=== PATIENT | female | born 1940 | race Caucasian/White ===

== ENCOUNTER → 2017-12-14 | Day surgery (SDC) | payer OTHER ==
[2017-11-16 09:11] VITALS: Ht 165.1 cm; Wt 56.8 kg
[~2017-12-14] VITALS: Ht 165.1 cm; Wt 56.8 kg
[~2017-12-14] MED LIST: 500ML BSS 0.3ML EPI 1:1000PF IRRIG ONE; ACETAMINOPHEN 325 MG TAB PO PRN; AMVISC PLUS 0.8ML SYRINGE INT OCU ONE; ATROPINE SULFATE 0.1 MG/ML 5ML SYR IV PRN; BSS FLUSH ONE; CALC500C70 PO; CHOL1000 PO; EpHEDrine SULFATE INJ 50 MG/ML AMP IV PRN; EpINEphrine INJ 1MG/ML AMP 1 MG/ML AMP ONE; FLUT1AER5 INH; LACTATED RINGER'S 1000ML 500 ML IV SCH; LIDOCAINE 3.5% OPH GEL PER APPLICATION CHARGE ONE; LIDOCAINE HCL 1% MPF 2 ML VIAL ONE; MIDAZOLAM HCL 1 MG/ML 2ML VIAL ONE; MULT-190 PO; MULT-506 PO; POVIDONE-IODINE OP SOLN 30 ML BTL ONE; PROPARACAINE 0.5% OP SOLN PER DROP CHARGE OPR SCH; TEMA30CA4 PO; TOBRAMYCIN/DEXAMETHASONE OPH OINT PER APPLN CHARGE ONE; VNTHFA/IN INH
[2017-12-14] MEDS: PHENYLEPHRINE HCL 2.5% OP SOLN PER DROP CHARGE OPR SCH ×2 (08:15→08:20)
[2017-12-14] MEDS: TROPICAMIDE 1% OP SOLN PER DROP CHARGE OPR SCH ×2 (08:16→08:21)
[2017-12-14] MEDS: CYCLOPENTOLATE HCL 1% OP SOLN PER DROP CHARGE OPR SCH ×2 (08:17→08:22)
[2017-12-14] MEDS: KETOROLAC 0.5% OP SOLN PER DROP CHARGE OPR SCH ×2 (08:18→08:25)
[2017-12-14] MEDS: GATIFLOXACIN OP SOLN PER DROP CHARGE OPR SCH ×2 (08:19→08:34)
--- NOTE | 2017-12-14 08:37 | History & Physical Bridge - [place] ---
H&P Re-Evaluation Bridge Note: I have examined the patient, reviewed the History & Physical and in the interval since the performance of the History & Physical I have noted the following changes of clinical significance: No changes noted
--- NOTE | 2017-12-14 09:08 | [facility] Operative Report ---
Operative Report Date of Service Dec 14, 2017. Operative Report 1. PREOPERATIVE DIAGNOSIS: Cataract of the right eye. 2. POSTOPERATIVE DIAGNOSIS: Same. 3. PROCEDURE: Phacoemulsification with intraocular lens implantation of the right eye. SURGEON: Dr. Adrien John. ANESTHESIA: Topical Lidocaine gel, 1% Non- Preserved intracameral Lidocaine, and monitored intravenous sedation. INDICATIONS FOR THE PROCEDURE: The patient is a 77 - year-old female with a history of cataract of the right eye causing significant visual impairment. The details of the proposed procedure were explained to the patient who asked appropriate questions and following discussion of all risks, benefits and alternatives agreed to have the procedure done. 4. OPERATION AND FINDINGS: DESCRIPTION OF PROCEDURE: After informed consent was obtained, the patient was brought to the Operating Room at the [facility]. The patient was placed in a supine position and then the right eye was prepped and draped in the usual sterile fashion for intraocular surgery. A drop of topical Lidocaine gel was placed in the operative eye. A wire lid speculum was then placed in the fornices. A corneal paracentesis was then created temporally. The Non-Preserved Lidocaine was then instilled into the anterior chamber. The anterior chamber was then pressurized with viscoelastic. A 2.0 mm clear corneal incision was then created temporally. A cystotome was inserted into the anterior chamber and used to create a tear in the anterior lens capsule. This capsular tear was then used to create a small flap and the flap was dragged in a counterclockwise direction in order to create a continuous curvilinear capsulorrhexis. Hydrodissection was accomplished with balanced salt solution. Phacoemulsification of the lens nucleus was then performed in a standard [id number] technique. The phaco time was 26 seconds with an average power of 13 %. The remaining cortical material was removed using irrigation aspiration. The capsular bag was then filled with viscoelastic. A [employer] MI60L +20.0 diopters lens was then loaded into the injector and injected into the capsular bag. The remaining viscoelastic was removed with the irrigation aspiration handpiece. The wound was hydrated and then checked and found to be watertight. The intraocular pressure was checked and found to be adequate. The wire lid speculum was removed and the patient's face was cleaned and dried. TobraDex ointment was placed in the inferior fornix. The patient was discharged to the Recovery Room having tolerated the procedure well. There were no complications. The patient will be seen tomorrow in the office for follow-up. I attest to the content of the Intraoperative Record and any orders documented therein. Any exceptions are noted below.
--- NOTE | 2017-12-14 09:10 | Discharge Instructions-SurgCtr ---
Discharge Instructions Date of Service Dec 14, 2017. Visit Reason for Visit: Cataract Right Eye Discharge Discharge Diagnosis / Problem: cataract Discharge Goals Goal(s): Improve function Activity Recommendations Activity Limitations: per Instructions/Follow-up section Anesthesia . Post Anesthesia Instructions: If you have had General Anesthesia or IV Sedation: * Do not drive today. * Resume driving when surgeon permits. * Do not make important decisions or sign legal documents today. * Call surgeon for: 1. Temperature elevations greater than 101 degrees F. 2. Uncontrollable pain. 3. Excessive bleeding. 4. Persistent nausea and vomiting. 5. Medication intolerance (nausea, vomiting or rash). * For nausea and vomiting use only clear liquids such as: tea, soda, bouillon until nausea subsides, then gradually increase diet as tolerated. * If you have any concerns or questions, call your surgeon's office. If physician is unavailable and it is an emergency, call 911 or go to the nearest emergency room. . Diet Recommendations Home Diet: resume previous diet Procedures Procedures Performed: Right Cataract Phacoemulsification With Intraocular Lens Implant Pending Studies Studies pending at discharge: no Medical Emergencies . Who to Call and When: Medical Emergencies: If at any time you feel your situation is an emergency, please call 911 immediately. . Non-Emergent Contact Non-Emergency issues call your: [facility] . . "Provider Documentation" section prepared by Adrien John. .
[2017-12-14 09:11] VITALS: TEMP 36.3
--- NOTE | 2017-12-14 09:27 | Anesthesia Progress Nt - [facility] ---
Anesthesia Post Op Note Date & Time Dec 14, 2017 at 09:27 Vital Signs Pain Intensity: 0 Vital Signs Past 12 Hours Date Time Temp Pulse Resp B/P (MAP) Pulse Ox O2 Delivery O2 Flow Rate FiO2 12/14/17 09:11 36.3 62 16 143/70 (94) 100 Room Air 12/14/17 08:04 36.9 83 20 171/91 (117) 98 Room Air Notes Mental Status: alert / awake / arousable, participated in evaluation Pt Amnestic to Procedure: Yes Nausea / Vomiting: adequately controlled Pain: adequately controlled Airway Patency, RR, SpO2: stable & adequate BP & HR: stable & adequate Hydration State: stable & adequate Anesthetic Complications: no major complications apparent
[2017-12-14 09:41] VITALS: BP 120/77; PULSE 82; O2SAT 98
== END | disposition home or self-care (01) ==
LOC: X.SURG 07:38
PROVIDERS: ATTEND Ophthalmology
DX: H26.9 Unspecified cataract (principal); J45.909 Unspecified asthma, uncomplicated; K21.9 Gastro-esophageal reflux disease without esophagitis; K40.90 Unilateral inguinal hernia, without obstruction or gangrene, not specified as recurrent; J30.9 Allergic rhinitis, unspecified; J45.30 Mild persistent asthma, uncomplicated; L57.0 Actinic keratosis; M19.90 Unspecified osteoarthritis, unspecified site; M81.0 Age-related osteoporosis without current pathological fracture

== ENCOUNTER 2019-01-19 12:33 | Inpatient (IN) ==
[2019-01-19] MEDS ORDERED: SODIUM CHLORIDE 0.9% 500 ML IV SCH (13:15)
--- NOTE | 2019-01-19 13:40 | XRay Report ---
XR chest 1V portable CLINICAL HISTORY: Dyspnea COMPARISON STUDY: No previous studies for comparison. FINDINGS: The heart is mildly enlarged. There is radiographic evidence of mild pulmonary vascular con gestion. There are small bilateral pleural effusions. There are nonspecific basilar airspace opacitie s likely atelectatic although an inflammatory process could appear similar. IMPRESSION: 1. Mild cardiomegaly and radiographic evidence of mild pulmonary vascular congestion/fluid overload w ith small bilateral pleural effusions. Basilar opacities statistically atelectatic Electronically signed by: Michael Mckeon M.D. 01/19/2019 1:39 PM
[2019-01-19 13:42] LABS: Basophils # (auto) 0.01 K/uL (0-0.2); Basophils % (auto) 0.2 %; Eosinophils # (auto) 0.07 K/uL (0-0.5); Eosinophils % (auto) 1.2 %; Hematocrit (blood only) 35.4 % (37-47); Hemoglobin 11.7 g/dL (12.0-16.0); Immature Granulocytes # (auto) 0.01 K/uL (0.00-0.02); Immature Granulocytes % (auto) 0.2 %; Lymphocytes # (auto) 1.29 K/uL (1.2-3.4); Lymphocytes % (auto) 22.7 %; Mean Corpuscular Hgb Conc 33.1 g/dL (32-36); Mean Corpuscular Volume 101.4 fL (80-100); Mean Platelet Volume 10.7 fL (7.4-10.4); Monocytes # (auto) 0.43 K/uL (0.11-0.59); Monocytes % (auto) 7.6 %; Neutrophils # (auto) 3.87 K/uL (1.4-6.5); Neutrophils % (auto) 68.1 %; Nucleated RBC # (auto) 0.03 K/uL (0-0); Nucleated RBC % (auto) 0.5 %; Platelet Count 210 K/uL (130-400); RDW Coefficient of Variation 15.2 % (11.5-14.5); RDW Standard Deviation 54.4 fL (36.4-46.3); Red Blood Count 3.49 M/uL (4.2-5.4); White Blood Count 5.68 K/uL (4.8-10.8)
[2019-01-19 13:43] LABS: Base Excess VBG -1.2 mEq/L; HCO3 VBG 24 mmol/L; Oxygen Saturation VBG < 60.0 %; PCO2 VBG 40 mmHg (38-50); PO2 VBG 30 mmHg; pH VBG 7.39 (7.36-7.41)
[2019-01-19 13:45] LABS: iSTAT Hemoglobin 11.6 g/dl (12.0-16.0); iSTAT Ionized Calcium 1.18 mmol/l (1.12-1.32); iSTAT Potassium 4.2 mEq/L (3.3-5.0)
[2019-01-19 13:53] LABS: INR 1.1 (0.9-1.1); Partial Thromboplastin Ratio 0.8; Partial Thromboplastin Time 21.8 Seconds (21.0-31.0); Prothrombin Time 11.2 Seconds (9.0-12.0)
[2019-01-19 14:04] LABS: Alanine Aminotransferase 49 U/L (12-78); Albumin Level 3.3 gm/dl (3.4-5.0); Aspartate Aminotransferase 36 U/L (15-37); BUN Creatinine Ratio 16.1 (10-20); Blood Urea Nitrogen 17 mg/dl (7-18); Calcium 8.7 mg/dl (8.5-10.1); Carbon Dioxide 24 mmol/L (21-32); Chloride 110 mmol/L (98-107); Creatinine Clr Calc Pharmacy 41.6 ml/min; Est GFR (African American) 58.8; Est GFR (Non-African American) 50.7; Glucose 99 mg/dl (70-99); Magnesium 1.8 mg/dl (1.8-2.4); Potassium 4.1 mmol/L (3.5-5.1); Sodium 140 mmol/L (136-145)
[2019-01-19 14:08] LABS: Albumin Globulin Ratio 1.1 (0.9-2); Alkaline Phosphatase 86 U/L (45-117); Bilirubin,Total 0.7 mg/dl (0.2-1); Total Protein 6.3 gm/dl (6.4-8.2); Troponin I < 0.015 ng/ml (0-0.045)
[2019-01-19] MEDS ORDERED: IOVERSOL 100ml IV PRN (14:16)
[2019-01-19 14:23] LABS: Influenza A virus by PCR Neg for Influ A (Neg); Influenza B virus by PCR Neg for Influ B (Neg)
--- NOTE | 2019-01-19 14:39 | CT Scan Report ---
CT angio chest PE protocol CLINICAL HISTORY: 78 years-old Female presenting with shortness of breath, clinical concern for pulmo nary embolus. TECHNIQUE: Multidetector CT angiography of the chest was performed after administration of intravenou s contrast. 3-D volumetric and/or maximum intensity projection (MIP) images were subsequently reconst ructed for review. IV contrast: 120 mL of Optiray 320. One or more dose lowering techniques were used consistent with the principles of ALARA (as low as reasonably achievable), including automatic expos ure control, mA or kV adjustment to individual patient size, and/or use of iterative reconstruction. COMPARISON: Chest x-ray from earlier today. CT DOSE (mGy.cm): The estimated cumulative dose is 215.55 mGycm. FINDINGS: Information Security topogram: Cardiomegaly. Pulmonary vasculature: The study is adequate for assessment of the pulmonary vascular tree. No filling defect within the pul monary arteries to suggest embolus. Main pulmonary artery enlarged measuring 3.5 cm in diameter. No f lattening of the interventricular septum. No intracardiac filling defect. No reflux of contrast into the hepatic veins. Remaining chest: Soft tissues: Normal thyroid and thoracic inlet. Multiple subcentimeter mediastinal lymph nodes, nons pecific. Atherosclerosis of the aorta. Multichamber enlargement of the heart. Coronary artery calcifi cation. Moderate bilateral pleural effusions, right greater than left. These are simple appearing. No pericardial effusion. Upper abdomen normal. Lungs and airways: No pneumothorax. Bronchial wall thickening in the lower lobes, left greater than r ight. Central airways patent. Pulmonary arteries are enlarged relative to adjacent bronchi. Interlobu lar septal thickening. Dependent opacity consistent with passive atelectasis. Bandlike opacities in t he left lower lobe. Dependent predominant groundglass opacity with added density of the lungs diffuse ly. Musculoskeletal: Vertebral body height loss of T8 consistent with a compression deformity. IMPRESSION: 1. No evidence of pulmonary embolus. 2. Cardiomegaly with volume overload and congestive changes with mild pulmonary edema. 3. Moderate bilateral pleural effusions. 4. Compression fracture of T8, age indeterminate. Correlate with point tenderness. Electronically signed by: Waqas Churchill M.D. 01/19/2019 2:38 PM
[2019-01-19] MEDS ORDERED: dilTIAZem HCl 5 MG/ML 5 ML VIAL IV STA (14:42)
[2019-01-19] MEDS ORDERED: Heparin IV Standard *NO* Bolus IV ONE ×2 (15:14→19:10)
[2019-01-19] MEDS ORDERED: dilTIAZem HCl 125 MG in DEXTROSE 5% 100 ML IV STA (15:16)
[2019-01-19] MEDS ORDERED: HEPARIN 25000 UNIT/500 ML D5W IV ONE (15:35)
[2019-01-19] MEDS: HEPARIN SODIUM/DEXTROSE 25,000 UNITS/500 ML BAG IV SCH (15:55)
[2019-01-19] MEDS ORDERED: NITROGLYCERIN 2% OINTMENT 30GM TUBE EXT SCH (16:30)
--- NOTE | 2019-01-19 17:12 | History & Physical Report ---
Date of Service January 19, 2019 Assessment & Plan (1) Atrial fibrillation: Pt with hx exertional SOB and palpitations for several months and found to have frequent PAC's. Was started on metoprolol succ 25mg daily, however pt stopped taking one month ago. Pt reports URI/bronchitis symptoms in 12/2018 and was treated with doxycycline, has been using albuterol BID. 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 Was found to be in a-fib RVR by EMS and was given cardizem 15mg IV en route. Upon ER arrival pt afebrile, P: 153, R: 23, BP: 132/112, 94% on 2L NC. Was given another dose of cardizem with P in 140's. Cardizem drip was started and Heparin IV started. Pt was also given 500ml NSS. EKG afib RVR, [id number], ST changes WBC: 5, Hgb: 11.7, Plt: 210, magnesium: 1.8, negative troponin CTA CHEST: No evidence of pulmonary embolus. Cardiomegaly with volume overload and congestive changes with mild pulmonary edema. Moderate bilateral pleural effusions. Compression fracture of T8, age indeterminate. Correlate with point tenderness. -admit tele -pending TSH -echo -cardiology consult, discussed with professional development manager. appreciate recommendations: -continue cardizem drip, plan to discontinue when rates improve -metoprolol succ 25mg po BID -nitro paste and monitor BP's (2) Fluid overload: Hx stress echo in 09/2018 with no evidence for ischemia, had frequent PACs, occasional PVCs, EF: 55-59%, normal wall motion, moderate mitral regurgitation, severe tricupsid regurgitation. CXR: Mild cardiomegaly and radiographic evidence of mild pulmonary vascular congestion/fluid overload with small bilateral pleural effusions. Basilar opacities statistically atelectatic Probable diastolic dysfunction -monitor I&O's, daily weights -lasix 40mg IV and monitor response -obtain new resting echo -monitor bmp (3) HTN (hypertension): BP's elevated 132/112, 145/109 -currently on cardizem drip -metoprolol succ 25mg po BID -nitropaste -monitor BP's (4) Leg edema: Noted increased leg edema past couple of days -pending venous doppler BLE to r/o DVT as LLE slightly larger than right. Pt already on Heparin IV -pt has noted skin erythema to bilateral toes secondary to sun exposure while on doxycycline last month, otherwise no signs of cellulitis (5) Asthma: Reported URI/bronchitis symptoms in 12/2018 and was treated with doxycycline. No current wheezing on exam. negative influenza. Afebrile. -hold albuterol -xopenex prn -continue flovent DVT Prophylaxis -On Heparin IV DNR as per discussion with pt Follows with Dr Barth for routine care Pt was seen with Dr Yung. See addendum History of Present Illness Chief Complaint: Tachycardia Primary Care Provider: Christiane Barth Pt is 78 y/o F with PMH asthma, allergic rhinitis, GERD, h/o frequent PACs presented to ER from sales review clerk's office for tachycardia reported P 170. Pt with hx SOB with exertion for several months and had followed with cardiology. She had stress echo in 09/2018 with no evidence for ischemia, had frequent PACs, occasional PVCs, EF: 55-59%, normal wall motion, moderate mitral regurgitation, severe tricupsid regurgitation. Pt was started on metoprolol succ 25mg daily. She had Holter monitor ordered also. Pt states has had increased SOB over the past couple of weeks. She states has intermittent palpitations over the past couple of months, doesn't think they are worse recently or currently. Denies CP or dizziness. Reports has noticed increased edema to legs past couple of days, left ankle more swollen than right. Pt states was in [place] in 12/2018 and while there developed congestion, cough and reports was seen at urgent care center and prescribed doxycycline. Pt states was wearing sandals and was in the sun and developed sunburn to toes and part of foot while on doxycycline. Pt reports that she stopped taking metoprolol in 12/2018 when she was sick because she felt "edgy" and faint and thought it was secondary to metoprolol. She states was taking an OTC decongestant in 12/2018 which she thinks was Mucinex, hasn't taken that for past month. Has been using albuterol inhaler twice a day. Feels cough has improved. Denies fever/chills, diaphoresis, N/V/D/C, JASON, syncope, vision changes, neck pain, orthopnea, hematemesis, sore throat, choking, otalgia, rhinorrhea, abdominal pain, paresthesias, other rashes, urinary symptoms. Reported that pt was given cardizem 15mg IV en route by EMS. Upon ER arrival pt afebrile, P: 153, R: 23, BP: 132/112, 94% on 2L NC. Was given another dose of cardizem with P in 140's. Cardizem drip was started and Heparin IV started. Pt was also given 500ml NSS. Allergies Allergy/AdvReac Type Severity Reaction Status Date / Time No Known Allergies Allergy Unverified 01/19/19 13:15 Home Medications Home Medications Medication Instructions Recorded Confirmed Type albuterol sulfate [Ventolin HFA] 2 puff INHALATION Q6H PRN 01/19/19 01/19/19 History azelastine 2 spray INTRANASAL BID 01/19/19 01/19/19 History calcium carbonate [Calcium 600] 600 mg PO DAILY 01/19/19 01/19/19 History cholecalciferol (vitamin D3) 400 unit PO DAILY 01/19/19 01/19/19 History fluticasone [Flovent HFA] 2 puff INHALATION BID 01/19/19 01/19/19 History metoprolol succinate 25 mg PO DAILY 01/19/19 01/19/19 History mometasone [Nasonex] 2 spray INTRANASAL BID 01/19/19 01/19/19 History temazepam 15 mg PO HS PRN 01/19/19 01/19/19 History Past Med/Surg History Medical History PAC (premature atrial contraction) (Chronic) GERD (gastroesophageal reflux disease) (Chronic) Allergic rhinitis (Chronic) Asthma (Chronic) Asthma (Chronic) Allergic rhinitis GERD (gastroesophageal reflux disease) PAC (premature atrial contraction) Surgical History History of cataract surgery (Chronic) Social History Preferred Language: [place] Communication Ability: Effective Hospice Clinical Supervisor Required: No Beliefs That Will Affect Care: None Current Living Situation: Alone Other Information That Helps Us Care for You: No Feels Safe at Home: Yes Safety Concerns: Feels Safe At This Time Smoking Status: Never smoker Hx Alcohol Use: Yes Hx Substance Use: No Review of Systems All systems reviewed & are unremarkable except as noted in HPI & below Physical Exam Vital Signs (Past 24 Hours): Last Vital Signs Temp 37.1 C 01/19/19 12:36 Pulse 133 H 01/19/19 16:30 Resp 12 01/19/19 16:30 BP 158/132 H 01/19/19 16:30 Pulse Ox 92 01/19/19 16:30 Physical Exam: General: mild distress, WDWN Head: normocephalic, atraumatic Eyes: PERRL, EOM's intact, conjunctiva non-injected, anicteric ENT: normal inspection external ears, nose, mucous membranes moist Neck: supple, trachea midline Lungs: +tachypnea, RR: 24, 95% on 2L NC, diminished, faint rales bases CV: irregularly irregular, rate 140, 1+ pretibial edema Abd: normal BS, soft, non-tender Back: no spinous process tenderness to palpation Ext: no cyanosis, no calf tenderness, left ankle slightly larger than right. bilateral toes with erythema, non-tender Neuro: A&O x 3, no focal deficits noted, normal affect Skin: warm, dry Results & Data Laboratory Results Short CBC 01/19/19 Range/Units 13:28 WBC 5.68 (4.8-10.8) K/uL Hgb 11.7 L (12.0-16.0) g/dL Hct 35.4 L (37-47) % Plt Count 210 (130-400) K/uL BMP 01/19/19 13:28 Sodium 140 Potassium 4.1 Chloride 110 H Carbon Dioxide 24 BUN 17 Creatinine 1.04 Glucose 99 Calcium 8.7 Cardiac Enzymes 01/19/19 Range/Units 13:28 Troponin I < 0.015 (0-0.045) ng/ml Liver Function 01/19/19 Range/Units 13:28 Total Bilirubin 0.7 (0.2-1) mg/dl AST 36 (15-37) U/L ALT 49 (12-78) U/L Alkaline Phosphatase 86 (45-117) U/L Albumin 3.3 L (3.4-5.0) gm/dl Diagnostic Findings CXR: IMPRESSION: 1. Mild cardiomegaly and radiographic evidence of mild pulmonary vascular congestion/fluid overload with small bilateral pleural effusions. Basilar opacities statistically atelectatic CTA CHEST: IMPRESSION: 1. No evidence of pulmonary embolus. 2. Cardiomegaly with volume overload and congestive changes with mild pulmonary edema. 3. Moderate bilateral pleural effusions. 4. Compression fracture of T8, age indeterminate. Correlate with point tenderness. Supervising Physician Co-Signing Physician Notes Care coordinated with Lissette HUNTER. Agree with above note. Patient seen and examined. Please refer to her notes for full details. Vital signs reviewed. Physical exam: General exam: Alert and oriented. Not in acute distress. CVS: S1 and S2 heard, regular rate and rhythm, no murmurs. RS: Clear to auscultation, no wheezing or crackles. ABD: Soft, bowel sounds present, nontender, no distention. PARTY HOST: Nonfocal. EXT: No edema, no erythema. Labs: Reviewed. Assessment and plan:78F presents with sob and palpitations and found to have rapid a fib and chf. rapid afib started o cardizem drip iv heparin follow echo also added toprol xl cardiology consulted close monitor on tele CHF Normal ef on stress echo on 09/2018 tachycardia induced cardiomyopathy? valvular heart disease follow echo received iv lasix monitor i/o and daily weights added nitro paste and toprol xl close monitor Other diagnosis and plan of care as per []. Emil stone MD. (1) Atrial fibrillation Atrial fibrillation type: paroxysmal Qualified Code(s): I48.0 - Paroxysmal atrial fibrillation
--- NOTE | 2019-01-19 18:05 | Emergency Department Note ---
Entered by Jose Armando Tucker acting as a scribe for Goran Brady MD History of Present Illness General Chief complaint: Cardiac Assessment Time Seen by Provider: 01/19/19 12:47 Source: patient Mode of arrival: ambulatory History of Present Illness Provider complaint: Cardiac Assessment Onset (ago): day(s) 2 Location: chest Pain Consistency: + intermittent Exacerbated By: + none Associated symptoms: no cough and no headaches The patient is an 78 year white female with past medical history PAC, GERD, allergic rhinitis and asthma who presents to the ED with chief complains of fast heart rate beginning last couple days. The patient states she is noticing faster heart rate than usual intermittently but today it was enough to bother her bringing her to the ER. She notes nothing in particular exacerbates the pain. She states she had an upper respiratory infection which started early October then came back early December. She states she sees Dr. Richardson for her slightly irregular rhythm.She denies coughs and headaches. Home Medications Home Medications Medication Instructions Recorded Confirmed Type albuterol sulfate [Ventolin HFA] 2 puff INHALATION Q6H PRN 01/19/19 01/19/19 History azelastine 2 spray INTRANASAL BID 01/19/19 01/19/19 History calcium carbonate [Calcium 600] 600 mg PO DAILY 01/19/19 01/19/19 History cholecalciferol (vitamin D3) 400 unit PO DAILY 01/19/19 01/19/19 History fluticasone [Flovent HFA] 2 puff INHALATION BID 01/19/19 01/19/19 History metoprolol succinate 25 mg PO DAILY 01/19/19 01/19/19 History mometasone [Nasonex] 2 spray INTRANASAL BID 01/19/19 01/19/19 History temazepam 15 mg PO HS PRN 01/19/19 01/19/19 History Allergies Allergy/AdvReac Type Severity Reaction Status Date / Time No Known Allergies Allergy Unverified 01/19/19 13:15 Past Med/Surg History Medical History Asthma (Chronic) Allergic rhinitis GERD (gastroesophageal reflux disease) PAC (premature atrial contraction) Social History Feels Safe at Home: Yes Smoking Status: Former smoker Review of Systems See HPI for pertinent positives & negatives. and A total of 10 systems reviewed and were otherwise negative Physical Exam Vital Signs Vital Signs - 24 hr 01/19/19 12:36 01/19/19 14:07 01/19/19 14:39 Temperature 37.1 C Temperature Source Oral Sepsis Recent Fever Within 48 Hours No Sepsis New/Unexplained Change in Mental Status No Sepsis Action Taken by Nursing No Action Required Pulse Rate 153 H Pulse Rate [Apical] 147 H 147 H Pulse Rate from SpO2 Sensor Pulse Rhythm Irregular Pulse Strength Normal Respiratory Rate 23 16 16 Respiratory Effort / Characteristics Non-Labored Respiratory Depth Normal Respiratory Pattern Regular Blood Pressure 132/112 H Blood Pressure [Right Arm] 132/106 H 151/129 H Blood Pressure Mean 118 Blood Pressure Mean [Right Arm] 114 136 Pulse Oximetry 94 92 92 Oxygen Delivery Method Nasal Cannula Room Air Oxygen Flow Rate 2 2 01/19/19 15:05 01/19/19 15:30 01/19/19 16:00 Temperature Temperature Source Sepsis Recent Fever Within 48 Hours Sepsis New/Unexplained Change in Mental Status Sepsis Action Taken by Nursing Pulse Rate 145 H 152 H Pulse Rate [Apical] 131 H Pulse Rate from SpO2 Sensor 148 H 160 H Pulse Rhythm Pulse Strength Respiratory Rate 18 18 18 Respiratory Effort / Characteristics Respiratory Depth Respiratory Pattern Blood Pressure 166/142 H 173/142 H Blood Pressure [Right Arm] 145/109 H Blood Pressure Mean 150 152 Blood Pressure Mean [Right Arm] 121 Pulse Oximetry 91 95 96 Oxygen Delivery Method Nasal Cannula Nasal Cannula Nasal Cannula Oxygen Flow Rate 2 2 2 01/19/19 16:30 Temperature Temperature Source Sepsis Recent Fever Within 48 Hours Sepsis New/Unexplained Change in Mental Status Sepsis Action Taken by Nursing Pulse Rate 133 H Pulse Rate [Apical] Pulse Rate from SpO2 Sensor 142 H Pulse Rhythm Pulse Strength Respiratory Rate 12 Respiratory Effort / Characteristics Respiratory Depth Respiratory Pattern Blood Pressure 158/132 H Blood Pressure [Right Arm] Blood Pressure Mean 140 Blood Pressure Mean [Right Arm] Pulse Oximetry 92 Oxygen Delivery Method Nasal Cannula Oxygen Flow Rate 2 GENERAL: Well appearing, well nourished, NAD, non-toxic. EYE EXAM: Normal conjunctiva. PERRL, no anisocoria and EOM's grossly intact w/o pain. OROPHARYNX: Moist MM. NECK: Supple, no nuchal rigidity, no adenopathy, non-tender. No signs of meningismus. LUNGS: Clear to auscultation. Normal chest wall mechanics. HEART: Tachycardia and irregular rate and rhythm repsecitively, no MRG. ABDOMEN: Abdomen soft, non-tender, normo-active bowel sounds, no masses, no rebound or guarding. BACK: No CVA TTP. SKIN: No rashes and no bruising. UPPER EXTREMITIES: Upper extremities are grossly normal. LOWER EXTREMITIES: Left lower extremity swelling compared to right. Negative Homans sign. NEURO EXAM: A and O x3. GCS 15. Moves all 4 extremities on command w/o issue. Course 1256: Past medical records reviewed. The patient was evaluated in room A2, and a complete history and physical examination were performed. 1542: I spoke to Lissette Gonzalez PA-C regarding the patient's case and she has state to admit the patient to Dr. Dilshad ALLRED, [facility] for further care. The patient has verbalized agreement to the treatment plan. Consultations Consultation #1: Lissette Gonzalez PA-C Time: 15:41 Administered Medications Diltiazem HCl 125 mg/ Dextrose 125 mls @ 10 mls/hr IV .[id number] STA; Protocol Stop: 01/20/19 03:45 Last Titration: 01/19/19 17:22 Dose: 10 mg/hr, 10 mls/hr Documented by: [id number] Admin: 01/19/19 15:56 Dose: 5 mg/hr, 5 mls/hr Documented by: [id number] Cosigned by: [id number] Heparin Sodium/Dextrose (Heparin Sodium/Dextrose) 25,000 units in 500 mls @ 22 mls/hr IV .[id number] EMILY; Protocol Stop: 02/18/19 15:44 Last Admin: 01/19/19 15:55 Dose: 22 mls/hr Documented by: [id number] Cosigned by: [id number] Ioversol (Optiray 320 100ml) 120 ml IV ONCE PRN PRN Reason: Interaction Checking Stop: 01/23/19 14:15 Last Admin: 01/19/19 14:17 Dose: 120 ml Documented by: [id number] Nitroglycerin (Nitro-Bid 2%) 0.5 inch EXT Q6 EMILY Stop: 02/18/19 16:29 Last Admin: 01/19/19 16:38 Dose: 0.5 inch Documented by: [id number] Discontinued Medications Diltiazem HCl (Cardizem) 20 mg IV NOW STA Stop: 01/19/19 14:43 Last Admin: 01/19/19 14:51 Dose: 20 mg Documented by: [id number] Cosigned by: [id number] Heparin Sodium/Dextrose () 1 ea IV ONE ONE; Protocol Stop: 01/19/19 15:15 Last Admin: 01/19/19 15:47 Dose: Not Given Documented by: [id number] Heparin Sodium/Dextrose (Heparin Sodium/Dextrose) Confirm Administered Dose 25,000 units IV .STK-MED ONE Stop: 01/19/19 15:36 Last Admin: 01/19/19 15:47 Dose: Not Given Documented by: [id number] Sodium Chloride (Nss) 500 mls @ 999 mls/hr IV .Q31M EMILY Stop: 01/19/19 13:45 Last Infusion: 01/19/19 14:39 Dose: 0 mls/hr Documented by: [id number] Admin: 01/19/19 14:05 Dose: 999 mls/hr Documented by: [id number] Medical Decision Making Medical Records Attestation: I reviewed the patient's medical records. Home Medications Current Medication List: was personally reviewed by me Laboratory Data Attestation: I reviewed the patient's lab results. Result diagrams: 01/19/19 13:28 01/19/19 13:28 Lab Results 01/19/19 01/19/19 01/19/19 Range/Units 13:25 13:28 13:28 WBC 5.68 (4.8-10.8) K/uL RBC 3.49 L (4.2-5.4) M/uL Hgb 11.7 L (12.0-16.0) g/dL POC Hgb (12.0-16.0) g/dl Hct 35.4 L (37-47) % POC Hct (37-47) % MCV 101.4 H (80-100) fL MCH 33.5 (25-34) pg MCHC 33.1 (32-36) g/dL RDW Std Deviation 54.4 H (36.4-46.3) fL RDW Coeff of Melissa 15.2 H (11.5-14.5) % Plt Count 210 (130-400) K/uL MPV 10.7 H (7.4-10.4) fL Immature Gran % (Auto) 0.2 % Neut % (Auto) 68.1 % Lymph % (Auto) 22.7 % Rich % (Auto) 7.6 % Eos % (Auto) 1.2 % Baso % (Auto) 0.2 % Immature Gran # (Auto) 0.01 (0.00-0.02) K/uL Neut # (Auto) 3.87 (1.4-6.5) K/uL Lymph # (Auto) 1.29 (1.2-3.4) K/uL Rich # (Auto) 0.43 (0.11-0.59) K/uL Eos # (Auto) 0.07 (0-0.5) K/uL Baso # (Auto) 0.01 (0-0.2) K/uL Absolute Nucleated RBC 0.03 H (0-0) K/uL Nucleated RBC % (auto) 0.5 % PT 11.2 (9.0-12.0) Seconds INR 1.1 (0.9-1.1) APTT 21.8 (21.0-31.0) Seconds PTT Ratio 0.8 VBG pH (7.36-7.41) VBG pCO2 (38-50) mmHg VBG pO2 mmHg VBG HCO3 mmol/L VBG O2 Saturation % VBG Base Excess mEq/L Barometric Pressure mm/Hg POC Sodium (135-144) mEq/L Sodium (136-145) mmol/L POC Potassium (3.3-5.0) mEq/L Potassium (3.5-5.1) mmol/L POC Chloride (101-112) mEq/L Chloride (98-107) mmol/L Carbon Dioxide (21-32) mmol/L POC Total CO2 (24-31) mEq/l Anion Gap (3-11) POC Anion Gap (16-25) mmol/L POC BUN (7-18) mg/dl BUN (7-18) mg/dl Creatinine (0.6-1.2) mg/dl POC Creatinine (0.6-1.3) mg/dl Est Cr Clr Drug Dosing ml/min Est GFR ( Amer) Est GFR (Non-Af Amer) BUN/Creatinine Ratio (10-20) Glucose (70-99) mg/dl POC Glucose (other) (70-99) mg/dl Calcium (8.5-10.1) mg/dl POC Ioniz Calcium Kristian (1.12-1.32) mmol/l Magnesium (1.8-2.4) mg/dl Total Bilirubin (0.2-1) mg/dl AST (15-37) U/L ALT (12-78) U/L Alkaline Phosphatase (45-117) U/L Troponin I (0-0.045) ng/ml Total Protein (6.4-8.2) gm/dl Albumin (3.4-5.0) gm/dl Globulin (2.5-4.0) gm/dl Albumin/Globulin Ratio (0.9-2) Specimen Hemolysis Influenza Type A (PCR) Neg for Influ A (Neg) Influenza Type B (PCR) Neg for Influ B (Neg) 01/19/19 01/19/19 01/19/19 Range/Units 13:28 13:28 13:32 WBC (4.8-10.8) K/uL RBC (4.2-5.4) M/uL Hgb (12.0-16.0) g/dL POC Hgb 11.6 L (12.0-16.0) g/dl Hct (37-47) % POC Hct 34 L (37-47) % MCV (80-100) fL MCH (25-34) pg MCHC (32-36) g/dL RDW Std Deviation (36.4-46.3) fL RDW Coeff of Melissa (11.5-14.5) % Plt Count (130-400) K/uL MPV (7.4-10.4) fL Immature Gran % (Auto) % Neut % (Auto) % Lymph % (Auto) % Rich % (Auto) % Eos % (Auto) % Baso % (Auto) % Immature Gran # (Auto) (0.00-0.02) K/uL Neut # (Auto) (1.4-6.5) K/uL Lymph # (Auto) (1.2-3.4) K/uL Rich # (Auto) (0.11-0.59) K/uL Eos # (Auto) (0-0.5) K/uL Baso # (Auto) (0-0.2) K/uL Absolute Nucleated RBC (0-0) K/uL Nucleated RBC % (auto) % PT (9.0-12.0) Seconds INR (0.9-1.1) APTT (21.0-31.0) Seconds PTT Ratio VBG pH 7.39 (7.36-7.41) VBG pCO2 40 (38-50) mmHg VBG pO2 30 mmHg VBG HCO3 24 mmol/L VBG O2 Saturation < 60.0 % VBG Base Excess -1.2 mEq/L Barometric Pressure 732.0 mm/Hg POC Sodium 141 (135-144) mEq/L Sodium 140 (136-145) mmol/L POC Potassium 4.2 (3.3-5.0) mEq/L Potassium 4.1 (3.5-5.1) mmol/L POC Chloride 106 (101-112) mEq/L Chloride 110 H (98-107) mmol/L Carbon Dioxide 24 (21-32) mmol/L POC Total CO2 23 L (24-31) mEq/l Anion Gap 6.0 (3-11) POC Anion Gap 17.0 (16-25) mmol/L POC BUN 18 (7-18) mg/dl BUN 17 (7-18) mg/dl Creatinine 1.04 (0.6-1.2) mg/dl POC Creatinine 1.0 (0.6-1.3) mg/dl Est Cr Clr Drug Dosing 41.6 ml/min Est GFR ( Amer) 58.8 Est GFR (Non-Af Amer) 50.7 BUN/Creatinine Ratio 16.1 (10-20) Glucose 99 (70-99) mg/dl POC Glucose (other) 102 H (70-99) mg/dl Calcium 8.7 (8.5-10.1) mg/dl POC Ioniz Calcium Kristian 1.18 (1.12-1.32) mmol/l Magnesium 1.8 (1.8-2.4) mg/dl Total Bilirubin 0.7 (0.2-1) mg/dl AST 36 (15-37) U/L ALT 49 (12-78) U/L Alkaline Phosphatase 86 (45-117) U/L Troponin I < 0.015 (0-0.045) ng/ml Total Protein 6.3 L (6.4-8.2) gm/dl Albumin 3.3 L (3.4-5.0) gm/dl Globulin 3.0 (2.5-4.0) gm/dl Albumin/Globulin Ratio 1.1 (0.9-2) Specimen Hemolysis Influenza Type A (PCR) (Neg) Influenza Type B (PCR) (Neg) Imaging Data Attestation: I personally reviewed and interpreted this imaging study as follows: Radiologist's Impression: Radiology results as stated below per my review and the radiologist's interpretation: XR chest 1V portable CLINICAL HISTORY: Dyspnea COMPARISON STUDY: No previous studies for comparison. FINDINGS: The heart is mildly enlarged. There is radiographic evidence of mild pulmonary vascular congestion. There are small bilateral pleural effusions. There are nonspecific basilar airspace opacities likely atelectatic although an inflammatory process could appear similar. IMPRESSION: 1. Mild cardiomegaly and radiographic evidence of mild pulmonary vascular congestion/fluid overload with small bilateral pleural effusions. Basilar opacities statistically atelectatic Electronically signed by: Michael Mckeon M.D. 01/19/2019 1:[address] angio chest PE protocol CLINICAL HISTORY: 78 years-old Female presenting with shortness of breath, clinical concern for pulmonary embolus. TECHNIQUE: Multidetector CT angiography of the chest was performed after administration of intravenous contrast. 3-D volumetric and/or maximum intensity projection (MIP) images were subsequently reconstructed for review. IV contrast: 120 mL of Optiray 320. One or more dose lowering techniques were used consistent with the principles of ALARA (as low as reasonably achievable), including automatic exposure control, mA or kV adjustment to individual patient size, and/or use of iterative reconstruction. COMPARISON: Chest x-ray from earlier today. CT DOSE (mGy.cm): The estimated cumulative dose is 215.55 mGycm. FINDINGS: Full Time topogram: Cardiomegaly. Pulmonary vasculature: The study is adequate for assessment of the pulmonary vascular tree. No filling defect within the pulmonary arteries to suggest embolus. Main pulmonary artery enlarged measuring 3.5 cm in diameter. No flattening of the interventricular septum. No intracardiac filling defect. No reflux of contrast into the hepatic veins. Remaining chest: Soft tissues: Normal thyroid and thoracic inlet. Multiple subcentimeter mediastinal lymph nodes, nonspecific. Atherosclerosis of the aorta. Multichamber enlargement of the heart. Coronary artery calcification. Moderate bilateral pleural effusions, right greater than left. These are simple appearing. No pericardial effusion. Upper abdomen normal. Lungs and airways: No pneumothorax. Bronchial wall thickening in the lower lobes, left greater than right. Central airways patent. Pulmonary arteries are enlarged relative to adjacent bronchi. Interlobular septal thickening. Dependent opacity consistent with passive atelectasis. Bandlike opacities in the left lower lobe. Dependent predominant groundglass opacity with added density of the lungs diffusely. Musculoskeletal: Vertebral body height loss of T8 consistent with a compression deformity. IMPRESSION: 1. No evidence of pulmonary embolus. 2. Cardiomegaly with volume overload and congestive changes with mild pulmonary edema. 3. Moderate bilateral pleural effusions. 4. Compression fracture of T8, age indeterminate. Correlate with point tenderness. Electronically signed by: Waqas Churchill M.D. 01/19/2019 2:38 PM ECG Data Attestation: I personally reviewed and interpreted this ECG as follows: Indication: chest pain Rate (beats per minute): 152 Rhythm: atrial fibrillation (Afrib RVR ) Findings: + other (Normal qrs duration and axis No acute ischemic change. ) Blood Pressure Blood Pressure Findings: Elevated blood pressure Blood Pressure Disposition: Referred to patients primary care provider MDM Narrative The patient is an 78 year white female with past medical history PAC, GERD, allergic rhinitis and asthma who presents to the ED with chief complains of fast heart rate beginning last couple days Prior records/ancillary studies reviewed. Triage nursing notes reviewed. History obtained from the family. Differential diagnosis: Etiologies such as infections, reactive airway disease, COPD, pneumonia, pleural effusion, pulmonary edema, ARDS, pneumothorax, CHF, cardiac ischemia, cardiac tamponade, dysrhythmia, anemia, pulmonary embolism, musculoskeletal, gastrointestinal process, as well as others were entertained Patient was seen and evaluated the bedside. I did receive a medical command call about the patient as there is concern for dyspnea and the patient was in A. fib with RVR with an elevated heart rate. The patient had been given Cardizem in route. Upon presentation patient was requiring 2 L supplemental oxygen. The patient did relate that she was having some left lower extremity swelling and recently completed some prolonged car travel. Given this I was concerned about the possibility of a PE so only a small amount of fluid was given an additional rate control medication was held until further evaluation for possible blood clot. The patient had fairly normal blood work. Troponin was not elevated. EKG does show A. fib with RVR. Also of note the patient stopped taking her meto prolol she stated that she was feeling lightheaded and is not been on this medication for approximately 1 month. The patient does see Dr. Richardson as an outpatient for which she self describes as skipped beats. The patient CT angios showed no evidence of any PE. I did perform a bedside ultrasound which showed no pericardial effusion fairly good squeeze but a plethoric IVC consistent with diastolic dysfunction secondary to her increased heart rate. The patient was given additional Cardizem which did slow her rate from the 150s-120s 130s. The patient was started on heparin drip and started on a Cardizem drip. I did speak the on-call hospitalist who agreed to further evaluate treat the patient. Patient was admitted to the medicine service. Impression & Plan Atrial fibrillation, Breath shortness, Diastolic dysfunction Critical Care Time I have personally spent greater than 90 minutes of critical care time in direct management of this patient. This includes bedside care, interpretation of diagnostic studies, and testing, discussion with consultants, patient, and family members, and other require inpatient management activities. This 90 minutes is in excess of all separately billable procedures. Critical Care Time: Yes Total Critical Care Time: 90 Discharge Plan Visit Data Chief Complaint: Cardiac Assessment ED Provider: Goran Brady Discharge Problem: Atrial fibrillation, Breath shortness, Diastolic dysfunction Patient Disposition: Being Evaluated by Hospitalist Forms Stand Alone Forms: My [facility] Prescriptions Prescriptions: No Action albuterol sulfate [Ventolin HFA] 90 mcg/actuation Hfa Aerosol Inhaler 2 puff INHALATION Q6H PRN (Reason: Shortness Of Breath) RF: 0 calcium carbonate [Calcium 600] 600 mg calcium (1,500 mg) Tablet 600 mg PO DAILY RF: 0 temazepam 30 mg Capsule 15 mg PO HS PRN (Reason: Insomnia) RF: 0 mometasone [Nasonex] 50 mcg/actuation [place],Non-Aerosol 2 spray INTRANASAL BID RF: 0 metoprolol succinate 25 mg Tablet Extended Release 24 Hr 25 mg PO DAILY RF: 0 cholecalciferol (vitamin D3) 400 unit Tablet 400 unit PO DAILY RF: 0 Flovent HFA 110 mcg/actuation Hfa Aerosol Inhaler 2 puff INHALATION BID RF: 0 azelastine 0.15 % (205.5 mcg) [place],Non-Aerosol 2 spray INTRANASAL BID RF: 0 Referrals Referrals: Christiane Barth [Primary Care Provider] - Discharge Problem: Atrial fibrillation Qualifiers: Atrial fibrillation type: paroxysmal Qualified Code(s): I48.0 - Paroxysmal atrial fibrillation The scribe's documentation has been prepared under my direction and personally reviewed by me in its entirety. I confirm that the note above accurately reflects all work, treatment, procedures, and medical decision making performed by me.
[2019-01-19] MEDS ORDERED: METOPROLOL SUCC 25MG EXT REL TAB PO STA (18:59)
[2019-01-19] MEDS ORDERED: ACETAMINOPHEN 325 MG TAB PO PRN (19:10)
[2019-01-19] MEDS ORDERED: FUROSEMIDE 40 MG in SYRINGE 0 ML IV ONE (19:45)
[2019-01-19] MEDS: dilTIAZem HCl 125 MG in DEXTROSE 5% 100 ML IV SCH (19:45)
[2019-01-19] MEDS: FLUTICASONE HFA 110MCG INHALER INH SCH (20:12)
[2019-01-19 20:31] LABS: Troponin I 0.015 ng/ml (0-0.045)
--- NOTE | 2019-01-19 22:17 | Ultrasound Report ---
ULTRASOUND BILATERAL LOWER EXTREMITY VENOUS CLINICAL HISTORY: Dyspnea. Tachycardia. Clinical concern for deep venous thrombosis. COMPARISON STUDY: Right lower extremity venous ultrasound dated 12/19/2012. TECHNIQUE: Real-time, grayscale, and color Doppler sonography of the deep veins of the right and left lower extremity was performed from the inguinal crease to the calf. Compression and augmentation wer e utilized. FINDINGS: There is no sonographic evidence of deep venous thrombosis identified in the right or left lower extremity. The common femoral, superficial femoral, and popliteal veins are patent and normally compressible bilaterally. The greater saphenous vein and the profunda femoris vein at the junction w ith the common femoral vein are clear in both legs. The visualized calf veins are patent bilaterally. IMPRESSION: There is no sonographic evidence of deep venous thrombosis identified in the right or lef t lower extremity. Electronically signed by: Elias Martinez M.D. 01/19/2019 10:16 PM
[2019-01-19] MEDS ORDERED: METOPROLOL TARTRATE 1 MG/ML VIAL IV STA (22:20)
[2019-01-19] MEDS ORDERED: POTASSIUM CHLORIDE 20 MEQ TABCR PO STA (22:22)
[2019-01-19] MEDS ORDERED: MAGNESIUM SULFATE / D5W 1 GM/100 ML BAG IV ONE (22:30)
[2019-01-19] MEDS: AZELASTINE: ORDER AWAITING ACTION SCH (23:10)
[2019-01-19 23:33] LABS: Partial Thromboplastin Ratio 2.3
[2019-01-19 23:39] LABS: Partial Thromboplastin Time 63.2 Seconds (21.0-31.0)
[2019-01-20] MEDS: dilTIAZem HCl 125 MG in DEXTROSE 5% 100 ML IV SCH ×2 (00:35→12:00)
--- NOTE | 2019-01-20 04:17 | Consultation Report ---
DATE OF CONSULTATION: 01/19/2019 PRIMARY CARE PHYSICIAN: Dr. Barth. REFERRING: Lissette Gonzalez PA-C INDICATIONS: Atrial fibrillation with rapid ventricular response. HISTORY OF PRESENT ILLNESS: The patient is an 78-year-old female whose underlying history is notable for asthmatic lung disease, mild myelodysplastic syndrome, gastroesophageal reflux, who has previously been evaluated for palpitations and exertional dyspnea in September 2018. Symptoms were associated with exertional dyspnea and the patient was referred and underwent stress echocardiography at that time. Study demonstrated no stress-induced ischemia and preserved LV function, moderate mitral and moderate to severe tricuspid insufficiency. Holter and EKGs demonstrated frequent atrial and ventricular ectopy. She was begun on metoprolol succinate, though discontinued the medication in the last 1-2 months. The patient notes while traveling in [place] in November and December, she had worsening symptoms of cough, wheezing and shortness of breath. She was treated with antibiotics and prednisone on 2 separate courses, has been aware of increasing lower extremity edema. She presented to an outpatient setting today through [employer] and was found to be tachycardic, heart rate is 150 and referred to the ER with ER evaluation demonstrating atrial fibrillation with rapid ventricular response. Exam suggested moderate volume overload by physical examination as well by chest x-ray and CAT scan with left pleural effusion observed. She denied any recent chest pains. Has had cough and fevers and chills during 2 episodes while traveling in [place]. Notes no headache or visual changes. Notes no TIA or stroke. Notes no bleeding difficulties. Notes no melena or hematochezia, dysuria or hematuria. Leg edema has been more prominent. Weight is up a few pounds. Appetite has been good. Since ER presentation, she was given IV diltiazem and on 2 separate doses with little change in heart rate. She has a loose rhonchorous cough when discussing and talking with the patient, does note some mild orthopnea in addition to above symptoms. REVIEW OF SYSTEMS: Otherwise negative. ALLERGIES: None. MEDICATIONS: Prior to hospitalization were Ventolin inhaler 2 puffs q. 6 hours p.r.n., azelastine 2 sprays intranasal b.i.d., calcium carbonate 600 mg p.o. q. day, vitamin D3 400 mg p.o. q. day, Flovent inhaler, temazepam and Nasonex. The patient had been previously prescribed metoprolol succinate, but discontinued a month ago. PAST SURGICAL HISTORY: Notable only for cataract surgeries. SOCIAL HISTORY: The patient is a prior smoker, uses occasional alcoholic beverages, none to excess. PHYSICAL EXAMINATION: GENERAL: The patient is somewhat breathless appearing female. VITAL SIGNS: Heart rate 140. Denies current chest pain or discomfort. Blood pressure is 136/100. HEENT: Normocephalic, atraumatic. Nares without discharge. Throat was clear. NECK: Supple without thyromegaly or lymphadenopathy. There are no carotid bruits audible. LUNGS: Reveal crackles and coarse rhonchi throughout the lung cummings with forced cough. CARDIOVASCULAR: Irregular, irregular and tachycardic. There is no audible murmur due to rate. There is no S3 gallop. PMI is nondisplaced. ABDOMEN: Soft with mild distention. There are no palpable hepatosplenomegaly. EXTREMITIES: Without cyanosis or clubbing. There is 1-2+ lower extremity edema. NEUROLOGICAL: The patient is grossly intact. DATA: EKG reveals atrial fibrillation with rapid ventricular response, rate [address] segment changes. LABORATORY STUDIES: White cell count is 5.6, hemoglobin is 11.7, MCV is 101, platelet count is 210. PT and PTT are normal. Sodium is 141, potassium is 4.2, chloride is 106, bicarbonate is 23, BUN 17, creatinine is 1.04, glucose is 102. Albumin is 3.3. Chest x-ray reveals left pleural effusion and increased interstitial markings throughout. CT of the chest revealed no evidence of pulmonary embolus. Cardiomegaly was noted with volume and congestive changes of the chest, bilateral pleural effusions. IMPRESSION: An 78-year-old female with atrial fibrillation with rapid ventricular response, slow to respond to IV diltiazem, underlying history is notable for asthmatic lung disease with recent exacerbations with patient and myself suspecting subacute onset of atrial fibrillation of several days, perhaps weeks. The patient begun on IV heparin appropriately. We will attempt to slow rate further with IV diltiazem. We will restart beta steven. Exam and x-rays reflect volume overload, dose of furosemide has been ordered, but not received, we will ask the nurse to provide. Topical nitrates have been placed to aid in blood pressure management. Dose of metoprolol will be given this evening. In addition to diltiazem, if heart rate slows, diltiazem may be tapered. Echocardiogram has been ordered for a.m. Studies and recommendations were reviewed with the patient. Current enzymes do not reflect acute coronary syndrome.
[2019-01-20 07:16] LABS: Hematocrit (blood only) 32.1 % (37-47); Hemoglobin 10.7 g/dL (12.0-16.0); Mean Corpuscular Hgb Conc 33.3 g/dL (32-36); Mean Corpuscular Volume 99.7 fL (80-100); Mean Platelet Volume 10.7 fL (7.4-10.4); Platelet Count 209 K/uL (130-400); RDW Coefficient of Variation 15.2 % (11.5-14.5); RDW Standard Deviation 54.4 fL (36.4-46.3); Red Blood Count 3.22 M/uL (4.2-5.4); White Blood Count 6.03 K/uL (4.8-10.8)
[2019-01-20 07:41] LABS: BUN Creatinine Ratio 13.6 (10-20); Calcium 8.5 mg/dl (8.5-10.1); Est GFR (African American) 66.4; Est GFR (Non-African American) 57.3; Potassium 3.9 mmol/L (3.5-5.1)
[2019-01-20 08:23] LABS: Partial Thromboplastin Ratio 4.3
[2019-01-20 08:31] LABS: Partial Thromboplastin Time 117.3 Seconds (21.0-31.0)
[2019-01-20] MEDS: FLUTICASONE PROPIONATE NA SPR 16 GM BTL NAE SCH (08:56)
[2019-01-20] MEDS: METOPROLOL SUCC 25MG EXT REL TAB PO SCH ×2 (08:56→20:22)
[2019-01-20] MEDS: FLUTICASONE HFA 110MCG INHALER INH SCH ×2 (08:57→20:22)
[2019-01-20] MEDS: AZELASTINE: ORDER AWAITING ACTION SCH ×2 (11:10→17:54)
--- NOTE | 2019-01-20 13:58 | Cardiology Progress Note ---
Date of Service January 20, 2019 Assessment & Plan (1) Atrial fibrillation with rapid ventricular response: Patient presented with atrial fibrillation with rapid response likely present for an extended duration. Course may been complicated by recurrent tracheobronchitis. Presentation reflected acute volume overload with edema and pleural effusions Heart rates have improved with IV diltiazem and oral metoprolol, patient anticoagulated with heparin. Has improved with IV diuresis though remains with edema and mild dyspnea/hypoxia Plan wean IV diltiazem, increase Toprol-XL to 25 mill grams twice per day. Will give additional 20 mg IV furosemide now if respiratory issues persist pulmonary treatment may be warranted. We will continue IV heparin until stable then transition to oral Eliquis (2) Fluid overload: (3) HTN (hypertension): Subjective Patient seen and examined, chart, medications, telemetry reviewed. Still slightly dyspneic this morning, heart rate better on IV diltiazem. Did manifest 2 L diuresis. Cough reduced but still present Denies fevers chills notes no productive cough mild edema still present in lower extremities. Physical Exam Vital Signs (Past 24 Hours): Last Vital Signs Temp 36.2 C L 01/20/19 11:33 Pulse 82 01/20/19 11:33 Resp 16 01/20/19 11:33 BP 118/75 01/20/19 11:33 Pulse Ox 90 01/20/19 11:33 Constitutional: WD/WN, vitals as above Eyes: PERRL, conjunctivae normal, anicteric sclerae ENMT: external ear and nose normal, oropharynx normal Neck: trachea midline, no thyromegaly Respiratory: + audible wheezes (With cough) Auscultation: + diminished lung sounds (Left greater than right base) Cardiovascular: Extremities: + edema (1+ peripheral) Irregularly irregular, no S3 gallop, PMI nondisplaced normal S1-S2, normal carotid upstroke Gastrointestinal (Abdomen): normal bowel sounds, soft, nontender, no hepatosplenomegaly Results & Data Laboratory Results Laboratory Results - last 24 hr 01/19/19 01/19/19 01/19/19 13:25 19:39 22:56 WBC RBC Hgb Hct MCV MCH MCHC RDW Std Deviation RDW Coeff of Melissa Plt Count MPV APTT 63.2 H* PTT Ratio 2.3 Sodium Potassium Chloride Carbon Dioxide Anion Gap BUN Creatinine Est Cr Clr Drug Dosing Est GFR ( Amer) Est GFR (Non-Af Amer) BUN/Creatinine Ratio Glucose Calcium Troponin I 0.015 TSH 2.150 Influenza Type A (PCR) Neg for Influ A Influenza Type B (PCR) Neg for Influ B 01/20/19 01/20/19 01/20/19 01:06 06:17 06:17 WBC 6.03 RBC 3.22 L Hgb 10.7 L Hct 32.1 L MCV 99.7 MCH 33.2 MCHC 33.3 RDW Std Deviation 54.4 H RDW Coeff of Melissa 15.2 H Plt Count 209 MPV 10.7 H APTT PTT Ratio Sodium 141 Potassium 3.9 Chloride 108 H Carbon Dioxide 26 Anion Gap 8.0 BUN 13 Creatinine 0.94 Est Cr Clr Drug Dosing 43.0 Est GFR ( Amer) 66.4 Est GFR (Non-Af Amer) 57.3 BUN/Creatinine Ratio 13.6 Glucose 100 H Calcium 8.5 Troponin I 0.017 TSH Influenza Type A (PCR) Influenza Type B (PCR) 01/20/19 01/20/19 06:17 07:47 WBC RBC Hgb Hct MCV MCH MCHC RDW Std Deviation RDW Coeff of Melissa Plt Count MPV APTT Cancelled 117.3 H* PTT Ratio Cancelled 4.3 Sodium Potassium Chloride Carbon Dioxide Anion Gap BUN Creatinine Est Cr Clr Drug Dosing Est GFR ( Amer) Est GFR (Non-Af Amer) BUN/Creatinine Ratio Glucose Calcium Troponin I TSH Influenza Type A (PCR) Influenza Type B (PCR) ECG Additional Comments: 20-JAN-2019 06:24:46 [facility] Atrial fibrillation Nonspecific T wave abnormality Abnormal ECG When compared with ECG of 19-JAN-2019 12:37, (unconfirmed) Vent. rate has decreased BY 66 BPM Nonspecific T wave abnormality, improved in Inferior leads
[2019-01-20] MEDS ORDERED: FUROSEMIDE 40 MG in SYRINGE 0 ML IV ONE (14:15)
[2019-01-20] MEDS ORDERED: POTASSIUM CHLORIDE 20 MEQ TABCR PO ONE (14:22)
--- NOTE | 2019-01-20 16:02 | Hospitalist Progress Note ---
Date of Service January 20, 2019 Assessment & Plan (1) Atrial fibrillation: Afib RVR Recent recurrent tracheobronchitis CTA:No PE; Cardiomegaly with volume overload and congestive changes with mild pulmonary edema. B/L pleural effusions. TSH: Normal ECHO:global hypokinesis of LV, MR, TR, EF:50-55% Volume overload likely due to Aifb RVR and Hypertensive Urgency Rceeived IV lasix On IV diltizem ggt Metoprolol increased to 25mg BID Appreciate Cardiology Input On IV Heparin ggt for anticoagulation (2) Fluid overload: Management as above (3) HTN (hypertension): Hypertensive Urgency On cardizem ggt Continue metoprolol BP improved (4) Leg edema: Venous Doppler:There is no sonographic evidence of deep venous thrombosis identified in the right or left lower extremity. Received IV lasix (5) Asthma: Recent URI/bronchitis in 12/2018 and was treated with doxycycline. Influenza Screen:Negative xopenex prn continue flovent DVT Px: On Heparin ggt Code Status DNR Subjective Patient is seen and examined at bedside Reports SOB Palpitations resolved Heart rate is controlled Denies chest pain, dizziness, nausea Physical Exam Vital Signs (Past 24 Hours): Last Vital Signs Temp 36.2 C L 01/20/19 11:33 Pulse 82 01/20/19 11:33 Resp 16 01/20/19 11:33 BP 118/75 01/20/19 11:33 Pulse Ox 90 01/20/19 11:33 Physical Exam: Physical Exam: Vitals signs as noted above General Appearance:Moderately built and nourished, no apparent distress Head: normocephalic, Atraumatic Eyes: normal inspection, EOMI Neck: supple, Trachea midline Respiratory/Chest: Decreased breath sounds, scattered wheezes Cardiovascular: Irregularly Irregular, No murmur Abdomen/GI:Soft, Non tender, Bowel sounds present Extremities/Musculoskelatal:normal inspection, Trace edema Neurologic/Psych:AAOX3, grossly no focal neurological deficits Skin: normal color, warm Results & Data Laboratory Results Short CBC 01/20/19 Range/Units 06:17 WBC 6.03 (4.8-10.8) K/uL Hgb 10.7 L (12.0-16.0) g/dL Hct 32.1 L (37-47) % Plt Count 209 (130-400) K/uL BMP 01/20/19 06:17 Sodium 141 Potassium 3.9 Chloride 108 H Carbon Dioxide 26 BUN 13 Creatinine 0.94 Glucose 100 H Calcium 8.5 Cardiac Enzymes 01/19/19 01/20/19 Range/Units 19:39 01:06 Troponin I 0.015 0.017 (0-0.045) ng/ml (1) Atrial fibrillation Atrial fibrillation type: paroxysmal Qualified Code(s): I48.0 - Paroxysmal atrial fibrillation
[2019-01-20] MEDS: HEPARIN SODIUM/DEXTROSE 25,000 UNITS/500 ML BAG IV SCH (17:52)
[2019-01-20 18:16] LABS: Partial Thromboplastin Ratio 2.5
[2019-01-20 18:19] LABS: Partial Thromboplastin Time 67.8 Seconds (21.0-31.0)
[2019-01-21] MEDS: AZELASTINE: ORDER AWAITING ACTION SCH ×4 (00:01→21:50)
[2019-01-21 00:50] LABS: Partial Thromboplastin Ratio 2.9
[2019-01-21 01:33] LABS: Partial Thromboplastin Time 79.6 Seconds (21.0-31.0)
[2019-01-21 07:36] LABS: Hematocrit (blood only) 34.1 % (37-47); Hemoglobin 11.4 g/dL (12.0-16.0)
[2019-01-21 07:56] LABS: Partial Thromboplastin Ratio 2.4
[2019-01-21 07:59] LABS: Partial Thromboplastin Time 65.6 Seconds (21.0-31.0)
[2019-01-21 08:09] LABS: BUN Creatinine Ratio 10.4 (10-20); Calcium 8.3 mg/dl (8.5-10.1); Creatinine Clr Calc Pharmacy 35.4 ml/min; Est GFR (African American) 52.6; Est GFR (Non-African American) 45.4; Magnesium 1.9 mg/dl (1.8-2.4); Potassium 4.2 mmol/L (3.5-5.1)
[2019-01-21] MEDS: FLUTICASONE PROPIONATE NA SPR 16 GM BTL NAE SCH (08:10)
[2019-01-21] MEDS: FLUTICASONE HFA 110MCG INHALER INH SCH ×2 (08:11→19:21)
[2019-01-21] MEDS: METOPROLOL SUCC 25MG EXT REL TAB PO SCH ×2 (08:11→19:21)
[2019-01-21] MEDS ORDERED: METOPROLOL SUCC 50MG EXT REL TAB PO STA (11:11)
--- NOTE | 2019-01-21 12:36 | Cardiology Progress Note ---
Date of Service January 21, 2019 Assessment & Plan (1) Atrial fibrillation with rapid ventricular response: Patient presented with atrial fibrillation with rapid response likely present for an extended duration. Course may been complicated by recurrent tracheobronchitis. Presentation reflected acute volume overload with edema and pleural effusions Heart rates have improved and cardizem gtt has been weaned off slightly elevated today so will increase AM toprol to 50mg, will proceed with BB with caution given hx of asthma may consider pulmonary evaluation for slow to improve dyspnea and hx of asthma, does not examine as volume overloaded we have discussed anticoagulation and she would prefer DOAC, likely ELiquis based on insurance coverage cont heparin for now cont to monitor on tele (2) Fluid overload: (3) HTN (hypertension): Subjective Pt seen and examined, states that she's doing well. Still dyspnic with ambulation to bathroom but improved from presentation. States that her lungs still feel a bit tight. Denies cp, palpitations, lightheadedness or dizziness. Tele reviewed: atrial fibrillation with elevated rates this AM Review of Systems All systems reviewed & are unremarkable except as noted in HPI & below Physical Exam Vital Signs (Past 24 Hours): Last Vital Signs Temp 36.6 C 01/21/19 11:52 Pulse 109 H 01/21/19 11:52 Resp 18 01/21/19 11:52 BP 140/92 01/21/19 11:52 Pulse Ox 94 01/21/19 11:52 Physical Exam: General: Awake, alert and oriented x 3. No acute distress. HEENT: Normocephalic, atraumatic. Pupils equal, round and reactive to light and accommodation. Extraocular muscles are intact. Anicteric sclera. Moist mucous membranes. Neck: No JVD. No bruit. Cardiovascular: irregularly irregular, unable to appreciate murmur, rub or gallop. Pulmonary: Clear to auscultation bilaterally. No rales, rhonchi, or wheezing. Abdomen: Bowel sounds x 4, soft. No rebound, guarding or tenderness. No organomegaly. Extremities: No clubbing, cyanosis or edema. +2 pedal pulses bilaterally. Skin: Warm and dry.
--- NOTE | 2019-01-21 15:34 | Hospitalist Progress Note ---
Date of Service January 21, 2019 Assessment & Plan (1) Atrial fibrillation: Afib RVR Recent recurrent tracheobronchitis CTA:No PE; Cardiomegaly with volume overload and congestive changes with mild pulmonary edema. B/L pleural effusions. TSH: Normal ECHO:global hypokinesis of LV, MR, TR, EF:50-55% Volume overload likely due to Aifb RVR and Hypertensive Urgency Received IV lasix IV diltizem ggt weaned off Continue Metoprolol as per Cardiology Appreciate Cardiology Input On IV Heparin ggt for anticoagulation Consider Pulmnology Eval if respiratory symptoms worsen (2) Fluid overload: Management as above (3) HTN (hypertension): Hypertensive Urgency Continue metoprolol BP Stable (4) Leg edema: Venous Doppler:There is no sonographic evidence of deep venous thrombosis identified in the right or left lower extremity. Received IV lasix (5) Asthma: Recent URI/bronchitis in 12/2018 and was treated with doxycycline. Influenza Screen:Negative xopenex prn continue flovent DVT Px: On Heparin ggt Code Status DNR Subjective Patient is seen and examined at bedside She feels better HR slightly elevated Reports chest congestion Less SOB Denies chest pain, dizziness, nausea Physical Exam Vital Signs (Past 24 Hours): Last Vital Signs Temp 36.8 C 01/21/19 15:07 Pulse 124 H 01/21/19 15:07 Resp 18 01/21/19 15:07 BP 124/88 01/21/19 15:07 Pulse Ox 94 01/21/19 15:07 Physical Exam: Physical Exam: Vitals signs as noted above General Appearance:Moderately built and nourished, no apparent distress Head: normocephalic, Atraumatic Eyes: normal inspection, EOMI Neck: supple, Trachea midline Respiratory/Chest: Decreased breath sounds, CTA Cardiovascular: Irregularly Irregular, No murmur Abdomen/GI:Soft, Non tender, Bowel sounds present Extremities/Musculoskelatal:normal inspection, Trace edema Neurologic/Psych:AAOX3, grossly no focal neurological deficits Skin: normal color, warm Results & Data Laboratory Results Short CBC 01/21/19 Range/Units 07:28 Hgb 11.4 L (12.0-16.0) g/dL Hct 34.1 L (37-47) % BMP 01/21/19 07:28 Sodium 142 Potassium 4.2 Chloride 108 H Carbon Dioxide 29 BUN 12 Creatinine 1.14 Glucose 97 Calcium 8.3 L (1) Atrial fibrillation Atrial fibrillation type: paroxysmal Qualified Code(s): I48.0 - Paroxysmal atrial fibrillation
[2019-01-21] MEDS: HEPARIN SODIUM/DEXTROSE 25,000 UNITS/500 ML BAG IV SCH (19:50)
[2019-01-22 06:26] LABS: BUN Creatinine Ratio 12.5 (10-20); Creatinine Clr Calc Pharmacy 42.1 ml/min; Est GFR (African American) 64.7; Est GFR (Non-African American) 55.9
[2019-01-22] MEDS: LEVALBUTEROL HCL 0.63 MG/3 ML NEB NEB PRN (07:31)
[2019-01-22 07:33] LABS: Partial Thromboplastin Ratio 2.1
[2019-01-22 07:39] LABS: Partial Thromboplastin Time 56.8 Seconds (21.0-31.0)
[2019-01-22] MEDS: METOPROLOL SUCC 25MG EXT REL TAB PO SCH (09:25)
[2019-01-22] MEDS: FLUTICASONE PROPIONATE NA SPR 16 GM BTL NAE SCH (09:26)
[2019-01-22] MEDS: FLUTICASONE HFA 110MCG INHALER INH SCH ×2 (09:26→21:35)
[2019-01-22] MEDS ORDERED: dilTIAZem HCL 30 MG TAB PO ONE (11:21)
--- NOTE | 2019-01-22 13:01 | Cardiology Progress Note ---
Date of Service January 22, 2019 Assessment & Plan (1) Atrial fibrillation with rapid ventricular response: Patient presented with atrial fibrillation with rapid response likely present for an extended duration. Course may been complicated by recurrent tracheobronchitis. Presentation reflected acute volume overload with edema and pleural effusions rates again increased no significant improvement in sob recommend pulm eval for hx of reactive airway disease will transition from beta steven to CCB to be on safe side with asthma hx if rates not improved this PM, may resume cardizem gtt we have discussed anticoagulation and she would prefer DOAC, likely ELiquis based on insurance coverage cont heparin for now cont to monitor on tele (2) Fluid overload: (3) HTN (hypertension): Subjective Pt seen and examined, states feeling ok today. No real improvement from yesterday. Still significantly dyspnic with ambulation. Denies palpitations though. Tele reviewed: atrial fibrillation with rvr in 120's. Review of Systems All systems reviewed & are unremarkable except as noted in HPI & below Physical Exam Vital Signs (Past 24 Hours): Last Vital Signs Temp 36.6 C 01/22/19 11:45 Pulse 122 H 01/22/19 11:45 Resp 22 01/22/19 11:45 BP 143/86 H 01/22/19 11:45 Pulse Ox 95 01/22/19 11:45 Physical Exam: General: Awake, alert and oriented x 3. No acute distress. HEENT: Normocephalic, atraumatic. Pupils equal, round and reactive to light and accommodation. Extraocular muscles are intact. Anicteric sclera. Moist mucous membranes. Neck: No JVD. No bruit. Cardiovascular: irregularly irregular, unable to appreciate murmur, rub or gallop. Pulmonary: Clear to auscultation bilaterally. No rales, rhonchi, or wheezing. Abdomen: Bowel sounds x 4, soft. No rebound, guarding or tenderness. No organomegaly. Extremities: No clubbing, cyanosis or edema. +2 pedal pulses bilaterally. Skin: Warm and dry.
[2019-01-22] MEDS: LEVALBUTEROL HCL 0.63 MG/3 ML NEB NEB SCH ×2 (13:38→19:00)
[2019-01-22] MEDS: methylPREDNISolone 40 MG in SYRINGE 0 ML IV SCH ×2 (14:00→21:22)
[2019-01-22] MEDS: dilTIAZem HCL 30 MG TAB PO SCH ×2 (14:04→21:23)
--- NOTE | 2019-01-22 17:26 | Hospitalist Progress Note ---
Date of Service January 22, 2019 Assessment & Plan (1) Atrial fibrillation: Afib RVR Recent recurrent tracheobronchitis CTA:No PE; Cardiomegaly with volume overload and congestive changes with mild pulmonary edema. B/L pleural effusions. TSH: Normal ECHO:global hypokinesis of LV, MR, TR, EF:50-55% Volume overload likely due to Aifb RVR and Hypertensive Urgency Received IV lasix Metoprolol discontinued due to resp issues Started on Diltiazem 30mg TID Appreciate Cardiology Input On IV Heparin ggt for anticoagulation Monitor in Tele (2) Fluid overload: Management as above (3) HTN (hypertension): Hypertensive Urgency Continue Diltiazem BP Stable (4) Leg edema: Venous Doppler:There is no sonographic evidence of deep venous thrombosis identified in the right or left lower extremity. Received IV lasix (5) Asthma: Recent URI/bronchitis in 12/2018 and was treated with doxycycline. Influenza Screen:Negative xopenex prn continue flovent On going chest congestion/SOB Started on Solu medrol Appreciate Pulmnology Input DVT Px: On Heparin ggt Code Status DNR Subjective Patient is seen and examined at bedside Reports dyspnea on exertion Slightly Less chest congestion today Denies chest pain, dizziness, nausea Physical Exam Vital Signs (Past 24 Hours): Last Vital Signs Temp 36.2 C L 01/22/19 15:35 Pulse 105 H 01/22/19 15:35 Resp 16 01/22/19 15:35 BP 138/93 01/22/19 15:35 Pulse Ox 92 01/22/19 15:35 Physical Exam: Physical Exam: Vitals signs as noted above General Appearance:Moderately built and nourished, no apparent distress Head: normocephalic, Atraumatic Eyes: normal inspection, EOMI Neck: supple, Trachea midline Respiratory/Chest: Decreased breath sounds, CTA Cardiovascular: Irregularly Irregular, No murmur Abdomen/GI:Soft, Non tender, Bowel sounds present Extremities/Musculoskelatal:normal inspection, Trace edema Neurologic/Psych:AAOX3, grossly no focal neurological deficits Skin: normal color, warm Results & Data Laboratory Results [facility] 01/22/19 05:30 Sodium 140 Potassium 4.0 Chloride 109 H Carbon Dioxide 26 BUN 12 Creatinine 0.96 Glucose 96 Calcium 8.0 L (1) Atrial fibrillation Atrial fibrillation type: paroxysmal Qualified Code(s): I48.0 - Paroxysmal atrial fibrillation
[2019-01-22] MEDS: HEPARIN SODIUM/DEXTROSE 25,000 UNITS/500 ML BAG IV SCH (19:03)
[2019-01-22] MEDS: AZELASTINE: ORDER AWAITING ACTION SCH ×2 (19:04→23:32)
[2019-01-22] MEDS ORDERED: METOPROLOL SUCC 25MG EXT REL TAB PO SCH (21:00)
[2019-01-23] MEDS ORDERED: dilTIAZem HCl 5 MG/ML 5 ML VIAL IV STA
[2019-01-23] MEDS: dilTIAZem HCl 125 MG in DEXTROSE 5% 100 ML IV SCH (00:14)
[2019-01-23] MEDS: LEVALBUTEROL HCL 0.63 MG/3 ML NEB NEB SCH ×4 (02:49→19:29)
--- NOTE | 2019-01-23 04:05 | Consultation Report ---
DATE OF CONSULTATION: 01/22/2019 REASON FOR CONSULTATION: Pulmonary evaluation/COPD/asthma. HISTORY OF PRESENT ILLNESS: An 78-year-old white female with a past history of allergic rhinitis and asthma and is seen by Dr. Cao and Lore Mosher, his physician healthcare administrative assistant, in the allergy and immunology office at [facility]. Also has history of GERD. She has not been feeling well since this past and although she did not complain of palpitations, she was weak and tired and short of breath. She was seen at the food broker's office and Lore Mosher noticed that her heart rate was fast and she was brought to the Emergency Room. She had an upper respiratory infection in October with fever, but denies recent fevers, chills, or sweats and has a mild intermittent cough. Her asthma has been under reasonable control with the use of a Flovent HFA inhaler and a rescue inhaler as needed. Seasonally, she is treated for allergic rhinitis. She has had PACs in the past but to her knowledge has not been in atrial fibrillation. She was seen in the ER and administered IV Cardizem and admitted on to the hospitalist service. She was in atrial fibrillation with a rapid ventricular response with a rate in the 150s and she was hypertensive and was placed on 2 liters of oxygen, given IV Cardizem drip, was started along with IV heparin, and she was given normal saline. Dr. Richardson saw patient in consultation. Apparently, patient has mild myelodysplasia and has been evaluated for palpitations and exertional dyspnea in September 2018. Stress echo at that time showed no stress-induced ischemia and well-preserved LV function with moderate mitral and uybeuluh-to-axjcgb tricuspid insufficiency. Holter monitor showed frequent atrial and ventricular ectopy and she was begun on metoprolol, although that was discontinued within the past 1-2 months for reasons that are not clear to me. While traveling in [place] in November and December, she noted increased cough, wheezing, and shortness of breath. Was treated with antibiotics and prednisone on 2 separate courses with modest improvement and also had increased lower extremity edema. Physical exam by Dr. Richardson suggested volume overload and a left pleural effusion was noted on CAT scan. She has had no bleeding diathesis history. The IV diltiazem boluses made little difference in her heart rate and rhonchi were heard on physical exam. The white count was 5600. Renal status was stable. Echocardiogram done during this admission showed zinn-sj-iymoknch mitral regurgitation, EF of 55%, LVH, and moderate tricuspid regurgitation. The right ventricle is normal in size and function and I have been asked to see the patient in consultation. She was seen yesterday by Dr. Geoffrey Boone and felt to also be in fluid overload and was to be converted over to Eliquis-based anticoagulant therapy. For details of past medical history, medications, family and social history, I refer you to current and past record. PHYSICAL EXAMINATION: GENERAL: This is a well-developed, well-nourished, elderly white female appearing in no respiratory distress. VITAL SIGNS: Blood pressure 143/86, pulse 108-122 and irregularly irregular, respiratory rate 22, temperature 36.6, O2 sat 95% on room air. SKIN: Without lesion. HEENT: Atraumatic, normocephalic. PERRLA. LUNGS: Decreased breath sounds at the bases with rales audible and scattered rhonchi at right base. CARDIAC: Irregularly regular rhythm. I do not appreciate any gallop. Grade 2/6 systolic murmur heart at the apex. ABDOMEN: Soft, scaphoid. EXTREMITIES: No significant pedal edema, clubbing, or cyanosis. NEUROLOGIC: Intact. No lateralizing signs. DIAGNOSTIC DATA: CT scan of the chest showed no evidence of pulmonary thromboembolic disease. There was evidence for volume overload and mild pulmonary edema and swds-cq-nduyfufx bilateral pleural effusions. The venous Dopplers showed no evidence for DVT. There is no evidence by CTA of pulmonary thromboembolic disease. Other laboratory, H and H 11.4 and 34. On admission, no significant peripheral eosinophilia. The white count was 5600. Calculated CO2 of 26. Influenza type A and B PCR negative. OVERALL ASSESSMENT: An 78-year-old white female who carries a diagnosis of asthma and does have a limited smoking history, half a pack of cigarettes a day for 10 years several decades ago. We did a CT scan, it suggests congestive changes with ngcy-jl-nrbaluqc bilateral pleural effusions. I suspect the patient's fluid overload is a result of her atrial fibrillation with a rapid ventricular response. She currently is on IV heparin and diltiazem. Some of the wheezing heard previously may have been cardiac asthma and her metoprolol has been decreased to 12.5 mg p.o. b.i.d. I will institute some Solu-Medrol therapy. I have no evidence that she is suffering from an intercurrent respiratory infection. She certainly needs to get her weight down. I believe she needs to be gently diuresed with careful attention to renal function. Along with nebulizer treatment, IV Solu-Medrol, we will watch her respiratory status. We need to obtain records from [facility] as well. Nhha-yp-ftlaayai mitral regurgitation may be significant here. In addition, the patient may need to be assessed at a future date for pulmonary hypertension. It would be important to see what her lung function has been in the past as well. If her effusions do not improve, then a diagnostic and perhaps even therapeutic thoracentesis may need to be considered as well.
[2019-01-23 06:37] LABS: Calcium 8.3 mg/dl (8.5-10.1); Creatinine Clr Calc Pharmacy 42.5 ml/min; Est GFR (African American) 65.6; Est GFR (Non-African American) 56.6; Potassium 4.1 mmol/L (3.5-5.1)
[2019-01-23 07:23] LABS: Partial Thromboplastin Ratio 2.2
[2019-01-23 07:28] LABS: Partial Thromboplastin Time 58.4 Seconds (21.0-31.0)
[2019-01-23] MEDS: methylPREDNISolone 40 MG in SYRINGE 0 ML IV SCH ×2 (08:37→20:27)
[2019-01-23] MEDS: FLUTICASONE PROPIONATE NA SPR 16 GM BTL NAE SCH (08:38)
[2019-01-23] MEDS: FLUTICASONE HFA 110MCG INHALER INH SCH ×2 (08:38→20:27)
[2019-01-23] MEDS: dilTIAZem HCL 30 MG TAB PO SCH (09:02)
[2019-01-23] MEDS: dilTIAZem HCL 240 MG CAPCR PO SCH (13:34)
--- NOTE | 2019-01-23 14:54 | XRay Report ---
TWO VIEW CHEST CLINICAL HISTORY: Pleural effusions. FINDINGS: PA and lateral chest radiographs are compared to chest x-ray and chest CT dated 01/19/2019. The PA view is degraded by patient rotation. The heart is enlarged and there is atherosclerotic calci fication of the thoracic aorta. The pulmonary vasculature is noncongested. Chronic interstitial thick ening is similar to previous. There are small pleural effusions with bibasilar consolidation. There i s no pneumothorax. The skeletal structures are osteopenic. The bony thorax appears intact. Degenerati ve change and scoliosis are noted in the thoracic spine. A compression deformity is seen in the midth oracic region. IMPRESSION: 1. Cardiomegaly. Pulmonary vascular congestion has resolved from previous. 2. There are small pleural effusions with bibasilar consolidation. This likely represents atelectasis . Clinical correlation will be required. Electronically signed by: Elias Martinez M.D. 01/23/2019 2:52 PM
--- NOTE | 2019-01-23 15:27 | Cardiology Progress Note ---
Date of Service January 23, 2019 Assessment & Plan (1) Atrial fibrillation with rapid ventricular response: Patient presented with atrial fibrillation with rapid response likely present for an extended duration. Course may been complicated by recurrent tracheobronchitis. Presentation reflected acute volume overload with edema and pleural effusions metoprolol d/c'ed given concern of underlying reactive airway disease unfortunately, cardizem gtt had to be restarted will give cardizem cd 240mg po now and attempt to wean off gtt if rates remain elevated despite po cardizem will proceed with DEBRA guided cardioversion in the AM npo after midnight Eliquis for intermediate manager anticoagulation upon discharge. cont to monitor on tele (2) Fluid overload: (3) HTN (hypertension): Subjective Pt seen and examined, sob somewhat improved today. Denies cp, palpitations, lightheadedness or dizziness. tele reviewed: atrial fibrillation now into 120's. Review of Systems All systems reviewed & are unremarkable except as noted in HPI & below Physical Exam Vital Signs (Past 24 Hours): Last Vital Signs Temp 36.5 C 01/23/19 15:01 Pulse 90 01/23/19 15:01 Resp 16 01/23/19 15:01 BP 110/73 01/23/19 15:01 Pulse Ox 91 01/23/19 15:01 Physical Exam: General: Awake, alert and oriented x 3. No acute distress. HEENT: Normocephalic, atraumatic. Pupils equal, round and reactive to light and accommodation. Extraocular muscles are intact. Anicteric sclera. Moist mucous membranes. Neck: No JVD. No bruit. Cardiovascular: irregularly irregular, unable to appreciate murmur, rub or gallop. Pulmonary: Clear to auscultation bilaterally. No rales, rhonchi, or wheezing. Abdomen: Bowel sounds x 4, soft. No rebound, guarding or tenderness. No organomegaly. Extremities: No clubbing, cyanosis or edema. +2 pedal pulses bilaterally. Skin: Warm and dry.
--- NOTE | 2019-01-23 17:32 | Pulmonology Progress Note ---
Date of Service January 23, 2019 Assessment & Plan (1) Fluid overload: Impression: 1. A. fib with RVR, rate controlled. 2. CHF exacerbation secondary to above with pulmonary vascular congestion, improved. 3. I am not sure if the patient has a history of COPD in the past however she does have kyphosis with hyperinflated lungs on the chest x-ray. Plan: 1. Continue current treatment including diuresis, rate control, anticoagulation. 2. Discontinue Solu-Medrol in a.m. Patient received 4 doses. 3. No need for thoracentesis. 4. Further treatment per cardiology. Thank you, will follow as needed. Subjective The patient feels better, less short of breath, denies any chest pain, no palpitation, her A. fib has been well controlled, she is on heparin and diltiazem drip. Physical Exam Vital Signs (Past 24 Hours): Last Vital Signs Temp 36.5 C 01/23/19 15:01 Pulse 90 01/23/19 15:01 Resp 16 01/23/19 15:01 BP 110/73 01/23/19 15:01 Pulse Ox 91 01/23/19 15:01 Physical Exam: Vital signs are stable, hyperinflated lungs, distant breath sounds, diminished at the bases, kyphosis noted, S1-S2 in A. fib, rate controlled, abdomen is benign, no edema, no rash, no skin changes, no oral thrush. Results & Data Laboratory Results Labs were reviewed personally. Diagnostic Findings Repeat chest x-ray showed small pleural effusion bilaterally. Hyperinflated lungs with kyphosis. Cardiomegaly noted.
--- NOTE | 2019-01-23 17:47 | Hospitalist Progress Note ---
Date of Service January 23, 2019 Assessment & Plan (1) Atrial fibrillation: Afib RVR Recent recurrent tracheobronchitis CTA:No PE; Cardiomegaly with volume overload and congestive changes with mild pulmonary edema. B/L pleural effusions. TSH: Normal ECHO:global hypokinesis of LV, MR, TR, EF:50-55% Volume overload likely due to Aifb RVR and Hypertensive Urgency Received IV lasix Metoprolol discontinued Started on Cardizem CD 240mg Also on Cardizem ggt Appreciate Cardiology Input On IV Heparin ggt for anticoagulation Monitor in Tele May need DEBRA guided Cardioversion if HR remains uncontrolled NPO after midnight (2) Fluid overload: Management as above (3) HTN (hypertension): Hypertensive Urgency Continue Diltiazem BP Stable (4) Leg edema: Venous Doppler:There is no sonographic evidence of deep venous thrombosis identified in the right or left lower extremity. Received IV lasix (5) Asthma: Recent URI/bronchitis in 12/2018 and was treated with doxycycline. Influenza Screen:Negative xopenex prn continue flovent Received Solumedrol Appreciate Pulmnology Input DVT Px: On Heparin ggt Code Status DNR Subjective Patient is seen and examined at bedside Tachycardic this morning On cardizem and Heparin ggt Less SOB Denies chest pain, dizziness, nausea Physical Exam Vital Signs (Past 24 Hours): Last Vital Signs Temp 36.5 C 01/23/19 15:01 Pulse 90 01/23/19 15:01 Resp 16 01/23/19 15:01 BP 110/73 01/23/19 15:01 Pulse Ox 91 01/23/19 15:01 Physical Exam: Physical Exam: Vitals signs as noted above General Appearance:Moderately built and nourished, no apparent distress Head: normocephalic, Atraumatic Eyes: normal inspection, EOMI Neck: supple, Trachea midline Respiratory/Chest: Decreased breath sounds, CTA Cardiovascular: Irregularly Irregular, No murmur, +Tachycardia Abdomen/GI:Soft, Non tender, Bowel sounds present Extremities/Musculoskelatal:normal inspection, Trace edema Neurologic/Psych:AAOX3, grossly no focal neurological deficits Skin: normal color, warm Results & Data Laboratory Results [facility] 01/23/19 05:35 Sodium 140 Potassium 4.1 Chloride 106 Carbon Dioxide 27 BUN 11 Creatinine 0.95 Glucose 142 H Calcium 8.3 L (1) Atrial fibrillation Atrial fibrillation type: paroxysmal Qualified Code(s): I48.0 - Paroxysmal atrial fibrillation
[2019-01-23] MEDS: HEPARIN SODIUM/DEXTROSE 25,000 UNITS/500 ML BAG IV SCH (18:23)
[2019-01-23] MEDS: AZELASTINE: ORDER AWAITING ACTION SCH ×2 (19:10→19:11)
[2019-01-24] MEDS: AZELASTINE: ORDER AWAITING ACTION SCH ×3 (01:04→19:06)
[2019-01-24] MEDS: dilTIAZem HCl 125 MG in DEXTROSE 5% 100 ML IV SCH (01:04)
[2019-01-24] MEDS: LEVALBUTEROL HCL 0.63 MG/3 ML NEB NEB SCH ×2 (02:14→07:50)
[2019-01-24 06:11] LABS: Partial Thromboplastin Ratio 2.2
[2019-01-24 06:16] LABS: Partial Thromboplastin Time 58.5 Seconds (21.0-31.0)
[2019-01-24 06:21] LABS: BUN Creatinine Ratio 15.2 (10-20); Calcium 8.1 mg/dl (8.5-10.1); Creatinine Clr Calc Pharmacy 39.6 ml/min; Est GFR (African American) 60.2; Est GFR (Non-African American) 51.9; Magnesium 2.1 mg/dl (1.8-2.4)
[2019-01-24] MEDS: LEVALBUTEROL HCL 0.63 MG/3 ML NEB NEB PRN (07:34)
[2019-01-24] MEDS: FLUTICASONE HFA 110MCG INHALER INH SCH ×2 (08:15→22:02)
[2019-01-24] MEDS: dilTIAZem HCL 240 MG CAPCR PO SCH (08:16)
[2019-01-24] MEDS: FLUTICASONE PROPIONATE NA SPR 16 GM BTL NAE SCH (08:16)
[2019-01-24] MEDS ORDERED: dilTIAZem HCl 60 MG TAB PO ONE (09:15)
--- NOTE | 2019-01-24 14:09 | Hospitalist Progress Note ---
Date of Service January 24, 2019 Assessment & Plan (1) Atrial fibrillation: Afib RVR Recent recurrent tracheobronchitis CTA:No PE; Cardiomegaly with volume overload and congestive changes with mild pulmonary edema. B/L pleural effusions. TSH: Normal ECHO:global hypokinesis of LV, MR, TR, EF:50-55% Volume overload likely due to Aifb RVR and Hypertensive Urgency Received IV lasix Metoprolol discontinued Continue ardizem CD 240mg Received additional 60mg Cardizem today Appreciate Cardiology Input On IV Heparin ggt for anticoagulation Monitor in Tele (2) Fluid overload: Management as above (3) HTN (hypertension): Hypertensive Urgency Continue Diltiazem BP Stable (4) Leg edema: Venous Doppler:There is no sonographic evidence of deep venous thrombosis identified in the right or left lower extremity. Received IV lasix (5) Asthma: Recent URI/bronchitis in 12/2018 and was treated with doxycycline. Influenza Screen:Negative xopenex prn continue flovent Received Solumedrol Appreciate Pulmnology Input DVT Px: On Heparin ggt Code Status DNR Subjective Patient is seen and examined at bedside Doing better today Denies chest pain, SOB, dizziness, nausea Added Cardizem 60mg today for better HR control On Heparin ggt Physical Exam Vital Signs (Past 24 Hours): Last Vital Signs Temp 36.9 C 01/24/19 11:05 Pulse 107 H 01/24/19 11:05 Resp 18 01/24/19 11:05 BP 123/75 01/24/19 11:05 Pulse Ox 94 01/24/19 11:05 Physical Exam: Physical Exam: Vitals signs as noted above General Appearance:Moderately built and nourished, no apparent distress Head: normocephalic, Atraumatic Eyes: normal inspection, EOMI Neck: supple, Trachea midline Respiratory/Chest: Decreased breath sounds, CTA Cardiovascular: Irregularly Irregular, No murmur, +Tachycardia Abdomen/GI:Soft, Non tender, Bowel sounds present Extremities/Musculoskelatal:normal inspection, Trace edema Neurologic/Psych:AAOX3, grossly no focal neurological deficits Skin: normal color, warm Results & Data Laboratory Results [facility] 01/24/19 05:31 Sodium 140 Potassium 4.0 Chloride 106 Carbon Dioxide 25 BUN 16 Creatinine 1.02 Glucose 132 H Calcium 8.1 L (1) Atrial fibrillation Atrial fibrillation type: paroxysmal Qualified Code(s): I48.0 - Paroxysmal atrial fibrillation
--- NOTE | 2019-01-24 16:31 | Cardiology Progress Note ---
Date of Service January 24, 2019 Assessment & Plan (1) Atrial fibrillation with rapid ventricular response: Patient presented with atrial fibrillation with rapid response likely present for an extended duration. Course may been complicated by recurrent tracheobronchitis. Presentation reflected acute volume overload with edema and pleural effusions metoprolol d/c'ed given concern of underlying reactive airway disease rates greatly improved with Cardizem CD 300mg today no need for DEBRA/CV at this time ok to change heparin to Eliquis 5mg po bid once no further invasive testing necessary (2) Fluid overload: (3) HTN (hypertension): Subjective Pt seen and examined, sob improved today. Denies cp, palpitations, lightheadedness or dizziness. tele reviewed: atrial fibrillation 90's-100's with ambulation Physical Exam Vital Signs (Past 24 Hours): Last Vital Signs Temp 36.6 C 01/24/19 15:05 Pulse 93 H 01/24/19 15:05 Resp 19 01/24/19 15:05 BP 128/84 01/24/19 15:05 Pulse Ox 95 01/24/19 15:05 Physical Exam: General: Awake, alert and oriented x 3. No acute distress. HEENT: Normocephalic, atraumatic. Pupils equal, round and reactive to light and accommodation. Extraocular muscles are intact. Anicteric sclera. Moist mucous membranes. Neck: No JVD. No bruit. Cardiovascular: irregularly irregular, unable to appreciate murmur, rub or gallop. Pulmonary: Clear to auscultation bilaterally. No rales, rhonchi, or wheezing. Abdomen: Bowel sounds x 4, soft. No rebound, guarding or tenderness. No organomegaly. Extremities: No clubbing, cyanosis or edema. +2 pedal pulses bilaterally. Skin: Warm and dry.
[2019-01-25] MEDS: AZELASTINE: ORDER AWAITING ACTION SCH ×3 (01:30→14:55)
[2019-01-25] MEDS: dilTIAZem HCl 125 MG in DEXTROSE 5% 100 ML IV SCH (01:30)
[2019-01-25] MEDS: HEPARIN SODIUM/DEXTROSE 25,000 UNITS/500 ML BAG IV SCH ×2 (05:15→15:47)
[2019-01-25 06:22] LABS: Partial Thromboplastin Ratio 2.1
[2019-01-25 06:26] LABS: Potassium 4.1 mmol/L (3.5-5.1)
[2019-01-25 06:29] LABS: Magnesium 2.2 mg/dl (1.8-2.4)
[2019-01-25 06:31] LABS: Partial Thromboplastin Time 57.2 Seconds (21.0-31.0)
[2019-01-25] MEDS: dilTIAZem HCL 300 MG CAPCR PO SCH (07:37)
[2019-01-25] MEDS: FLUTICASONE PROPIONATE NA SPR 16 GM BTL NAE SCH (07:38)
[2019-01-25] MEDS: FLUTICASONE HFA 110MCG INHALER INH SCH ×2 (07:38→19:48)
[2019-01-25] MEDS ORDERED: METOPROLOL TARTRATE 1 MG/ML VIAL IV STA (08:58)
[2019-01-25] MEDS ORDERED: METOPROLOL TARTRATE 1 MG/ML VIAL IV ONE (08:59)
--- NOTE | 2019-01-25 09:38 | Cardiology Progress Note ---
Date of Service January 25, 2019 Assessment & Plan (1) Atrial fibrillation with rapid ventricular response: rates still not improved pt seen and pulmonary, no concern for reactive airway disease will reattempt metoprolol 5mg IV now and follow rates will likely add po in next few hours can transition heparin to Eliquis upon discharge (2) Fluid overload: (3) HTN (hypertension): Subjective Pt seen and examined, rates stable last PM but now tachycardic this AM. States that she does feel her heart racing. But denies sob. Also denies cp, lightheadedness or dizziness. tele reviewed: atrial fibrillation up to 160's with ambulation Review of Systems All systems reviewed & are unremarkable except as noted in HPI & below Physical Exam Vital Signs (Past 24 Hours): Last Vital Signs Temp 36.7 C 01/25/19 07:07 Pulse 178 H 01/25/19 09:01 Resp 18 01/25/19 07:07 BP 144/94 H 01/25/19 07:07 Pulse Ox 93 01/25/19 07:07 Physical Exam: General: Awake, alert and oriented x 3. No acute distress. HEENT: Normocephalic, atraumatic. Pupils equal, round and reactive to light and accommodation. Extraocular muscles are intact. Anicteric sclera. Moist mucous membranes. Neck: No JVD. No bruit. Cardiovascular: irregularly irregular, unable to appreciate murmur, rub or gallop. Pulmonary: Clear to auscultation bilaterally. No rales, rhonchi, or wheezing. Abdomen: Bowel sounds x 4, soft. No rebound, guarding or tenderness. No organomegaly. Extremities: No clubbing, cyanosis or edema. +2 pedal pulses bilaterally. Skin: Warm and dry.
[2019-01-25] MEDS: METOPROLOL TARTRATE 25 MG TAB PO SCH ×2 (13:58→19:48)
--- NOTE | 2019-01-25 13:59 | Hospitalist Progress Note ---
Date of Service January 25, 2019 Assessment & Plan (1) Atrial fibrillation: Afib RVR TSH: Normal ECHO:global hypokinesis of LV, MR, TR, EF:50-55% Received IV lasix for possible volume overload Beta-steven discontinued and then restarted to control the heart rate Continue ardizem CD 240mg and the dose is increased to 300 mg daily Appreciate Cardiology Input and recommendation On IV Heparin ggt for anticoagulation Will discharge on Eliquis (2) Fluid overload: Management as above Received intravenous Lasix Likely not of any more Lasix on discharge (3) HTN (hypertension): Hypertensive Urgency Continue Diltiazem BP Stable (4) Leg edema: Venous Doppler:There is no sonographic evidence of deep venous thrombosis identified in the right or left lower extremity. Received IV lasix Leg edema seems to be improved (5) Asthma: Recent URI/bronchitis in 12/2018 and was treated with doxycycline. Influenza Screen:Negative xopenex prn continue flovent Received Solumedrol and discontinue Appreciate Pulmnology Input and recommendation Respiratory condition remains stable DVT Px: On Heparin ggt Code Status DNR Likely discharge tomorrow Subjective The patient was seen and examined by me in telemetry Her respiratory symptoms are better She has noted to have heart rate of 180 early this morning She complained of some palpitation but no chest pain and/or shortness of breath with Rate seems to be stable at this time Physical Exam Vital Signs (Past 24 Hours): Last Vital Signs Temp 36.9 C 01/25/19 11:14 Pulse 102 H 01/25/19 11:14 Resp 18 01/25/19 11:14 BP 130/86 01/25/19 11:14 Pulse Ox 93 01/25/19 11:14 Physical Exam: No apparent distress at rest Constitutional: WD/WN, vitals as above Eyes: PERRL, conjunctivae normal, anicteric sclerae ENMT: external ear and nose normal, oropharynx normal Neck: trachea midline, no thyromegaly Respiratory: Auscultation: + diminished lung sounds (Left greater than right base) and + wheezes (Minimal wheezing bilaterally); no crackles Cardiovascular: Rate/Rhythm: + abnormal rate and + abnormal rhythm Heart Sounds: normal S1 and normal S2 Extremities: no edema Gastrointestinal (Abdomen): normal bowel sounds, soft, nontender, no hepatosplenomegaly Neurologic: PERRL, EOMI, accommodation nl, no face palsy, no dysarthria Results & Data Laboratory Results [facility] 01/25/19 05:28 Potassium 4.1 Medications Administered Current Inpatient Medications Acetaminophen (Tylenol) 650 mg PO Q4H PRN PRN Reason: Pain or Fever Stop: 02/18/19 19:09 Diltiazem HCl (Cardizem Cd) 300 mg PO QAM [facility] Stop: 02/24/19 08:59 Last Admin: 01/25/19 07:37 Dose: 300 mg Documented by: Fluticasone Propionate (Flovent Hfa 110mch) 2 puffs INH BID [facility] Stop: 02/18/19 20:59 Last Admin: 01/25/19 07:38 Dose: 2 puffs Documented by: Fluticasone Propionate (Flonase) 2 sprays KYLE DAILY [facility] Stop: 02/19/19 08:59 Last Admin: 01/25/19 07:38 Dose: 2 sprays Documented by: Heparin Sodium/Dextrose (Heparin Sodium/Dextrose) 25,000 units in 500 mls @ 15 mls/hr IV .Q24H [facility]; Protocol Stop: 02/18/19 15:44 Last Titration: 01/25/19 06:58 Dose: 750 unit/hr, 15 mls/hr Documented by: Diltiazem HCl 125 mg/ Dextrose 125 mls @ 5 mls/hr IV .Q24H [facility]; Protocol Stop: 02/22/19 00:14 Last Admin: 01/25/19 01:30 Dose: Not Given Documented by: Levalbuterol HCl (Xopenex 0.63 Mg/3 Ml Neb) 0.63 mg NEB Q6R PRN PRN Reason: Shortness Of Breath Or Wheezin Stop: 02/18/19 19:09 Last Admin: 01/24/19 07:34 Dose: 0.63 mg Documented by: Metoprolol Tartrate (Lopressor) 25 mg PO BID [facility] Stop: 02/24/19 12:59 Miscellaneous (Order Awaiting Action) 1 ea N/A QS [facility] Stop: 02/19/19 00:00 Last Admin: 01/25/19 07:39 Dose: Not Given Documented by: (1) Atrial fibrillation Atrial fibrillation type: paroxysmal Qualified Code(s): I48.0 - Paroxysmal atrial fibrillation
[2019-01-25 19:08] VITALS: TEMP 97.9
[2019-01-26] MEDS: AZELASTINE: ORDER AWAITING ACTION SCH ×2 (00:17→08:00)
[2019-01-26] MEDS: dilTIAZem HCl 125 MG in DEXTROSE 5% 100 ML IV SCH (00:17)
[2019-01-26 06:29] LABS: Partial Thromboplastin Ratio 2.7
[2019-01-26 06:41] LABS: BUN Creatinine Ratio 27.4 (10-20); Calcium 8.2 mg/dl (8.5-10.1); Creatinine Clr Calc Pharmacy 64.1 ml/min; Est GFR (African American) 69.1; Est GFR (Non-African American) 59.6; Magnesium 2.3 mg/dl (1.8-2.4); Potassium 4.1 mmol/L (3.5-5.1)
[2019-01-26 07:09] LABS: Partial Thromboplastin Time 73.6 Seconds (21.0-31.0)
[2019-01-26 07:32] VITALS: BP 130/75; O2SAT 92
[2019-01-26] MEDS: FLUTICASONE PROPIONATE NA SPR 16 GM BTL NAE SCH (07:59)
[2019-01-26] MEDS: dilTIAZem HCL 300 MG CAPCR PO SCH (07:59)
[2019-01-26] MEDS: METOPROLOL TARTRATE 25 MG TAB PO SCH (07:59)
[2019-01-26] MEDS: FLUTICASONE HFA 110MCG INHALER INH SCH (08:00)
--- NOTE | 2019-01-26 09:42 | Cardiology Progress Note ---
Date of Service January 26, 2019 Assessment & Plan (1) Atrial fibrillation with rapid ventricular response: rates improved pt seen and pulmonary, no concern for reactive airway disease responded well to addition of metoprolol would d/c home on current metoprolol and cardizem doses anticoagulation with Eliquis 5mg bid recommended she obtain automated home bp cuff with HR monitor and keep daily log will arrange for f/u with cardiology in 2 and 4 weeks from now, my office will call to arrange (2) Fluid overload: (3) HTN (hypertension): Subjective Pt seen and examined, states that she feels well. Back to baseline. Denies cp, sob, palpitations, lightheadeness or dizziness. Tele reviewed: atrial fibrillation in 90's up to low 100's Review of Systems All systems reviewed & are unremarkable except as noted in HPI & below Physical Exam Vital Signs (Past 24 Hours): Last Vital Signs Temp 36.6 C 01/26/19 07:31 Pulse 113 H 01/26/19 07:31 Resp 16 01/26/19 07:31 BP 130/75 01/26/19 07:31 Pulse Ox 92 01/26/19 07:31 Physical Exam: General: Awake, alert and oriented x 3. No acute distress. HEENT: Normocephalic, atraumatic. Pupils equal, round and reactive to light and accommodation. Extraocular muscles are intact. Anicteric sclera. Moist mucous membranes. Neck: No JVD. No bruit. Cardiovascular: irregularly irregular, unable to appreciate murmur, rub or gallop. Pulmonary: Clear to auscultation bilaterally. No rales, rhonchi, or wheezing. Abdomen: Bowel sounds x 4, soft. No rebound, guarding or tenderness. No organomegaly. Extremities: No clubbing, cyanosis or edema. +2 pedal pulses bilaterally. Skin: Warm and dry.
[2019-01-26 10:44] VITALS: PULSE 93
--- NOTE | 2019-01-26 11:25 | Hospitalist Progress Note ---
Date of Service January 26, 2019 Assessment & Plan (1) Atrial fibrillation: Afib RVR TSH: Normal ECHO:global hypokinesis of LV, MR, TR, EF:50-55% Received IV lasix for possible volume overload Beta-steven discontinued and then restarted to control the heart rate Continue ardizem CD 240mg and the dose is increased to 300 mg daily Appreciate Cardiology Input and recommendation On IV Heparin ggt for anticoagulation Will discharge on Eliquis Clinically much better with any symptoms Her heart rate is controlled She will be discharged home today (2) Fluid overload: Management as above Received intravenous Lasix Likely not of any more Lasix on discharge (3) HTN (hypertension): Hypertensive Urgency Continue Diltiazem BP Stable (4) Leg edema: Venous Doppler:There is no sonographic evidence of deep venous thrombosis identified in the right or left lower extremity. Received IV lasix Leg edema seems to be improved No more edema (5) Asthma: Recent URI/bronchitis in 12/2018 and was treated with doxycycline. Influenza Screen:Negative xopenex prn continue flovent Received Solumedrol and discontinue Appreciate Pulmnology Input and recommendation Respiratory condition remains stable We will continue with her home medications DVT Px: On Heparin ggt Code Status DNR Discharge home today Subjective The patient was seen and examined by me in telemetry Her respiratory symptoms are better She has noted to have heart rate of 180 early this morning She complained of some palpitation but no chest pain and/or shortness of breath with Rate seems to be stable at this time 01/26 Patient was seen and examined in telemetry unit Denies any symptoms of cough and or palpitation Her heart rate remains controlled Denies any other symptoms Physical Exam Vital Signs (Past 24 Hours): Last Vital Signs Temp 36.6 C 01/26/19 10:41 Pulse 93 H 01/26/19 10:41 Resp 16 01/26/19 10:41 BP 130/75 01/26/19 10:41 Pulse Ox 92 01/26/19 10:41 Constitutional: WD/WN, vitals as above Eyes: PERRL, conjunctivae normal, anicteric sclerae ENMT: external ear and nose normal, oropharynx normal Neck: trachea midline, no thyromegaly Respiratory: normal respiratory effort Auscultation: + diminished lung sounds (Otherwise unremarkable) Cardiovascular: Rate/Rhythm: + abnormal rate and + abnormal rhythm Heart Sounds: normal S1 and normal S2 Extremities: no edema Gastrointestinal (Abdomen): normal bowel sounds, soft, nontender, no hepatosplenomegaly Neurologic: PERRL, EOMI, accommodation nl, no face palsy, no dysarthria Results & Data Laboratory Results [facility] 01/26/19 05:31 Sodium 142 Potassium 4.1 Chloride 108 H Carbon Dioxide 29 BUN 25 H D Creatinine 0.91 Glucose 86 Calcium 8.2 L Medications Administered Current Inpatient Medications Acetaminophen (Tylenol) 650 mg PO Q4H PRN PRN Reason: Pain or Fever Stop: 02/18/19 19:09 Diltiazem HCl (Cardizem Cd) 300 mg PO QAM [facility] Stop: 02/24/19 08:59 Last Admin: 01/26/19 07:59 Dose: 300 mg Documented by: Fluticasone Propionate (Flovent Hfa 110mch) 2 puffs INH BID [facility] Stop: 02/18/19 20:59 Last Admin: 01/26/19 08:00 Dose: 2 puffs Documented by: Fluticasone Propionate (Flonase) 2 sprays KYLE DAILY [facility] Stop: 02/19/19 08:59 Last Admin: 01/26/19 07:59 Dose: 2 sprays Documented by: Heparin Sodium/Dextrose (Heparin Sodium/Dextrose) 25,000 units in 500 mls @ 14 mls/hr IV .Q24H [facility]; Protocol Stop: 02/18/19 15:44 Last Titration: 01/26/19 07:13 Dose: 700 unit/hr, 14 mls/hr Documented by: Diltiazem HCl 125 mg/ Dextrose 125 mls @ 5 mls/hr IV .Q24H [facility]; Protocol Stop: 02/22/19 00:14 Last Admin: 01/26/19 00:17 Dose: Not Given Documented by: Levalbuterol HCl (Xopenex 0.63 Mg/3 Ml Neb) 0.63 mg NEB Q6R PRN PRN Reason: Shortness Of Breath Or Wheezin Stop: 02/18/19 19:09 Last Admin: 01/24/19 07:34 Dose: 0.63 mg Documented by: Metoprolol Tartrate (Lopressor) 25 mg PO BID [facility] Stop: 02/24/19 12:59 Last Admin: 01/26/19 07:59 Dose: 25 mg Documented by: Miscellaneous (Order Awaiting Action) 1 ea N/A QS EMILY Stop: 02/19/19 00:00 Last Admin: 01/26/19 08:00 Dose: Not Given Documented by: (1) Atrial fibrillation Atrial fibrillation type: paroxysmal Qualified Code(s): I48.0 - Paroxysmal atrial fibrillation
[2019-01-26] MEDS ORDERED: APIXABAN 5 MG TABLET PO SCH (12:30)
[2019-01-26] MEDS ORDERED: APIXABAN 2.5 MG TAB PO SCH (21:00)
--- NOTE | 2019-01-27 09:26 | Discharge Summary ---
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 Pt with hx SOB with exertion for several months and had followed with cardiology. She had stress echo in 09/2018 with no evidence for ischemia, had frequent PACs, occasional PVCs, EF: 55-59%, normal wall motion, moderate mitral regurgitation, severe tricupsid regurgitation. Pt was started on metoprolol succ 25mg daily. She had Holter monitor ordered also. Pt states has had increased SOB over the past couple of weeks. She states has intermittent palpitations over the past couple of months, doesn't think they are worse recently or currently. Denies CP or dizziness. Reports has noticed increased edema to legs past couple of days, left ankle more swollen than right. Pt states was in [place] in 12/2018 and while there developed congestion, cough and reports was seen at urgent care center and prescribed doxycycline. Pt states was wearing sandals and was in the sun and developed sunburn to toes and part of foot while on doxycycline. Pt reports that she stopped taking metoprolol in 12/2018 when she was sick because she felt "edgy" and faint and thought it was secondary to metoprolol. She states was taking an OTC decongestant in 12/2018 which she thinks was Mucinex, hasn't taken that for past month. Has been using albuterol inhaler twice a day. Feels cough has improved. Denies fever/chills, diaphoresis, N/V/D/C, JASON, syncope, vision changes, neck pain, orthopnea, hematemesis, sore throat, choking, otalgia, rhinorrhea, abdominal pain, paresthesias, other rashes, urinary symptoms. Reported that pt was given cardizem 15mg IV en route by EMS. Upon ER arrival pt afebrile, P: 153, R: 23, BP: 132/112, 94% on 2L NC. Was given another dose of cardizem with P in 140's. Cardizem drip was started and Heparin IV started. Pt was also given 500ml NSS. Admission Exam Per Admitting Provider Vital Signs (Past 24 Hours): Last Vital Signs Temp 37.1 C 01/19/19 12:36 Pulse 133 H 01/19/19 16:30 Resp 12 01/19/19 16:30 BP 158/132 H 01/19/19 16:30 Pulse Ox 92 01/19/19 16:30 Physical Exam: General: mild distress, WDWN Head: normocephalic, atraumatic Eyes: PERRL, EOM's intact, conjunctiva non-injected, anicteric ENT: normal inspection external ears, nose, mucous membranes moist Neck: supple, trachea midline Lungs: +tachypnea, RR: 24, 95% on 2L NC, diminished, faint rales bases CV: irregularly irregular, rate 140, 1+ pretibial edema Abd: normal BS, soft, non-tender Back: no spinous process tenderness to palpation Ext: no cyanosis, no calf tenderness, left ankle slightly larger than right. bilateral toes with erythema, non-tender Neuro: A&O x 3, no focal deficits noted, normal affect Skin: warm, dry Principal Diagnosis Atrial fibrillation with RVR Discharge Exam Constitutional WD/WN, vitals as above Eyes PERRL, conjunctivae normal, anicteric sclerae ENMT external ear and nose normal, oropharynx normal Neck trachea midline, no thyromegaly Respiratory normal respiratory effort Auscultation: + diminished lung sounds (Otherwise unremarkable) Cardiovascular Rate/Rhythm: + abnormal rate and + abnormal rhythm Heart Sounds: normal S1 and normal S2 Extremities: no edema Gastrointestinal (Abdomen) normal bowel sounds, soft, nontender, no hepatosplenomegaly Neurologic PERRL, EOMI, accommodation nl, no face palsy, no dysarthria Discharge Data Allergies Allergy/AdvReac Type Severity Reaction Status Date / Time No Known Allergies Allergy Unverified 01/19/19 13:15 Consultations 01/19/19 15:20 ED Decision to Admit Stat 01/19/19 19:10 Consult Cardiology Routine Consult Case Management - Discharge Planning Routine 01/22/19 11:22 Consult Pulmonology Routine Ordered Studies 01/19/19 13:14 CT angio chest PE protocol Stat 01/19/19 19:10 US venous doppler LE Routine Hospital Course (1) Atrial fibrillation: Afib RVR TSH: Normal ECHO:global hypokinesis of LV, MR, TR, EF:50-55% Received IV lasix for possible volume overload Beta-steven discontinued and then restarted to control the heart rate Continue ardizem CD 240mg and the dose is increased to 300 mg daily Appreciate Cardiology Input and recommendation On IV Heparin ggt for anticoagulation Will discharge on Eliquis Clinically much better with any symptoms Her heart rate is controlled She will be discharged home today (2) Fluid overload: Management as above Received intravenous Lasix Likely not of any more Lasix on discharge (3) HTN (hypertension): Hypertensive Urgency Continue Diltiazem BP Stable (4) Leg edema: Venous Doppler:There is no sonographic evidence of deep venous thrombosis identified in the right or left lower extremity. Received IV lasix Leg edema seems to be improved No more edema (5) Asthma: Recent URI/bronchitis in 12/2018 and was treated with doxycycline. Influenza Screen:Negative xopenex prn continue flovent Received Solumedrol and discontinue Appreciate Pulmnology Input and recommendation Respiratory condition remains stable We will continue with her home medications DVT Px: On Heparin ggt Code Status DNR Discharge home today Total Time Total Time Spent Total Time Spent (In Minutes): 35 minutes Total Time Includes: Examination of the Patient, Discharge Planning, Medication Reconciliation and Communication With Other Providers Discharge Plan Discharge Items Patient Disposition: Home - Self-Care Reason For Visit: AFIB RVR Discharge Diagnosis: Atrial fibrillation with RVR Condition: Good Discharge Goals: Decrease discomfort, Improve function and Increase independence Activity: Resume your previous activity Non-emergency contact: Primary Care Provider Call non-emergency contact if: you have any medication questions and your symptoms worsen Follow-up/Referrals: Christiane Barth [Primary Care Provider] - 01/30/19 12:45 pm Diet: Heart Healthy Addtl Provider Instructions: No extraneous exercise and try to avoid falls Prescriptions: New diltiazem HCl [Cardizem CD] 300 mg Capsule,Extended Release 24hr 300 mg PO QAM 30 Days Qty: 30 RF: 0 metoprolol tartrate 25 mg Tablet 25 mg PO BID 30 Days Qty: 60 RF: 0 Eliquis 5 mg tablet 5 mg PO BID Qty: 60 RF: 0 Continued albuterol sulfate [Ventolin HFA] 90 mcg/actuation Hfa Aerosol Inhaler 2 puff INHALATION Q6H PRN (Reason: Shortness Of Breath) RF: 0 calcium carbonate [Calcium 600] 600 mg calcium (1,500 mg) Tablet 600 mg PO DAILY RF: 0 temazepam 30 mg Capsule 15 mg PO HS PRN (Reason: Insomnia) RF: 0 mometasone [Nasonex] 50 mcg/actuation [place],Non-Aerosol 2 spray INTRANASAL BID RF: 0 cholecalciferol (vitamin D3) 400 unit Tablet 400 unit PO DAILY RF: 0 Flovent HFA 110 mcg/actuation Hfa Aerosol Inhaler 2 puff INHALATION BID RF: 0 azelastine 0.15 % (205.5 mcg) [place],Non-Aerosol 2 spray INTRANASAL BID RF: 0 Discontinued metoprolol succinate 25 mg Tablet Extended Release 24 Hr 25 mg PO DAILY RF: 0 Stand-Alone Forms: [facility] Discharge Orders: Discharge Order (Routine); Ordered 01/26/19 Ordered By: Jonathan Stephen Admission Data Admit Date/Time: 01/19/19 16:35 Attending Provider: Jonathan Stephen Admit Provider: Emil Yung Primary Care Provider: Christiane Barth. Other Providers: Ted Richardson ; Emil Yung ; Azeem Miller ; Irving Arredondo Service: Telemetry Other Interventions: Discharge Summary Assessment (RN) Last Done: 01/26/19 10:41 DC Date/Time DO NOT enter until pt leaves facility: 01/26/19 13:29
== END 2019-01-26 13:29 | disposition home or self-care (01) | DRG 309 ==
LOC: ED 12:33 → SUATTDRO 16:35 → 2S 16:35

== ENCOUNTER 2021-11-25 09:54 | Inpatient (IN) ==
[2021-11-25 10:43] LABS: Basophils # (auto) 0.01 K/uL (0-0.2); Basophils % (auto) 0.2 %; Eosinophils # (auto) 0.05 K/uL (0-0.5); Eosinophils % (auto) 0.8 %; Hematocrit (blood only) 41.3 % (37-47); Hemoglobin 13.6 g/dL (12.0-16.0); Immature Granulocytes # (auto) 0.02 K/uL (0.00-0.02); Immature Granulocytes % (auto) 0.3 %; Lymphocytes # (auto) 1.61 K/uL (1.2-3.4); Lymphocytes % (auto) 25.2 %; Mean Corpuscular Hgb Conc 32.9 g/dL (32-36); Mean Corpuscular Volume 103.3 fL (80-100); Mean Platelet Volume 10.5 fL (7.4-10.4); Monocytes # (auto) 0.41 K/uL (0.11-0.59); Monocytes % (auto) 6.4 %; Neutrophils # (auto) 4.28 K/uL (1.4-6.5); Neutrophils % (auto) 67.1 %; Nucleated RBC # (auto) 0.05 K/uL (0-0); Nucleated RBC % (auto) 0.8 %; Platelet Count 289 K/uL (130-400); RDW Coefficient of Variation 15.8 % (11.5-14.5); RDW Standard Deviation 59.7 fL (36.4-46.3); White Blood Count 6.38 K/uL (4.8-10.8)
[2021-11-25 10:59] LABS: Troponin I < 0.03 ng/ml (0-0.04)
[2021-11-25 11:00] LABS: Alanine Aminotransferase 20 U/L (7-52); Albumin Globulin Ratio 1.9 (0.9-2); Albumin Level 4.5 gm/dl (3.4-5.0); Alkaline Phosphatase 59 U/L (34-104); Anion Gap 9 (3-11); Aspartate Aminotransferase 25 U/L (13-39); BUN Creatinine Ratio 14.7 (10-20); Bilirubin,Total 1.5 mg/dl (0.2-1.0); Blood Urea Nitrogen 24 mg/dl (6-23); Calcium 9.8 mg/dl (8.5-10.1); Carbon Dioxide 28 mmol/L (21-32); Chloride 101 mmol/L (98-107); Est GFR (African American) 33.7 ml/min; Globulin 2.4 gm/dl (2.5-4.0); Glucose 141 mg/dl (70-99(Fasting)); Lipase 20 U/L (11-82); Magnesium 1.8 mg/dl (1.7-2.4); Phosphorus 4.3 mg/dl (2.5-4.9); Potassium 4.2 mmol/L (3.5-5.1); Sodium 138 mmol/L (136-145); Total Protein 6.9 gm/dl (6.0-8.3)
--- NOTE | 2021-11-25 11:06 | Cardiology Consultation ---
Date of Consultation November 25, 2021 Assessment & Plan (1) Atrial fibrillation: Persistent atrial fib with HR average in the mid to upper 110s. Chest heaviness and BUTLER noted. Trop negative. [id number] score of 3 (age 1, female) - x1 dose of 5 mg IV Lopressor to be given today. - Can consider IV diltiazem drip for rate control should IV Lopressor not be sufficient. (2) HTN (hypertension): Normally well controlled. Elevated today in ED. Not currently on antihypertensives as an outpatient. (3) Pulmonary HTN: (4) Severe tricuspid regurgitation: (5) Mitral regurgitation: Moderate MR and severe TR on echo 11/2021 The estimated pulmonary artery systolic pressure is 50-55mm Hg. Consider screening for noctural hypoxia/sleep apnea while inpatient. (6) Anemia: H/o Myelodysplastic syndrome with mild chronic anemia. Hemoglobin stable. (7) Fatigue: Ongoing complaints of daytime fatigue. Symptoms suspicious for obstructive sleep apnea. Patient was scheduled to see Sleep Medicine but canceled due to an illness. Consider nocturnal pulse oximetry study while inpatient. (8) Diastolic CHF: BNP 1467, not significantly elevated when compared to a scr of 1.63. Will hold off on diuretic titration at this time. Case discussed with Dr. Norris Supervising Physician Co-Signing Physician Notes Patient seen and examined at the bedside. Presented to the emergency department with fatigue, dyspnea on exertion, orthopnea, and chest discomfort. Atrial fibrillation with rapid ventricular response noted on telemetry. Recently treated in the outpatient setting with titration of metoprolol to 50 mg twice daily (previous dose of 50 mg daily) and titration of furosemide to 20 mg daily (previous dose, 20 mg 3 days/week). Reports 3 pillow orthopnea without PND. No palpitations, lightheadedness, dizziness, syncope, or near syncope. Currently resting comfortably without chest pain. ECG without ischemic changes. Chest x- ray demonstrates clear lung cummings with chronic small bilateral pleural effusions. Recent echocardiogram demonstrating ejection fraction of 50-54% which was mildly reduced compared to prior studies. Severe tricuspid, moderate mitral regurgitation noted. Successful cardioversion performed 03/21/2019 with 125 J biphasic shock. PE: Afebrile, tachycardic. General: NAD, awake alert and oriented x3. Heart: Irregular, tachycardic, soft, 1/6 systolic murmur heard best at the left sternal border. Lungs: Diminished breath sounds at the bases. No rhonchi, rales, or wheeze. Extremities: No edema. Neurologic: No focal deficit. A/P: Agree with above AP history, physical exam, assessment and plan. Recommend 5 mg IV Lopressor I am reluctant to titrate oral metoprolol further (recently doubled to 100 mg daily) due to evidence of sinus bradycardia in the past. Consider addition of intravenous diltiazem infusion for short-term rate control. With elevated creatinine she is not a candidate for sotalol loading at this time. May consider addition of amiodarone if cardioversion unsuccessful despite recent titration of beta-steven therapy. N.p.o. except medications after midnight in anticipation of external direct-current cardioversion. Anesthesia consult placed. She will receive her evening dose of Eliquis today as well as in the a.m. prior to procedure. Hold further diuretic therapy at this time. History of Present Illness Reason for Consultation: AFIB RVR, BUTLER, HFpEF [facility] of Present Illness Following with Dr. Richardson with cardiology. Seen 11/12/2021 with worsening shortness of breath and fatigue. Was recently seen by PCP who was treating her for pneumonia. Patient found to be in afib with RVR- Wore a monitor x 3 days. Echo showed a small left pleural effusion and her heart rate was elevated in the 100s. LVEF was 50-54% but she does have some borderline hypokinesis. With severe biatrial enlargement and moderate to severe regurgitation of the mitral and tricuspid valve it was felt that she would be unlikely to stay in sinus rhythm easily and a degree of CHF was contributing to her shortness of breath along with the pneumonia. She was instructed to present to the ED for further care but declined on two occasions. Metoprolol was increased to 50 mg BID. Patient also increased her Lasix to daily dosing without relief of symptoms. Covid negative as an outpatient (11/12). TOday the patient woke up with a heaviness in her left chest. She is concerned with worsening shortness of breath. Unable to go up steps or walk a short distance without stopping to rest. Noting slight palpitations and occasional lightheadedness. Worsening fatigue recently. Ongoing moist nonproductive cough. When asked how she is feeling overall she stated "Definity not better". Tele: Afib RVR 110s. (on metoprolol tartrate 50 BID) Scr 1.63 (outpatient 1.1-1.3) Trops negative. Past medical history: 1. Mild asthmatic lung disease 2. Myelodysplastic syndrome with mild chronic anemia 3. Mild to moderate mitral insufficiency 4. Moderateto severetricuspid insufficiency 5. Paroxysmal atrial fibrillation,S/PDCCV in March 2019, [id number] score of 3 (age 1, female), on Eliquis 6. [id number] pulmonary hypertension Allergies Allergy/AdvReac Type Severity Reaction Status Date / Time dog dander AdvReac Intermediate asthma Verified 11/26/21 06:32 house dust AdvReac Intermediate asthma Verified 11/26/21 06:32 mold AdvReac Intermediate asthma Verified 11/26/21 06:32 Home Medications Medication Instructions Recorded Confirmed Type albuterol sulfate 90 mcg/actuation 2 puff INHALATION Q6H PRN 01/19/19 11/25/21 History aerosol inhaler (Ventolin HFA) azelastine 205.5 mcg (0.15 %) 2 spray INTRANASAL DAILY 01/19/19 11/25/21 History nasal spray calcium carbonate 600 mg calcium 600 mg PO QAM 01/19/19 11/25/21 History (1,500 mg) tablet (Calcium) cholecalciferol (vitamin D3) 10 400 unit PO QAM 01/19/19 11/25/21 History mcg (400 unit) tablet fluticasone propionate 110 2 puff INHALATION BID 01/19/19 11/25/21 History mcg/actuation HFA aerosol inhaler (Flovent HFA) apixaban 5 mg tablet (Eliquis) 5 mg PO BID #60 tab 01/26/19 11/25/21 Rx metoprolol tartrate 25 mg tablet 50 mg PO BID 03/21/19 11/25/21 History furosemide 20 mg tablet 20 mg PO DAILY 11/25/21 11/25/21 History Patient History Medical History Allergic rhinitis Chronic diastolic CHF (congestive heart failure) CKD (chronic kidney disease), stage III COPD (chronic obstructive pulmonary disease) GERD (gastroesophageal reflux disease) HTN (hypertension) MDS (myelodysplastic syndrome) PAC (premature atrial contraction) Paroxysmal A-fib Surgical History History of cataract surgery History of herniorrhaphy Family History Other Asthma Colorectal cancer Coronary heart disease Diabetes Social History Smoking Status: Former smoker Tobacco Type: Cigarettes Second Hand Exposure: No; Hx Alcohol Use: Yes Alcohol type: wine Hx Substance Use: No Preferred Language: Russian Communication Ability: Effective First Aid Trainer Required: No Beliefs That Will Affect Care: None Current Living Situation: Alone How many Children do You have: 1 Feels Safe at Home: Yes Safety Concerns: Feels Safe At This Time Assistive Devices: None Review of Systems Review of Systems: All systems reviewed & are unremarkable except as noted in HPI & below Physical Exam Physical Exam: General: No acute distress. A+Ox3. HEENT: Normocephalic. Atraumatic.Conjunctiva and sclera clear. NECK: No carotid bruits. No JVD. Carotid upstrokes are brisk. Heart: Tachy rate, irregular rhythm. S1 and S2 noted without murmur, rubs, gallops. Lungs: Rales noted bilaterally, no wheezing or rhonchi, + nonproductive moist cough. Abdomen: Normal bowel sounds. Soft. Nontender. No masses or organomegaly. No abdominal bruits. Extremities: Trace to +1 BLLE edema, wearing compression socks Pulses: radial=2/4, posterior tibial=2/4, dorsalis pedis = 2/4. NEURO: No focal deficits. PSYCH: Normal. Results & Data ([facility]) Vital Signs (Past 12 Hours) Vital Signs Temp Pulse Pulse Resp BP BP Pulse Ox 11/25/21 10:23 110 H 18 155/96 H 95 11/25/21 10:22 109 H 19 95 11/25/21 10:02 36.5 C 126 H 20 124/85 95 Laboratory Results 11/25/21 11/25/21 11/25/21 Range/Units 10:40 10:22 10:22 WBC 6.38 (4.8-10.8) K/uL RBC 4.00 L (4.2-5.4) M/uL Hgb 13.6 (12.0-16.0) g/dL Hct 41.3 (37-47) % MCV 103.3 H (80-100) fL MCH 34.0 (25-34) pg MCHC 32.9 (32-36) g/dL RDW Std Deviation 59.7 H (36.4-46.3) fL RDW Coeff of Melissa 15.8 H (11.5-14.5) % Plt Count 289 (130-400) K/uL MPV 10.5 H (7.4-10.4) fL Immature Gran % (Auto) 0.3 % Neut % (Auto) 67.1 % Lymph % (Auto) 25.2 % [place] % (Auto) 6.4 % Eos % (Auto) 0.8 % Baso % (Auto) 0.2 % Neut # (Auto) 4.28 (1.4-6.5) K/uL Lymph # (Auto) 1.61 (1.2-3.4) K/uL [place] # (Auto) 0.41 (0.11-0.59) K/uL Eos # (Auto) 0.05 (0-0.5) K/uL Baso # (Auto) 0.01 (0-0.2) K/uL Immature Gran # (Auto) 0.02 (0.00-0.02) K/uL Absolute Nucleated RBC 0.05 H (0-0) K/uL Nucleated RBC % (auto) 0.8 % Sodium 138 (136-145) mmol/L Potassium 4.2 (3.5-5.1) mmol/L Chloride 101 (98-107) mmol/L Carbon Dioxide 28 (21-32) mmol/L Anion Gap 9 (3-11) BUN 24 H (6-23) mg/dl Creatinine 1.63 H (0.6-1.2) mg/dl Est Cr Clr Drug Dosing 23.0 ml/min Est GFR ( Amer) 33.7 ml/min Est GFR (Non-Af Amer) 29.0 ml/min BUN/Creatinine Ratio 14.7 (10-20) Glucose 141 H (70-99(Fasting)) mg/dl Calcium 9.8 (8.5-10.1) mg/dl Phosphorus 4.3 (2.5-4.9) mg/dl Magnesium 1.8 (1.7-2.4) mg/dl Total Bilirubin 1.5 H (0.2-1.0) mg/dl AST 25 (13-39) U/L ALT 20 (7-52) U/L Alkaline Phosphatase 59 (34-104) U/L Troponin I < 0.03 (0-0.04) ng/ml B-Natriuretic Peptide Pending Total Protein 6.9 (6.0-8.3) gm/dl Albumin 4.5 (3.4-5.0) gm/dl Globulin 2.4 L (2.5-4.0) gm/dl Albumin/Globulin Ratio 1.9 (0.9-2) Lipase 20 (11-82) U/L Diagnostic Findings Echo as outpatient 11/13/2021 The examination is adequate to evaluate the referral indication. There was atrial fibrillation with elevated ventricular response rate during the examination. The left ventricular cavity size is normal. The LV wall thickness is mildly increased (concentric). There is borderline diffuse left ventricular hypokinesis. The qualitative LV ejection fraction is 50-54% (normal). There is severe biatrial enlargement Mild aortic valve regurgitation is present. The mitral valve annulus is moderately dilated. Moderate mitral regurgitation is present. Severe tricuspid regurgitation is present. Moderate pulmonary hypertension is present. The estimated pulmonary artery systolic pressure is 50-55mm Hg. A small left plerual effusion is present. Zio 11/13/2021 Atrial Fibrillation occurred continuously (100% burden), ranging from 77- 188 bpm (avg of 117 bpm). Isolated VEs were rare (<1.0%), VE Couplets were rare (<1.0%), and no VE Triplets were present. Echo 06/2021 The examination is adequate to evaluate the referral indication. There was sinus bradycardia during the examination. The left ventricular wall motion is normal. The qualitative LV ejection fraction is 55-59% (normal). The left atrium is severely enlarged. The right atrium is moderately enlarged. Mild aortic valve regurgitation is present. Mild bileaflet mitral valve prolapse is present. Moderate mitral regurgitation is present. Moderate to severe tricuspid regurgitation is present. Moderate pulmonary hypertension is present. The estimated pulmonary artery systolic pressure is 50-53 mm Hg. (1) Atrial fibrillation Atrial fibrillation type: paroxysmal Qualified Code(s): I48.0 - Paroxysmal atrial fibrillation
--- NOTE | 2021-11-25 11:08 | XRay Report ---
XR chest 1V portable CLINICAL HISTORY: Atypical chest pain TECHNIQUE: Single frontal radiograph of the chest was obtained. Comparison: Comparison is made to chest 2 views 01/23/2019 FINDINGS: No lines and tubes are seen. Cardiomegaly is noted. The lungs are clear. Small bilateral pleural effu sions are seen. IMPRESSION: Small bilateral pleural effusions. Cardiomegaly. ACT 112: Negative or not required by law. Electronically signed by: Srinivas Oconnell M.D. 11/25/2021 11:06 AM
--- NOTE | 2021-11-25 11:37 | Emergency Department Note ---
Impression & Plan Atrial fibrillation with rapid ventricular response, Pulmonary HTN, CKD (chronic kidney disease), stage III, Dyspnea ED Provider Note NAME: GOLDIE WERNER AGE: 80 SEX: F ARRIVES VIA: Walk-In INFORMANT: Patient and Daughter ED PROVIDER(S): Bharat Jalloh MD CHIEF COMPLAINT: Shortness of breath, Afib PLAN: Disposition: Admit MEDICAL DECISION MAKING: The patient is a pleasant 80-year-old woman with a past medical history of atrial fibrillation on Eliquis, asthma, GERD, pulmonary hypertension, diastolic dysfunction who presents to the emergency department accompanied by her daughter for evaluation of shortness of breath. The patient is a poor historian. The patient reports her shortness of breath has been ongoing for the past 3 years and is not particularly worse at this time. She reports she followed up with her cardiology office at the beginning of November and was "back in A. fib". She describes that they wanted her to come to the hospital to be admitted for her atrial fibrillation. She is unsure of the details of why this was recommended. She denies cough, congestion, nausea, vomiting, diarrhea or urinary symptoms. She denies any fevers. However, review of the [facility] records does show that the patient was treated with antibiotics in the middle of November in the setting of having fever but following completing course of Omnicef had no improvement in her symptoms. Review of these records demonstrate concern was that the patient may have symptoms due to CHF/volume overload and were recommending increasing her Lasix as well as an increase in her metoprolol for improved rate control. She did have an updated echo performed that demonstrated an EF of 50-54% with borderline diffuse left ventricular hypokinesis. Moderate pulmonary hypertension was appreciated with estimated pulmonary artery systolic pressure of 50-55 mmHg. A small left pleural effusion was seen. Per messaging recommendation was for the patient to come to the hospital for IV diuresis. On arrival patient is in no acute distress, afebrile with heart rate in A. fib in the 100-110 range. Her O2 saturation is 95% on room air. Vital signs are ot herwise unremarkable. On exam the patient has 1+ bilateral lower extremity edema. Lungs are relatively clear. EKG demonstrates atrial fibrillation without overt acute ischemia. Chest x-ray without overt acute ischemia. Lungs are clear. Small bilateral pleural effusions are seen. WBC, H/H and platelets within normal limits. Chemistry without metabolic acidosis. Creatinine is 1.6, increased from prior values. Total bilirubin 1.5, nonspecific given no GI symptoms and LFTs otherwise unremarkable. Troponin is negative/undetectable. BNP is 1400 without prior values for comparison. Lipase is not elevated. Case was discussed with Brenton Garay, with Dr. Arredondo, [facility] hospitalist who will evaluate the patient for admission. IV Lasix and Lopressor administered. Appreciate [facility] cardiology recommendations. Triage Nursing notes reviewed and agree them. Prior medical records reviewed Vital Signs: reviewed and remarkable for tachycardia. Differential diagnosis: Reactive airway disease, pneumonia, pneumothorax, COPD, CHF, infections, cardiac ischemia, pulmonary embolism, musculoskeletal, gastrointestinal, as well as other pathologies. ER treatment provided: See below. Diagnostics interpreted by me: ECG: Atrial fibrillation with rvr, 118 bpm, no ectopy, nonspecific ST and TWA, no overt ST elevation. Cardiac Monitoring: An order for continuous cardiac monitoring was placed and demonstrated Atrial fibrillation with rvr, 118 bpm, no ectopy. Laboratory studies: See below Imaging studies: See below Consultation(s): Case was discussed with Brenton Garay, with Dr. Arredondo, [facility] hospitalist who will evaluate the patient for admission. HPI: The patient is a pleasant 80-year-old woman with a past medical history of atrial fibrillation on Eliquis, asthma, GERD, pulmonary hypertension, diastolic dysfunction who presents to the emergency department accompanied by her daughter for evaluation of shortness of breath. The patient is a poor historian. The patient reports her shortness of breath has been ongoing for the past 3 years and is not particularly worse at this time. She reports she followed up with her cardiology office at the beginning of November and was "back in A. fib". She describes that they wanted her to come to the hospital to be admitted for her atrial fibrillation. She is unsure of the details of why this was recommended. She denies cough, congestion, nausea, vomiting, diarrhea or urinary symptoms. She denies any fevers. However, review of the [facility] records does show that the patient was treated with antibiotics in the middle of November in the setting of having fever but following completing course of Omnicef had no improvement in her symptoms. Review of these records demonstrate concern was that the patient may have symptoms due to CHF/volume overload and were recommending increasing her Lasix as well as an increase in her metoprolol for improved rate control. She did have an updated echo performed that demonstrated an EF of 50-54% with borderline diffuse left ventricular hypokinesis. Moderate pulmonary hypertension was appreciated with estimated pulmonary artery systolic pressure of 50-55 mmHg. A small left pleural effusion was seen. Per messaging recommendation was for the patient to come to the hospital for IV diuresis. ROS: See above HPI for pertinent positives & negatives. A total of 10 systems reviewed and were otherwise negative. PAST MEDICAL HISTORY:See Below PAST SURGICAL HISTORY:See Below FAMILY HISTORY:See Below SOCIAL HISTORY:See Below HOME MEDICATIONS:See Below ALLERGIES:See Below VITALS:See Below PHYSICAL EXAMINATION: GENERAL: Awake, alert, relatively well-appearing, in no distress HENT: Normocephalic, atraumatic. Oropharynx with dry mucous membranes and otherwise unremarkable. EYES: Normal conjunctiva. Sclera non-icteric. NECK: Supple. No nuchal rigidity. FROM. No JVD. RESPIRATORY: Clear to auscultation. CARDIAC: Tachycardic rate, irregular rhythm. Extremities warm and well perfused. Pulses equal. ABDOMEN: Soft, non-distended. No tenderness to palpation. No rebound or guarding. No masses. RECTAL: Deferred. MUSCULOSKELETAL: Chest examination reveals no tenderness. The back is symmetrical on inspection without obvious abnormality. There is no CVA tenderness to palpation. No joint edema. LOWER EXTREMITIES: Calves are equal size bilaterally and non-tender. 1+ BLE edema. No discoloration. NEURO: Normal sensorium. No sensory or motor deficits noted. SKIN: No rash or jaundice noted. ED COURSE: Critical Care: I have personally spent greater than 35 minutes of critical care time in the direct management of this patient. This includes bedside care, interpretation of diagnostic studies, and testing, discussion with consultants, patient, and family members, and other required patient management activities. This 35 minutes is in excess of all separately billable procedures. Bharat Jalloh MD Past Med/Surg History Medical History Allergic rhinitis Chronic diastolic CHF (congestive heart failure) CKD (chronic kidney disease), stage III COPD (chronic obstructive pulmonary disease) GERD (gastroesophageal reflux disease) HTN (hypertension) MDS (myelodysplastic syndrome) PAC (premature atrial contraction) Paroxysmal A-fib Surgical History History of cataract surgery History of herniorrhaphy Family History Other Asthma Colorectal cancer Coronary heart disease Diabetes Social History Smoking Status: Former smoker Tobacco Type: Cigarettes Second Hand Exposure: No; Hx Alcohol Use: Yes Alcohol type: wine Hx Substance Use: No Preferred Language: Slovenian Communication Ability: Effective Bacteriologist Pharmaceutical Required: No Beliefs That Will Affect Care: None Current Living Situation: Alone Feels Safe at Home: Yes Safety Concerns: Feels Safe At This Time Assistive Devices: Glasses Allergies Allergies Allergy/AdvReac Type Severity Reaction Status Date / Time dog dander AdvReac Intermediate asthma Unverified 11/25/21 10:57 house dust AdvReac Intermediate asthma Unverified 11/25/21 10:57 mold AdvReac Intermediate asthma Unverified 11/25/21 10:57 Home Meds Home Medications Medication Instructions Recorded Confirmed albuterol sulfate 90 mcg/actuation 2 puff INHALATION Q6H PRN 01/19/19 11/25/21 aerosol inhaler (Ventolin HFA) azelastine 205.5 mcg (0.15 %) 2 spray INTRANASAL DAILY 01/19/19 11/25/21 nasal spray calcium carbonate 600 mg calcium 600 mg PO QAM 01/19/19 11/25/21 (1,500 mg) tablet (Calcium) cholecalciferol (vitamin D3) 10 400 unit PO QAM 01/19/19 11/25/21 mcg (400 unit) tablet fluticasone propionate 110 2 puff INHALATION BID 01/19/19 11/25/21 mcg/actuation HFA aerosol inhaler (Flovent HFA) metoprolol tartrate 25 mg tablet 50 mg PO BID 03/21/19 11/25/21 furosemide 20 mg tablet 20 mg PO DAILY 11/25/21 11/25/21 Previous Rx's Medication Instructions Recorded apixaban 5 mg tablet (Eliquis) 5 mg PO BID #60 tab 01/26/19 Results & Data (ED) Vital Signs Vital Signs - 24 hr 11/25/21 10:02 11/25/21 10:18 11/25/21 10:22 Temperature 36.5 C Temperature Source Temporal Artery Scan Pulse Rate 126 H 109 H Pulse Rate [Finger] Pulse Rate from SpO2 Sensor Pulse Rhythm Irregular Pulse Rhythm [Finger] Pulse Strength [Finger] Respiratory Rate 20 19 Respiratory Effort / Characteristics Non-Labored Non-Labored Respiratory Depth Normal Normal Respiratory Pattern Regular Blood Pressure 124/85 Blood Pressure [Left Arm] Blood Pressure Mean 98 Blood Pressure Mean [Left Arm] Blood Pressure Position [Left Arm] Pulse Oximetry 95 95 Oxygen Delivery Method Room Air Room Air Room Air Sepsis Recent Fever Within 48 Hours No Sepsis New/Unexplained Change in Mental Status N/A Sepsis Action Taken by Nursing No Action Required 11/25/21 10:23 11/25/21 10:24 11/25/21 10:30 Temperature Temperature Source Pulse Rate 119 H 133 H Pulse Rate [Finger] 110 H Pulse Rate from SpO2 Sensor Pulse Rhythm Pulse Rhythm [Finger] Irregular Pulse Strength [Finger] Normal Respiratory Rate 18 20 24 Respiratory Effort / Characteristics Non-Labored Respiratory Depth Normal Respiratory Pattern Blood Pressure 155/96 H 157/92 H Blood Pressure [Left Arm] 155/96 H Blood Pressure Mean 115 113 Blood Pressure Mean [Left Arm] 115 Blood Pressure Position [Left Arm] Lying Pulse Oximetry 95 92 85 L Oxygen Delivery Method Room Air Sepsis Recent Fever Within 48 Hours Sepsis New/Unexplained Change in Mental Status Sepsis Action Taken by Nursing 11/25/21 10:45 11/25/21 11:00 11/25/21 11:15 Temperature Temperature Source Pulse Rate 103 H 103 H 102 H Pulse Rate [Finger] Pulse Rate from SpO2 Sensor 112 H Pulse Rhythm Pulse Rhythm [Finger] Pulse Strength [Finger] Respiratory Rate 16 20 26 H Respiratory Effort / Characteristics Respiratory Depth Respiratory Pattern Blood Pressure Blood Pressure [Left Arm] Blood Pressure Mean Blood Pressure Mean [Left Arm] Blood Pressure Position [Left Arm] Pulse Oximetry 92 Oxygen Delivery Method Sepsis Recent Fever Within 48 Hours Sepsis New/Unexplained Change in Mental Status Sepsis Action Taken by Nursing 11/25/21 11:30 11/25/21 11:51 11/25/21 12:00 Temperature Temperature Source Pulse Rate 104 H 118 H 105 H Pulse Rate [Finger] 102 H Pulse Rate from SpO2 Sensor Pulse Rhythm Pulse Rhythm [Finger] Irregular Pulse Strength [Finger] Respiratory Rate 20 21 20 Respiratory Effort / Characteristics Respiratory Depth Respiratory Pattern Blood Pressure 148/95 H Blood Pressure [Left Arm] 148/95 H Blood Pressure Mean 112 Blood Pressure Mean [Left Arm] 112 Blood Pressure Position [Left Arm] Sitting Pulse Oximetry Oxygen Delivery Method Sepsis Recent Fever Within 48 Hours Sepsis New/Unexplained Change in Mental Status Sepsis Action Taken by Nursing 11/25/21 12:15 Temperature Temperature Source Pulse Rate 105 H Pulse Rate [Finger] Pulse Rate from SpO2 Sensor Pulse Rhythm Pulse Rhythm [Finger] Pulse Strength [Finger] Respiratory Rate 22 Respiratory Effort / Characteristics Respiratory Depth Respiratory Pattern Blood Pressure Blood Pressure [Left Arm] Blood Pressure Mean Blood Pressure Mean [Left Arm] Blood Pressure Position [Left Arm] Pulse Oximetry Oxygen Delivery Method Sepsis Recent Fever Within 48 Hours Sepsis New/Unexplained Change in Mental Status Sepsis Action Taken by Nursing Laboratory Data Attestation: I reviewed the patient's lab results. Result diagrams: 11/25/21 10:11/25/21 10: Lab Results 11/25/21 11/25/21 11/25/21 Range/Units 10: 10: 10:40 WBC 6.38 (4.8-10.8) K/uL RBC 4.00 L (4.2-5.4) M/uL Hgb 13.6 (12.0-16.0) g/dL Hct 41.3 (37-47) % MCV 103.3 H (80-100) fL MCH 34.0 (25-34) pg MCHC 32.9 (32-36) g/dL RDW Std Deviation 59.7 H (36.4-46.3) fL RDW Coeff of Melissa 15.8 H (11.5-14.5) % Plt Count 289 (130-400) K/uL MPV 10.5 H (7.4-10.4) fL Immature Gran % (Auto) 0.3 % Neut % (Auto) 67.1 % Lymph % (Auto) 25.2 % [place] % (Auto) 6.4 % Eos % (Auto) 0.8 % Baso % (Auto) 0.2 % Neut # (Auto) 4.28 (1.4-6.5) K/uL Lymph # (Auto) 1.61 (1.2-3.4) K/uL [place] # (Auto) 0.41 (0.11-0.59) K/uL Eos # (Auto) 0.05 (0-0.5) K/uL Baso # (Auto) 0.01 (0-0.2) K/uL Immature Gran # (Auto) 0.02 (0.00-0.02) K/uL Absolute Nucleated RBC 0.05 H (0-0) K/uL Nucleated RBC % (auto) 0.8 % Sodium 138 (136-145) mmol/L Potassium 4.2 (3.5-5.1) mmol/L Chloride 101 (98-107) mmol/L Carbon Dioxide 28 (21-32) mmol/L Anion Gap 9 (3-11) BUN 24 H (6-23) mg/dl Creatinine 1.63 H (0.6-1.2) mg/dl Est Cr Clr Drug Dosing 23.0 ml/min Est GFR ( Amer) 33.7 ml/min Est GFR (Non-Af Amer) 29.0 ml/min BUN/Creatinine Ratio 14.7 (10-20) Glucose 141 H (70-99(Fasting)) mg/dl Calcium 9.8 (8.5-10.1) mg/dl Phosphorus 4.3 (2.5-4.9) mg/dl Magnesium 1.8 (1.7-2.4) mg/dl Total Bilirubin 1.5 H (0.2-1.0) mg/dl AST 25 (13-39) U/L ALT 20 (7-52) U/L Alkaline Phosphatase 59 (34-104) U/L Troponin I < 0.03 (0-0.04) ng/ml B-Natriuretic Peptide 1467 H (0-100) pg/ml Total Protein 6.9 (6.0-8.3) gm/dl Albumin 4.5 (3.4-5.0) gm/dl Globulin 2.4 L (2.5-4.0) gm/dl Albumin/Globulin Ratio 1.9 (0.9-2) Lipase 20 (11-82) U/L SARS-CoV-2, RNA, NAAT (NEGATIVE) 11/25/21 Range/Units 11:50 WBC (4.8-10.8) K/uL RBC (4.2-5.4) M/uL Hgb (12.0-16.0) g/dL Hct (37-47) % MCV (80-100) fL MCH (25-34) pg MCHC (32-36) g/dL RDW Std Deviation (36.4-46.3) fL RDW Coeff of Melissa (11.5-14.5) % Plt Count (130-400) K/uL MPV (7.4-10.4) fL Immature Gran % (Auto) % Neut % (Auto) % Lymph % (Auto) % [place] % (Auto) % Eos % (Auto) % Baso % (Auto) % Neut # (Auto) (1.4-6.5) K/uL Lymph # (Auto) (1.2-3.4) K/uL [place] # (Auto) (0.11-0.59) K/uL Eos # (Auto) (0-0.5) K/uL Baso # (Auto) (0-0.2) K/uL Immature Gran # (Auto) (0.00-0.02) K/uL Absolute Nucleated RBC (0-0) K/uL Nucleated RBC % (auto) % Sodium (136-145) mmol/L Potassium (3.5-5.1) mmol/L Chloride (98-107) mmol/L Carbon Dioxide (21-32) mmol/L Anion Gap (3-11) BUN (6-23) mg/dl Creatinine (0.6-1.2) mg/dl Est Cr Clr Drug Dosing ml/min Est GFR ( Amer) ml/min Est GFR (Non-Af Amer) ml/min BUN/Creatinine Ratio (10-20) Glucose (70-99(Fasting)) mg/dl Calcium (8.5-10.1) mg/dl Phosphorus (2.5-4.9) mg/dl Magnesium (1.7-2.4) mg/dl Total Bilirubin (0.2-1.0) mg/dl AST (13-39) U/L ALT (7-52) U/L Alkaline Phosphatase (34-104) U/L Troponin I (0-0.04) ng/ml B-Natriuretic Peptide (0-100) pg/ml Total Protein (6.0-8.3) gm/dl Albumin (3.4-5.0) gm/dl Globulin (2.5-4.0) gm/dl Albumin/Globulin Ratio (0.9-2) Lipase (11-82) U/L SARS-CoV-2, RNA, NAAT NEGATIVE (NEGATIVE) Administered Medications Apixaban (Apixaban 5 Mg Tablet) 5 mg PO BID [facility] Stop: 12/25/21 20:59 Last Admin: 11/25/21 21:31 Dose: 5 mg Documented by: [id number] Fluticasone Furoate (Fluticasone Furoate 200mcg 14 Puffs/Inhaler) 1 puffs INH HS [facility] Stop: 12/25/21 20:59 Last Admin: 11/25/21 21:32 Dose: 1 puffs Documented by: [id number] Diltiazem HCl 125 mg/ Dextrose 125 mls @ 5 mls/hr IV .Q24H [facility]; Protocol Stop: 12/25/21 12:59 Last Admin: 11/25/21 13:25 Dose: 5 mg/hr, 5 mls/hr Documented by: [id number] Cosigned by: [id number] Metoprolol Tartrate (Metoprolol Tartrate 50 Mg Tab) 50 mg PO BID [facility] Stop: 12/25/21 20:59 Last Admin: 11/25/21 21:30 Dose: 50 mg Documented by: [id number] Discontinued Medications Furosemide (Furosemide Inj 20 Mg/2 Ml Vial) 20 mg IV NOW STA Stop: 11/25/21 11:39 Last Admin: 11/25/21 11:52 Dose: 20 mg Documented by: [id number] Metoprolol Tartrate (Metoprolol Tartrate 1 Mg/Ml Vial) 5 mg IV NOW STA Stop: 11/25/21 11:52 Last Admin: 11/25/21 12:26 Dose: 5 mg Documented by: [id number] Metoprolol Tartrate (Metoprolol Tartrate 1 Mg/Ml Vial) 5 mg IV NOW STA Stop: 11/25/21 12:06 Last Admin: 11/25/21 13:15 Dose: Not Given Documented by: [id number] Imaging Data Radiologist's Impression: Chest X-Ray 11/25/21 10:20 XR chest 1V portable CLINICAL HISTORY: Atypical chest pain TECHNIQUE: Single frontal radiograph of the chest was obtained. Comparison: Comparison is made to chest 2 views 01/23/2019 FINDINGS: No lines and tubes are seen. Cardiomegaly is noted. The lungs are clear. Small bilateral pleural effusions are seen. IMPRESSION: Small bilateral pleural effusions. Cardiomegaly. ACT 112: Negative or not required by law. Electronically signed by: Srinivas Oconnell M.D. 11/25/2021 11:06 AM Discharge Plan Visit Data Chief Complaint: Shortness of Breath/Dyspnea Stated Complaint: A-FIB, SOB, COUGH, FATIGUE, DIZZY Discharge Problem: Atrial fibrillation with rapid ventricular response, Pulmonary HTN, CKD (chronic kidney disease), stage III, Dyspnea Patient Disposition: Admitted As Inpatient Discharge Instructions Interventions: ED Discharge Assessment Last Done: 11/25/21 19:13 Discharge Problem: CKD (chronic kidney disease), stage III Qualifiers: Chronic kidney disease stage 3 subtype: unspecified whether 3a or 3b Qualified Code(s): N18.30 - Chronic kidney disease, stage 3 unspecified Dyspnea Qualifiers: Dyspnea type: unspecified Qualified Code(s): R06.00 - Dyspnea, unspecified
[2021-11-25] MEDS ORDERED: FUROSEMIDE INJ 20 MG/2 ML VIAL IV STA (11:38)
[2021-11-25] MEDS ORDERED: METOPROLOL TARTRATE 1 MG/ML VIAL IV STA ×2 (11:51→12:05)
[2021-11-25] MEDS ORDERED: STAT IV Infusion **Titration per Protocol STA (12:57)
[2021-11-25] MEDS ORDERED: dilTIAZem HCL 125 MG in DEXTROSE 5% 100 ML IV SCH (13:00)
--- NOTE | 2021-11-25 13:44 | History & Physical Report ---
Date of Service November 25, 2021 Assessment & Plan (1) Atrial fibrillation: Plan: -Admitted to telemetry -Patient presenting from home with reports of shortness of breath, fatigue, palpitations for at least the past month. As an outpatient, patient was treated for pneumonia twice. She was also found to be in atrial fibrillation with RVR (has history of paroxysmal atrial fibrillation with prior cardioversion in the past). Metoprolol and Lasix both titrated without much improvement in symptoms. -In the ED, patient is in atrial fibrillation with rates in the 110s -S/p metoprolol 5 mg IV without much improvement in heart rate. Will start IV diltiazem drip per cardiology recommendations -Continue home dose of metoprolol -Continue Eliquis -N.p.o. after midnight for cardioversion (2) Diastolic CHF: Plan: -Echo 11/13/2021-EF 50 to 54%, severe biatrial enlargement, mild aortic valve regurgitation, moderate mitral regurgitation, severe tricuspid regurgitation, moderate pulmonary hypertension -proBNP 1400, patient does not examine to be significantly volume overloaded -S/p Lasix 20 mg IV in ED -will hold on further diuresis at this time due to mild bump in creatinine (3) CKD (chronic kidney disease), stage III: Plan: -Baseline creatinine low 1's -Noted to be 1.5 today -Mild elevation likely due to recent titration of Lasix -Follow renal functions (4) COPD (chronic obstructive pulmonary disease): Plan: -No signs of acute exacerbation -Continue home inhalers (5) MDS (myelodysplastic syndrome): Plan: -No acute issues, CBC stable -Follows with Dr. Sotero Price (6) DVT prophylaxis: Plan: -On Eliquis History of Present Illness Chief Complaint: Shortness of breath, fatigue Primary Care Provider: Christiane Barth DO 80-year-old female with PMH COPD, chronic diastolic CHF, paroxysmal atrial fibrillation anticoagulated with Eliquis, HTN, CKD stage III, myelodysplastic syndrome, and other problems to below who presents to the ED for evaluation of shortness of breath and fatigue. Patient has been having symptoms for at least the past 1 month. Patient was seen by PCP on 10/22 and placed on doxycycline for suspected pneumonia. Patient was seen in follow-up in clinic on 11/11 and was found to be in atrial fibrillation with RVR. Due to ongoing pulmonary complaints, patient was started on cefdinir. For the A. fib with RVR, she was instructed to take an extra dose of metoprolol and follow-up with cardiology. Patient was seen by cardiology on 11/14 and metoprolol was increased to 50 mg in the morning and 25 mg in the evening, Lasix changed to 20 mg daily. On 11/19, metoprolol was increased to 50 mg twice daily. Patient has been advised to come to the ED for further evaluation however she has declined in the past. Patient reports she has shortness of breath with minimal exertion. She also notes sleeping on 3 pillows at night. Denies lower extremity edema. She has been having palpitations, denies chest pain. She has generalized fatigue and no ener gy. Denies lightheadedness, dizziness, diaphoresis, syncopal events. No abdominal pain, nausea, vomiting, diarrhea. Denies any other recent illnesses, fevers, chills. No urinary symptoms. In the ED, patient is in atrial fibrillation with rates in the 110s. CXR shows small bilateral pleural effusions. Labs show creatinine 1.6 (baseline low 1's). Other labs unremarkable. Patient was given metoprolol 5 mg IV and Lasix 20 mg IV. Allergies Allergy/AdvReac Type Severity Reaction Status Date / Time dog dander AdvReac Intermediate asthma Unverified 11/25/21 10:57 house dust AdvReac Intermediate asthma Unverified 11/25/21 10:57 mold AdvReac Intermediate asthma Unverified 11/25/21 10:57 Home Medications Medication Instructions Recorded Confirmed Type albuterol sulfate 90 mcg/actuation 2 puff INHALATION Q6H PRN 01/19/19 11/25/21 History aerosol inhaler (Ventolin HFA) azelastine 205.5 mcg (0.15 %) 2 spray INTRANASAL DAILY 01/19/19 11/25/21 History nasal spray calcium carbonate 600 mg calcium 600 mg PO QAM 01/19/19 11/25/21 History (1,500 mg) tablet (Calcium) cholecalciferol (vitamin D3) 10 400 unit PO QAM 01/19/19 11/25/21 History mcg (400 unit) tablet fluticasone propionate 110 2 puff INHALATION BID 01/19/19 11/25/21 History mcg/actuation HFA aerosol inhaler (Flovent HFA) apixaban 5 mg tablet (Eliquis) 5 mg PO BID #60 tab 01/26/19 11/25/21 Rx metoprolol tartrate 25 mg tablet 50 mg PO BID 03/21/19 11/25/21 History furosemide 20 mg tablet 20 mg PO DAILY 11/25/21 11/25/21 History Past Med/Surg History Medical History (Updated 11/25/21 @ 13:47 by ANEGLIA Garay) Allergic rhinitis Chronic diastolic CHF (congestive heart failure) CKD (chronic kidney disease), stage III COPD (chronic obstructive pulmonary disease) GERD (gastroesophageal reflux disease) HTN (hypertension) MDS (myelodysplastic syndrome) PAC (premature atrial contraction) Paroxysmal A-fib Surgical History History of cataract surgery History of herniorrhaphy Family History Other Asthma Colorectal cancer Coronary heart disease Diabetes Social History Smoking Status: Former smoker Tobacco Type: Cigarettes Second Hand Exposure: No; Hx Alcohol Use: Yes Alcohol type: wine Hx Substance Use: No Preferred Language: Pashto Communication Ability: Effective Hris Analyst Required: No Beliefs That Will Affect Care: None Current Living Situation: Alone Feels Safe at Home: Yes Assistive Devices: Glasses Review of Systems Review of Systems: ROS per HPI, all other systems reviewed and negative Physical Exam Constitutional: WD/WN, vitals as above Eyes: PERRL, conjunctivae normal, anicteric sclerae ENMT: external ear and nose normal, oropharynx normal Respiratory: normal respiratory effort, lungs clear to auscultation Cardiovascular: Rate/Rhythm: + tachycardic and + irregularly irregular Vessels: normal peripheral pulses Extremities: no edema Gastrointestinal (Abdomen): normal bowel sounds, soft, nontender, no hepatosplenomegaly Musculoskeletal: no cyanosis or clubbing, extremities motor strength 5/5 Skin: no rashes, warm and dry Neurologic: PERRL, EOMI, accommodation nl, no face palsy, no dysarthria Psychiatric: A+Ox3, euthymic affect Results & Data Results & Data ([facility]) Vital Signs (Past 12 Hours) Vital Signs Temp Pulse Pulse Resp BP BP Pulse Ox 11/25/21 13:00 115 H 18 159/96 H 93 11/25/21 12:26 109 H 172/109 H 11/25/21 12:24 108 H 19 172/109 H 97 11/25/21 10:23 110 H 18 155/96 H 95 11/25/21 10:22 109 H 19 95 11/25/21 10:02 36.5 C 126 H 20 124/85 95 Laboratory Results Short CBC 11/25/21 Range/Units 10:22 WBC 6.38 (4.8-10.8) K/uL Hgb 13.6 (12.0-16.0) g/dL Hct 41.3 (37-47) % Plt Count 289 (130-400) K/uL BMP 11/25/21 10:22 Sodium 138 Potassium 4.2 Chloride 101 Carbon Dioxide 28 BUN 24 H Creatinine 1.63 H Glucose 141 H Calcium 9.8 Cardiac Enzymes 11/25/21 Range/Units 10:22 Troponin I < 0.03 (0-0.04) ng/ml Liver Function 11/25/21 Range/Units 10:22 Total Bilirubin 1.5 H (0.2-1.0) mg/dl AST 25 (13-39) U/L ALT 20 (7-52) U/L Alkaline Phosphatase 59 (34-104) U/L Albumin 4.5 (3.4-5.0) gm/dl Diagnostic Findings Chest X-Ray 11/25/21 10:20 XR chest 1V portable CLINICAL HISTORY: Atypical chest pain TECHNIQUE: Single frontal radiograph of the chest was obtained. Comparison: Comparison is made to chest 2 views 01/23/2019 FINDINGS: No lines and tubes are seen. Cardiomegaly is noted. The lungs are clear. Small bilateral pleural effusions are seen. IMPRESSION: Small bilateral pleural effusions. Cardiomegaly. ACT 112: Negative or not required by law. Electronically signed by: Srinivas Oconnell M.D. 11/25/2021 11:06 AM Code Status & VTE Plan Code Status Patient is a DNR as per my discussion with her. VTE Prophylaxis Plan VTE Prophylaxis will be ordered: No Supervising Physician Co-Signing Physician Notes Patient is an 80-year-old female with history of COPD, diastolic heart failure, paroxysmal A. fib on chronic anticoagulation with Eliquis and other medical problems presents with history of worsening shortness of breath and fatigue for the past few days. She reports dyspnea on minimal exertion. Denies any dizziness, nausea, vomiting, diaphoresis, chest pain. She was found to be in A. fib RVR while in ED. Please review HPI for complete details of presentation. Blood work suggestive of creatinine elevated at 1.63, BNP 1467. On exam patient is moderately built and nourished, no apparent distress, normocephalic atraumatic, EOMI, decreased breath sounds, clear to auscultation, irregularly irregular rhythm, tachycardic, no murmur, no pedal edema, abdomen soft, nontender, normal bowel sounds, alert, awake oriented, grossly no focal deficits. Patient is admitted for management of A. fib RVR. We will continue home dose of metoprolol and start on Cardizem drip given RVR. Continue home dose of Eliquis. N.p.o. after midnight for cardioversion tomorrow. Appreciate cardiology input. Monitor renal function and avoid nephrotoxic agents as able. I personally reviewed the record. Patient is interviewed and examined at bedside. Patient's care is coordinated with Leda Leach JIGMAN. Please refer to the documentation above for details of patient's presentation and for discussion of other issues. (1) Atrial fibrillation Atrial fibrillation type: paroxysmal Qualified Code(s): I48.0 - Paroxysmal atrial fibrillation
--- NOTE | 2021-11-25 15:26 | Anesthesiology Consultation ---
Date of Service November 25, 2021 Assessment & Plan Chart Review Chart Review: Acceptable Risk for Surgery Consults Requested none History Surgery Operation Date: 11/26/21 07:15 Proposed Procedures p Cardioversion Shower Maid w/Catalino Norris DO Height/Weight Height: 5 ft 4 in Weight: 58 kg Allergies Allergy/AdvReac Type Severity Reaction Status Date / Time dog dander AdvReac Intermediate asthma Unverified 11/25/21 10:57 house dust AdvReac Intermediate asthma Unverified 11/25/21 10:57 mold AdvReac Intermediate asthma Unverified 11/25/21 10:57 Medications Home Medications Medication Instructions Recorded Confirmed Last Taken albuterol sulfate 90 mcg/actuation 2 puff INHALATION Q6H PRN 01/19/19 11/25/21 Unknown aerosol inhaler (Ventolin HFA) azelastine 205.5 mcg (0.15 %) 2 spray INTRANASAL DAILY 01/19/19 11/25/21 11/25/21 nasal spray calcium carbonate 600 mg calcium 600 mg PO QAM 01/19/19 11/25/21 11/25/21 (1,500 mg) tablet (Calcium) cholecalciferol (vitamin D3) 10 400 unit PO QAM 01/19/19 11/25/21 11/25/21 mcg (400 unit) tablet fluticasone propionate 110 2 puff INHALATION BID 01/19/19 11/25/21 11/25/21 mcg/actuation HFA aerosol inhaler (Flovent HFA) apixaban 5 mg tablet (Eliquis) 5 mg PO BID #60 tab 01/26/19 11/25/21 11/25/21 metoprolol tartrate 25 mg tablet 50 mg PO BID 03/21/19 11/25/21 11/25/21 furosemide 20 mg tablet 20 mg PO DAILY 11/25/21 11/25/21 Unknown Active Medications Generic Name Dose Route Start Last Admin Trade Name Freq PRN Reason Stop Dose Admin Diltiazem HCl 125 mg/ Dextrose 125 mls @ 5 mls/hr 11/25/21 13:00 11/25/21 13:25 IV 12/25/21 12:59 5 mg/hr .Q24H EMILY 5 mls/hr Administration Protocol 5 MG/HR Past Medical History Medical History (Updated 11/25/21 @ 13:47 by ANGELIA Garay) Allergic rhinitis Chronic diastolic CHF (congestive heart failure) CKD (chronic kidney disease), stage III COPD (chronic obstructive pulmonary disease) GERD (gastroesophageal reflux disease) HTN (hypertension) MDS (myelodysplastic syndrome) PAC (premature atrial contraction) Paroxysmal A-fib Past Family History Family History Other Asthma Colorectal cancer Coronary heart disease Diabetes Past Surgical History Surgical History History of cataract surgery History of herniorrhaphy Social History Smoking Status: Former smoker Hx Alcohol Use: Yes Alcohol type: wine alcohol intake frequency: holidays/special occasions only Hx Substance Use: No substance use type: does not use Physical Exam Vital Signs Last Vital Signs Temp 36.5 C 11/25/21 10:02 Pulse 107 H 11/25/21 14:40 Resp 18 11/25/21 14:40 BP 164/100 H 11/25/21 14:40 Pulse Ox 95 11/25/21 14:40 Testing Laboratory Results 11/25/21 10:22 11/25/21 10:22
[2021-11-25] MEDS ORDERED: ACETAMINOPHEN 325 MG TAB PO PRN (19:37)
[2021-11-25] MEDS ORDERED: PROMETHAZINE HCL 6.25 MG in SODIUM CHLORIDE 0.9% 50 ML IV PRN (20:11)
[2021-11-25] MEDS ORDERED: FLUTICASONE HFA 110MCG INHALER INH SCH (21:00)
--- NOTE | 2021-11-25 21:27 | Electrocardiogram Report ---
Test Reason : Blood Pressure : / mmHG Vent. Rate : 118 BPM Atrial Rate : 094 BPM P-R Int : 000 ms QRS Dur : 068 ms QT Int : 316 ms P-R-T Axes : 000 016 189 degrees QTc Int : 442 ms Atrial fibrillation with rapid ventricular response Nonspecific ST and T wave abnormality Abnormal ECG When compared with ECG of 21-MAR-2019 08:03, Atrial fibrillation has replaced Sinus rhythm Vent. rate has increased BY 64 BPM Nonspecific T wave abnormality, worse in Lateral leads Confirmed by Rick Guidry ([id number]) on 11/25/2021 9:26:45 PM Referred By: Confirmed By:Rick Guidry
[2021-11-25] MEDS: METOPROLOL TARTRATE 50 MG TAB PO SCH (21:30)
[2021-11-25] MEDS: APIXABAN 5 MG TABLET PO SCH (21:31)
[2021-11-25] MEDS: FLUTICASONE FUROATE 200MCG 14 PUFFS/INHALER INH SCH (21:32)
[2021-11-26] MEDS: METOPROLOL TARTRATE 50 MG TAB PO SCH ×2 (06:28→20:02)
[2021-11-26] MEDS: APIXABAN 5 MG TABLET PO SCH ×2 (06:28→20:02)
[2021-11-26] MEDS ORDERED: PROPOFOL IV EMULSION 10 MG/ML 20 ML VIAL IV ONE (06:56)
[2021-11-26 07:18] LABS: Hematocrit (blood only) 37.6 % (37-47); Hemoglobin 12.3 g/dL (12.0-16.0); Mean Corpuscular Hgb Conc 32.7 g/dL (32-36); Mean Corpuscular Volume 103.9 fL (80-100); Mean Platelet Volume 10.4 fL (7.4-10.4); Platelet Count 260 K/uL (130-400); RDW Coefficient of Variation 16.1 % (11.5-14.5); RDW Standard Deviation 60.9 fL (36.4-46.3); Red Blood Count 3.62 M/uL (4.2-5.4); White Blood Count 6.66 K/uL (4.8-10.8)
--- NOTE | 2021-11-26 07:29 | Anesthesiology Progress Note ---
Date of Service November 26, 2021 Anesthesia Post Procedure Vital Signs Vital Signs: Temp Pulse Pulse Resp BP BP BP 11/26/21 04:10 36.6 C 104 H 16 154/84 H 11/26/21 00:00 36.7 C 103 H 98 H 16 121/82 11/25/21 22:38 36.6 C 90 18 119/71 11/25/21 20:11 36.8 C 112 H 16 163/103 H 11/25/21 19:00 95 H 18 159/87 H 11/25/21 17:46 100 H 18 153/93 H 11/25/21 17:45 108 H 153/93 H 11/25/21 16:12 101 H 163/99 H 11/25/21 16:00 95 H 16 162/98 H 11/25/21 14:40 107 H 18 164/100 H 11/25/21 14:30 102 H 17 169/115 H 11/25/21 14:16 95 H 27 H 174/118 H 11/25/21 13:45 116 H 18 148/105 H 11/25/21 13:30 117 H 114 H 19 159/96 H 159/96 H 11/25/21 13:27 110 H 24 155/100 H 11/25/21 13:19 114 H 19 163/113 H 11/25/21 13:15 127 H 19 11/25/21 13:00 115 H 115 H 17 159/96 H 11/25/21 12:45 112 H 23 11/25/21 12:30 104 H 14 11/25/21 12:26 109 H 172/109 H 11/25/21 12:24 108 H 19 172/109 H 11/25/21 12:23 110 H 19 172/109 H 11/25/21 12:15 105 H 22 11/25/21 12:00 105 H 20 11/25/21 11:51 118 H 102 H 21 148/95 H 148/95 H 11/25/21 11:30 104 H 20 11/25/21 11:15 102 H 26 H 11/25/21 11:00 103 H 20 11/25/21 10:45 103 H 16 11/25/21 10:30 133 H 24 157/92 H 11/25/21 10:24 119 H 20 155/96 H 11/25/21 10:23 110 H 18 155/96 H 11/25/21 10:22 109 H 19 11/25/21 10:02 36.5 C 126 H 20 124/85 Pulse Ox 11/26/21 04:10 92 11/26/21 00:00 92 11/25/21 22:38 92 11/25/21 20:11 94 11/25/21 19:00 95 11/25/21 17:46 11/25/21 17:45 11/25/21 16:12 11/25/21 16:00 95 11/25/21 14:40 95 11/25/21 14:30 95 11/25/21 14:16 11/25/21 13:45 94 11/25/21 13:30 94 11/25/21 13:27 96 11/25/21 13:19 86 L 11/25/21 13:15 95 11/25/21 13:00 93 11/25/21 12:45 93 11/25/21 12:30 97 11/25/21 12:26 11/25/21 12:24 97 11/25/21 12:23 11/25/21 12:15 11/25/21 12:00 11/25/21 11:51 11/25/21 11:30 11/25/21 11:15 11/25/21 11:00 11/25/21 10:45 92 11/25/21 10:30 85 L 11/25/21 10:24 92 11/25/21 10:23 95 11/25/21 10:22 95 11/25/21 10:02 95 Transfer of Care Handoff Completed per policy Notes Mental Status: alert / awake / arousable and participated in evaluation Patient Amnestic to Procedure: Yes Nausea / Vomiting: adequately controlled Pain: adequately controlled Airway Patency, RR, SpO2: stable & adequate BP & HR: stable & adequate Hydration State: stable & adequate Anesthetic Complications: no major complications apparent and Pt Satisfied with anesthetic care
--- NOTE | 2021-11-26 07:31 | Cardioversion ---
Date of Service November 26, 2021 Electrical Cardioversion Rpt Electrical Cardioversion Report Indication: Atrial fibrillation with rapid ventricular response Complications: None Estimated blood loss: None Sedation: Conscious sedation provided by the anesthesia service with propofol. Please see separate report. Procedure summary: Patient was brought to the cardiac catheterization holding area in a fasting state. She was given oral metoprolol and Eliquis prior to procedure. Atrial fibrillation confirmed on monitor. When adequate sedation achieved, the defibrillator pads were placed in anterior and posterior position. The defibrillator was synced to the QRS complex. A single 125 J shock was delivered with conversion to sinus bradycardia with frequent PACs and occasional junctional beats. Patient tolerated procedure well. No focal neurologic deficit post procedure. Conclusion: Successful external direct-current cardioversion from atrial fibrillation to sinus bradycardia with 125 J.
[2021-11-26 07:36] LABS: BUN Creatinine Ratio 16.1 (10-20); Calcium 9.1 mg/dl (8.5-10.1); Creatinine Clr Calc Pharmacy 26.2 ml/min; Est GFR (African American) 39.4 ml/min; Potassium 3.7 mmol/L (3.5-5.1)
--- NOTE | 2021-11-26 08:17 | Cardiology Progress Note ---
Date of Service November 26, 2021 Assessment & Plan (1) Atrial fibrillation: Plan: Admitted 11/25 with Persistent atrial fib with HR average in the mid to upper 110s. Chest heaviness and BUTLER noted. Trop negative. [id number] score of 3 (age 1, female). X1 dose of 5m IV Lopressor without improvement in rates. On Diltiazem gtt over night, stopped at 0600 11/26 prior to DCCV. On Eliquis 5 mg BID. - S/p DCCV this am- converted to SB with frequent PACs and occasional junctional beats. Patient tolerated procedure well. -Baseline sCr around 1.1-1.3, increase likely due to hypovolemia. Would be hesitant to reduce Eliquis at this time given the recent need for cardioversion. Will reassess as an outpatient, hopeful that scr/weight will improve and reduction in dose will not be necessary. -May be difficult to keep patient in sinus rhythm given Severe biatrial enlar gement, severe TR and moderate MR- patient may benefit from EP consultation for possible ppm and amiodarone therapy. (2) HTN (hypertension): Plan: Well controlled. Not currently on antihypertensives as an outpatient. (3) Pulmonary HTN: (4) Severe tricuspid regurgitation: (5) Mitral regurgitation: Plan: Moderate MR and severe TR on echo 11/2021 The estimated pulmonary artery systolic pressure is 50-55mm Hg. Nocturnal pulse ox study ordered to assess for ROBBIE/nocturnal hypoxia (6) Anemia: Plan: H/o Myelodysplastic syndrome with mild chronic anemia. Hemoglobin stable. (7) Fatigue: Plan: Ongoing complaints of daytime fatigue. Symptoms suspicious for obstructive sleep apnea. Patient was scheduled to see Sleep Medicine but canceled due to an illness. Plan as above. Nocturnal pulse ox study ordered. (8) Diastolic CHF: Plan: Euvolemic on exam, likely hypovolemic. Home dose of diuretic is normally 20 mg MWF. Continue to hold diuretic therapy. Plan: Case discussed with Dr. Norris Admission and Anticipated Discharge Date Admission Date: November 25, 2021 Supervising Physician Co-Signing Physician Notes Patient seen and examined at bedside. External direct-current cardioversion performed earlier today with conversion to sinus rhythm/sinus bradycardia. Telemetry reveals sinus bradycardia, junctional beats, and PACs. PE: VSS. GEN: NAD, AAO x3. Heart: Regular with ectopy. Normal S1-S2. Lungs: Clear bilateral, no rales, rhonchi, wheeze. Extremities: No edema. A/P: Agree with above PADarylC history, physical exam, assessment and plan. Continue metoprolol 50 mg twice daily and Eliquis 5 mg twice daily. Monitor tel emetry. Consider discharge in 24-48 hours. Subjective Given IV Lopressor 5 mg without much improvement in heart rates. Started IV Diltiazem drip over night for rate control. Diltiazem stopped at 0600. Underwent DCCV this morning with Dr. Norris. Patient converted to sinus karen with frequent PACs and occasional junctional beats. Patient tolerated procedure well. Patient resting in bed comfortably. Denies any acute concerns. No chest pain. Shortness of breath improved. Cough ongoing. Continued fatigue. Tele: SR with frequent PACs, 60 bpm Weight: 55.8 kg Scr: 1.63, 1.43 (11/26) Review of Systems Review of Systems: All systems reviewed & are unremarkable except as noted in Subjective Physical Exam Physical Exam: General: No acute distress. A+Ox3. HEENT: Normocephalic. Atraumatic.Conjunctiva and sclera clear. NECK: No carotid bruits. No JVD. Carotid upstrokes are brisk. Heart: RRR S1 and S2 noted without murmur, rubs, gallops. Lungs: Diminished lung sounds, no wheezing, rhonchi, or rhales, + nonproductive moist cough. Abdomen: Normal bowel sounds. Soft. Nontender. No masses or organomegaly. No abdominal bruits. Extremities: Trace BLLE edema, chronic- at baseline Pulses: radial=2/4, posterior tibial=2/4, dorsalis pedis = 2/4. NEURO: No focal deficits. PSYCH: Normal. Results & Data ([facility]) Vital Signs (Past 12 Hours) Vital Signs Temp Pulse Pulse Resp BP BP Pulse Ox 11/26/21 07:41 90 11/26/21 07:30 55 L 15 132/67 93 11/26/21 04:10 36.6 C 104 H 16 154/84 H 92 11/26/21 00:00 36.7 C 103 H 98 H 16 121/82 92 11/25/21 22:38 36.6 C 90 18 119/71 92 11/25/21 20:11 36.8 C 112 H 16 163/103 H 94
--- NOTE | 2021-11-26 13:57 | Electrocardiogram Report ---
Test Reason : Blood Pressure : / mmHG Vent. Rate : 061 BPM Atrial Rate : 055 BPM P-R Int : 128 ms QRS Dur : 072 ms QT Int : 444 ms P-R-T Axes : 079 011 034 degrees QTc Int : 446 ms Poor data quality, interpretation may be adversely affected Sinus bradycardia with Premature supraventricular complexes Nonspecific ST abnormality Abnormal ECG When compared with ECG of 25-NOV-2021 10:17, Sinus rhythm has replaced Atrial fibrillation Vent. rate has decreased BY 57 BPM Nonspecific T wave abnormality no longer evident in Inferior leads Nonspecific T wave abnormality, improved in Lateral leads Confirmed by Rick Guidry ([id number]) on 11/26/2021 1:56:46 PM Referred By: Christiane Barth Confirmed By:Rick Guidry
--- NOTE | 2021-11-26 14:18 | Hospitalist Progress Note ---
Date of Service November 26, 2021 Assessment & Plan (1) Atrial fibrillation: Plan: per Dr. Arredondo's notes with addendum: -Patient presenting from home with reports of shortness of breath, fatigue, palpitations for at least the past month. As an outpatient, patient was treated for pneumonia twice. She was also found to be in atrial fibrillation with RVR (has history of paroxysmal atrial fibrillation with prior cardioversion in the past). Metoprolol and Lasix both titrated without much improvement in symptoms. -In the ED, patient is in atrial fibrillation with rates in the 110s -S/p metoprolol 5 mg IV without much improvement in heart rate. Will start IV d iltiazem drip per cardiology recommendations -Continue home dose of metoprolol -Continue Eliquis -N.p.o. after midnight for cardioversion 11/26 s/p cardioversion off Cardizem drip continue usual Metoprolol and Eliquis (2) Diastolic CHF: Plan: -Echo 11/13/2021-EF 50 to 54%, severe biatrial enlargement, mild aortic valve regurgitation, moderate mitral regurgitation, severe tricuspid regurgitation, moderate pulmonary hypertension -proBNP 1400, patient does not examine to be significantly volume overloaded -S/p Lasix 20 mg IV in ED -will hold on further diuresis at this time due to mild bump in creatinine 11/26 appears euvolemic to dry crea 1.6 to 1.4 monitor (3) CKD (chronic kidney disease), stage III: Plan: -Baseline creatinine low 1's -Noted to be 1.5 today -Mild elevation likely due to recent titration of Lasix -Follow renal functions 11/26 crea 1.6 to 1.4 monitor (4) COPD (chronic obstructive pulmonary disease): Plan: -No signs of acute exacerbation -Continue home inhalers (5) MDS (myelodysplastic syndrome): Plan: -No acute issues, CBC stable -Follows with Dr. Sotero Price (6) DVT prophylaxis: Plan: -On Eliquis Admission and Anticipated Discharge Date Admission Date: November 25, 2021 Subjective ff up for a fib in RVR, etc s/p cardioversion today now on SR states she feels improved now no chest pain, dyspnea, palpitations, dizziness no abdominal pain ,nausea/vomiting no bleeding no other symptoms Review of Systems Review of Systems: all noted and negative except for above Physical Exam Physical Exam: General- oriented x 2, not in distress, speaks in sentences with no effort or accessory muscle use Eyes- anicteric Neck- no JVD Lungs- clear breath sounds bilaterally, no rales/wheezes Heart- normal rate, regular rhythm; no murmurs Abdomen- normal bowel sounds, nondistended, soft, nontender Extremities- no pretibial edema, no calf tenderness Neuro- alert, oriented x 3; no gross focal neurologic deficits Skin- warm & dry Results & Data Results & Data ([facility]) Vital Signs (Past 12 Hours) Vital Signs Temp Pulse Pulse Resp BP BP Pulse Ox 11/26/21 11:26 36.7 C 66 18 107/66 96 11/26/21 08:09 36.6 C 63 18 123/72 93 11/26/21 07:41 90 11/26/21 07:30 55 L 15 132/67 93 11/26/21 04:10 36.6 C 104 H 16 154/84 H 92 all noted and reviewed including below (1) CKD (chronic kidney disease), stage III Chronic kidney disease stage 3 subtype: unspecified whether 3a or 3b Qualified Code(s): N18.30 - Chronic kidney disease, stage 3 unspecified
[2021-11-26] MEDS: FLUTICASONE FUROATE 200MCG 14 PUFFS/INHALER INH SCH (20:03)
--- NOTE | 2021-11-27 07:46 | Cardiology Progress Note ---
Date of Service November 27, 2021 Assessment & Plan (1) Atrial fibrillation: Plan: Admitted 11/25 with Persistent atrial fib with HR average in the mid to upper 110s. Chest heaviness and BUTLER noted. Trop negative. [id number] score of 3 (age 1, female). X1 dose of 5m IV Lopressor without improvement in rates. On Diltiazem gtt over night, stopped at 0600 11/26 prior to DCCV. On Eliquis 5 mg BID. - S/p DCCV - converted to SB with frequent PACs and occasional junctional beats. Patient tolerated procedure well. -Baseline sCr around 1.1-1.3, increase likely due to hypovolemia. Would be hesitant to reduce Eliquis at this time given the recent need for cardioversion. Will reassess as an outpatient, hopeful that scr/weight will improve and reduction in dose will not be necessary. -May be difficult to keep patient in sinus rhythm given Severe biatrial enlargement, severe TR and moderate MR- patient may benefit from EP consultation for possible ppm and amiodarone therapy. - Okay to Dc today from a cardiac standpoint. -Continue metoprolol tartrate 50 mg BID (2) HTN (hypertension): Plan: Well controlled. Not currently on antihypertensives as an outpatient. (3) Pulmonary HTN: (4) Severe tricuspid regurgitation: (5) Mitral regurgitation: Plan: Moderate MR and severe TR on echo 11/2021 The estimated pulmonary artery systolic pressure is 50-55mm Hg. Abnormal nocturnal pulse- will arrange for sleep med appt as outpatient. (6) Anemia: Plan: H/o Myelodysplastic syndrome with mild chronic anemia. Hemoglobin stable. (7) Fatigue: Plan: Abnormal nuctural pulse ox study. Plan as above (8) Diastolic CHF: Plan: Euvolemic on exam. renal function improving. Resume home dose of lasix 20 mg MWF on discharge Plan: Case discussed with Dr. Jr Ferris to discharge from a cardiac standpoint. Admission and Anticipated Discharge Date Admission Date: November 25, 2021 Supervising Physician Co-Signing Physician Notes Patient seen and examined at bedside. External direct-current cardioversion performed 11/26/2021 with conversion to sinus rhythm/sinus bradycardia. Telemetry reveals sinus bradycardia, junctional beats, and PACs. A few short salvos of paroxysmal atrial tachycardia recorded on telemetry. No associated symptoms. Overall feeling much better this morning. Anxious for discharge. Serum creatinine trending downward. PE: VSS. GEN: NAD, AAO x3. Heart: Regular with ectopy. Normal S1-S2. Lungs: Clear bilateral, no rales, rhonchi, wheeze. Extremities: No edema. A/P: Agree with above PA-C history, physical exam, assessment and plan. Continue metoprolol 50 mg twice daily and Eliquis 5 mg twice daily. Reduce furosemide to 20 mg Wednesday, Wednesday, Wednesday. Repeat basic metabolic panel in 1 week. If renal function continues to improve. Consider sotalol loading as part of a rhythm control strategy. If her renal function does not improve, amiodarone may be considered in the future if necessary. No further inpatient cardiac testing or intervention at this time. Outpatient follow-up in 1 week as scheduled. Subjective Ambulating in room independently. Feeling well. No acute concerns. Maintained SR over night, HR in the 60s. Short runs of possible atrial tach overnight. Nonsustained. No chest pain. No shortness of breath. Overnight pulse ox study showed multiple desaturations with the lowest saturation of 77%. >5 min under 88% noted. Scr: 1.63,1.43, 1.33 (11/27)- Lasix remains on hold. Review of Systems Review of Systems: All systems reviewed & are unremarkable except as noted in HPI & below Physical Exam Physical Exam: General: No acute distress. A+Ox3. HEENT: Normocephalic. Atraumatic.Conjunctiva and sclera clear. NECK: No carotid bruits. No JVD. Carotid upstrokes are brisk. Heart: RRR. S1 and S2 noted without murmur, rubs, gallops. Lungs: Diminished lung sounds, no wheezing, rhonchi, or rhales, + nonproductive moist cough. Abdomen: Normal bowel sounds. Soft. Nontender. No masses or organomegaly. No abdominal bruits. Extremities: Trace BLLE edema, chronic- at baseline Pulses: radial=2/4, posterior tibial=2/4, dorsalis pedis = 2/4. NEURO: No focal deficits. PSYCH: Normal. Results & Data ([facility]) Vital Signs (Past 12 Hours) Vital Signs Temp Pulse Pulse Resp BP Pulse Ox Pulse Ox 11/27/21 07:00 36.6 C 54 L 17 156/85 H 92 11/27/21 03:45 36.6 C 58 L 18 135/75 95 11/27/21 01:10 95 11/26/21 22:59 37.2 C 62 18 112/67 95 11/26/21 22:12 75 95 Laboratory Results 11/27/21 Range/Units 08:00 Sodium 138 (136-145) mmol/L Potassium 4.1 (3.5-5.1) mmol/L Chloride 103 (98-107) mmol/L Carbon Dioxide 29 (21-32) mmol/L Anion Gap 6 (3-11) BUN 25 H (6-23) mg/dl Creatinine 1.33 H (0.6-1.2) mg/dl Est Cr Clr Drug Dosing 28.2 ml/min Est GFR ( Amer) 43.0 ml/min Est GFR (Non-Af Amer) 37.1 ml/min BUN/Creatinine Ratio 18.8 (10-20) Glucose 121 H (70-99(Fasting)) mg/dl Calcium 9.0 (8.5-10.1) mg/dl
[2021-11-27] MEDS: APIXABAN 5 MG TABLET PO SCH (08:17)
[2021-11-27] MEDS: METOPROLOL TARTRATE 50 MG TAB PO SCH (08:17)
[2021-11-27 08:50] LABS: BUN Creatinine Ratio 18.8 (10-20); Creatinine Clr Calc Pharmacy 28.2 ml/min; Est GFR (Non-African American) 37.1 ml/min; Potassium 4.1 mmol/L (3.5-5.1)
--- NOTE | 2021-11-27 17:20 | Hospitalist Progress Note ---
Date of Service November 27, 2021 Assessment & Plan (1) Atrial fibrillation: Plan: per Dr. Arredondo's notes with addendum: -Patient presenting from home with reports of shortness of breath, fatigue, palpitations for at least the past month. As an outpatient, patient was treated for pneumonia twice. She was also found to be in atrial fibrillation with RVR (has history of paroxysmal atrial fibrillation with prior cardioversion in the past). Metoprolol and Lasix both titrated without much improvement in symptoms. -In the ED, patient is in atrial fibrillation with rates in the 110s -S/p metoprolol 5 mg IV without much improvement in heart rate. Will start IV d iltiazem drip per cardiology recommendations -Continue home dose of metoprolol -Continue Eliquis -N.p.o. after midnight for cardioversion s/p cardioversion 11/26/21 off Cardizem drip continue usual Metoprolol and Eliquis per Flaring Machine Operator ff up with Flaring Machine Operator 12/03/21 (2) Diastolic CHF: Plan: -Echo 11/13/2021-EF 50 to 54%, severe biatrial enlargement, mild aortic valve regurgitation, moderate mitral regurgitation, severe tricuspid regurgitation, moderate pulmonary hypertension -proBNP 1400, patient does not examine to be significantly volume overloaded -S/p Lasix 20 mg IV in ED -will hold on further diuresis at this time due to mild bump in creatinine 11/27 appears euvolemic crea 1.6--> 1.3 baseline 0.9 to 1 per Cardiology, continue Lasix mon-wed-wed repeat crea on ff up with Cardio 12/03 (3) CKD (chronic kidney disease), stage III: Plan: crea 1.6--> 1.3 baseline 0.9 to 1 per Cardiology, continue Lasix mon-wed-fri repeat crea on ff up with Cardio 12/03 (4) COPD (chronic obstructive pulmonary disease): Plan: -No signs of acute exacerbation -Continue home inhalers (5) MDS (myelodysplastic syndrome): Plan: -No acute issues, CBC stable -Follows with Dr. Sotero Price (6) DVT prophylaxis: Plan: -On Eliquis plan of care discussed with patient in detail and at length all questions answered she is understanding, agreeable, comfortable with the plan of care Admission and Anticipated Discharge Date Admission Date: November 25, 2021 Subjective ff up for a fib in RVR etc seen resting in bed, comfortable states she feels better overall no chest pain, dyspnea, palpitations, dizziness ambulates with no problems no bleeding no other symptom states she is ready and would like to be discharged today Review of Systems Review of Systems: all noted and negative except for above Physical Exam Physical Exam: General- oriented x 3, not in distress, speaks in sentences with no effort or accessory muscle use Eyes- anicteric Neck- no JVD Lungs- clear breath sounds bilaterally, no rales/wheezes Heart- normal rate, regular rhythm; no murmurs Abdomen- normal bowel sounds, nondistended, soft, nontender Extremities- no pretibial edema, no calf tenderness Neuro- alert, oriented x 3; no gross focal neurologic deficits Skin- warm & dry Results & Data Results & Data ([facility]) Vital Signs (Past 12 Hours) Vital Signs Temp Pulse Pulse Resp BP BP Pulse Ox 11/27/21 14:33 97 11/27/21 13:12 36.2 C L 67 20 130/80 139/60 97 11/27/21 11:08 36.2 C L 67 20 139/60 97 11/27/21 08:00 59 L 11/27/21 07:00 36.6 C 54 L 17 156/85 H 92 all noted and reviewed including below (1) CKD (chronic kidney disease), stage III Chronic kidney disease stage 3 subtype: unspecified whether 3a or 3b Qualified Code(s): N18.30 - Chronic kidney disease, stage 3 unspecified
--- NOTE | 2021-11-27 17:21 | Discharge Summary ---
Date of Service November 27, 2021 Admission HPI Per Admitting Provider 80-year-old female with PMH COPD, chronic diastolic CHF, paroxysmal atrial fibrillation anticoagulated with Eliquis, HTN, CKD stage III, myelodysplastic syndrome, and other problems to below who presents to the ED for evaluation of shortness of breath and fatigue. Patient has been having symptoms for at least the past 1 month. Patient was seen by PCP on 10/22 and placed on doxycycline for suspected pneumonia. Patient was seen in follow-up in clinic on 11/11 and was found to be in atrial fibrillation with RVR. Due to ongoing pulmonary complaints, patient was started on cefdinir. For the A. fib with RVR, she was i nstructed to take an extra dose of metoprolol and follow-up with cardiology. Patient was seen by cardiology on 11/14 and metoprolol was increased to 50 mg in the morning and 25 mg in the evening, Lasix changed to 20 mg daily. On 11/19, metoprolol was increased to 50 mg twice daily. Patient has been advised to come to the ED for further evaluation however she has declined in the past. Patient reports she has shortness of breath with minimal exertion. She also notes sleeping on 3 pillows at night. Denies lower extremity edema. She has been having palpitations, denies chest pain. She has generalized fatigue and no energy. Denies lightheadedness, dizziness, diaphoresis, syncopal events. No abdominal pain, nausea, vomiting, diarrhea. Denies any other recent illnesses, fevers, chills. No urinary symptoms. In the ED, patient is in atrial fibrillation with rates in the 110s. CXR shows small bilateral pleural effusions. Labs show creatinine 1.6 (baseline low 1's). Other labs unremarkable. Patient was given metoprolol 5 mg IV and Lasix 20 mg IV. Admission Exam (Per Admitting) Constitutional Constitutional: WD/WN, vitals as above Eyes: PERRL, conjunctivae normal, anicteric sclerae ENMT: external ear and nose normal, oropharynx normal Respiratory: normal respiratory effort, lungs clear to auscultation Cardiovascular: Rate/Rhythm: + tachycardic and + irregularly irregular Vessels: normal peripheral pulses Extremities: no edema Gastrointestinal (Abdomen): normal bowel sounds, soft, nontender, no hepatosplenomegaly Musculoskeletal: no cyanosis or clubbing, extremities motor strength 5/5 Skin: no rashes, warm and dry Neurologic: PERRL, EOMI, accommodation nl, no face palsy, no dysarthria Psychiatric: A+Ox3, euthymic affect Discharge Data Consultations 11/25/21 12:05 ED Decision to Admit Stat 11/25/21 19:37 Consult Cardiology Routine 11/26/21 07:00 Consult Anesthesiology Routine Procedures Performed Operation Date: 11/26/21 07:15 Actual Procedures p Cardioversion - Dimitry Norris DO [facility] Course (1) Atrial fibrillation: per Dr. Arredondo's notes with addendum: -Patient presenting from home with reports of shortness of breath, fatigue, palpitations for at least the past month. As an outpatient, patient was treated for pneumonia twice. She was also found to be in atrial fibrillation with RVR (has history of paroxysmal atrial fibrillation with prior cardioversion in the past). Metoprolol and Lasix both titrated without much improvement in symptoms. -In the ED, patient is in atrial fibrillation with rates in the 110s -S/p metoprolol 5 mg IV without much improvement in heart rate. Will start IV diltiazem drip per cardiology recommendations -Continue home dose of metoprolol -Continue Eliquis -N.p.o. after midnight for cardioversion s/p cardioversion 11/26/21 off Cardizem drip continue usual Metoprolol and Eliquis per Traffic Expert ff up with Traffic Expert 12/03/21 (2) Diastolic CHF: -Echo 11/13/2021-EF 50 to 54%, severe biatrial enlargement, mild aortic valve regurgitation, moderate mitral regurgitation, severe tricuspid regurgitation, moderate pulmonary hypertension -proBNP 1400, patient does not examine to be significantly volume overloaded -S/p Lasix 20 mg IV in ED -will hold on further diuresis at this time due to mild bump in creatinine 11/27 appears euvolemic crea 1.6--> 1.3 baseline 0.9 to 1 per Cardiology, continue Lasix mon-wed-wed repeat crea on ff up with Cardio 12/03 (3) CKD (chronic kidney disease), stage III: crea 1.6--> 1.3 baseline 0.9 to 1 per Cardiology, continue Lasix mon-wed-wed repeat crea on ff up with Cardio 12/03 (4) COPD (chronic obstructive pulmonary disease): -No signs of acute exacerbation -Continue home inhalers (5) MDS (myelodysplastic syndrome): -No acute issues, CBC stable -Follows with Dr. Sotero Price (6) DVT prophylaxis: -On Eliquis plan of care discussed with patient in detail and at length all questions answered she is understanding, agreeable, comfortable with the plan of care
--- NOTE | 2021-11-28 05:55 | Electrocardiogram Report ---
Test Reason : Blood Pressure : / mmHG Vent. Rate : 074 BPM Atrial Rate : 096 BPM P-R Int : 000 ms QRS Dur : 072 ms QT Int : 418 ms P-R-T Axes : 000 162 119 degrees QTc Int : 463 ms Sinus rhythm Premature atrial complexes Premature ventricular complexes Limb lead reversal suspected Nonspecific ST and T wave abnormality Abnormal ECG When compared with ECG of 26-NOV-2021 07:18, Premature ventricular complexes are now Present Limb lead reversal is now present Confirmed by Rick Guidry [id number] on 11/28/2021 5:55:25 AM Referred By: Christiane Barth Confirmed By:Rick Guidry
== END 2021-11-27 13:15 | disposition home or self-care (01) | DRG 309 ==
LOC: ED 09:54 → EDINP 12:18 → SUATTDRO 12:18 → 2S 19:13
DX: I08.2 Rheumatic disorders of both aortic and tricuspid valves; D46.9 Myelodysplastic syndrome, unspecified; I13.0 Hypertensive heart and chronic kidney disease with heart failure and stage 1 through stage 4 chronic kidney disease, or unspecified chronic kidney disease; K21.9 Gastro-esophageal reflux disease without esophagitis; D64.9 Anemia, unspecified; I50.30 Unspecified diastolic (congestive) heart failure; I48.19 Other persistent atrial fibrillation; J44.9 Chronic obstructive pulmonary disease, unspecified; Z79.01 Long term (current) use of anticoagulants; Z87.891 Personal history of nicotine dependence; N18.30 Chronic kidney disease, stage 3 unspecified; I27.20 Pulmonary hypertension, unspecified

== ENCOUNTER 2024-09-26 08:24 | Inpatient (IN) ==
[2024-09-26 09:10] LABS: Basophils # (auto) 0.04 K/uL (0.00-0.20); Basophils % (auto) 0.9 %; Eosinophils # (auto) 0.11 K/uL (0.00-0.50); Eosinophils % (auto) 2.5 %; Hematocrit (blood only) 35.5 % (37.0-47.0); Hemoglobin 11.8 g/dl (12.0-16.0); Immature Granulocytes # (auto) 0.02 K/uL (0.01-0.20); Immature Granulocytes % (auto) 0.5 %; Lymphocytes # (auto) 1.47 K/uL (1.20-3.40); Lymphocytes % (auto) 33.4 %; Mean Corpuscular Hemoglobin 34.1 pg (25.0-34.0); Mean Corpuscular Hgb Conc 33.2 g/dL (32.0-36.0); Mean Corpuscular Volume 102.6 fL (80.0-100.0); Mean Platelet Volume 10.7 fL (9.4-12.4); Monocytes # (auto) 0.32 K/uL (0.11-0.59); Monocytes % (auto) 7.3 %; Neutrophils # (auto) 2.44 K/uL (1.40-6.50); Neutrophils % (auto) 55.4 %; Platelet Count 267 K/uL (130-400); RDW Coefficient of Variation 14.6 % (11.5-14.5); RDW Standard Deviation 54.7 fL (36.4-46.3); Red Blood Count 3.46 M/uL (4.20-5.40)
[2024-09-26 09:32] LABS: Albumin Level 4.3 gm/dl (3.4-5.0); BUN Creatinine Ratio 36.9 (10-20); Bilirubin Direct 0.2 mg/dl (0-0.2); Bilirubin,Total 0.9 mg/dl (0.2-1.0); Potassium 3.5 mmol/L (3.5-5.1); Total Protein 6.7 gm/dl (6.0-8.3)
--- NOTE | 2024-09-26 09:52 | Emergency Department Note ---
Impression & Plan Cellulitis of left leg ED Provider Note NAME: GOLDIE WERNER AGE: 83 SEX: F : 1940 ARRIVES VIA: Walk-In INFORMANT: Patient, ED PROVIDER(S): Lopez Price MD CHIEF COMPLAINT: Lower extremity redness/swelling HPI: This is an 83-year-old female senting for lower extremity swelling/pain. Patient notes that she was sent in by her PCP for IV antibiotics and diuretics. She notes that she has had worsening left lower extremity swelling. She notes that she has not had ultrasound of this previously. She also has blisters on her foot that are painful. ROS: See above HPI for pertinent positives & negatives. A total of 10 systems reviewed and were otherwise negative. PAST MEDICAL HISTORY: See Below PAST SURGICAL HISTORY: See Below FAMILY HISTORY: See Below SOCIAL HISTORY: See Below HOME MEDICATIONS: See Below ALLERGIES: See Below VITALS: See Below PHYSICAL EXAMINATION: General: resting comfortably in no acute distress Head: Normocephalic and atraumatic Eyes: Normal inspection, extraocular muscles intact Ear, nose, throat: Normal external exam Neck: Normal range of motion Respiratory: lungs clear to auscultation bilaterally Cardiovascular: Regular rate/rhythm, no murmur GI: soft, nontender, no guarding or rebound Extremities: Left lower extremity swelling, blistering to the second/third toe Neuro: The patient awake and alert, appropriately conversive, no focal deficits, symmetric faces Skin: Warm, dry, and intact MEDICAL DECISION MAKING: This is an 83-year-old female sent for left lower extremity swelling/pain. Patient has been on doxycycline for the past 1 week without improvement in symptoms. She said tender swelling to the left lower extremity. Will do a DVT study to rule this out. Otherwise patient sent in for IV antibiotics/to diuretics -Lab reviewed showing a mild leukopenia and anemia. Appears to be stable. Otherwise electrolytes within normal limits. Creatinine at her baseline. -DVT study negative -With outpatient failure of doxycycline will admit for IV antibiotics and diuretics -Given IV ceftriaxone here Differential diagnosis: Antibiotic failure, cellulitis, CHF ER treatment provided: See below Diagnostics interpreted by me: ECG: None Cardiac Monitoring: An order was placed for continuous cardiac monitoring. The monitor shows a rate of 70 with sinus rhythm. Laboratory studies: As stated above and show below. Imaging studies: See below. Past Med/Surg History Problem List (Updated 09/26/24 @ 14:41 by Lopez rPice MD) Cellulitis of left leg (Acute) Cellulitis of left lower extremity Bilateral lower extremity edema Chronic venous insufficiency of lower extremity (Chronic) Dyspnea (Acute) Atrial fibrillation with rapid ventricular response (Acute) DVT prophylaxis MDS (myelodysplastic syndrome) CKD (chronic kidney disease), stage III (Acute) HTN (hypertension) COPD (chronic obstructive pulmonary disease) Atrial fibrillation (Acute) Diastolic CHF Mitral regurgitation Severe tricuspid regurgitation Pulmonary HTN (Acute) History of cataract surgery (Chronic) PAC (premature atrial contraction) (Chronic) GERD (gastroesophageal reflux disease) (Chronic) Medical History Chronic diastolic CHF (congestive heart failure) Paroxysmal A-fib GERD (gastroesophageal reflux disease) Allergic rhinitis Surgical History History of herniorrhaphy Family History Other Asthma Colorectal cancer Coronary heart disease Diabetes Social History Smoking Status: Former smoker Tobacco Type: Cigarettes Second Hand Exposure: No; Do You Dip or Chew Tobacco: No; Hx Alcohol Use: Yes Alcohol type: wine Hx Substance Use: No Preferred Language: Luxembourgish Communication Ability: Effective Visual Impairment: No Limitations Rail Signal Mechanic Required: No Beliefs That Will Affect Care: None Current Living Situation: Alone Current Living Situation Comment: daughter lives next door How many Children do You have: 1 Other Information That Helps Us Care for You: No Feels Safe at Home: Yes Safety Concerns: Feels Safe At This Time Diet: ideal protein Assistive Devices: Glasses Allergies Allergies Allergy/AdvReac Type Severity Reaction Status Date / Time dog dander AdvReac Intermediate asthma Verified 03/20/24 10:57 house dust AdvReac Intermediate asthma Verified 03/20/24 10:57 mold AdvReac Intermediate asthma Verified 03/20/24 10:57 sulfamethoxazole AdvReac Intermediate Flushing Verified 03/20/24 10:57 [From Bactrim] trimethoprim [From Bactrim] AdvReac Intermediate Flushing Verified 03/20/24 10:57 Home Meds Home Medications Medication Instructions Recorded Confirmed albuterol sulfate 90 mcg/actuation 2 puff inhalation Q6H PRN 01/19/19 09/26/24 aerosol inhaler (Ventolin HFA) Shortness Of Breath psyllium 1 packet PO DAILY 02/04/22 09/26/24 temazepam 30 mg capsule (Restoril) 30 mg PO HS PRN Insomnia 02/04/22 09/26/24 apixaban 2.5 mg tablet (Eliquis) 2.5 mg PO BID 12/03/23 09/26/24 ascorbate calcium (vitamin C) 500 500 mg PO DAILY 12/03/23 09/26/24 mg tablet cholecalciferol (vitamin D3) 50 50 mcg PO DAILY 12/03/23 09/26/24 mcg (2,000 unit) capsule empagliflozin 10 mg tablet 10 mg PO DAILY 12/03/23 09/26/24 levalbuterol tartrate 45 2 inh inhalation Q6H 12/03/23 09/26/24 mcg/actuation aerosol inhaler losartan 25 mg tablet 12.5 mg PO DAILY 12/03/23 09/26/24 montelukast 10 mg tablet 10 mg PO DAILY 12/03/23 09/26/24 ttxwszul-xgt- 250 mg-dha 90 1 cap PO DAILY 12/03/23 09/26/24 mg-epa 160 jl-zpsy-goxa-zeax capsule (Ocuvite Adult 50 Plus) torsemide 20 mg tablet 20 mg PO DAILY 12/03/23 09/26/24 fluticasone propionate 50 2 spray intranasal DAILY 09/26/24 09/26/24 mcg/actuation nasal spray,suspension levocetirizine 5 mg tablet 5 mg PO HS 09/26/24 09/26/24 Results & Data (ED) Vital Signs Vital Signs - 24 hr 09/26/24 08:28 09/26/24 10:28 09/26/24 11:38 Temperature 36.3 C L Temperature Source Oral Pulse Rate 75 Pulse Rate [Finger] 65 69 Pulse Rhythm Regular Pulse Strength Normal Respiratory Rate 16 15 16 Respiratory Effort / Characteristics Non-Labored Spontaneous Non-Labored Spontaneous Non-Labored Respiratory Depth Normal Normal Normal Respiratory Pattern Regular Regular Regular Blood Pressure 124/76 Blood Pressure [Left Arm] 105/70 144/80 H Blood Pressure Mean 92 Blood Pressure Mean [Left Arm] 81 101 Blood Pressure Position Sitting Pulse Oximetry 98 99 99 Oxygen Delivery Method Room Air Room Air Room Air Sepsis Recent Fever Within 48 Hours No Sepsis New/Unexplained Change in Mental Status No Sepsis Action Taken by Nursing No Action Required Laboratory Data 09/26/24 08:36 09/26/24 08:36 Lab Results 09/26/24 Range/Units 08:36 WBC 4.40 L (4.8-10.8) K/ul RBC 3.46 L (4.20-5.40) M/uL Hgb 11.8 L (12.0-16.0) g/dl Hct 35.5 L (37.0-47.0) % MCV 102.6 H (80.0-100.0) fL MCH 34.1 H (25.0-34.0) pg MCHC 33.2 (32.0-36.0) g/dL RDW Std Deviation 54.7 H (36.4-46.3) fL RDW Coeff of Melissa 14.6 H (11.5-14.5) % Plt Count 267 (130-400) K/uL MPV 10.7 (9.4-12.4) fL Immature Gran % (Auto) 0.5 % Neut % (Auto) 55.4 % Lymph % (Auto) 33.4 % [place] % (Auto) 7.3 % Eos % (Auto) 2.5 % Baso % (Auto) 0.9 % Neut # (Auto) 2.44 (1.40-6.50) K/uL Lymph # (Auto) 1.47 (1.20-3.40) K/uL [place] # (Auto) 0.32 (0.11-0.59) K/uL Eos # (Auto) 0.11 (0.00-0.50) K/uL Baso # (Auto) 0.04 (0.00-0.20) K/uL Immature Gran # (Auto) 0.02 (0.01-0.20) K/uL Sodium 141 (136-145) mmol/L Potassium 3.5 (3.5-5.1) mmol/L Chloride 99 (98-107) mmol/L Carbon Dioxide 30 (21-32) mmol/L Anion Gap 12 H (3-11) BUN 45 H (6-23) mg/dl Creatinine 1.22 H (0.6-1.2) mg/dl Est Cr Clr Drug Dosing 21.0 ml/min eGFR 43.49 BUN/Creatinine Ratio 36.9 H (10-20) Glucose 106 H (70-99(Fasting)) mg/dl Calcium 10.0 (8.6-10.3) mg/dl Total Bilirubin 0.9 (0.2-1.0) mg/dl Direct Bilirubin 0.2 (0-0.2) mg/dl AST 28 (13-39) U/L ALT 15 (7-52) U/L Alkaline Phosphatase 64 (34-104) U/L B-Natriuretic Peptide 657 H (0-100) pg/ml Total Protein 6.7 (6.0-8.3) gm/dl Albumin 4.3 (3.4-5.0) gm/dl Administered Medications Furosemide (Furosemide 40 Mg/4 Ml Vial) 40 mg IV DAILY EMILY Stop: 10/26/24 14:14 Last Admin: 09/26/24 14:25 Dose: 40 mg Documented By: BRAD Lactobacillus Acidophilus (Advanced Probiotic 625 Mg Capsule) 1,250 mg PO DAILY EMILY Stop: 10/26/24 14:14 Last Admin: 09/26/24 14:25 Dose: 1,250 mg Documented By: BRAD Discontinued Medications Ceftriaxone Sodium (Rocephin) 2,000 mg in 50 mls @ 100 mls/hr IV NOW STA Stop: 09/26/24 11:42 Last Infusion: 09/26/24 12:08 Dose: Infused Documented By: Admin: 09/26/24 11:35 Dose: 100 mls/hr Documented By: OLVIN Imaging Data Radiologist's Impression: Venous Doppler Study 09/26/24 09:19 LEFT LOWER EXTREMITY VENOUS DOPPLER CLINICAL HISTORY: Left lower extremity blisters. Evaluate for deep venous thrombus. COMPARISON STUDY: Bilateral lower extremity venous Doppler ultrasound January 19, 2019. TECHNIQUE: Sonography of the deep venous system of the left lower extremity was performed. Compression and augmentation were evaluated. FINDINGS: The left common femoral, superficial femoral and popliteal veins were compressible. Augmentation was normal. Flow was shown within the deep calf vessels. IMPRESSION: No evidence of deep venous thrombus within the left lower extremity. ACT 112: Negative or not required by law. Electronically signed by: Jorje Cabrera M.D. 09/26/2024 10:54 AM Discharge Plan Visit Data Chief Complaint: Swelling/Edema to Extremity Stated Complaint: LT FOOT EDEMA/BLISTERS ED Provider: Lopez Price Discharge Problem: Cellulitis of left leg Patient Disposition: Admitted As Inpatient Discharge Instructions Interventions: ED Discharge Assessment Last Done: 09/26/24 12:58
--- NOTE | 2024-09-26 10:55 | Ultrasound Report ---
LEFT LOWER EXTREMITY VENOUS DOPPLER CLINICAL HISTORY: Left lower extremity blisters. Evaluate for deep venous thrombus. COMPARISON STUDY: Bilateral lower extremity venous Doppler ultrasound January 19, 2019. TECHNIQUE: Sonography of the deep venous system of the left lower extremity was performed. Compressi on and augmentation were evaluated. FINDINGS: The left common femoral, superficial femoral and popliteal veins were compressible. Augmen tation was normal. Flow was shown within the deep calf vessels. IMPRESSION: No evidence of deep venous thrombus within the left lower extremity. ACT 112: Negative or not required by law. Electronically signed by: Jorje Cabrera M.D. 09/26/2024 10:54 AM
--- NOTE | 2024-09-26 11:23 | History & Physical Report ---
Date of Service September 26, 2024 Assessment & Plan (1) Bilateral lower extremity edema: (2) Cellulitis of left lower extremity: Plan Karina Juarez is an 83y/o F with PMHx significant for asthma, bilateral pleural effusion, nocturnal hypoxemia, COPD, chronic diastolic heart failure due to valvular disease, moderate mitral regurgitation, severe tricuspid regurgitation, tachy-karen syndrome s/p pacemaker placement, permanent atrial fibrillation s/p multiple failed cardioversions [on Eliquis], moderate pulmonary hypertension, HTN, chronic venous insufficiency, GERD with esophagitis, CKD stage III, osteoporosis, myelodysplastic syndrome with mild chronic anemia [baseline Hgb ~9-11] and diverticulosis who presented to the ED via referral by her PCP due to worsening LLE edema and cellulitis. BLE Edema, Chronic Diastolic HF: LLE > RLE edema on exam. LLE venous doppler US negative for DVT. BNP stable. Initiating IV diuresis w/ 40mg Lasix daily. Hold home torsemide ISO active IV diuresis. Daily weights, strict I&Os/fluid restrict. Can continue home Jardiance. May benefit from repeat echo. Mild LLE Cellulitis: No leukocytosis, no evidence of sepsis. Was recently on oral doxycycline course as an outpatient. S/p 2g IV Rocephin in the ED. Continue IV Rocephin. Probiotic added on. MRSA nasal swab pending. CKD Stage III: Cr stable, baseline Cr ~1.1-1.4 per chart review. Avoid nephrotoxic medications when able. Monitor renal function closely and renally dose medications when able. Other Chronic Medical Conditions: Asthma/HTN/seasonal allergies --> Can continue home medications for these specific conditions. Hold home Restoril for now - only uses 1-2x/week. 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 Code Status: FULL CODE - As per discussion with the patient at bedside in the ED. PCP: Marie Underwood MD Disposition: Admit to Med/Tele, likely to remain hospitalized for the next 2-3 days depending on her clinical course. Patient seen in collaboration with Dr. Quinteros. Please see addendum. I spent a total of 50 minutes coordinating, documenting, and providing care for this patient excluding time spent in the performance of separately billed services. This included personally reviewing all current laboratories and imaging studies, medical reconciliation, outpatient chart review and discussion with specialists. This chart was completed in part utilizing Speech Voice Recognition Software. Grammatical errors, random word insertions, pronoun errors, and incomplete sentences are an occasional consequence of this system due to software limitations, ambient noise, and hardware issues. Any formal questions or concerns about the content, text, or information contained within the body of this dictation should be directly addressed to the provider for clarification. History of Present Illness Chief Complaint: Left Foot Swelling/Blisters Primary Care Provider: Marie Underwood MD Karina Juarez is an 83y/o F with PMHx significant for asthma, bilateral pleural effusion, nocturnal hypoxemia, COPD, chronic diastolic heart failure due to valvular disease, moderate mitral regurgitation, severe tricuspid regurgitation, tachy-karen syndrome s/p pacemaker placement, permanent atrial fibrillation s/p multiple failed cardioversions [on Eliquis], moderate pulmonary hypertension, HTN, chronic venous insufficiency, GERD with esophagitis, CKD stage III, osteoporosis, myelodysplastic syndrome with mild chronic anemia [baseline Hgb ~9-11] and diverticulosis who presented to the ED via referral by her PCP due to worsening LLE edema and cellulitis. History obtained from patient and associated chart review. Patient seen at bedside with Dr. Quinteros. Patient reports worsening edema in her BLE over the past year; however, this has gotten worse over the past week or so - particularly in her LLE. Patient recently had her dose of torsemide doubled (40mg daily) by her PCP last week with mild improvement in her LLE edema. She has some blisters on her L toes, which she first noticed about 1-2 weeks ago - therefore she has only been wearing a compression stocking on her RLE. She does note some neuropathic pain in her BLE. Denies any recent cough/congestion or SOB. Patient was recently on oral doxycycline course for LLE cellulitis without any significant improvement. She notes tenderness to palpation of her LLE and she still has some erythema in this region. No fevers or chills at home. She does not smoke but reports she drinks 1 glass of wine/day. She lives by herself at home but her daughter lives right next door. No CPAP or BiPAP use at night. She does not use any assistive devices for ambulation. She is now s/p 2g IV Rocephin in the ED. Allergies Allergy/AdvReac Type Severity Reaction Status Date / Time dog dander AdvReac Intermediate asthma Verified 03/20/24 10:57 house dust AdvReac Intermediate asthma Verified 03/20/24 10:57 mold AdvReac Intermediate asthma Verified 03/20/24 10:57 sulfamethoxazole AdvReac Intermediate Flushing Verified 03/20/24 10:57 [From Bactrim] trimethoprim [From Bactrim] AdvReac Intermediate Flushing Verified 03/20/24 10:57 Home Medications Medication Instructions Recorded Confirmed Type albuterol sulfate 90 mcg/actuation 2 puff inhalation Q6H PRN 01/19/19 09/26/24 History aerosol inhaler (Ventolin HFA) Shortness Of Breath psyllium 1 packet PO DAILY 02/04/22 09/26/24 History temazepam 30 mg capsule (Restoril) 30 mg PO HS PRN Insomnia 02/04/22 09/26/24 History apixaban 2.5 mg tablet (Eliquis) 2.5 mg PO BID 12/03/23 09/26/24 History ascorbate calcium (vitamin C) 500 500 mg PO DAILY 12/03/23 09/26/24 History mg tablet cholecalciferol (vitamin D3) 50 50 mcg PO DAILY 12/03/23 09/26/24 History mcg (2,000 unit) capsule empagliflozin 10 mg tablet 10 mg PO DAILY 12/03/23 09/26/24 History levalbuterol tartrate 45 2 inh inhalation Q6H 12/03/23 09/26/24 History mcg/actuation aerosol inhaler losartan 25 mg tablet 12.5 mg PO DAILY 12/03/23 09/26/24 History montelukast 10 mg tablet 10 mg PO DAILY 12/03/23 09/26/24 History ukyybabq-nbq- 250 mg-dha 90 1 cap PO DAILY 12/03/23 09/26/24 History mg-epa 160 di-unmg-ukgq-zeax capsule (Ocuvite Adult 50 Plus) torsemide 20 mg tablet 20 mg PO DAILY 12/03/23 09/26/24 History fluticasone propionate 50 2 spray intranasal DAILY 09/26/24 09/26/24 History mcg/actuation nasal spray,suspension levocetirizine 5 mg tablet 5 mg PO HS 09/26/24 09/26/24 History Past Med/Surg History Problem List (Updated 09/26/24 @ 13:01 by Trish Holder PA-C) Cellulitis of left lower extremity Bilateral lower extremity edema Chronic venous insufficiency of lower extremity (Chronic) Dyspnea (Acute) Atrial fibrillation with rapid ventricular response (Acute) DVT prophylaxis MDS (myelodysplastic syndrome) CKD (chronic kidney disease), stage III (Acute) HTN (hypertension) COPD (chronic obstructive pulmonary disease) Atrial fibrillation (Acute) Diastolic CHF Mitral regurgitation Severe tricuspid regurgitation Pulmonary HTN (Acute) History of cataract surgery (Chronic) PAC (premature atrial contraction) (Chronic) GERD (gastroesophageal reflux disease) (Chronic) Medical History Chronic diastolic CHF (congestive heart failure) Paroxysmal A-fib GERD (gastroesophageal reflux disease) Allergic rhinitis Surgical History History of herniorrhaphy Family History Other Asthma Colorectal cancer Coronary heart disease Diabetes Social History Smoking Status: Never smoker Tobacco Type: Cigarettes Second Hand Exposure: No; Do You Dip or Chew Tobacco: No; Hx Alcohol Use: Yes Alcohol type: wine Hx Substance Use: No Preferred Language: Chinese Communication Ability: Effective Visual Impairment: No Limitations 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 Physical Exam Physical Exam: Please refer to Dr. Quinteros's addendum for physical examination findings. Results & Data Results & Data Vital Signs (Past 12 Hours) Vital Signs Temp Pulse Pulse Resp BP BP Pulse Ox 09/26/24 10:28 65 15 105/70 99 09/26/24 08:28 36.3 C L 75 16 124/76 98 O2 Del Method 09/26/24 10:28 Room Air 09/26/24 08:28 Room Air Laboratory Results Short CBC 09/26/24 Range/Units 08:36 WBC 4.40 L (4.8-10.8) K/ul Hgb 11.8 L (12.0-16.0) g/dl Hct 35.5 L (37.0-47.0) % Plt Count 267 (130-400) K/uL BMP 09/26/24 08:36 Sodium 141 Potassium 3.5 Chloride 99 Carbon Dioxide 30 BUN 45 H Creatinine 1.22 H Glucose 106 H Calcium 10.0 Liver Function 09/26/24 Range/Units 08:36 Total Bilirubin 0.9 (0.2-1.0) mg/dl Direct Bilirubin 0.2 (0-0.2) mg/dl AST 28 (13-39) U/L ALT 15 (7-52) U/L Alkaline Phosphatase 64 (34-104) U/L Albumin 4.3 (3.4-5.0) gm/dl Diagnostic Findings Venous Doppler Study 09/26/24 09:19 LEFT LOWER EXTREMITY VENOUS DOPPLER CLINICAL HISTORY: Left lower extremity blisters. Evaluate for deep venous thrombus. COMPARISON STUDY: Bilateral lower extremity venous Doppler ultrasound January 19, 2019. TECHNIQUE: Sonography of the deep venous system of the left lower extremity was performed. Compression and augmentation were evaluated. FINDINGS: The left common femoral, superficial femoral and popliteal veins were compressible. Augmentation was normal. Flow was shown within the deep calf vessels. IMPRESSION: No evidence of deep venous thrombus within the left lower extremity. ACT 112: Negative or not required by law. Electronically signed by: Jorje Cabrera M.D. 09/26/2024 10:54 AM Medications Administered Discontinued Medications Ceftriaxone Sodium (Rocephin) 2,000 mg in 50 mls @ 100 mls/hr IV NOW STA Stop: 09/26/24 11:42 Last Infusion: 09/26/24 12:08 Dose: Infused Documented By: Admin: 09/26/24 11:35 Dose: 100 mls/hr Documented By: OLVIN Code Status & VTE Plan Code Status FULL CODE Supervising Physician Co-Signing Physician Notes 83 year old woman with h/o asthma, bilateral pleural effusion, nocturnal hypoxemia, COPD, chronic diastolic heart failure due to valvular disease, moderate mitral regurgitation, severe tricuspid regurgitation, tachy-karen syndrome s/p pacemaker placement, permanent atrial fibrillation s/p multiple failed cardioversions [on Eliquis], moderate pulmonary hypertension, HTN, chronic venous insufficiency, GERD with esophagitis, CKD stage III, osteoporosis, myelodysplastic syndrome with mild chronic anemia [baseline Hgb ~9-11] and diverticulosis who presented to the ED via referral by her PCP due to worsening LLE edema Denied fever, chills Reports blister in left leg that is a little tender. Denied any worsening cough/SOB On exam, General: Elderly woman, not in acute distress Eyes: PERRL, conjunctivae normal, not pale, anicteric sclerae, EOM intact bilaterally ENMT: External ear and nose normal, oropharynx normal Respiratory: Normal respiratory effort, no respiratory distress, lungs clear to auscultation, no crackles and no wheezes Cardiovascular: RRR S1 S2 Gastrointestinal (Abdomen): Abdomen is not distended, soft, non-tender to palpation, no guarding, no palpable hepatosplenomegaly, normal bowel sounds Musculoskeletal: Bilateral pedal edema (Left >>Right). Blisters on dorsum of distal left foot. mild erythema. Compression socks on Right LE Neurologic: Alert and oriented x 3, No focal weakness, sensation grossly intact Psychiatric: Euthymic affect Left leg edema >Right likely due to compression socks on RLE. Patient has not been able to use compression socks on LLE due to blister and pain LLE Doppler negative for DVT Reported her PCP had increased her torsemide briefly over the past few days to 40mg daily Will do IV lasix 40mg daily for now IV ceftriaxone for mild LE cellulitis and monitor. Continue other home meds Agree with plans as detailed by Trish Holder I spent a total of 45 minutes coordinating, documenting and providing care for this patient excluding time spent in performance of separately billed services
[2024-09-26] MEDS: cefTRIAXone SODIUM 2,000 MG/50 ML BAG IV STA (11:35)
[2024-09-26] MEDS ORDERED: MAGNESIUM HYDROXIDE SUSP 30 ML UDC PO PRN (13:58)
[2024-09-26] MEDS ORDERED: POLYETHYLENE (MIRALAX) 17 GM PACK PO PRN (13:58)
--- OUTSIDE RECORDS SUMMARY | 2024-09-26 14:04 | External Medical Summary | Summary of Care ---
Author Name Unknown Organization [facility] Address [address] [place] [address] Phone [phone] Care Team Providers Care Induction Brazer Name Role Phone Marie Underwood MD Primary Care Provider [phone] Reason for Visit * Reason Comments Follow Up Pt here today for chencho oliva regarding her swollen foot and blister Encounter Details Date Type Department Care Team (Late st Contact Info) Description 09/25/2024 2:00 PM EST Office Visit [facility] [address] [place] [address] Marie Underwood MD [address] [place] [address] Swelling of left foot*; Blister; Cellulitis of left lower extremity; Venous insufficiency; Stage 3b chronic kidney disease; Permanent atrial fibrillation (HCC) Allergies Active Allergy Reactions Criticality Noted Date Comments Sulfamethoxazole-Trimethopri m Fever 11/13/2019 Fever, sob, itchiness and hives Dog Dander High 05/09/2007 sneezing Other Reaction(s): asthma Levofloxacin 05/26/2023 Sore Achilles Tendon documented as of this encounter (statuses as of 09/25/2024) Medications Metamucil 28.3 % Oral Powder (Psyllium) Take by mouth daily. Patient takes one tablespoon daily, in morning. Active Levalbuterol Tartrate 45 MCG/ACT Inhalation Aerosol (Xopenex HFA) Inhale 2 Puffs by mouth every 4 hours as needed for Wheezing. 15 g 12 03/29/20 23 Active Torsemide 20 MG Oral Tablet (Demadex) Take 1 Tablet by mouth in the morning. 100 Tablet 3 07/20/20 23 Active Eucerin External Cream Apply topically to affected area daily. To affected area of skin. 240 g 11 10/18/20 23 Active Calcium 500 MG Oral Tablet Take 1 Tablet by mouth in the morning. Active Ocuvite Adult 50+ Oral Capsule Take 1 Capsule by mouth in the morning. Active Vitamin D3 50 MCG (2000 UT) Oral Tablet Chewable Take by mouth. Active Vitamin C 500 MG Oral Capsule Take 1 Tablet by mouth every morning. Active Temazepam 30 MG Oral Capsule (Restoril)Indicatio ns:Primary insomnia TAKE 1 CAPSULE BY MOUTH AT BEDTIME NEEDED FOR SLEEP 30 Capsule 12/28/19 24 Active Levocetirizine Dihydrochloride 5 MG Oral Tablet Take 1 Tablet by mouth every evening. 90 Tablet 3 03/10/20 24 Active Losartan Potassium 25 MG Oral Tablet (Cozaar) Take 0.5 Tablets by mouth in the morning. In the morning.. 45 Tablet 3 03/13/20 24 Active Apixaban 2.5 MG Oral Tablet (Eliquis)Indication s:Palpitations Take 1 Tablet by mouth in the morning and 1 Tablet before bedtime. 180 Tablet 3 04/04/20 24 Active Fluticasone-Salmete rol 250-50 MCG/ACT Inhalation Aerosol Powder Breath Activated (Advair Diskus) Inhale 1 Puff by mouth in the morning and 1 Puff before bedtime. 180 Each 3 05/04/20 24 Active Docusate Sodium 100 MG Oral Capsule (Colace)Indications :Other constipation Take 1 Capsule by mouth in the morning and 1 Capsule before bedtime. 05/09/20 24 Active Montelukast Sodium 10 MG Oral Tablet (Singulair) TAKE 1 TABLET BY MOUTH IN THE MORNING 90 Tablet 2 07/05/20 24 Active Jardiance 10 MG Oral Tablet (Empagliflozin)Erika cations:Chronic diastolic heart failure due to valvular disease (HCC),Hypertensive 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 stage 3b chronic kidney disease (HCC),HTN, goal below 140/90 TAKE 1 TABLET BY MOUTH IN THE MORNING 90 Tablet 3 07/26/20 24 Active Additional Information Patient taking differently: 5 mgOralDaily(AM), In the morning., Reported on 09/25/2024 Doxycycline Hyclate 100 MG Oral Capsule Take 1 Capsule by mouth in the morning and 1 Capsule before bedtime. Do all this for 10 days. Until gone.. 20 Capsule 09/19/20 24 024 Active documented as of this encounter (statuses as of 09/25/2024) Active Problems Problem Noted Date Diagnosed Date Venous insufficiency 09/19/2024 Mid back pain 02/08/2024 COPD, group B, by GOLD 2017 classification 11/11 Mild protein-calorie malnutrition 07/09/2023 Pneumonia of left lower lobe due to infectious o rganism 04/26/2023 S/P atrioventricular kamran ablation 03/14/2022 Bilateral pleural effusion 01/07/2022 Nocturnal hypoxemia 01/07/2022 Hypertensive heart and kidne y disease with chronic diastolic congestive heart failure and stage 3b chronic kidney disease 06/30/2021 Pulmonary HTN 06/30/2021 HTN, goal below 140/90 06/30/2021 Gastroesophageal reflux dise ase with esophagitis without hemorrhage 03/08/2021 Stage 3b chronic kidney disease 09/16/2020 Overview: Per CKD protocol - Per CKD protocol MDS (myelodysplastic syndrome), low grade 2018 Chronic diastolic heart failure due to valvular disease 01/30/2019 Permanent atrial fibrillation 01/30/2019 Non-rheumatic mitral regurgitation 11/07/2018 Severe tricuspid regurgitation 11/07/2018 Asthma, mild persistent 05/07/2010 Age-related osteoporosis wit hout current pathological fracture 08/22/2008 documented as of this encounter (statuses as of 09/25/2024) Resolved Problems Problem Noted Date Diagnosed Date Resolved Date Paroxysmal atrial fibrillation 11/11/2023 04/04/2024 PAF (paroxysmal atrial fibrillation) 07/09/2023 07/09/2023 Persistent atrial fibrillation 07/09/2023 10/18/2023 Chronic obstructive pulmonary disease 03/13/2023 03/29/2023 Hyperlipidemia 10/28/2022 08/10/2023 Chronic GERD 12/04/2021 04/01/2022 Overview (04/01/2022): More specified condition is noted on pl COPD, group B, by GOLD 2017 classification 03/18/2021 12/24/2021 Overview: Per COPD GOLD Classification Kidney disease, chronic, sta ge III (GFR 30-59 ml/min) 07/16/2020 09/19/2020 Overview: Per CKD protocol Mild chronic obstructive pulmonary disease 05/22/2020 03/20/2021 Overview: Per COPD GOLD Classification Iron overload 05/22/2020 03/08/2021 Protein-calorie malnutrition 01/30/2019 11/18/2023 Overview (11/18/2023): historical BUTLER (dyspnea on exertion) 11/07/2018 Actinic keratosis 11/13/2013 03/19/2019 Chronic GERD 02/02/2007 03/08/2021 Allergic rhinitis 07/23/2005 03/08/2021 Other atopic dermatitis 07/23/200503/08 Overview (08/31/2017): ICD-10 update of inactive term ADVANCE DIRECTIVE INFORMATION 05/01/2005 03/08/2021 Overview (05/01/2005): No, Advance Directive brochure offered , patient declined. Asthma with severity to be determined 01/01/2003 05/07/2010 Overview (02/17/2016): ICD-10 update of inactive term Diverticulitis of colon 06/09 Osteoporosis 08/22/2008 UNILAT INGUINAL HERNIA 06/29 documented as of this encounter (statuses as of 09/25/2024) Immunizations Name Administration Dates Next Due COVID-19 mRNA, LNP-s, No Pre serve, 2-Dose Series ([employer]) 09/02/2021,01/18/2021,12/23/2020 Pneumococcal Conjugate Vacc, 13 Valent (Prevnar) 01/04/2015 RSV Vac., Recomb, Adjuvant, PF,0.5 Ml (Arexvy) 08/20/2023 Season Influenza, Quad, PF, Adjuvanted, 65+ Yrs, IM (FLUAD) 08/20/2023,07/19/2020 Seasonal Influenza Vac., MDV , IM, 0.5 mL (Fluzone) 08/25/2014,07/21/2013,09/20/2012,09/10,09/09/2010,07/29/2009,08/20/2008 ,08/09/2007,09/21/2006 09/10/2012 Seasonal Influenza Virus Vac cine, Unspecified Formulation 09/08/2021,07/19/2020,08/09/2019,07/09,08/03/2017,08/03/2016,08/25/2014 ,07/21/2013,09/20/2012,09/10/2011,12/2009,07/29/2009,08/20/2008, 7,09/21/2006,08/27/2005,08/20/2004,,09/08/2002,09/23/2000,08/20/19 99 Seasonal Influenza, High Dos e, Trivalent, PF, IM (Fluzone HD) 08/11/2024,07/07/2018 Seasonal Influenza, PF, 6 M & above, IM , (FluLaval or Fluzone) 07/09/2018,08/03/2017 Seasonal Influenza, Quadriva lent Hd (Fluzone Hd) 07/16/2022 Seasonal Influenza, Quadriva lent, No Preserve, IM 08/03/2016,08/08/2015 Seasonal Influenza, Trivalen t, Adjuvanted, 65+ YRS, PF, (Fluad) 09/08/2021,08/09/2019 TD, Preservative Free 11/06/2010 TDAP (age 10 and older)(Boostrix) 08/11/2016 Varicella Zoster Vaccine (Adult) 12/05/2008 Zoster Vaccine Recombinant (Shingrix) 10/05/2018,07/07/2018 documented as of this encounter Social History Tobacco Use Types Packs/Day Years Used Date Smoking Tobacco: Former Cigarettes 0.5 20 0 11/08/1964 - 11/08/1984 Passive Smoke Exposure: Past Smokeless Tobacco: Never Alcohol Use Standard Drinks/Week Comments Yes 7 (1 standard drink = 0.6 oz pur e alcohol) 1 glass of wine per day PHQ-2 Answer Date Recorded PHQ Adult Total Score 0 02/08/2024 Hunger Vital Sign Answer Date Recorded Within the past 12 months, y ou worried that your food would run out before you got the money to buy more. Never true 08/11/20 24 Within the past 12 months, t he food you bought just didn't last and you didn't have money to get more. Never true 08/11/2024 Childcare Answer Date Recorded Do you feel overwhelmed with taking care of a child, family member or friend? No 08/11/2024 Does your family need help f inding childcare? (Household - for ages 0-17 years) Not on file 08/11/2024 Clothing Answer Date Recorded Have you been unable to get clothing when it was really needed? No 08/11/2024 Is your family able to get c lothes or diapers when needed? (Household - for ages 0-17 years) Not on file 08/11/2024 Personal Safety Answer Date Recorded Do you feel unsafe or have concerns for your saf ety? No 08/11/2024 Do you have concerns for you r family's safety? (Household - for ages 0-17 years) Not on file 08/11/2024 Utilities Answer Date Recorded Do you have trouble paying y our heating, water, or electric bill? No 08/11/2024 Is your family able to pay t he heat, water, or electric bill? (Household - for ages 0-17 years) Not on file 08/11/2024 Does your family have access to good internet? (Household - for ages 0-17 years) Not on file 08/11/2024 Employment Status Answer Date Recorded Are you unemployed or without regular income? No 08/11/2024 Does the household have a re gular source of income? (Household - for ages 0-17 years) Not on file 08/11/2024 Social Connections Answer Date Recorded How often do you feel lonely or isolated from th ose around you? Never 08/11/2024 Financial Resource Strain Answer Date R ecorded Do you have any trouble payi ng for your medications, or do you think you might in the future? No 08/11/2024 Does your family have troubl e paying for medicine? (Household - for ages 0-17 years) Not on file 08/11/2024 Transportation Needs Answer Date Record ed Do you have trouble getting a ride to medical visits or work? (Adult - for ages 18 years and over) Not on file 08/11/2024 Does your family have a hard time getting a ride to doctors visits? (Household - for ages 0-17 years) Not on file 08/11/2024 Has lack of transportation k ept you from medical appointments, meetings, work, or from getting things needed for daily living? Check all that apply. No 08/11/2024 Do you (or your family) have trouble finding or paying for a ride (transportation)? (Household - for ages 0-17 years) Not on file 08/11/2024 Housing Stability Answer Date Recorded Do you currently live in a s helter or have no steady place to sleep at night? No 08/11/2024 Do you think you are at risk of becoming homeless? (Adult - for ages 18 years and over) Not on file 08/11/2024 Does your family worry about paying for your home or becoming homeless? (Household - for ages 0-17 years) Not on file 1 Are you homeless or worried that you might be in the future? No 08/11/2024 Are you (or your family) john eless or worried that you might be in the future? (Household - for ages 0-17 years) Not on file Food Insecurity Answer Date Recorded Do you need food for this week? No 08/11/2024 Are you able to get enough f ood for your family? (Household - for ages 0-17 years) Not on file 08/11/2024 Does your family need food t his week? (Household - for ages 0-17 years) Not on file 08/11/2024 Do you always have enough fo od for your family? (Household - for ages 0-17 years) Not on file 08/11/2024 Comments No Sex and Gender Information Value Date Recorded Sex Assigned at Female 01/30/2019 1:16 PM EDT Legal Sex Female 5:56 AM EST Gender Identity Female 01/30/2019 1:16 PM EDT Sexual Orientation Straight 01/30/2019 1: 16 PM EDT documented as of this encounter Last Filed Vital Signs Vital Sign Reading Time Taken Comments Blood Pressure 102/64 09/25/2024 2:02 PM EST Pulse 80 09/25/2024 2:02 PM EST Temperature 36.4 C (97.5 F) 09/25/2024 2:02 PM ES T Respiratory Rate 18 09/25/2024 2:02 PM EST Oxygen Saturation 94% 09/25/2024 2:02 PM EST Inhaled Oxygen Concentration - - Weight 46.3 kg (102 lb) 09/25/2024 2:02 PM EST Height - - Body Mass Index 17.79 05/09/2024 3:49 PM EDT documented in this encounter Progress Notes * Marie Underwood MD - 09/25/2024 2:33 PM EST Subjective Karina Juarez is a 83 year old female. Chief Complaint Patient presents with Follow Up Pt here today for follow regarding her swollen foot and blister HPI: Here for f/u on her lt foot severe swelling and infection Started ABx and double dose torsemide , also taking 10 mg jardiance But her foot swelling, blister is spreading, seems worse Has been applying antiseptic ointment on open sores due to blisters Known chronic hx of lt foot swelling problem, f/u with podiatry , Also f/u with cardio for afib, CHF, HTN, taking eliquis Known CKD stage 3b PMH: Patient Active Problem List Diagnosis Age-related osteoporosis without current pathological fracture Asthma, mild persistent Non-rheumatic mitral regurgitation Severe tricuspid regurgitation Chronic diastolic heart failure due to valvular disease (HCC) Permanent atrial fibrillation (HCC) MDS (myelodysplastic syndrome), low grade (HCC) Stage 3b chronic kidney disease Gastroesophageal reflux disease with esophagitis without hemorrhage Hypertensive 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 stage 3b chronic kidney disease (HCC) Pulmonary HTN (HCC) HTN, goal below 140/90 Bilateral pleural effusion Nocturnal hypoxemia S/P atrioventricular kamran ablation Pneumonia of left lower lobe due to infectious organism Mild protein-calorie malnutrition (HCC) COPD, group B, by GOLD 2017 classification ([facility]) Mid back pain Venous insufficiency Current Outpatient Medications Medication Sig Dispense Refill Metamucil 28.3 % Oral Powder (Psyllium) Take by mouth daily. Patient takes one tablespoon daily, inmorning. Levalbuterol Tartrate 45 MCG/ACT Inhalation Aerosol (Xopenex HFA) Inhale 2 Puffs by mouth every 4 hours as needed for Wheezing. 15 g 12 Torsemide 20 MG Oral Tablet (Demadex) Take 1 Tablet by mouth in the morning. 100 Tablet 3 Eucerin External Cream Apply topically to affected area daily. To affected area of skin. 240 g 11 Calcium 500 MG Oral Tablet Take 1 Tablet by mouth in the morning. Ocuvite Adult 50+ Oral Capsule Take 1 Capsule by mouth in the morning. Vitamin D3 50 MCG (2000 UT) Oral Tablet Chewable Take by mouth. Vitamin C 500 MG Oral Capsule Take 1 Tablet by mouth every morning. Temazepam 30 MG Oral Capsule (Restoril) TAKE 1 CAPSULE BY MOUTH AT BEDTIME NEEDED FOR SLEEP 30 Capsule 0 Levocetirizine Dihydrochloride 5 MG Oral Tablet Take 1 Tablet by mouth every evening. 90 Tablet 3 Losartan Potassium 25 MG Oral Tablet (Cozaar) Take 0.5 Tablets by mouth in the morning. In the morning.. 45 Tablet 3 Apixaban 2.5 MG Oral Tablet (Eliquis) Take 1 Tablet by mouth in the morning and 1 Tablet before bedtime. 180 Tablet 3 Fluticasone-Salmeterol 250-50 MCG/ACT Inhalation Aerosol Powder Breath Activated (Advair Diskus) Inhale 1 Puff by mouth in the morning and 1 Puff before bedtime. 180 Each 3 Docusate Sodium 100 MG Oral Capsule (Colace) Take 1 Capsule by mouth in the morning and 1 Capsule before bedtime. Montelukast Sodium 10 MG Oral Tablet (Singulair) TAKE 1 TABLET BY MOUTH IN THE MORNING 90 Tablet 2 Jardiance 10 MG Oral Tablet (Empagliflozin) TAKE 1 TABLET BY MOUTH IN THE MORNING (Patient taking differently: Take 0.5 Tablets by mouth in the morning. In the morning..) 90 Tablet 3 Doxycycline Hyclate 100 MG Oral Capsule Take 1 Capsule by mouth in the morning and 1 Capsule beforebedtime. Do all this for 10 days. Until gone.. 20 Capsule 0 No current facility-administered medications for this visit. Past Medical History: Diagnosis Date Asthma COPD (chronic obstructive pulmonary disease) ([facility]) Diverticulosis of colon Diverticulosis Gastroesophageal reflux disease with esophagitis without hemorrhage 03/08/2021 GERD (gastroesophageal reflux disease) INFORMATION 03/2002 repair of retinal detachment INFORMATION 01/2007 normal BRYANT Moderate to severe mitral regurgitation 11/07/2018 Osteoarthrosis Osteoarthritis Osteoporosis Other disorder of menstruation and other abnormal bleeding from female genital tract Dysfunctional Uterine Bleeding Pleural effusion Pneumonia Pulmonary arterial hypertension (HCC) Unilateral inguinal hernia Inguinal Hernia Past Surgical History: Procedure Laterality Date COLONOSCOPY 02/15/97 Prominent hemorrhoids and diverticulosis COLONOSCOPY, DIAGNOSTIC (RECTUM) 2002 Colonoscopy COLONOSCOPY, DIAGNOSTIC (RECTUM) 06/27/2012 COLONOSCOPY FLEXIBLE PROXIMAL DIAGNOSTIC performed by Azeem Aviles MD at [facility] OTHER 2003 hernia repair OTHER 01/28/07 Doppler ankle arm index screening normal REMOVE CATARACT, INSERT LENS PROSTH Cataract Removal Review of patient's allergies indicates: Allergen Reactions Dog Dander sneezing Other Reaction(s): asthma Bactrim [Sulfamethoxazole-Trimethoprim] Fever Fever, sob, itchiness and hives Levaquin [Levofloxacin] Sore Achilles Tendon Family History Problem Relation Name Age of Onset Cancer Mother colon Allergies Mother Other (OSTEOPOROSIS) Mother Diabetes Father Hypertension Father Neurological Disorder Father dementia Allergies Father rhinitis Neurological Disorder Brother Geovani myasthenia gravis Heart attack Brother Geovani Asthma Brother Geoffrey Other (Other) Brother Geoffrey sarcoidosis Allergies Daughter rhinitis Family Status Relation Status Mo Fa Bro Alive Bro Alive Angel Alive Social History Socioeconomic History Marital status: Spouse name: Not on file Number of children: 1 Years of education: Not on file Highest education level: Not on file Occupational History Not on file Tobacco Use Smoking status: Former Current packs/day: 0.00 Average packs/day: 0.5 packs/day for 20.0 years (10.0 ttl pk-yrs) Types: Cigarettes Start date: 11/08/1964 Quit date: 11/08/1984 Years since quittin.9 Passive exposure: Past Smokeless tobacco: Never Vaping Use Vaping status: Never Used Substance and Sexual Activity Alcohol use: Yes Alcohol/week: 7.0 standard drinks of alcohol Types: 7 5 oz of wine per week Comment: 1 glass of wine per day Drug use: No Sexual activity: Yes Partners: Male Other Topics Concern Service Not Asked Blood Transfusions Not Asked Caffeine Concern Not Asked Occupational Exposure Not Asked Hobby Hazards Not Asked Sleep Concern Not Asked Stress Concern Not Asked Weight Concern Not Asked Special Diet Not Asked Back Care Not Asked Exercise Not Asked Bike Helmet Not Asked Seat Belt Yes Self-Exams Not Asked Social History Narrative [facility] INFORMATION ENIVIRONMENTAL HISTORY: House: Bilevel Type of Heating System: Electric and Heat pump Air Conditioning: Yes Central Basement: Finished, No evidence mold, mildew and Dry Home have cockroaches: No Irritants in the home: None Patient's bedroom: FLOOR: second TYPE OF SHADE: Carpeting Beds: AMOUNT : 1 TYPE OF BEDS: Mattress and Box spring Pillows: AMOUNT: 1 TYPE OF PILLOWS: Synthetic (hypoallergenic, polyester) Bedroom contains: Minimal items Pets: none Lives on a farm: No 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 In her area of the house 1 dog No mold Social Needs Financial Resource Strain: Low Risk (08/11/2024) Financial Resource Strain Do you have any trouble paying for your medications, or do you think you might in the future? (Adult - for ages 18 years and over): No Does your family have trouble paying for medicine? (Household - for ages 0-17 years): Not on file Food Insecurity: No Food Insecurity (08/11/2024) Food Insecurity Do you need food for this week? (Adult - for ages 18 years and over): No Are you able to get enough food for your family? (Household - for ages 0-17 years): Not on file Does your family need food this week? (Household - for ages 0-17 years): Not on file Do you always have enough food for your family? (Household - for ages 0-17 years): Not on file Transportation Needs: No Transportation Needs (08/11/2024) Transportation Needs Do you have trouble getting a ride to medical visits or work? (Adult - for ages 18 years and over):Not on file Does your family have a hard time getting a ride to doctors visits? (Household - for ages 0-17 years): Not on file Has lack of transportation kept you from medical appointments, meetings, work, or from getting things needed for daily living? Check all that apply. (Adult - for ages 18 years and over): No Do you (or your family) have trouble finding or paying for a ride (transportation)? (Household - for ages 0-17 years): Not on file Social Connections: Socially Integrated (08/11/2024) Social Connections How often do you feel lonely or isolated from those around you? (Adult - for ages 18 years and over): Never Housing Stability: Low Risk (08/11/2024) Housing Stability Do you currently live in a long term or have no steady place to sleep at night? (Adult - for ages 18 years and over): No Do you think you are at risk of becoming homeless? (Adult - for ages 18 years and over): Not on file Does your family worry about paying for your home or becoming homeless? (Household - for ages 0-17 years): Not on file Are you homeless or worried that you might be in the future? (Adult - for ages 18 years and over): No Are you (or your family) homeless or worried that you might be in the future? (Household - for ages0-17 years): Not on file Review of Systems Constitutional: Positive for fatigue. Negative for activity change, appetite change, chills, diaphoresis, fever and unexpected weight change. Respiratory: Negative for cough, chest tightness, shortness of breath and wheezing. Cardiovascular: Positive for leg swelling (lt leg, usuallyworse). Negative for chest pain and palpitations. Gastrointestinal: Negative for abdominal distention and abdominal pain. Musculoskeletal: Positive for arthralgias. Skin: Positive for color change (lt foot) and wound. Allergic/Immunologic: Positive for environmental allergies. Neurological: Negative for dizziness, weakness and light-headedness. Psychiatric/Behavioral: Negative for agitation and behavioral problems. The patient is nervous/anxious. Objective BP 102/64 | Pulse 80 | Temp 36.4 C (97.5 F) (Infrared ) | Resp 18 | Wt 46.3 kg (102 lb) | LMP (LMP Unknown) | SpO2 94% | BMI 17.79 kg/m | BSA 1.44 m Physical Exam Constitutional: Appearance: Normal appearance. HENT: Head: Normocephalic and atraumatic. Nose: Nose normal. Eyes: Extraocular Movements: Extraocular movements intact. Pulmonary: Effort: Pulmonary effort is normal. No respiratory distress. Musculoskeletal: Cervical back: Normal range of motion. Right lower leg: Edema (1+) present. Left lower leg: Edema (3+ lower leg to foot, blisters on foot and open sores) present. Neurological: General: No focal deficit present. Mental Status: She is alert and oriented to person, place, and time. Psychiatric: Behavior: Behavior normal. Comments: Mild anixety ASSESSMENT/PLAN: Swelling of left foot (Primary) Blister Cellulitis of left lower extremity Venous insufficiency Stage 3b chronic kidney disease Permanent atrial fibrillation (HCC) Podiatry - MRI foot order Failed with oral Abx, increased dose of torsemide currently Not improving over a week now Will need to go to ER Marie Underwood MD documented in this encounter Nursing Notes * Michelle Redman LPN - 09/25/2024 1:59 PM EST Chief Complaint Patient presents with Follow Up Pt here today for follow regarding her swollen foot and blister documented in this encounter Plan of Treatment Upcoming Encounters Date Type Department Care Team (Late st Contact Info) Description 11/14/2024 3:00 PM EST Office Visit [facility] [place] [id number] [facility] [address] Mio Chirinos CRNP [facility] [address] 02/09/2025 1:00 PM EDT Office Visit [facility] [address] [facility] [id number] Marie Underwood MD [address] [place] [facility] [place] [address] 02/28/2025 2:00 PM EDT Office Visit General Surgery, [facility] [address] [place] [address] Leon Rodriguez MD [address] [place] [address] 03/13/2025 1:30 PM EDT Office Visit Hematology/Oncology [facility] [address] [facility] [place] [phone] Sotero Price MD [address] [facility] [place] [address] 06/08/2025 1:45 PM EDT Office Visit Dermatology [facility] [address] [facility] [place] [address] Lenny Kiran MD [address] [facility] [place] [address] Health Maintenance Due Date Last Done Comments Alpha-1 Antitrypsin 1958 Adult Wellness Visit 2004 CKD PHOS USE SMARTSET 12332 09/04/2023 09/04/2022 *BISPHONATE OR OTHER ACCEPTABLE MEDICATION NEEDED FOR OSTEOPOROSIS (REFER TO SMARTSET #1146) 05/05/2024 Albumin/Creatinine Ratio 02/07/2025 02/08/2024, 08/09 Depression Screening 02/07/2025 02/08/2024 CKD HGB USE SMARTSET 40660 09/20/202509/20, 09/20/2024, 09/15/2024, Additional history exists O2 ASSESSMENT COMPLETED IN PAST YEAR FOR COPD 09/25/2025 09/25/2024 DXA Scan 03/06/2026 03/06/2024, 02/07, 03/03/2022, Additional history exists DTap/Tdap Vaccines (2 - Td or Tdap) 08/11/2026 08/11/2016, 11/06/2010, 08/08/1999 Pneumococcal Vaccine: 65+ Years Completed 01/04/2015, 05/06/2004 Zoster Vaccines Completed 10/05/2018, 06/10, 12/05/2008 COVID-19 Vaccine Discontinued 09/02/2021, , 12/23/2020 VITAMIN D LEVEL ONCE IN A LIFETIME-USE SMARTSET# [id number] Completed 04/20/2024, 10/12/2023, 06/30/2021, Additional history exists Influenza Vaccine (FLU shot) Completed 08/11/2024, 08/20/2023, 07/16/2022, Additional history exists HPV (Gardasil) Vaccine Aged Out No lo nger eligible based on patient's age to complete this topic Hepatitis B Vaccine Aged Out No longe r eligible based on patient's age to complete this topic MENINGOCOCCAL (MENACTRA/MENVEO) Aged Out No longer eligible based on patient's age to complete this topic documented as of this encounter Medical Devices Not on filedocumented as of this encounter Visit Diagnoses Diagnosis Swelling of left foot- Primary Blister Other, multiple, and unspecified sites, blister, without mention of infection Cellulitis of left lower extremity Cellulitis and abscess of leg, except foot Venous insufficiency Unspecified venous (peripheral) insufficiency Stage 3b chronic kidney disease Permanent atrial fibrillation (HCC) Atrial fibrillation documented in this encounter Care Teams Induction Brazer Relationship Specialty Start Date End Date Marie Underwood MD [address] [place] [address] PCP - General Internal Medicine 07/09/23 documented as of this encounter"
--- OUTSIDE RECORDS SUMMARY | 2024-09-26 14:05 | External Medical Summary | Summary of Care ---
Author Name Unknown Organization [facility] Address [address] [place] [address] Phone [phone] Care Team Providers Care Naturalization Examiner Name Role Phone Marie Underwood MD Primary Care Provider [phone] Reason for Visit * Reason Comments Acute Pt here today due to having a swollen left leg and foot (the skin is sensitive) blisters on foot Encounter Details Date Type Department Care Team (Late st Contact Info) Description 09/19/2024 9:00 AM EST Office Visit [facility] [address] [place] [address] Marie Underwood MD [address], [place] [phone] Cellulitis of left lower extremity*; Risk and functional assessment; Left leg swelling; Chronic diastolic heart failure due to valvular disease (HCC); Permanent atrial fibrillation (HCC); Venous insufficiency; Hyperglycemia Allergies Active Allergy Reactions Criticality Noted Date Comments Sulfamethoxazole-Trimethopri m Fever 11/13/2019 Fever, sob, itchiness and hives Dog Dander High 05/09/2007 sneezing Other Reaction(s): asthma Levofloxacin 05/26/2023 Sore Achilles Tendon documented as of this encounter (statuses as of 09/19/2024) Medications Metamucil 28.3 % Oral Powder (Psyllium) [...] 5 mgOralDaily(AM), In the morning., Reported on 09/19/2024 Doxycycline Hyclate 100 MG Oral Capsule Take 1 Capsule by mouth in the morning and 1 Capsule before bedtime. Do all this for 10 days. Until gone.. 20 Capsule 09/19/20 24 024 Active documented as of this encounter (statuses as of 09/19/2024) Active Problems Problem Noted Date Diagnosed Date [...] as of this encounter (statuses as of 09/19/2024) Resolved Problems Problem Noted Date Diagnosed Date [...] as of this encounter (statuses as of 09/19/2024) Immunizations Name Administration Dates Next Due COVID-19 mRNA, LNP-s, No Pre serve, 2-Dose Series ([employer]) 09/02/2021,01/18/2021,12/23/2020 Pneumococcal Conjugate Vacc, 13 Valent (Prevnar) [...] Sign Reading Time Taken Comments Blood Pressure 118/68 09/19/2024 9:03 AM EST Pulse 72 09/19/2024 9:03 AM EST Temperature 35.7 C (96.3 F) 09/19/2024 9:03 AM ES T Respiratory Rate 18 09/19/2024 9:03 AM EST Oxygen Saturation - - Inhaled Oxygen Concentration - - Weight 47.2 kg (104 lb) 09/19/2024 9:03 AM EST Height - - Body Mass Index 18.13 05/09/2024 3:49 PM EDT documented in this encounter Patient Instructions * Patient Instructions* Marie Underwood MD - 09/19/2024 9:07 AM EST Torsemide 20 mg twice daily today and tomorrow And doxycycline 100 mg twice daily for 10 days After tooth extraction, resume jardiance 10 mg daily documented in this encounter Progress Notes * Marie Underwood MD - 09/19/2024 9:19 AM EST Subjective Karina Juarez is a 83 year old female. Chief Complaint Patient presents with Acute Pt here today due to having a swollen left leg and foot (the skin is sensitive) blisters on foot HPI: Here for worse lt foot, lower leg swelling Seeping, blister Was seen by a provider on sep 15 and took torsemide 20 mg bid for 3 days And went back to torsemide 20 daily then 10 mg daily every other day But lt leg swelling is not better Small open sores too Will start Doxy Was taking eliquis still since yesterday but will resume after tooth extraction Has tooth extraction is scheduled today Holding on jardiance 5 mg today too Less likely DVT or clot PMH: Patient Active Problem List Diagnosis Age-related osteoporosis without current pathological fracture Asthma, mild persistent Non-rheumatic mitral regurgitation Severe tricuspid regurgitation Chronic diastolic heart failure due to valvular disease ([facility]) Permanent atrial fibrillation (HCC) MDS (myelodysplastic syndrome), low grade ([facility]) Stage 3b chronic kidney disease Gastroesophageal reflux disease with esophagitis without hemorrhage Hypertensive 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 stage 3b chronic kidney disease (HCC) Pulmonary HTN ([facility]) HTN, goal below 140/90 Bilateral pleural effusion Nocturnal hypoxemia S/P atrioventricular kamran ablation Pneumonia of left lower lobe due to infectious organism Mild protein-calorie malnutrition ([facility]) COPD, group B, by GOLD 2017 classification ([facility]) Mid back pain Venous insufficiency Current Outpatient [...] Date Asthma COPD (chronic obstructive pulmonary disease) ([facility]) Diverticulosis of colon Diverticulosis Gastroesophageal reflux disease [...] by Azeem Aviles MD at [facility] OTHER 2003 hernia repair OTHER 01/28/07 Doppler [...] date: 11/08/1964 Quit date: 11/08/1984 Years since quittin.8 Passive exposure: Past Smokeless tobacco: Never Vaping [...] none Lives on a farm: No 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 Cardiovascular: Positive for leg swelling (much worse on tl foot). Negative for chest pain and palpitations. Gastrointestinal: Negative for abdominal distention and abdominal pain. Endocrine: Negative. Musculoskeletal: Positive for joint swelling. Skin: Positive for color change and wound (small open sore on lt foot). Neurological: Negative for dizziness, weakness, light-headedness and numbness. Psychiatric/Behavioral: Negative for agitation and behavioral problems. The patient is nervous/anxious. Objective BP 118/68 | Pulse 72 | Temp 35.7 C (96.3 F) (Infrared ) | Resp 18 | Wt 47.2 kg (104 lb) | LMP (LMP Unknown) | BMI 18.13 kg/m | BSA 1.45 m Physical Exam Constitutional: General: She is not in acute distress. Appearance: Normal appearance. She is not ill-appearing, toxic-appearing or diaphoretic. HENT: Head: Normocephalic and atraumatic. Nose: Nose normal. Eyes: Extraocular Movements: Extraocular movements intact. Cardiovascular: Rate and Rhythm: Normal rate and regular rhythm. Pulses: Normal pulses. Heart sounds: Normal heart sounds. Pulmonary: Effort: Pulmonary effort is normal. No respiratory distress. Breath sounds: Normal breath sounds. No stridor. No wheezing, rhonchi or rales. Chest: Chest wall: No tenderness. Musculoskeletal: Right lower leg: Edema (1+) present. Left lower leg: Edema (3+) present. Skin: Findings: Erythema present. Neurological: General: No focal deficit present. Mental Status: She is alert and oriented to person, place, and time. Psychiatric: Behavior: Behavior normal. ASSESSMENT/PLAN: Cellulitis of left lower extremity (Primary) Risk and functional assessment Left leg swelling Chronic diastolic heart failure due to valvular disease (HCC) Permanent atrial fibrillation (HCC) Venous insufficiency Hyperglycemia - HEMOGLOBIN A1C; Future; Expected date: 09/19/2024 Other orders - Doxycycline Hyclate 100 MG Oral Capsule; Take 1 Capsule by mouth in the morning and 1 Capsule before bedtime. Do all this for 10 days. Until gone.. Patient Instructions Torsemide 20 mg twice daily today and tomorrow And doxycycline 100 mg twice daily for 10 days After tooth extraction, resume jardiance 10 mg daily Marie Underwood MD documented in this encounter Nursing Notes * Michelle Redman LPN - 09/19/2024 9:00 AM EST Chief Complaint Patient presents with Acute Pt here today due to having a swollen left leg and foot (the skin is sensitive) blisters on foot documented in this encounter Plan of Treatment Upcoming Encounters Date Type Department Care Team (Late st Contact Info) Description 11/14/2024 3:00 PM EST Office Visit Rheumatology [place] [phone] [facility] [place] [address] Mio Chirinos CRNP [facility] [place] [address] 02/09/2025 1:00 PM EDT Office Visit [facility] [address] [place] [address] Marie Underwood MD [address] [place] [address] 02/28/2025 2:00 PM EDT Office Visit General Surgery, [facility] 132 [facility] [place] [address] Leon Rodriguez MD 132 [facility] [place] [address] 03/13/2025 1:30 PM EDT Office Visit Hematology/Oncology [facility] [place] [phone] Sotero Price MD 200 [facility] [address] 06/08/2025 1:45 PM EDT Office Visit Dermatology [facility] [address] [facility] [place] [address] Lenny Kiran MD 200 [facility] [place] [address] Scheduled Orders Name Type Priority Associated Diagnoses Orde r Schedule HEMOGLOBIN A1C Lab Routine Hyperglycemia Expected: 09/19/2024 (Approximate), Expires: 09/19/2025 Health Maintenance Due Date Last Done Comments Alpha-1 Antitrypsin 1958 Adult Wellness Visit 2004 CKD PHOS USE SMARTSET 75855 09/04/2023 09/04/2022 *BISPHONATE OR OTHER ACCEPTABLE MEDICATION NEEDED FOR OSTEOPOROSIS (REFER TO SMARTSET #1146) 05/05/2024 Albumin/Creatinine Ratio 02/07/2025 02/08/2024, 08/09 Depression Screening 02/07/2025 02/08/2024 CKD HGB USE SMARTSET 69435 09/15/202509/15, 09/15/2024, 04/20/2024, Additional history exists O2 ASSESSMENT COMPLETED IN PAST YEAR FOR COPD 09/15/2025 09/15/2024 DXA Scan 03/06/2026 03/06/2024, 02/07, 03/03/2022, Additional history exists DTap/Tdap Vaccines (2 - Td or Tdap) 08/11/2026 08/11/2016, 11/06/2010, 08/08/1999 Pneumococcal Vaccine: 65+ Years Completed 01/04/2015, 05/06/2004 Zoster Vaccines Completed 10/05/2018, 06/10, 12/05/2008 COVID-19 Vaccine Discontinued 09/02/2021, , 12/23/2020 VITAMIN D LEVEL ONCE IN A LIFETIME-USE SMARTSET# [id number] Completed 04/20/2024, 10/12/2023, 06/30/2021, Additional history exists [...] as of this encounter Visit Diagnoses Diagnosis Cellulitis of left lower extremity- Primary Cellulitis and abscess of leg, except foot Risk and functional assessment Screening for unspecified condition Left leg swelling Chronic diastolic heart failure due to valvular disease (HCC) Permanent atrial fibrillation (HCC) Atrial fibrillation Venous insufficiency Unspecified venous (peripheral) insufficiency Hyperglycemia Other abnormal glucose documented in this encounter Care Teams Naturalization Examiner Relationship Specialty Start Date End Date Marie Underwood MD [address] [place] [facility] [place] [address] PCP - General Internal Medicine 07/09/23 documented as of this encounter"
--- OUTSIDE RECORDS SUMMARY | 2024-09-26 14:05 | External Medical Summary ---
Author Name Unknown Address Unknown Organization K01:LABORATORY [facility] - [address] [place] [address] Laboratory Report Ordering Provider Test Date Status LUIS JAY 09/20/2024 15:15:15 Final Observation Date Value Abnormality Reference (Units ) Status WBC, Total 09/20/2024 15:15:15 7.71 4.00-10.8 0 (K/uL) Final RBC 09/20/2024 15:15:15 3.56 3.85-5.15 (M/uL) Final Hemoglobin 09/20/2024 15:15:15 12.3 12.0-15.3 (g/dL) Final Anemia reflex testing trigge rs on a HGB < 12.0 for Females and HGB < 13.0 for Males in accordance with the WHO Anemia Guidelines
Anemia reflex testing triggers on a HGB < 12.0 for Females and HGB < 13.0 for Males in accordance with the WHO Anemia Guidelines HCT 09/20/2024 15:15:15 38.6 36.0-45.2 (%) Final MCV 09/20/2024 15:15:15 108.4 81.5-97.5 (fL) Final MCH 09/20/2024 15:15:15 34.6 27.0-34.0 (pg) Final MCHC 09/20/2024 15:15:15 31.9 32.0-36.0 (g/dL) Final RDW 09/20/2024 15:15:15 15.0 11.5-15.5 (%) Final Platelets 09/20/2024 15:15:15 274 140-400 (K /uL) Final MPV 09/20/2024 15:15:15 11.4 6.6-11.1 ( fL) Final Nucleated erythrocytes/100 leukocytes [Ratio] in Blood by Automated count 09/20/2024 15:15:15 0 <=0 (/100 WBCs) [facility] Performing Location LABORATORY [facility] - [address] [facility] [address]
--- OUTSIDE RECORDS SUMMARY | 2024-09-26 14:05 | External Medical Summary ---
Author Name Unknown Address Unknown Organization K01:LABORATORY [facility] - [address] [facility] [address] Laboratory Report Ordering Provider Test Date Status LUIS JAY 09/20/2024 15:15:15 Final Observation Date Value Abnormality Reference (Units ) Status SYNC LEUKOCYTES IN BLOOD BY AUTOMATED COUNT 09/20/2024 15:15:15 7.71 4.00-10.80 (K/uL) Final Segs 09/20/2024 15:15:15 70.6 40.0-75.0 (%) Final Lymphs % 09/20/2024 15:15:15 17.9 Below low normal 18.0-42.0 (%) Final Monos 09/20/2024 15:15:15 8.7 1.0-11.0 (%) Final Eosinophils 09/20/2024 15:15:15 1.2 0.0-6.0 (%) Final Basos 09/20/2024 15:15:15 1.0 0.0-2.0 (%) Final Immature Granulocyte, Percent 09/20/2024 15:15:15 0.6 0.0-2.0 (%) Final Absolute Segs 09/20/2024 15:15:15 5.44 1.80-7.70 (K/uL) Final Lymphs, absolute 09/20/2024 15:15:15 1.38 1.00-4.80 (K/ul) Final Monos, Abs 09/20/2024 15:15:15 0.67 0.00-1.10 (K/uL) Final Eos, Abs 09/20/2024 15:15:15 0.09 0.00-0.70 (K/uL) Final Basos, Abs 09/20/2024 15:15:15 0.08 0.00-0.20 (K/uL) Final Immature Granulocytes, Number 09/20/2024 15:15:15 0.05 0.00-0.20 (K/uL) Final Performing Location LABORATORY [facility] - [facility] [place] [address]
--- OUTSIDE RECORDS SUMMARY | 2024-09-26 14:05 | External Medical Summary ---
Author Name Unknown Address Unknown Organization K01:[facility] [place] [address] [place] [address] Laboratory Report Ordering Provider Test Date Status LUIS JAY 09/20/2024 15:15:15 Final Observation Date Value Abnormality Reference (Units ) Status BUN 09/20/2024 15:15:15 30 Above high normal 6-20 (mg/dL) Final Creatinine 09/20/2024 15:15:15 1.2 Above high normal 0.5-1.0 (mg/dL) Final Glomerular filtration rate/1.73 sq M.predicted [Volume Rate/Area] in Serum, Plasma or Blood by Creatinine-based formula (CKD-EPI) 09/20/2024 15:15:15 45 Below low normal >=60 (mL/min) Final eGFR is calculated based on the CKD-EPI 2020 equation. Sodium 09/20/2024 15:15:15 141 135-146 (m mol/L) Final Potassium 09/20/2024 15:15:15 4.3 3.5-5.1 (m mol/L) Final Cl 09/20/2024 15:15:15 97 Below low normal 98- 107 (mmol/L) Final CO2 09/20/2024 15:15:15 30 22-32 (mmo l/L) Final Anion gap 09/20/2024 15:15:15 14 7-15 (mmol /L) Final Glucose 09/20/2024 15:15:15 75 70-120 (mg /dL) Final Albumin 09/20/2024 15:15:15 4.6 3.8-5.0 (g /dL) Final AST (Aspartate aminotransferase) 09/20/2024 15:15:15 31 10-35 (U/L) Fin al Alk Phos 09/20/2024 15:15:15 72 35-130 (U/ L) Final Bilirubin, Total 09/20/2024 15:15:15 1.0 <=1 .2 (mg/dL) Final Calcium 09/20/2024 15:15:15 9.2 8.4-10.2 ( mg/dL) Final Protein 09/20/2024 15:15:15 6.4 6.0-8.3 (g /dL) Final ALT (Alanine aminotransferase) 09/20/2024 15:15:15 25 10-35 (U/L) [address] Performing Location [facility] [place] [address] [facility] [address]
--- OUTSIDE RECORDS SUMMARY | 2024-09-26 14:05 | External Medical Summary | Summary of Care ---
Author Name Unknown Organization [facility] Address [address] [place] [address] Phone [phone] Care Team Providers Care Cream Beater Name Role Phone Marie Underwood MD Primary Care Provider [phone] Reason for Referral * Precert (Within 10 days (routine)) - Authorized Specialty Diagnoses / Procedures Referred By Brian t Referred To Contact Radiology Diagnoses Localized swelling, mass and lump, lower limb, left Procedures MRI FOOT LEFT WO CONTRAST Access Center, [address] *DO NOT REMOVE THIS DEPARTMENT* [place] [address] Phone: tel: Referral ID Status Reason Start Date Expiration Date V isits Requested Visits Authorized [id number] Authorized 09/20/2024 999 999 Encounter Details Date Type Department Care Team (Late st Contact Info) Description 09/20/2024 Orders Only Access [place] [address] *DO NOT REMOVE THIS DEPARTMENT* [place] [id number] Requisition, External Radiology [address] [place] [address] Localized swelling, mass and lump, lower limb, left* Allergies Active Allergy Reactions Criticality Noted Date Comments Sulfamethoxazole-Trimethopri m Fever 11/13/2019 Fever, sob, itchiness and hives Dog Dander High 05/09/2007 sneezing Other Reaction(s): asthma Levofloxacin 05/26/2023 Sore Achilles Tendon documented as of this encounter (statuses as of 09/20/2024) Medications Metamucil 28.3 % Oral Powder (Psyllium) [...] as of this encounter (statuses as of 09/20/2024) Active Problems Problem Noted Date Diagnosed Date [...] as of this encounter (statuses as of 09/20/2024) Resolved Problems Problem Noted Date Diagnosed Date [...] as of this encounter (statuses as of 09/20/2024) Immunizations Name Administration Dates Next Due COVID-19 mRNA, LNP-s, No Pre serve, 2-Dose Series ([employer]) 09/02/2021,01/18/2021,12/23/2020 Pneumococcal Conjugate Vacc, 13 Valent (Prevnar) [...] PM EDT documented as of this encounter Plan of Treatment Upcoming Encounters Date Type Department Care Team (Late st Contact Info) Description 11/14/2024 3:00 PM EST Office Visit Rheumatology [facility] [address] [place] [address] Mio Chirinos CRNP [address] [place] [address] 02/09/2025 1:00 PM EDT [facility] [address] [place] [address] Marie Underwood MD [address] [place] [address] 02/28/2025 2:00 PM EDT Office Visit General Surgery, [facility] [address] [place] [address] Leon Rodriguez MD 132 [facility] [place] [address] 03/13/2025 1:30 PM EDT Office Visit Hematology/Oncology [facility] [place] [address] [place] [address] Sotero Price MD [address] [place] [address] 06/08/2025 1:45 PM EDT Office Visit Dermatology [facility] [place] [address] [place] [address] Lenny Kiran MD 200 [facility] [place] [address] Scheduled Orders Name Type Priority Associated Diagnoses Orde r Schedule MRI FOOT LEFT WO CONTRAST Medical Imaging Routine Localized swelling, mass and lump, lower limb, left Ordered: 09/20/2024 Health Maintenance Due Date Last Done Comments Alpha-1 Antitrypsin 1958 Adult Wellness Visit 2004 CKD PHOS USE SMARTSET 35556 09/04/2023 09/04/2022 *BISPHONATE OR OTHER ACCEPTABLE MEDICATION NEEDED FOR OSTEOPOROSIS (REFER TO SMARTSET #1146) 05/05/2024 Albumin/Creatinine Ratio 02/07/2025 02/08/2024, 08/09 Depression Screening 02/07/2025 02/08/2024 CKD HGB USE SMARTSET 75407 09/15/202509/15, 09/15/2024, 04/20/2024, Additional history exists O2 ASSESSMENT COMPLETED IN PAST YEAR FOR COPD 09/15/2025 09/15/2024 DXA Scan 03/06/2026 03/06/2024, 02/07, 03/03/2022, Additional history exists DTap/Tdap Vaccines (2 - Td or Tdap) 08/11/2026 08/11/2016, 11/06/2010, 08/08/1999 Pneumococcal Vaccine: 65+ Years Completed 01/04/2015, 05/06/2004 Zoster Vaccines Completed 10/05/2018, 06/10, 12/05/2008 COVID-19 Vaccine Discontinued 09/02/2021, , 12/23/2020 VITAMIN D LEVEL ONCE IN A LIFETIME-USE SMARTSET# [id number] Completed 04/20/2024, 10/12/2023, 06/30/2021, Additional history exists [...] as of this encounter Visit Diagnoses Diagnosis Localized swelling, mass and lump, lower limb, left- Primary documented in this encounter Care Teams Cream Beater Relationship Specialty Start Date End Date Marie Underwood MD [address] [place] [address] PCP - General Internal Medicine 07/09/23 documented as of this encounter
--- OUTSIDE RECORDS SUMMARY | 2024-09-26 14:05 | External Medical Summary | Summary of Care ---
Author Name Unknown Organization [facility] Address [address] [place] [address] Phone [phone] Care Team Providers Care Geospatial Developer Name Role Phone Marie Underwood MD Primary Care Provider [phone] Reason for Visit * Reason Comments Outpatient Testing Encounter Details Date Type Department Care Team (Late st Contact Info) Description 09/20/2024 3:20 PM EST Laboratory Laboratory, [place] [address] [place] [address] [facility] [address] [place] [address] Mild persistent asthma without complication; Stage 3b chronic kidney disease; Permanent atrial fibrillation (HCC); Chronic diastolic heart failure due to valvular disease (HCC); Hypertensive 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 stage 3b chronic kidney disease (HCC); Hyperglycemia Allergies Active Allergy Reactions Criticality Noted [...] mRNA, LNP-s, No Pre serve, 2-Dose Series ([facility]) 09/02/2021,01/18/2021,12/23/2020 Pneumococcal Conjugate Vacc, 13 Valent (Prevnar) [...] 11/14/2024 3:00 PM EST Office Visit Rheumatology [facility] [address] [facility] [place] [address] Mio Chirinos CRNP [address] [place] [address] 02/09/2025 1:00 PM EDT Office Visit [facility] [place] [address] [place] [address] Marie Underwood MD [address] [place] [address] 02/28/2025 2:00 PM EDT Office Visit General Surgery, [facility] [address] [facility] [place] [address] Leon Rodriguez MD [address] [facility] [place] [address] 03/13/2025 1:30 PM EDT Office Visit Hematology/Oncology [facility] [address] [place] [phone] Sotero Price MD [address] [place] [address] 06/08/2025 1:45 PM EDT Office Visit Dermatology [facility] [address] [place] [address] Lenny Kiran MD [address] [place] [address] Pending Results Name Type Priority Associated Diagnoses Date /Time COMPREHENSIVE METABOLIC PANEL Lab Routine Mild persistent asthma without complication Stage 3b chronic kidney disease 09/20/2024 3:15 PM EST LIPID PANEL WITH DIRECT LDL IF TG IS HIGH Lab Routine Permanent atrial fibrillation (HCC) 09/20/2024 3:15 PM EST CBC WITH WBC DIFFERENTIAL AND ANEMIA REFLEX WORKUP Lab Routine Mild persistent asthma without complication Permanent atrial fibrillation (HCC) Chronic diastolic heart failure due to valvular disease (HCC) Hypertensive 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 stage 3b chronic kidney disease (HCC) 09/20/2024 3:15 PM EST TSH WITH FREE T4 IF INDICATED Lab Routine Permanent atrial fibrillation (HCC) Chronic diastolic heart failure due to valvular disease (HCC) Hypertensive 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 stage 3b chronic kidney disease (HCC) 09/20/2024 3:15 PM EST HEMOGLOBIN A1C Lab Routine Hyperglycemia 09/20/2024 3:15 PM EST ANEMIA CBC Lab Routine Mild persistent asthma without complication Permanent atrial fibrillation (HCC) Chronic diastolic heart failure due to valvular disease (HCC) Hypertensive 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 stage 3b chronic kidney disease (HCC) 09/20/2024 3:15 PM EST DIFFERENTIAL, AUTOMATED Lab Routine Mild persistent asthma without complication Permanent atrial fibrillation (HCC) Chronic diastolic heart failure due to valvular disease (HCC) Hypertensive 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 stage 3b chronic kidney disease (HCC) 09/20/2024 3:15 PM EST ANEMIA REFLEX CHEMISTRY HOLD Lab Routine Mild persistent asthma without complication Permanent atrial fibrillation (HCC) Chronic diastolic heart failure due to valvular disease (HCC) Hypertensive 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 stage 3b chronic kidney disease (HCC) 09/20/2024 3:15 PM EST Health Maintenance Due Date Last Done Comments Alpha-1 Antitrypsin 1958 Adult Wellness Visit 2004 CKD PHOS USE SMARTSET 11602 09/04/2023 09/04/2022 *BISPHONATE OR OTHER ACCEPTABLE MEDICATION NEEDED FOR OSTEOPOROSIS (REFER TO SMARTSET #1146) 05/05/2024 Albumin/Creatinine Ratio 02/07/2025 02/08/2024, 08/09 Depression Screening 02/07/2025 02/08/2024 CKD HGB USE SMARTSET 15855 09/15/202509/15, 09/15/2024, 04/20/2024, Additional history exists O2 ASSESSMENT COMPLETED IN PAST YEAR FOR COPD 09/15/2025 09/15/2024 DXA Scan 03/06/2026 03/06/2024, 02/07, 03/03/2022, Additional history exists DTap/Tdap Vaccines (2 - Td or Tdap) 08/11/2026 08/11/2016, 11/06/2010, 08/08/1999 Pneumococcal Vaccine: 65+ Years Completed 01/04/2015, 05/06/2004 Zoster Vaccines Completed 10/05/2018, 06/10, 12/05/2008 COVID-19 Vaccine Discontinued 09/02/2021, , 12/23/2020 VITAMIN D LEVEL ONCE IN A LIFETIME-USE SMARTSET# 87418 Completed 04/20/2024, 10/12/2023, 06/30/2021, Additional history exists [...] as of this encounter Visit Diagnoses Diagnosis Mild persistent asthma without complication Unspecified asthma Stage 3b chronic kidney disease Permanent atrial fibrillation (HCC) Atrial fibrillation Chronic diastolic heart failure due to valvular disease (HCC) Hypertensive 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 stage 3b chronic kidney disease (HCC) Hyperglycemia Other abnormal glucose documented in this encounter Care Teams Geospatial Developer Relationship Specialty Start Date End Date Marie Underwood MD [address] [place] [address] PCP - General Internal Medicine 07/09/23 documented as of this encounter
--- OUTSIDE RECORDS SUMMARY | 2024-09-26 14:05 | External Medical Summary | Summary of Care ---
Author Name Unknown Organization [facility] Address [address] [place] [address] Phone [phone] Care [address] Marker Installer Name Role Phone Marie Underwood MD Primary Care Provider [phone] Reason for Referral * Evaluate & Treat - Unlimited Visits (Within 10 days (routine)) - Authorized Specialty Diagnoses / Procedures Referred By Brian apple Referred To Contact Dermatology Diagnoses Abnormal skin growth Bob Gudino DO [address] [facility] [place] [address] Phone: tel: fax: Referral ID Status Reason Start Date Expiration Date Visits Requested Visits Authorized [id number] Authorized Specialty Services Required 09/15/2024 999 999 Question Answer Referral Priority Within 10 days (routine) Where should this appointment be scheduled? [facility] Are you referring the patient for Mohs Surgery and have a current positive skin cancer biopsy result? No What is the reason for the patient referral? Rash/Skin Check/Eval of Lesion or Mole Reason for Visit * Reason Comments Wound Care Left foot Encounter Details Date Type Department Care Team (Late st Contact Info) Description 09/15/2024 2:00 PM EST Office Visit [facility] [address] [place] [address] Bob Gudino DO [address] [facility] [place] [phone] Localized swelling of both lower extremities*; Abnormal skin growth Allergies Active Allergy Reactions Criticality Noted Date [...] mgOralDaily(AM), In the morning., Reported on 09/19/2024 Fluticasone Propionate 50 MCG/ACT Nasal Suspension (Flonase) Administer 2 Sprays into each nostril in the morning. 16 g 5 04/28/20 24 024 Discontin ued(Medic ation List Clean Up) documented as of this encounter (statuses as [...] mRNA, LNP-s, No Pre serve, 2-Dose Series ([employer]) 09/02/2021,01/18/2021,12/23/2020 Pneumococcal Conjugate Vacc, 13 Valent (Prevnar) [...] 08/11/2024 Does the household have a re lar source of income? (Household - for ages [...] Sign Reading Time Taken Comments Blood Pressure 126/62 09/15/2024 2:09 PM EST Pulse 68 09/15/2024 2:09 PM EST Temperature 36.9 C (98.4 F) 09/15/2024 2:09 PM ES T Respiratory Rate 18 09/15/2024 2:09 PM EST Oxygen Saturation 100% 09/15/2024 2:09 PM EST Inhaled Oxygen Concentration - - Weight 48 kg (105 lb 12.8 oz) 09/15/2024 2:09 PM EST Height - - Body Mass Index 18.45 05/09/2024 3:49 PM EDT documented in this encounter Progress Notes * Bob Gudino, DO - 09/15/2024 2:20 PM EST Subjective: Karina Juarez is a 83 year old female. Chief Complaint Patient presents with Wound Care Left foot HPI: Blister showed up Wednesday. Drained by podiatry and now back. No F or C. No redness or warmthin her foot. She has had swelling in her feet for years. She takes Torsemide now. Doesn't feel likeit helps a lot. She has swelling in both feet. Weight up 5 pounds from the summer. PMHx, meds, and allergies reviewed Patient Active Problem List Diagnosis Age-related osteoporosis without current pathological fracture Asthma, mild persistent Non-rheumatic mitral regurgitation Severe tricuspid regurgitation Chronic diastolic heart failure due to valvular disease (HCC) Permanent atrial fibrillation (HCC) MDS (myelodysplastic syndrome), low grade ([facility]) Stage 3b chronic kidney disease Gastroesophageal reflux disease with esophagitis without hemorrhage Hypertensive 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 stage 3b chronic kidney disease (HCC) Pulmonary HTN ([facility]) HTN, goal below 140/90 Bilateral pleural effusion Nocturnal hypoxemia S/P atrioventricular kamran ablation Pneumonia of left lower lobe due to infectious organism Mild protein-calorie malnutrition (HCC) COPD, group B, by GOLD 2017 classification ([facility]) Mid back pain Current Outpatient Medications Medication Sig Dispense Refill [...] morning. In the morning..) 90 Tablet 3 No current facility-administered medications for this visit. Review of patient's allergies indicates: Allergen Reactions Dog Dander sneezing Other Reaction(s): asthma Bactrim [Sulfamethoxazole-Trimethoprim] Fever Fever, sob, itchiness and hives Levaquin [Levofloxacin] Sore Achilles Tendon OBJECTIVE: BP 126/62 | Pulse 68 | Temp 36.9 C (98.4 F) (Tympanic) | Resp 18 | Wt 48 kg (105 lb 12.8 oz) | LMP (LMP Unknown) | SpO2 100% | BMI 18.45 kg/m | BSA 1.47 m Estimated body mass index is 18.45 kg/m as calculated from the following: Height as of 05/09/24: 1.613 m (5' 3.5"). Weight as of this encounter: 48 kg (105 lb 12.8 oz). BP Readings from Last 3 Encounters: 09/15/24 126/62 08/30/24 130/59 08/11/24 118/62 Wt Readings from Last 3 Encounters: 09/15/24 48 kg (105 lb 12.8 oz) 08/30/24 47.8 kg (105 lb 6.4 oz) 08/11/24 47 kg (103 lb 9.6 oz) ROS: Negative except for above PHYSICAL EXAM: General: alert, healthy, and no distress Head: Normocephalic, No masses, lesions, tenderness or abnormalities Heart: regular rate & rhythm, no murmur, and no gallops Lungs: chest symmetric with normal AP diameter, no chest deformities noted, no chest wall tenderness, lungs clear to auscultation Extremities: less than 2 second capillary refill, no joint deformities, effusion, or inflammation, and swelling in her B/L LEs - 2+. Blisters on L foot opened and drained with sterile procedures. I wrapped them and gave her supplies to use at home also. ASSESSMENT/Plan Localized swelling of both lower extremities (Primary) - COMPREHENSIVE METABOLIC PANEL; Future; Expected date: 09/15/2024 Abnormal skin growth - DERMATOLOGY REFERRAL OP I spent a total of 30 minutes on the date of service in preparation, delivery, and documentation ofthe care provided to this patient, excluding any time spent on the performance of any procedure or separately billable services. Add in a second dose of Torsemide for 3 days and check kidney function on this. The above was discussed and understanding was expressed. Bob Gudino DO documented in this encounter Nursing Notes * Emma Schneider LPN - 09/15/2024 2:09 PM EST Patient says she's been taking torsemide for bilateral foot and ankle swelling. She noticed a blister on the top of her left foot so she saw a ski patroller who drained it but now it's coming back. She's worried it will open and become infected. documented in this encounter Plan of Treatment Upcoming Encounters Date Type Department Care Team (Late st Contact Info) Description 11/14/2024 3:00 PM EST Office Visit [facility] [address] [facility] [place] [address] Mio Chirinos CRNP [facility] [place] [address] 02/09/2025 1:00 PM EDT Office Visit [facility] [address] [facility] [address] Marie Underwood MD [address] [facility] [address] 02/28/2025 2:00 PM EDT Office Visit General Surgery, [facility] [address] [place] [address] Leon Rodriguez MD 132 [facility] [place] [address] 03/13/2025 1:30 PM EDT Office Visit Hematology/Oncology [facility] [place] [address] [facility] [place] [phone] Sotero Price MD [address] [facility] [place] [address] 06/08/2025 1:45 PM EDT Office Visit Dermatology [facility] [place] [address] [facility] [place] [address] Lenny Kiran MD [address] [facility] [place] [address] Scheduled Referrals Name Type Priority Associated Diagnoses Orde r Schedule DERMATOLOGY REFERRAL OP Referral Within 10 days (routine) Abnormal skin growth Ordered: 09/15/2024 Health Maintenance Due Date Last Done Comments Alpha-1 Antitrypsin 1958 Adult Wellness Visit 2004 CKD PHOS USE SMARTSET 84371 09/04/2023 09/04/2022 *BISPHONATE OR OTHER ACCEPTABLE MEDICATION NEEDED FOR OSTEOPOROSIS (REFER TO SMARTSET #1146) 05/05/2024 Albumin/Creatinine Ratio 02/07/2025 02/08/2024, 08/09 Depression Screening 02/07/2025 02/08/2024 CKD HGB USE SMARTSET 43278 09/15/202509/15, 09/15/2024, 04/20/2024, Additional history exists O2 ASSESSMENT COMPLETED IN PAST YEAR FOR COPD 09/15/2025 09/15/2024 DXA Scan 03/06/2026 03/06/2024, 02/07, 03/03/2022, Additional history exists DTap/Tdap Vaccines (2 - Td or Tdap) 08/11/2026 08/11/2016, 11/06/2010, 08/08/1999 Pneumococcal Vaccine: 65+ Years Completed 01/04/2015, 05/06/2004 Zoster Vaccines Completed 10/05/2018, 06/10, 12/05/2008 COVID-19 Vaccine Discontinued 09/02/2021, , 12/23/2020 VITAMIN D LEVEL ONCE IN A LIFETIME-USE SMARTSET# 49715 Completed 04/20/2024, 10/12/2023, 06/30/2021, Additional history exists [...] Not on filedocumented as of this encounter Results * (ABNORMAL) COMPREHENSIVE METABOLIC PANEL (09/15/2024 2:53 PM EST) BUN 31(H) 6 - 20 mg/dL 09/15/2024 4:04 PM [facility] [place] 56- CREATININE 1.2(H) 0.5 - 1.0 mg/dL 09/15/2024 4:04 PM EST [facility] [place] 56- EGFR 43(L) >=60 mL/min 09/15/2024 4:04 PM [facility] 56- Comment:eGFR is calculated b ased on the CKD-EPI 2020 equation. SODIUM 141 135 - 146 mmol/L 09/15/2024 4:04 PM EST [facility] [place] 56- POTASSIUM 4.7 3.5 - 5.1 mmol/L 09/15/2024 4:04 PM EST [facility] [place] 56- CHLORIDE 99 98 - 107 mmol/L 09/15/2024 4:04 PM EST [facility] [place] 56- CO2 30 22 - 32 mmol/L 09/15/2024 4:04 PM EST [facility] [place] 56- ANION GAP 12 7 - 15 mmol/L 09/15/2024 4:04 PM [facility] 56- GLUCOSE 124(H) 70 - 120 mg/dL 09/15/2024 4:04 PM [facility] [place] 56- Albumin 4.8 3.8 - 5.0 g/dL 09/15/2024 4:04 PM [facility] [place] 56- AST 32 10 - 35 U/L 09/15/2024 4:04 PM EST [facility] 56- Alkaline Phosphatase 66 35 - 130 U/L 09/15/2024 4:04 PM EST [facility] 56- Bilirubin, Total 1.0 <=1.2 mg/dL 09/15/2024 4:04 PM EST [facility] 56- CALCIUM 9.7 8.4 - 10.2 mg/dL 09/15/2024 4:04 PM EST [facility] 56- Protein 6.3 6.0 - 8.3 g/dL 09/15/2024 4:04 PM EST [facility] 56- ALT 22 10 - 35 U/L 09/15/2024 4:04 PM EST [facility] 56- Blood Venous blood specimen / Unknown Venipuncture / Unknown 09/15/2024 2:53 PM EST 09/15/2024 2:53 PM EST Bob Gudino DO LAB BLOOD ORDERABLES Final Result [facility] [address] [place] [address] documented in this encounter Visit Diagnoses Diagnosis Localized swelling of both lower extremities- Primary Abnormal skin growth documented in this encounter Care Teams Lane Marker Installer Relationship Specialty Start Date End Date Marie Underwood MD [address] [place] [address] PCP - General Internal Medicine 07/09/23 documented as of this encounter
--- OUTSIDE RECORDS SUMMARY | 2024-09-26 14:05 | External Medical Summary ---
Author Name Unknown Address Unknown Organization [id number]:LAB[facility]ATORY [facility] [place] - [address] [facility] [address] Laboratory Report Ordering Provider Test Date Status LUIS JAY 09/20/2024 15:15:15 Final Observation Date Value Abnormality Reference (Units ) Status Triglyceride 09/20/2024 15:15:15 64 <=174 ( mg/dL) Final Triglyceride Reference Range s (mg/dL):
<150 Acceptable
150-174 Borderline high
175-499 High
>=500 Very high Cholesterol 09/20/2024 15:15:15 170 <200 (mg /dL) Final Total Cholesterol Reference Ranges (mg/dL):
<200 Desirable
200-239 Borderline high
>=240 High HDL 09/20/2024 15:15:15 87 >49 (mg/dL ) Final HDL Cholesterol Reference Ra nges (mg/dL):
>=60 High (Desirable)
<50 Low (Undesirable) For Females
<40 Low (Undesirable) For Males NON-HDL CHOLESTEROL 09/20/2024 15:15:15 83 <=159 (mg/dL) Final Non-HDL Cholesterol Referenc e Range (mg/dL):
<100 Target level for high risk ASCVD patient
<130 Optimal for general population
130-159 Near optimal for general population
160-189 Borderline High
190-219 High
>=220 Very High LDL, (calculated) 09/20/2024 15:15:15 70 <= 129 (mg/dL) Final LDL Cholesterol Reference Ra nges (mg/dL):
<70 Target level for high risk ASCVD patient
<100 Optimal for general population
100-129 Near optimal for general population
130-159 Borderline high
160-189 High
>=190 Very high Performing Location LAB[facility]ATORY [facility] [place] - [address] [facility] [address]
--- OUTSIDE RECORDS SUMMARY | 2024-09-26 14:05 | External Medical Summary ---
Author Name Unknown Address Unknown Organization [id number]:[facility] [place] [address] [place] [address] Laboratory Report Ordering Provider Test Date Status RAFAL MUNOZ 09/15/2024 14:53:48 Final Observation Date Value Abnormality Reference (Units ) Status SYNC LEUKOCYTES IN BLOOD BY AUTOMATED COUNT 09/15/2024 14:53:48 7.32 4.00-10.80 (K/uL) Final Segs 09/15/2024 14:53:48 68.7 40.0-75.0 (%) Final Lymphs % 09/15/2024 14:53:48 21.7 18.0-42.0 (%) Final Monos 09/15/2024 14:53:48 7.9 1.0-11.0 (%) Final Eosinophils 09/15/2024 14:53:48 1.2 0.0-6.0 (%) Final Basos 09/15/2024 14:53:48 0.5 0.0-2.0 (%) Final Absolute Segs 09/15/2024 14:53:48 5.02 1.80-7.70 (K/uL) Final Lymphs, absolute 09/15/2024 14:53:48 1.59 1.00-4.80 (K/ul) Final Monos, Abs 09/15/2024 14:53:48 0.58 0.00-1.10 (K/uL) Final Eos, Abs 09/15/2024 14:53:48 0.09 0.00-0.70 (K/uL) Final Basos, Abs 09/15/2024 14:53:48 0.04 0.00-0.20 (K/uL) Final Performing Location [facility] [place] [address] [place] [address]
--- OUTSIDE RECORDS SUMMARY | 2024-09-26 14:05 | External Medical Summary ---
Author Name Unknown Address Unknown Organization [id number]:[facility] [place] [address] [place] [address] Laboratory Report Ordering Provider Test Date Status LUIS JAY 09/20/2024 15:15:15 Final Observation Date Value Abnormality Reference (Units ) Status TSH 09/20/2024 15:15:15 2.66 0.27-4.20 (uIU/mL) Final Performing Location [facility] [place] [address] [place] [address]
--- OUTSIDE RECORDS SUMMARY | 2024-09-26 14:05 | External Medical Summary | Summary of Care ---
Author Name Unknown Organization [facility] Address [address] [place] [address] Phone [phone] Care Team Providers Care National Business Director Name Role Phone Marie Underwood MD Primary Care Provider [phone] Reason for Visit * Reason Comments Outpatient Testing Encounter Details Date Type Department Care Team (Late st Contact Info) Description 09/15/2024 2:50 PM EST Laboratory Laboratory [facility] [address] [place] [phone] [facility] [address] [place] [address] MDS (myelodysplastic syndrome), low grade (HCC); Localized swelling of both lower extremities Allergies Active Allergy Reactions Criticality Noted Date Comments Sulfamethoxazole-Trimethopri m Fever 11/13/2019 Fever, sob, itchiness and hives Dog Dander High 05/09/2007 sneezing Other Reaction(s): asthma Levofloxacin 05/26/2023 Sore Achilles Tendon documented as of this encounter (statuses as of 09/15/2024) Medications Metamucil 28.3 % Oral Powder (Psyllium) [...] 5 mgOralDaily(AM), In the morning., Reported on 09/15/2024 documented as of this encounter (statuses as of 09/15/2024) Active Problems Problem Noted Date Diagnosed Date Mid back pain 02/08/2024 COPD, group B, [...] as of this encounter (statuses as of 09/15/2024) Resolved Problems Problem Noted Date Diagnosed Date [...] as of this encounter (statuses as of 09/15/2024) Immunizations Name Administration Dates Next Due COVID-19 mRNA, LNP-s, No Pre serve, 2-Dose Series ([employer]) 09/02/2021,01/18/2021,12/23/2020 Pneumococcal Conjugate Vacc, 13 Valent (Prevnar) [...] 11/14/2024 3:00 PM EST Office Visit Rheumatology [facility] [address] [facility] [place] [address] Mio Chirinos CRNP [address] [facility] [place] [address] 02/09/2025 1:00 PM EDT Office Visit [facility] [address] [place] [address] Marie Underwood MD [address] [place] [address] 02/28/2025 2:00 PM EDT Office Visit General Surgery, [facility] [address] [facility] [place] [address] Leon Rodriguez MD [address] [place] [address] 03/13/2025 1:30 PM EDT Office Visit Hematology/Oncology [facility] [address] [facility] [place] [phone] Sotero Price MD [address] [facility] [place] [address] 06/08/2025 1:45 PM EDT Office Visit Dermatology [facility] [address] [facility] [place] [address] Lenny Kiran MD [address] [facility] [place] [address] Pending Results Name Type Priority Associated Diagnoses Date /Time COMPREHENSIVE METABOLIC PANEL Lab Routine Localized swelling of both lower extremities 09/15/2024 2:53 PM EST Health Maintenance Due Date Last Done Comments Alpha-1 Antitrypsin 1958 Adult Wellness Visit 2004 CKD PHOS USE SMARTSET 34457 09/04/2023 09/04/2022 *BISPHONATE OR OTHER ACCEPTABLE MEDICATION NEEDED FOR OSTEOPOROSIS (REFER TO SMARTSET #1146) 05/05/2024 Albumin/Creatinine Ratio 02/07/2025 02/08/2024, 08/09 Depression Screening 02/07/2025 02/08/2024 CKD HGB USE SMARTSET 01278 04/20/202509/15, 09/15/2024, 04/20/2024, Additional history exists O2 ASSESSMENT COMPLETED IN PAST YEAR FOR COPD 09/15/2025 09/15/2024 DXA Scan 03/06/2026 03/06/2024, 02/07, 03/03/2022, Additional history exists DTap/Tdap Vaccines (2 - Td or Tdap) 08/11/2026 08/11/2016, 11/06/2010, 08/08/1999 Pneumococcal Vaccine: 65+ Years Completed 01/04/2015, 05/06/2004 Zoster Vaccines Completed 10/05/2018, 06/10, 12/05/2008 COVID-19 Vaccine Discontinued 09/02/2021, , 12/23/2020 VITAMIN D LEVEL ONCE IN A LIFETIME-USE SMARTSET# [id number] Completed 04/20/2024, 10/12/2023, 06/30/2021, Additional history exists [...] Not on filedocumented as of this encounter Procedures Procedure Name Priority Date/Time Associated Diagnosis Comments DIFFERENTIAL, AUTOMATED Routine 09/15/2024 2:53 PM EST MDS (myelodysplastic syndrome), low grade (HCC) CBC Routine 09/15/2024 2:53 PM EST MDS (myelodysplastic syndrome), low grade (HCC) CBC Routine 09/15/2024 2:53 PM EST MDS (myelodysplastic syndrome), low grade (HCC) documented in this encounter Results * DIFFERENTIAL, AUTOMATED (09/15/2024 2:53 PM EST) WBC 7.32 4.00 - 10.80 K/uL 09/15/2024 2:58 PM EST [facility] 56-02 Neutrophils % 68.7 40.0 - 75.0 % 09/15/2024 2:58 PM EST [facility] 56-02 Lymphocytes % 21.7 18.0 - 42.0 % 09/15/2024 2:58 PM EST [facility] 56-02 Monocytes % 7.9 1.0 - 11.0 % 09/15/2024 2:58 PM EST [facility] 56-02 Eosinophils % 1.2 0.0 - 6.0 % 09/15/2024 2:58 PM EST [facility] 56-02 Basophils % 0.5 0.0 - 2.0 % 09/15/2024 2:58 PM EST [facility] 56-02 Absolute Neutrophils 5.02 1.80 - 7.70 K/uL 09/15/2024 2:58 PM EST [facility] 56-02 Absolute Lymphocytes 1.59 1.00 - 4.80 K/ul 09/15/2024 2:58 PM EST [facility] 56-02 Absolute Monocytes 0.58 0.00 - 1.10 K/uL 09/15/2024 2:58 PM EST [facility] 56-02 Absolute Eosinophils 0.09 0.00 - 0.70 K/uL 09/15/2024 2:58 PM EST [facility] 56-02 Absolute Basophils 0.04 0.00 - 0.20 K/uL 09/15/2024 2:58 PM EST [facility] 56-02 Blood Venous blood specimen / Unknown Venipuncture / Unknown 09/15/2024 2:53 PM EST 09/15/2024 2:53 PM EST us Sotero Price MD LAB BLOOD ORDERABLES Final Res ult [facility] [address] [place] [address] * (ABNORMAL) CBC (09/15/2024 2:53 PM EST) WBC 7.32 4.00 - 10.80 K/uL 09/15/2024 2:58 PM EST [facility] 56- RBC 3.35 3.85 - 5.15 M/uL 09/15/2024 2:58 PM EST [facility] 56- HGB 11.6(L) 12.0 - 15.3 g/dL 09/15/2024 2:58 PM EST [facility] 56- HCT 35.4(L) 36.0 - 45.2 % 09/15/2024 2:58 PM EST [facility] 56- MCV 105.7 81.5 - 97.5 fL 09/15/2024 2:58 PM EST [facility] 56- MCH 34.6 27.0 - 34.0 pg 09/15/2024 2:58 PM EST [facility] 56- MCHC 32.8 32.0 - 36.0 g/dL 09/15/2024 2:58 PM EST [facility] 56- RDW 15.2 11.5 - 15.5 % 09/15/2024 2:58 PM EST [facility] 56- PLT 260 140 - 400 K/uL 09/15/2024 2:58 PM EST [facility] 56- MPV 9.7 6.6 - 11.1 fL 09/15/2024 2:58 PM [facility] 56- Blood Venous blood specimen / Unknown Venipuncture / Unknown 09/15/2024 2:53 PM EST 09/15/2024 2:53 PM EST us Sotero Price MD LAB BLOOD ORDERABLES Final Res ult [facility] [address] [place] [address] documented in this encounter Visit Diagnoses Diagnosis MDS (myelodysplastic syndrome), low grade (HCC) Low grade myelodysplastic syndrome lesions Localized swelling of both lower extremities documented in this encounter Care Teams National Business Director Relationship Specialty Start Date End Date Marie Underwood MD [address] [place] [address] PCP - General Internal Medicine 07/09/23 documented as of this encounter
--- OUTSIDE RECORDS SUMMARY | 2024-09-26 14:05 | External Medical Summary ---
Author Name Unknown Address Unknown Organization K09:[facility]- [address] [place] [address] Laboratory Report Ordering Provider Test Date Status CORIE CHONG 09/15/2024 14:53:48 Final Observation Date Value Abnormality Reference (Units ) Status BUN 09/15/2024 14:53:48 31 Above high normal 6-20 (mg/dL) Final Creatinine 09/15/2024 14:53:48 1.2 Above high normal 0.5-1.0 (mg/dL) Final Glomerular filtration rate/1.73 sq M.predicted [Volume Rate/Area] in Serum, Plasma or Blood by Creatinine-based formula (CKD-EPI) 09/15/2024 14:53:48 43 Below low normal >=60 (mL/min) Final eGFR is calculated based on the CKD-EPI 2020 equation. Sodium 09/15/2024 14:53:48 141 135-146 (m mol/L) Final Potassium 09/15/2024 14:53:48 4.7 3.5-5.1 (m mol/L) Final Cl 09/15/2024 14:53:48 99 98-107 (mm ol/L) Final CO2 09/15/2024 14:53:48 30 22-32 (mmo l/L) Final Anion gap 09/15/2024 14:53:48 12 7-15 (mmol /L) Final Glucose 09/15/2024 14:53:48 124 Above high normal 70 -120 (mg/dL) Final Albumin 09/15/2024 14:53:48 4.8 3.8-5.0 (g /dL) Final AST (Aspartate aminotransferase) 09/15/2024 14:53:48 32 10-35 (U/L) Fin al Alk Phos 09/15/2024 14:53:48 66 35-130 (U/ L) Final Bilirubin, Total 09/15/2024 14:53:48 1.0 <=1 .2 (mg/dL) Final Calcium 09/15/2024 14:53:48 9.7 8.4-10.2 ( mg/dL) Final Protein 09/15/2024 14:53:48 6.3 6.0-8.3 (g /dL) Final ALT (Alanine aminotransferase) 09/15/2024 14:53:48 22 10-35 (U/L) [address] Performing Location [facility] [address] [place] [address]
--- OUTSIDE RECORDS SUMMARY | 2024-09-26 14:06 | External Medical Summary | Summary of Care ---
Author Name Unknown Organization [facility] Address [address] [place] [address] Phone [phone] Care Team Providers Care Client Services Vice President Name Role Phone Marie Underwood MD Primary Care Provider [phone] Reason for Visit * Reason Comments NEW PATIENT LLQ abd swelling and hernia on US from 08/14/2024 * Evaluate & Treat - Unlimited Visits (Within 10 days (routine)) - Authorized Specialty Diagnoses / Procedures Referred By Contac t Referred To Contact General Surgery Diagnoses Abdominal swelling, LLQ Marie Underwood MD [address] [place] [address] Referral ID Status Reason Start Date Expiration Date Visits Requested Visits Authorized [id number] Authorized Specialty Services Required 08/11/[phone] Encounter Details Date Type Department Care Team (Late st Contact Info) Description 08/30/2024 2:30 PM EDT Office Visit General Surgery, [facility] [address] [place] [address] Leon Rodriguez MD [address] [place] [address] Left inguinal hernia* Allergies Active Allergy Reactions Criticality Noted Date Comments Sulfamethoxazole-Trimethopri m Fever 11/13/2019 Fever, sob, itchiness and hives Dog Dander High 05/09/2007 sneezing Other Reaction(s): asthma Levofloxacin 05/26/2023 Sore Achilles Tendon documented as of this encounter (statuses as of 08/30/2024) Medications Medication Sig Dispensed Refills Start Date End Date Status Metamucil 28.3 % Oral Powder (Psyllium) Take by mouth daily. Patient takes one tablespoon daily, in morning. Active Levalbuterol Tartrate 45 MCG/ACT Inhalation Aerosol (Xopenex HFA) Inhale 2 Puffs by mouth every 4 hours as needed for Wheezing. 15 g 12 03/29/2023 Active Torsemide 20 MG Oral Tablet (Demadex) Take 1 Tablet by mouth in the morning. 100 Tablet 3 07/20/2023 Active Eucerin External Cream Apply topically to affected area daily. To affected area of skin. 240 g 11 10/18/2023 Active Calcium 500 MG Oral Tablet Take 1 Tablet by mouth in the morning. Active Ocuvite Adult 50+ Oral Capsule Take 1 Capsule by mouth in the morning. Active Vitamin D3 50 MCG (2000 UT) Oral Tablet Chewable Take by mouth. Active Vitamin C 500 MG Oral Capsule Take 1 Tablet by mouth every morning. Active Temazepam 30 MG Oral Capsule (Restoril)Indications :Primary insomnia TAKE 1 CAPSULE BY MOUTH AT BEDTIME NEEDED FOR SLEEP 30 Capsule 12/28/2023 Active Levocetirizine Dihydrochloride 5 MG Oral Tablet Take 1 Tablet by mouth every evening. 90 Tablet 3 03/10/2024 Active Losartan Potassium 25 MG Oral Tablet (Cozaar) Take 0.5 Tablets by mouth in the morning. In the morning.. 45 Tablet 3 03/13/2024 Active Apixaban 2.5 MG Oral Tablet (Eliquis)Indications: Palpitations Take 1 Tablet by mouth in the morning and 1 Tablet before bedtime. 180 Tablet 3 04/04/2024 Active Fluticasone Propionate 50 MCG/ACT Nasal Suspension (Flonase) Administer 2 Sprays into each nostril in the morning. 16 g 5 04/28/2024 Active Fluticasone-Salmetero l 250-50 MCG/ACT Inhalation Aerosol Powder Breath Activated (Advair Diskus) Inhale 1 Puff by mouth in the morning and 1 Puff before bedtime. 180 Each 3 05/04/2024 Active Docusate Sodium 100 MG Oral Capsule (Colace)Indications:O ther constipation Take 1 Capsule by mouth in the morning and 1 Capsule before bedtime. 05/09/2024 Active Montelukast Sodium 10 MG Oral Tablet (Singulair) TAKE 1 TABLET BY MOUTH IN THE MORNING 90 Tablet 2 07/05/2024 Active Jardiance 10 MG Oral Tablet (Empagliflozin)Indica tions:Chronic diastolic heart failure due to valvular disease (HCC),Hypertensive 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 stage 3b chronic kidney disease (HCC),HTN, goal below 140/90 TAKE 1 TABLET BY MOUTH IN THE MORNING 90 Tablet 3 07/26/2024 Active documented as of this encounter (statuses as of 08/30/2024) Active Problems Problem Noted Date Diagnosed Date [...] as of this encounter (statuses as of 08/30/2024) Resolved Problems Problem Noted Date Diagnosed Date Resolved Date Paroxysmal atrial fibrillation 11/11/2023 04/04/2024 PAF (paroxysmal atrial fibrillation) 07/09/2023 07/09/2023 Persistent atrial fibrillation 07/09/2023 10/18/2023 Chronic obstructive pulmonary disease 03/13/2023 03/29/2023 Hyperlipidemia 10/28/2022 08/10/2023 Chronic GERD 12/04/2021 04/01/2022 Overview: More specified condition is noted on pl COPD, group B, by GOLD 2017 classification 03/18/2021 12/24/2021 Overview: Per COPD GOLD Classification Kidney disease, chronic, sta ge III (GFR 30-59 ml/min) 07/16/2020 09/19/2020 Overview: Per CKD protocol Mild chronic obstructive pulmonary disease 05/22/2020 03/20/2021 Overview: Per COPD GOLD Classification Iron overload 05/22/2020 03/08/2021 Protein-calorie malnutrition 01/30/2019 11/18/2023 Overview: historical BUTLER (dyspnea on exertion) 11/07/2018 Actinic keratosis 11/13/2013 03/19/2019 Chronic GERD 02/02/2007 03/08/2021 Allergic rhinitis 07/23/2005 03/08/2021 Other atopic dermatitis 07/23/200503/08 Overview: ICD-10 update of inactive term ADVANCE DIRECTIVE INFORMATION 05/01/2005 03/08/2021 Overview: No, Advance Directive brochure offered , patient declined. Asthma with severity to be determined 01/01/2003 05/07/2010 Overview: ICD-10 update of inactive term Diverticulitis of colon 06/09 Osteoporosis 08/22/2008 UNILAT INGUINAL HERNIA 06/29 documented as of this encounter (statuses as of 08/30/2024) Immunizations Name Administration Dates Next Due COVID-19 [...] Passive Smoke Exposure: Past Smokeless Tobacco: Never Tobacco Cessation:Counseling Given: Not Answered Alcohol Use Standard Drinks/Week Comments Yes 7 [...] ages 0-17 years) Not on file 08/11/2024 Sex and Gender Information Value Date Recorded Sex Assigned at Female 01/30/2019 1:16 PM EDT Gender Identity Female 01/30/2019 1:16 PM EDT Sexual Orientation Straight 01/30/2019 1: 16 PM EDT Job Start Date Occupation Industry Not on file Not on file Not on file documented as of this encounter Last Filed Vital Signs Vital Sign Reading Time Taken Comments Blood Pressure 130/59 08/30/2024 2:29 PM EDT Pulse 74 08/30/2024 2:29 PM EDT Temperature 36.8 C (98.2 F) 08/30/2024 2:29 PM ED T Respiratory Rate - - Oxygen Saturation - - Inhaled Oxygen Concentration - - Weight 47.8 kg (105 lb 6.4 oz) 08/30/2024 2:29 P M EDT Height - - Body Mass Index 18.38 05/09/2024 3:49 PM EDT documented in this encounter Progress Notes * Leon Rodriguez MD - 08/30/2024 2:51 PM EDT CC- Chief Complaint Patient presents with NEW PATIENT LLQ abd swelling and hernia on US from 08/14/2024 REF: MARIE UNDERWOOD [address] [place] [address] (office) [phone] (fax) HPI.: Karina Juarez is a 83 year old female seen in consultation for a left inguinal hernia. Symptoms have been present for a few months duration. Sxs did not start at work. Pain is dull. Lump is reducible. She has no Sxs of chronic constipation,chronic cough,difficulty urinating. Past Medical History Past Medical History: Diagnosis Date Asthma COPD (chronic obstructive pulmonary disease) (HCC) Diverticulosis of colon Diverticulosis Gastroesophageal reflux disease [...] Unilateral inguinal hernia Inguinal Hernia Past Surgical History Past Surgical History: Procedure Laterality Date COLONOSCOPY 02/15/97 Prominent hemorrhoids and diverticulosis COLONOSCOPY, DIAGNOSTIC (RECTUM) 2002 Colonoscopy COLONOSCOPY, DIAGNOSTIC (RECTUM) 06/27/2012 COLONOSCOPY FLEXIBLE PROXIMAL DIAGNOSTIC performed by Azeem Aviles MD at ENDOSCOPY [facility] OTHER 2004 hernia repair OTHER 01/28/07 Doppler ankle arm index screening normal REMOVE CATARACT, INSERT LENS PROSTH Cataract Removal Medications: Current Outpatient Medications Medication Sig Dispense Refill [...] 1 Tablet before bedtime. 180 Tablet 3 Fluticasone Propionate 50 MCG/ACT Nasal Suspension (Flonase) Administer 2 Sprays into each nostril in the morning. 16 g 5 Fluticasone-Salmeterol 250-50 MCG/ACT Inhalation Aerosol Powder Breath [...] MOUTH IN THE MORNING 90 Tablet 3 No current facility-administered medications for this visit. Allergies: Allergies as of 08/30/2024 - Reviewed 08/30/2024 Allergen Reaction Noted Dog dander 05/09/2007 Bactrim [sulfamethoxazole-trimethoprim] Fever 11/13/2019 Levaquin [levofloxacin] 05/26/2023 Family History Family History Problem Relation Name Age of Onset Cancer Mother colon Allergies Mother Other (OSTEOPOROSIS) Mother Diabetes Father Hypertension Father Neurological Disorder Father dementia Allergies Father rhinitis Neurological Disorder Brother Geovani myasthenia gravis Heart attack Brother Geovani Asthma Brother Geoffrey Other (Other) Brother Geoffrey sarcoidosis Allergies Daughter rhinitis Social History Social History Socioeconomic History Marital status: Spouse [...] Lives on a farm: No 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 In her area of the house 1 dog No mold Social Determinants of Health Financial Resource Strain: Low Risk (08/11/2024) Financial [...] Stability Do you currently live in a mcc or have no steady place to sleep [...] - for ages0-17 years): Not on file ROS: GEN: no weight loss, fever, fatigue HEENT: no changes in vision or hearing, no sinus problems, no sore throat, no hoarseness RESPIRATORY: no cough, wheezing, SOB or change in breathing CARDIOVASCULAR: no exertional chest pain, dyspnea, palpitations GI: no melena or hemetemesis, no change in bowel habits, no nausea or vomiting : no dysuria, hematuria, frequency MUSCULOSKELETAL: no change in joint pains, no new arthritis PSYCHIATRIC: no significant anxiety or depression, unchanged sleep pattern HEME: no bleeding tendency, no clotting tendency NEURO: no significant headache, no seizures , no tremors SKIN: no new rashes, no itching Physical Exam: Blood pressure 130/59, pulse 74, temperature 36.8 C (98.2 F), weight 47.8 kg (105 lb 6.4 oz), not currently . Constitutional: alert, healthy, well nourished Head: normocephalic, atraumatic Eyes: conjunctiva non-injected, sclera white Neck: supple, no adenopathy Lungs: clear to auscultation, breath sounds are equal and symmetric Heart: regular rate & rhythm and no murmur, gallops or rubs Abdomen: soft, non-tender Back: normal curvature, normal ROM, no CVA tenderness Extremities: no edema, no skin discoloration Skin: no obvious rashes or significant lesions Imaging: CT and ultrasound reviewed personally IMP: Karina Juarez is a 83 year old female with a left inguinal hernia which is currently not symptomatic. We discussed her options of observation versus hernia repair. This could be performed in open or laparascopic approach. We reviewed that for unilateral first time hernias, I typically recommend an open procedure due to the lower recurrence rate, lower chance of nerve injury, and essentially equivalent recovery time. Laparascopic surgery is useful in bilateral or recurrent hernias where there is a benefit seen in recovery time. Risks of laparascopic surgery including a slightly higher recurrence rate, slightly higher chance of nerve injury and possibility of injury to bowel or blood vessels were also discussed. I discussed the surgery in detail and the complications related to the surgery and the anesthesia. Risks include, but are not limited to: recurrence of the hernia, persistent pain in the groin from injury to the ilioinguinal nerve, numbness, seroma formation, bleeding, infection and mesh infection requiring mesh removal. Patient understands these risks. Expected same day nature of surgery and postoperative recovery period reviewed. Activity restrictions postoperatively to include no heavy lifting or high impact activity for four to six weeks reviewed. All questions were answered to the patient's satisfaction. We also reviewed the signs and symptoms of incarceration and the patient was instructed to go directly to the emergency room should this occur. After extensive discussion, she would like to hold off on surgery at this time. She has no pain or tenderness, the hernias freely reducible, and she was multiple medical problems. We will have her return to clinic in 3 6 months for follow-up. She will call with any new or concerning symptoms in themeantime. Leon Rodriguez MD 08/30/2024 2:51 PM documented in this encounter Nursing Notes * Angela Mendiola LPN - 08/30/2024 2:28 PM EDT Patient identified by name and date of . Chief Complaint Patient presents with NEW PATIENT LLQ abd swelling and hernia on US from 08/14/2024 Symptomatic, indigestion, acid reflux, pain, abd swelling. IMPRESSION:US on 08/14/2024 Left inguinal herniation as discussed documented in this encounter Plan of Treatment Upcoming Encounters Date Type Department Care Team (Late st Contact Info) Description 11/14/2024 3:00 PM EST Office Visit Rheumatology [facility] [address] [place] [address] Mio Chirinos CRNP [address] [place] [address] 02/09/2025 1:00 PM EDT Office Visit [address] [place] [address] Marie Underwood MD [address] [place] [address] 02/28/2025 2:00 PM EDT Office Visit General Surgery, [facility] [address] [place] [address] Leon Rodriguez MD [address] [place] [address] 03/13/2025 1:15 PM EDT Office Visit Hematology/Oncology [facility] [address] [facility] [place] [address] Sotero Price MD [address] [facility] [place] [address] Scheduled Referrals Name Type Priority Associated Diagnoses Orde r Schedule SURGERY REFERRAL OP Referral Within 10 da ys (routine) Abdominal swelling, LLQ Ordered: 08/11/2024 Health Maintenance Due Date Last Done Comments Alpha-1 Antitrypsin 1958 Adult Wellness Visit 2004 CKD PHOS USE SMARTSET [id number] 09/04/2023 09/04/2022 *BISPHONATE OR OTHER ACCEPTABLE MEDICATION NEEDED FOR OSTEOPOROSIS (REFER TO SMARTSET #1146) 05/05/2024 Albumin/Creatinine Ratio 02/07/2025 02/08/2024, 08/09 Depression Screening 02/07/2025 02/08/2024 CKD HGB USE SMARTSET 99382 04/20/202504/20, 04/20/2024, 11/11/2023, Additional history exists O2 ASSESSMENT COMPLETED IN PAST YEAR FOR COPD 08/11/2025 08/11/2024 DXA Scan 03/06/2026 03/06/2024, 02/07, 03/03/2022, Additional history exists DTap/Tdap Vaccines (2 - Td or Tdap) 08/11/2026 08/11/2016, 11/06/2010, 08/08/1999 Pneumococcal Vaccine: 65+ Years Completed 01/04/2015, 05/06/2004 Zoster Vaccines Completed 10/05/2018, 06/10, 12/05/2008 COVID-19 Vaccine Discontinued 09/02/2021, , 12/23/2020 VITAMIN D LEVEL ONCE IN A LIFETIME-USE SMARTSET# [id number] Completed 04/20/2024, 10/12/2023, 06/30/2021, Additional history exists [...] as of this encounter Visit Diagnoses Diagnosis Left inguinal hernia- Primary Inguinal hernia without mention of obstruction or gangrene, unilateral or unspecified, (not specified as recurrent) documented in this encounter Care Teams Client Services Vice President Relationship Specialty Start Date End Date Marie Underwood MD [address] [place] [address] PCP - General Internal Medicine 07/09/23 documented as of this encounter
--- OUTSIDE RECORDS SUMMARY | 2024-09-26 14:06 | External Medical Summary | Summary of Care ---
Author Name Unknown Organization [facility] Address [address] [place] [address] Phone [phone] Care Team Providers Care Medical Equipment Repair Technician Name Role Phone Marie Underwood MD Primary Care Provider [phone] Encounter Details Date Type Department Care Team (Late st Contact Info) Description 08/15/2024 Orders Only PATIENT PORTAL DO NOT DELETE THIS DEPT USED BY [place] [id number] Allergies Active Allergy Reactions Criticality Noted Date Comments Sulfamethoxazole-Trimethopri m Fever 11/13/2019 Fever, sob, itchiness and hives Dog Dander High 05/09/2007 sneezing Other Reaction(s): asthma Levofloxacin 05/26/2023 Sore Achilles Tendon documented as of this encounter (statuses as of 08/15/2024) Medications Medication Sig Dispensed Refills Start Date [...] as of this encounter (statuses as of 08/15/2024) Active Problems Problem Noted Date Diagnosed Date [...] as of this encounter (statuses as of 08/15/2024) Resolved Problems Problem Noted Date Diagnosed Date [...] as of this encounter (statuses as of 08/15/2024) Immunizations Name Administration Dates Next Due COVID-19 [...] No 08/11/2024 Does the household have a [facility] [facility] source of income? (Household - for ages [...] on file documented as of this encounter Plan of Treatment Upcoming Encounters Date Type Department Care Team (Late st Contact Info) Description 08/30/2024 2:30 PM EDT Office Visit General Surgery, [facility] [address] [address] Leon Rodriguez MD [address] [address] 11/14/2024 3:00 PM EST Office Visit Rheumatology [place] [id number] [place] [address] Mio Chirinos CRNP [facility] [place] [address] 02/09/2025 1:00 PM EDT Office Visit [facility] [address] [phone] Marie Underwood MD [address] [place] [address] 03/13/2025 1:15 PM EDT Office Visit Hematology/Oncology [facility] [place] [address] [facility] [place], [place] [address] Sotero Price MD [address] [facility] [place], [place] [address] Health Maintenance Due Date Last Done Comments Alpha-1 Antitrypsin 1958 Adult Wellness Visit 2004 CKD PHOS USE SMARTSET 71245 09/04/2023 09/04/2022 *BISPHONATE OR OTHER ACCEPTABLE MEDICATION NEEDED FOR OSTEOPOROSIS (REFER TO SMARTSET #1146) 05/05/2024 Albumin/Creatinine Ratio 02/07/2025 02/08/2024, 08/09 Depression Screening 02/07/2025 02/08/2024 CKD HGB USE SMARTSET 50987 04/20/202504/20, 04/20/2024, 11/11/2023, Additional history exists O2 ASSESSMENT COMPLETED IN PAST YEAR FOR COPD 08/11/2025 08/11/2024 DXA Scan 03/06/2026 03/06/2024, 02/07, 03/03/2022, Additional history exists DTap/Tdap Vaccines (2 - Td or Tdap) 08/11/2026 08/11/2016, 11/06/2010, 08/08/1999 Pneumococcal Vaccine: 65+ Years Completed 01/04/2015, 05/06/2004 Zoster Vaccines Completed 10/05/2018, 06/10, 12/05/2008 COVID-19 Vaccine Discontinued 09/02/2021, , 12/23/2020 VITAMIN D LEVEL ONCE IN A LIFETIME-USE SMARTSET# [id number] Completed 04/20/2024, 10/12/2023, 06/30/2021, Additional history exists [...] Not on filedocumented as of this encounter Care Teams Medical Equipment Repair Technician Relationship Specialty Start Date End Date Marie Underwood MD [address] [place] [address] PCP - General Internal Medicine 07/09/23 documented as of this encounter
--- OUTSIDE RECORDS SUMMARY | 2024-09-26 14:06 | External Medical Summary | Summary of Care ---
Author Name Unknown Organization [facility] Address [address] [place] [address] Phone [phone] Care Team Providers Care Commutator Operator Name Role Phone Marie Underwood MD Primary Care Provider [phone] Reason for Referral * Evaluate & Treat - Unlimited Visits (Within 10 days (routine)) - Authorized Specialty Diagnoses / Procedures Referred By Brian apple Referred To Contact General Surgery Diagnoses Abdominal swelling, LLQ Marie Underwood MD [address] [place] [address] Referral ID Status Reason Start Date Expiration Date Visits Requested Visits Authorized [id number] Authorized Specialty Services Required 08/11/[phone] Question Answer Referral Priority Within 10 days (routine) Where should this appointment be scheduled? [facility] What condition is the patient being seen for? General Surgery Conditions What condition is the patient being seen for? Hernia (excluding Hiatal) Reason for Visit * Reason Onset Date Comments Follow Up Pt here for 6 mo nth follow up Medication Administration 08/11/2024 Flu an d/or Pneumo Inj Encounter Details Date Type Department Care Team (Latest Contact Info) Description 08/11/2024 1:00 PM EDT Office Visit [facility] [address] [facility] [place] [place] [phone] Marie Underwood MD [address] [place] [address] Permanent atrial fibrillation (HCC)*; Need for prophylactic vaccination and inoculation against influenza; Mild persistent asthma without complication; COPD, group B, by GOLD 2017 classification (HCC); Mild protein-calorie malnutrition (HCC); MDS (myelodysplastic syndrome), low grade (HCC); Stage 3b chronic kidney disease; S/P atrioventricular kamran ablation; Chronic diastolic heart failure due to valvular disease (HCC); Hypertensive 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 stage 3b chronic kidney disease (HCC); Abdominal swelling, LLQ Allergies Active Allergy Reactions Criticality Noted Date Comments Sulfamethoxazole-Trimethopri m Fever 11/13/2019 Fever, sob, itchiness and hives Dog Dander High 05/09/2007 sneezing Other Reaction(s): asthma Levofloxacin 05/26/2023 Sore Achilles Tendon documented as of this encounter (statuses as of 08/11/2024) Medications Medication Sig Dispensed Refills Start Date End Date Status Metamucil 28.3 % Oral Powder (Psyllium) Take by mouth daily. Patient takes one tablespoon daily, in morning. Active Levalbuterol Tartrate 45 MCG/ACT Inhalation Aerosol (Xopenex HFA) Inhale 2 Puffs by mouth every 4 hours as needed for Wheezing. 15 g 12 3 Active Torsemide 20 MG Oral Tablet (Demadex) Take 1 Tablet by mouth in the morning. 100 Tablet 3 3 Active Eucerin External Cream Apply topically to affected area daily. To affected area of skin. 240 g 11 3 Active Calcium 500 MG Oral Tablet Take 1 Tablet by mouth in the morning. Active Ocuvite Adult 50+ Oral Capsule Take 1 Capsule by mouth in the morning. Active Vitamin D3 50 MCG (2000 UT) Oral Tablet Chewable Take by mouth. Activ e Vitamin C 500 MG Oral Capsule Take 1 Tablet by mouth every morning. Active Temazepam 30 MG Oral Capsule (Restoril)Indication s:Primary insomnia TAKE 1 CAPSULE BY MOUTH AT BEDTIME NEEDED FOR SLEEP 30 Capsule 4 Active Levocetirizine Dihydrochloride 5 MG Oral Tablet Take 1 Tablet by mouth every evening. 90 Tablet 3 4 Active Losartan Potassium 25 MG Oral Tablet (Cozaar) Take 0.5 Tablets by mouth in the morning. In the morning.. 45 Tablet 3 4 Active Apixaban 2.5 MG Oral Tablet (Eliquis)Indications :Palpitations Take 1 Tablet by mouth in the morning and 1 Tablet before bedtime. 180 Tablet 3 4 Active Fluticasone Propionate 50 MCG/ACT Nasal Suspension (Flonase) Administer 2 Sprays into each nostril in the morning. 16 g 5 4 Active Fluticasone-Salmeter ol 250-50 MCG/ACT Inhalation Aerosol Powder Breath Activated (Advair Diskus) Inhale 1 Puff by mouth in the morning and 1 Puff before bedtime. 180 Each 3 4 Active Docusate Sodium 100 MG Oral Capsule (Colace)Indications: Other constipation Take 1 Capsule by mouth in the morning and 1 Capsule before bedtime. 4 Active Montelukast Sodium 10 MG Oral Tablet (Singulair) TAKE 1 TABLET BY MOUTH IN THE MORNING 90 Tablet 2 4 Active Jardiance 10 MG Oral Tablet (Empagliflozin)Indic ations:Chronic diastolic heart failure due to valvular disease (HCC),Hypertensive 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 stage 3b chronic kidney disease (HCC),HTN, goal below 140/90 TAKE 1 TABLET BY MOUTH IN THE MORNING 90 Tablet 3 4 Active predniSONE 10 MG Oral Tablet (Deltasone)Indicatio ns:Acute pain of right wrist,Swelling of right hand Take 4 tabs for 2 days, 3 tabs for 2 days, 2 tabs for 2 days 1 tab for 2 days 20 Tablet 4 08/11/20 24 Discontinued documented as of this encounter (statuses as of 08/11/2024) Active Problems Problem Noted Date Diagnosed Date [...] as of this encounter (statuses as of 08/11/2024) Resolved Problems Problem Noted Date Diagnosed Date [...] as of this encounter (statuses as of 08/11/2024) Immunizations Name Administration Dates Next Due COVID-19 mRNA, LNP-s, No Pre serve, 2-Dose Series (eTruck) 09/02/2021,01/18/2021,12/23/2020 Pneumococcal Conjugate Vacc, 13 Valent (Prevnar) [...] the money to buy more. Never true 07/08/20 23 Within the past 12 months, t he food you bought just didn't last and you didn't have money to get more. Never true 07/08/2023 Childcare Answer Date Recorded Do you feel overwhelmed with taking care of a child, family member or friend? No 07/08/2023 Does your family need help f inding childcare? (Household - for ages 0-17 years) Not on file 07/08/2023 Clothing Answer Date Recorded Have you been unable to get clothing when it was really needed? No 07/08/2023 Is your family able to get c lothes or diapers when needed? (Household - for ages 0-17 years) Not on file 07/08/2023 Personal Safety Answer Date Recorded Do you feel unsafe or have concerns for your saf ety? No 07/08/2023 Do you have concerns for you r family's safety? (Household - for ages 0-17 years) Not on file 07/08/2023 Utilities Answer Date Recorded Do you have trouble paying y our heating, water, or electric bill? (Adult - for ages 18 years and over) Not on file 07/09/2024 Is your family able to pay t he heat, water, or electric bill? (Household - for ages 0-17 years) Not on file 07/09/2024 Does your family have access to good internet? (Household - for ages 0-17 years) Not on file 07/09/2024 Employment Status Answer Date Recorded Are you unemployed or without regular income? No 07/08/2023 Does the household have a re gular source of income? (Household - for ages 0-17 years) Not on file 07/08/2023 Social Connections Answer Date Recorded How often do you feel lonely or isolated from those around you? (Adult - for ages 18 years and over) Not on file 07/09/2024 Financial Resource Strain Answer Date R ecorded Do you have any trouble payi ng for your medications, or do you think you might in the future? No 07/08/2023 Does your family have troubl e paying for medicine? (Household - for ages 0-17 years) Not on file 07/08/2023 Transportation Needs Answer Date Record ed READ ONLY Do you have troubl e getting a ride to medical visits or work? Never True 07/08/2023 Does your family have a hard time getting a ride to doctors visits? (Household - for ages 0-17 years) Not on file 07/08/2023 Has lack of transportation k ept you from medical appointments, meetings, work, or from getting things needed for daily living? Check all that apply. (Adult - for ages 18 years and over) Not on file 07/08/2023 Do you (or your family) have trouble finding or paying for a ride (transportation)? (Household - for ages 0-17 years) Not on file 07/08/2023 Housing Stability Answer Date Recorded Do you currently live in a s helter or have no steady place to sleep at night? No 07/08/2023 READ ONLY Do you think you a re at risk of becoming homeless? No 07/08/2023 Does your family worry about paying for your home or becoming homeless? (Household - for ages 0-17 years) Not on file 0 07/08/2023 Are you homeless or worried that you might be in the future? (Adult - for ages 18 years and over) Not on file Are you (or your family) john eless or worried that you might be in the future? (Household - for ages 0-17 years) Not on file Food Insecurity Answer Date Recorded Do you need food for this week? No 07/08/2023 Are you able to get enough f ood for your family? (Household - for ages 0-17 years) Not on file 07/08/2023 Does your family need food t his week? (Household - for ages 0-17 years) Not on file 07/08/2023 Do you always have enough fo od for your family? (Household - for ages 0-17 years) Not on file 07/08/2023 Sex and Gender Information Value Date Recorded Sex Assigned at Female 01/30/2019 1:16 PM EDT Gender Identity Female 01/30/2019 1:16 PM EDT Sexual Orientation Straight 01/30/2019 1: 16 PM EDT Job Start Date Occupation Industry Not on file Not on file Not on file documented as of this encounter Last Filed Vital Signs Vital Sign Reading Time Taken Comments Blood Pressure 118/62 08/11/2024 12:53 PM EDT Pulse 65 08/11/2024 12:53 PM EDT Temperature 36 C (96.8 F) 08/11/2024 12:53 PM EDT Respiratory Rate 18 08/11/2024 12:53 PM EDT Oxygen Saturation 97% 08/11/2024 12:53 PM EDT Inhaled Oxygen Concentration - - Weight 47 kg (103 lb 9.6 oz) 08/11/2024 12:53 PM EDT Height - - Body Mass Index 18.06 05/09/2024 3:49 PM EDT documented in this encounter Patient Instructions * Patient Instructions* Michelle Redman LPN - 08/11/2024 12:58 PM EDT ~~PATIENT INSTRUCTIONS FOR FLU SHOT~~ Possible side effects of influenza vaccine, (flu shot), are usually mild and include: 1. Soreness or redness at injection site 2. Low grade fever 3. Body aches You may use Tylenol/Acetaminophen as needed for these symptoms. LET YOUR DOCTOR KNOW IMMEDIATELY IF YOU HAVE DIFFICULTY BREATHING OR SWALLOWING, EXPERIENCE ITCHINGOF FEET OR HANDS, HAVE SWELLING OF EYES, FACE OR INSIDE OF NOSE. documented in this encounter Progress Notes * Marie Underwood MD - 08/11/2024 1:03 PM EDT Subjective Karina Juarez is a 83 year old female. Chief Complaint Patient presents with Follow Up Pt here for 6 month follow up Medication Administration Flu and/or Pneumo Inj HPI: Here for 6 mo routine check up Chronic allergy, asthma, has been stable, taking all her meds Rhinitis, sneezing, occ cough but breathing has been stable Rarely uses albuterol Hypertension, CHF , pul HTN , paroxysmal afib hx , s/p AV kamran ablation , pacemaker Taking medication as prescribed, see med list. No medication side effects noted. Advised patient tokeep healthy life style, regular exercise with good diet, andre. low sodium diet. And also check BP at home too. Denies associated chest discomfort, chest heaviness, chest pressure, chest tightness, palpitations and shortness of breath. Chronic leg swelling, venous insuff, taking meds Compression stockings Known back pain, knee pain issue Getting PT, helping LLQ abd swelling, bulging, hernia + Would like to see surgery PMH: Patient Active Problem List Diagnosis Age-related [...] COPD, group B, by GOLD 2017 classification ([facility]) Mid back pain Current Outpatient Medications Medication [...] Date Asthma COPD (chronic obstructive pulmonary disease) ([facility]) Diverticulosis of colon Diverticulosis Gastroesophageal reflux [...] by Azeem Aviles MD at [facility] OTHER 2003 hernia repair OTHER 01/28/07 Doppler [...] date: 11/08/1964 Quit date: 11/08/1984 Years since quittin.7 Passive exposure: Past Smokeless tobacco: Never Vaping [...] Lives on a farm: No 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 HENT: Positive for congestion. Respiratory: Negative for cough, chest tightness, shortness of breath and wheezing. Cardiovascular: Positive for leg swelling. Negative for chest pain and palpitations. Gastrointestinal: Positive for constipation. Negative for abdominal distention and abdominal pain (LLQ bulging). Musculoskeletal: Positive for arthralgias and back pain. Allergic/Immunologic: Positive for environmental allergies. Psychiatric/Behavioral: Negative for agitation and behavioral problems. The patient is nervous/anxious. Objective BP 118/62 | Pulse 65 | Temp 36 C (96.8 F) (Tympanic) | Resp 18 | Wt 47 kg (103 lb 9.6 oz) | LMP(LMP Unknown) | SpO2 97% | BMI 18.06 kg/m | BSA 1.45 m Physical Exam Constitutional: General: She is not in acute distress. Appearance: Normal appearance. She is not ill-appearing, toxic-appearing or diaphoretic. HENT: Head: Normocephalic and atraumatic. Nose: Nose normal. Eyes: Extraocular Movements: Extraocular movements intact. Cardiovascular: Rate and Rhythm: Normal rate. Rhythm irregular. Pulses: Normal pulses. Pulmonary: Effort: Pulmonary effort is normal. No respiratory distress. Breath sounds: Normal breath sounds. No stridor. No wheezing, rhonchi or rales. Chest: Chest wall: No tenderness. Abdominal: Hernia: A hernia (LLQ) is present. Musculoskeletal: General: Tenderness present. Right lower leg: Edema present. Left lower leg: Edema present. Neurological: General: No focal deficit present. Mental Status: She is alert and oriented to person, place, and time. Cranial Nerves: No cranial nerve deficit. Psychiatric: Mood and Affect: Mood normal. Behavior: Behavior normal. ASSESSMENT/PLAN: Permanent atrial fibrillation (HCC) (Primary) - LIPID PANEL WITH DIRECT LDL IF TG IS HIGH; Future; Expected date: 08/11/2024 - CBC WITH WBC DIFFERENTIAL AND ANEMIA REFLEX WORKUP; Future; Expected date: 08/11/2024 - TSH WITH FREE T4 IF INDICATED; Future; Expected date: 08/11/2024 Need for prophylactic vaccination and inoculation against influenza - INFLUENZA VAC., TRIVALENT, HD, PF, 65 AND ABOVE, 0.5 ML IM (FLUZONE HD) Mild persistent asthma without complication - COMPREHENSIVE METABOLIC PANEL; Future; Expected date: 08/11/2024 - CBC WITH WBC DIFFERENTIAL AND ANEMIA REFLEX WORKUP; Future; Expected date: 08/11/2024 COPD, group B, by GOLD 2017 classification (HCC) Mild protein-calorie malnutrition (HCC) MDS (myelodysplastic syndrome), low grade (HCC) Stage 3b chronic kidney disease - COMPREHENSIVE METABOLIC PANEL; Future; Expected date: 08/11/2024 S/P atrioventricular kamran ablation Chronic diastolic heart failure due to valvular disease (HCC) - CBC WITH WBC DIFFERENTIAL AND ANEMIA REFLEX WORKUP; Future; Expected date: 08/11/2024 - TSH WITH FREE T4 IF INDICATED; Future; Expected date: 08/11/2024 Hypertensive 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 stage 3b chronic kidney disease (HCC) - CBC WITH WBC DIFFERENTIAL AND ANEMIA REFLEX WORKUP; Future; Expected date: 08/11/2024 - TSH WITH FREE T4 IF INDICATED; Future; Expected date: 08/11/2024 Abdominal swelling, LLQ - US ABDOMEN LIMITED; Future; Expected date: 08/11/2024 - SURGERY REFERRAL OP Follow Up: Return in about 6 months (around 02/09/2025) for Clinic Visit. | For: Clinic Visit | Check-out note: Labs next [facility] referral US Labs in 3-4 month Hydration Compression stockings F/u labs Fu test Marie Underwood MD * Michelle Redman LPN - 08/11/2024 12:58 PM EDT PRE - ADMINISTRATION DOCUMENTATION Are you experiencing any cold symptoms or fever? No Have you had Guillain-T[place] Syndrome (an illness that causes paralysis) within the last 6 weeks? No Have you had the flu shot in the past? YES Have you ever had a reaction to the flu shot? No Michelle Redman LPN, 08/11/2024 12:58 PM Immunization Administration Documentation Time Out Procedure Performed: Yes Patient Identified (Ask Name/Date of ): Yes Does the patient have a fever greater than 101 degrees today? No Patient allergic to latex? No VFC Stock: No Immunization(s) verified: Yes, Immunization Name: Flu, VIS Sheet(s) given: Yes Verified Side and Site: Yes Verified Shot(s) with Parent(s)/Patient: Yes documented in this encounter Nursing Notes * Michelle Redman LPN - 08/11/2024 12:50 PM EDT Chief Complaint Patient presents with Follow Up Pt here for 6 month follow up documented in this encounter Plan of Treatment Upcoming Encounters Date Type Department Care Team (Late st Contact Info) Description 08/14/2024 2:00 PM EDT Imaging Radiology, [address] [address] 08/30/2024 2:30 PM EDT Office Visit General Surgery, [facility] [address] [phone] Leon Rodriguez MD [address] [address] 11/14/2024 3:00 PM EST Office Visit Rheumatology [facility] [address] [facility] [place] [address] Mio Chirinos CRNP [address] [facility] [place] [address] 02/09/2025 1:00 PM EDT Office Visit [facility] [address] [facility] [place] [phone] Marie Underwood MD [address], [place] [phone] 03/13/2025 1:15 PM EDT Office Visit Hematology/Oncology [facility] [address] [facility] [place], [place] [address] Sotero Price MD [address] [facility] [place] [address] Scheduled Orders Name Type Priority Associated Diagnoses Orde r Schedule COMPREHENSIVE METABOLIC PANEL Lab Routine Mild persistent asthma without complication Stage 3b chronic kidney disease Expected: 08/11/2024 (Approximate), Expires: 08/11/2025 LIPID PANEL WITH DIRECT LDL IF TG IS HIGH Lab Routine Permanent atrial fibrillation (HCC) Expected: 08/11/2024, Expires: 08/11/2025 CBC WITH WBC DIFFERENTIAL AND ANEMIA REFLEX WORKUP Lab Routine Mild persistent asthma without complication Permanent atrial fibrillation (HCC) Chronic diastolic heart failure due to valvular disease (HCC) Hypertensive 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 stage 3b chronic kidney disease (HCC) Expected: 08/11/2024 (Approximate), Expires: 08/11/2025 TSH WITH FREE T4 IF INDICATED Lab Routine Permanent atrial fibrillation (HCC) Chronic diastolic heart failure due to valvular disease (HCC) Hypertensive 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 stage 3b chronic kidney disease (HCC) Expected: 08/11/2024 (Approximate), Expires: 08/11/2025 US ABDOMEN LIMITED Medical Imaging Routine Abdominal swelling, LLQ Expected: 08/11/2024, Expires: 09/11/2025 Scheduled Referrals Name Type Priority Associated Diagnoses Orde r Schedule SURGERY REFERRAL OP Referral Within 10 da ys (routine) Abdominal swelling, LLQ Ordered: 08/11/2024 Health Maintenance Due Date Last Done Comments Alpha-1 Antitrypsin 1958 Adult Wellness Visit 2004 CKD PHOS USE SMARTSET [id number] 09/04/2023 09/04/2022 *BISPHONATE OR OTHER ACCEPTABLE MEDICATION NEEDED FOR OSTEOPOROSIS (REFER TO SMARTSET #1146) 05/05/2024 Albumin/Creatinine Ratio 02/07/2025 02/08/2024, 08/09 Depression Screening 02/07/2025 02/08/2024 CKD HGB USE SMARTSET 20731 04/20/202504/20, 04/20/2024, 11/11/2023, Additional history exists O2 ASSESSMENT COMPLETED IN PAST YEAR FOR COPD 08/11/2025 08/11/2024 DXA Scan 03/06/2026 03/06/2024, 02/07, 03/03/2022, Additional history exists DTap/Tdap Vaccines (2 - Td or Tdap) 08/11/2026 08/11/2016, 11/06/2010, 08/08/1999 Pneumococcal Vaccine: 65+ Years Completed 01/04/2015, 05/06/2004 Zoster Vaccines Completed 10/05/2018, 06/10, 12/05/2008 COVID-19 Vaccine Discontinued 09/02/2021, , 12/23/2020 VITAMIN D LEVEL ONCE IN A LIFETIME-USE SMARTSET# [id number] Completed 04/20/2024, 10/12/2023, 06/30/2021, Additional history exists [...] as of this encounter Visit Diagnoses Diagnosis Permanent atrial fibrillation (HCC)- Primary Atrial fibrillation Need for prophylactic vaccination and inoculation against influenza Mild persistent asthma without complication Unspecified asthma COPD, group B, by GOLD 2017 classification (HCC) Mild protein-calorie malnutrition (HCC) Malnutrition of mild degree MDS (myelodysplastic syndrome), 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
--- OUTSIDE RECORDS SUMMARY | 2024-09-26 14:06 | External Medical Summary ---
Author Name Unknown Address Unknown Organization K09:[facility] [place] [address] Laboratory Report Ordering Provider Test Date Status RAFAL MUNOZ 09/15/2024 14:53:48 Final Observation Date Value Abnormality Reference (Units ) Status WBC, Total 09/15/2024 14:53:48 7.32 4.00-10.8 0 (K/uL) Final RBC 09/15/2024 14:53:48 3.35 3.85-5.15 (M/uL) Final Hemoglobin 09/15/2024 14:53:48 11.6 Below low normal 12 .0-15.3 (g/dL) Final HCT 09/15/2024 14:53:48 35.4 Below low normal 36. 0-45.2 (%) Final MCV 09/15/2024 14:53:48 105.7 81.5-97.5 (fL) Final MCH 09/15/2024 14:53:48 34.6 27.0-34.0 (pg) Final MCHC 09/15/2024 14:53:48 32.8 32.0-36.0 (g/dL) Final RDW 09/15/2024 14:53:48 15.2 11.5-15.5 (%) Final Platelets 09/15/2024 14:53:48 260 140-400 (K /uL) Final MPV 09/15/2024 14:53:48 9.7 6.6-11.1 ( fL) Final Performing Location [facility] [address]
--- OUTSIDE RECORDS SUMMARY | 2024-09-26 14:06 | External Medical Summary | Summary of Care ---
Author Name Unknown Organization [facility] Address [address] [place] [address] Phone [phone] Care Team Providers Care Cutter Machine Name Role Phone Marie Underwood MD Primary Care Provider [phone] Encounter Details Date Type Department Care Team (Late st Contact Info) Description 08/15/2024 Result Scan Unspecified Department Ted Richardson MD [address] [place] [address] <No scans attached> Allergies Active Allergy Reactions Criticality Noted Date [...] mRNA, LNP-s, No Pre serve, 2-Dose Series (Mumart) 09/02/2021,01/18/2021,12/23/2020 Pneumococcal Conjugate Vacc, 13 Valent (Prevnar) [...] 2:30 PM EDT Office Visit General Surgery, [facility] [address] [address] Leon Rodriguez MD [address] [address] 11/14/2024 3:00 PM EST Office Visit Rheumatology [facility] [address] [place] [address] [place] [address] Mio Chirinos CRNP [address] [place] [address] 02/09/2025 1:00 PM EDT Office Visit [facility] [address] [facility], [place] [phone] Marie Underwood MD [address] [place] [address] 03/13/2025 1:15 PM EDT Office Visit Hematology/Oncology [facility] [place] [address] [facility] [place], [place] [address] Sotero Price MD [address] [place], [place] [address] Health Maintenance Due Date Last Done Comments Alpha-1 Antitrypsin 1958 Adult Wellness Visit 2004 CKD PHOS USE SMARTSET 98364 09/04/2023 09/04/2022 *BISPHONATE OR OTHER ACCEPTABLE MEDICATION NEEDED FOR OSTEOPOROSIS (REFER TO SMARTSET #1146) 05/05/2024 Albumin/Creatinine Ratio 02/07/2025 02/08/2024, 08/09 Depression Screening 02/07/2025 02/08/2024 CKD HGB USE SMARTSET 44766 04/20/202504/20, 04/20/2024, 11/11/2023, Additional history exists O2 ASSESSMENT COMPLETED IN PAST YEAR FOR COPD 08/11/2025 08/11/2024 DXA Scan 03/06/2026 03/06/2024, 02/07, 03/03/2022, Additional history exists DTap/Tdap Vaccines (2 - Td or Tdap) 08/11/2026 08/11/2016, 11/06/2010, 08/08/1999 Pneumococcal Vaccine: 65+ Years Completed 01/04/2015, 05/06/2004 Zoster Vaccines Completed 10/05/2018, 06/10, 12/05/2008 COVID-19 Vaccine Discontinued 09/02/2021, , 12/23/2020 VITAMIN D LEVEL ONCE IN A LIFETIME-USE SMARTSET# [id number] Completed 04/20/2024, 10/12/2023, 06/30/2021, Additional history exists [...] Procedure Name Priority Date/Time Associated Diagnosis Comments CARDIOLOGY SCANNED RESULT 08/15/2024 documented in this encounter Results * CARDIOLOGY SCANNED RESULT (08/15/2024) 08/15/2024 Ted Richardson MD OTHER documented in this encounter Care Teams Cutter Machine Relationship Specialty Start Date End Date Marie Underwood MD [address] [place] [address] PCP - General Internal Medicine 07/09/23 documented as of this encounter
--- OUTSIDE RECORDS SUMMARY | 2024-09-26 14:07 | External Medical Summary | Summary of Care ---
Author Name Unknown Organization [facility] Address [address] [place] [address] Phone [phone] Care Team Providers Care Human Resources Trainee Name Role Phone Marie Underwood MD Primary Care Provider [phone] Encounter Details Date Type Department Care Team (Late st Contact Info) Description 06/09/2024 Orders Only Hematology/Oncology [facility] [place] [address] [facility] [place] [address] Sotero Price MD [address] [facility] [place] [address] MDS (myelodysplastic syndrome), low grade (HCC)* Allergies Active Allergy Reactions Criticality Noted Date Comments Sulfamethoxazole-Trimethopri m Fever 11/13/2019 Fever, sob, itchiness and hives Dog Dander High 05/09/2007 sneezing Other Reaction(s): asthma Levofloxacin 05/26/2023 Sore Achilles Tendon documented as of this encounter (statuses as of 06/09/2024) Medications Medication Sig Dispensed Refills Start Date End Date Status Metamucil 28.3 % Oral Powder (Psyllium) Take by mouth daily. Patient takes one tablespoon daily, in morning. Active Levalbuterol Tartrate 45 MCG/ACT Inhalation Aerosol (Xopenex HFA) Inhale 2 Puffs by mouth every 4 hours as needed for Wheezing. 15 g 12 03/29/2023 Active Montelukast Sodium 10 MG Oral Tablet (Singulair) Take 1 Tablet by mouth in the morning. 90 Tablet 3 07/09/2023 Active Torsemide 20 MG Oral Tablet (Demadex) [...] 1 Tablet by mouth every morning. Active Empagliflozin 10 MG Oral Tablet (Jardiance) Take 0.5 Tablets by mouth in the morning. 45 Tablet 3 11/22/2023 Active Temazepam 30 MG Oral Capsule (Restoril)Indications [...] before bedtime. 180 Each 3 05/04/2024 Active predniSONE 10 MG Oral Tablet (Deltasone)Indication s:Acute pain of right wrist,Swelling of right hand Take 4 tabs for 2 days, 3 tabs for 2 days, 2 tabs for 2 days 1 tab for 2 days 20 Tablet 05/09/2024 Active Docusate Sodium 100 MG Oral Capsule (Colace)Indications:O ther constipation Take 1 Capsule by mouth in the morning and 1 Capsule before bedtime. 05/09/2024 Active documented as of this encounter (statuses as of 06/09/2024) Active Problems Problem Noted Date Diagnosed Date [...] as of this encounter (statuses as of 06/09/2024) Resolved Problems Problem Noted Date Diagnosed Date [...] as of this encounter (statuses as of 06/09/2024) Immunizations Name Administration Dates Next Due COVID-19 mRNA, LNP-s, No Pre serve, 2-Dose Series ([employer]) 09/02/2021,01/18/2021,12/23/2020 Pneumococcal Conjugate Vacc, 13 Valent (Prevnar) 01/04/2015 RSV Vac., Recomb, Adjuvant, PF,0.5 Ml (Arexvy) 08/20/2023 Season Influenza, Quad, PF, Adjuvanted, 65+ Yrs, IM (FLUAD) 08/20/2023,07/19/2020 Seasonal Influenza Virus Vac cine, Unspecified Formulation 09/08/2021,07/19/2020,08/09/2019,07/09,08/03/2017,08/03/2016,08/25/2014 ,07/21/2013,09/20/2012,09/10/2011,12/2009,07/29/2009,08/20/2008, 7,09/21/2006,08/27/2005,08/20/2004,,09/08/2002,09/23/2000,08/20/19 99 Seasonal Influenza, PF, 6 M & above, IM , (FluLaval or Fluzone) 07/09/2018,08/03/2017 Seasonal Influenza, Quadriva lent Hd (Fluzone Hd) 07/16/2022 Seasonal Influenza, Quadriva lent, No Preserve, IM 08/03/2016,08/08/2015 Seasonal Influenza, Split, I IV3, With Preserve, Inj 08/25/2014,07/21/2013,09/20/2012,09/10,09/09/2010,07/29/2009,08/20/2008 ,08/09/2007,09/21/2006 09/10/2012 Seasonal Influenza, Trivalen t, Adjuvanted, 65+ yrs 09/08/2021,08/09/2019 Seasonal Influenza, Trivalen t, High Dose, No Preserve, IM 07/07/2018 TD, Preservative Free 11/06/2010 TDAP (age 10 [...] our heating, water, or electric bill? No 07/08/2023 Is your family able to pay t he heat, water, or electric bill? (Household - for ages 0-17 years) Not on file 07/08/2023 Does your family have access to good internet? (Household - for ages 0-17 years) Not on file 07/08/2023 Employment Status Answer Date Recorded Are you unemployed or without regular income? No 07/08/2023 Does the household have a [facility] behavioral health services[facility] source of income? (Household - for ages 0-17 years) Not on file 07/08/2023 Social Connections Answer Date Recorded How often do you feel lonely or isolated from those around you? Sometimes 07/08/2023 Financial Resource Strain Answer Date R ecorded [...] Care Team (Late st Contact Info) Description 08/11/2024 1:00 PM EDT Office Visit [facility] [address] [place] [phone] Marie Underwood MD [address] [facility] [place], [place] [phone] 11/14/2024 3:00 PM EST Office Visit Rheumatology [facility] [address] [place], [place] [address] Mio Chirnios CRNP [address] [place] [address] 03/13/2025 1:15 PM EDT Office Visit Hematology/Oncology [facility] [address] [facility] [place] [address] Sotero Price MD [address] [facility] [place] [address] Scheduled Orders Name Type Priority Associated Diagnoses Orde r Schedule CBC WITH WBC DIFFERENTIAL Lab Routine MDS (myelodysplastic syndrome), low grade (HCC) Every 3 Months for 4 Occurrences starting 06/09/2024 until 06/09/2025 Health Maintenance Due Date Last Done Comments Alpha-1 Antitrypsin 1958 CKD PHOS USE SMARTSET 84564 09/04/2023 09/04/2022 *BISPHONATE OR OTHER ACCEPTABLE MEDICATION NEEDED FOR OSTEOPOROSIS (REFER TO SMARTSET #1146) 05/05/2024 Influenza Vaccine (FLU shot) (#1) 2024 08/20/2023, 07/16/2022, 09/08/2021, Additional history exists Albumin/Creatinine Ratio 02/07/2025 02/08/2024, 08/09 Depression Screening 02/07/2025 02/08/2024 CKD HGB USE SMARTSET 19743 04/20/202504/20, 04/20/2024, 11/11/2023, Additional history exists O2 ASSESSMENT COMPLETED IN PAST YEAR FOR COPD 06/09/2025 06/09/2024 DXA Scan 03/06/2026 03/06/2024, 02/07, 03/03/2022, Additional history exists DTaP,Tdap,and Td Vaccines (2 - Td or Tdap) 08/11/2026 08/11/2016, 11/06/2010, 08/08/1999 Pneumococcal Vaccine: 65+ Years Completed 01/04/2015, 05/06/2004 Zoster Vaccines Completed 10/05/2018, 06/10, 12/05/2008 COVID-19 Vaccine Discontinued 09/02/2021, , 12/23/2020 VITAMIN D LEVEL ONCE IN A LIFETIME-USE SMARTSET# [id number] Completed 04/20/2024, 10/12/2023, 06/30/2021, Additional history exists HPV (Gardasil) Vaccine Aged [...] as of this encounter Visit Diagnoses Diagnosis MDS (myelodysplastic syndrome), low grade (HCC)- Primary Low grade myelodysplastic syndrome lesions documented in this encounter Care Teams Human Resources Trainee Relationship Specialty Start Date End Date Marie Underwood MD [address] [place] [address] PCP - General Internal Medicine 07/09/23 documented as of this encounter
--- OUTSIDE RECORDS SUMMARY | 2024-09-26 14:07 | External Medical Summary | Summary of Care ---
Author Name Unknown Organization [facility] Address [address] [place] [address] Phone [phone] Care Team Providers Care Home Support Worker Name Role Phone Marie Underwood MD Primary Care Provider [phone] Encounter Details Date Type Department Care Team (Late st Contact Info) Description 05/17/2024 Result Scan Unspecified Department Ted Richardson MD [address] [place] [address] <No scans attached> Allergies Active Allergy Reactions Criticality Noted Date Comments Sulfamethoxazole-Trimethopri m Fever 11/13/2019 Fever, sob, itchiness and hives Dog Dander High 05/09/2007 sneezing Other Reaction(s): asthma Levofloxacin 05/26/2023 Sore Achilles Tendon documented as of this encounter (statuses as of 05/17/2024) Medications Medication Sig Dispensed Refills Start Date [...] as of this encounter (statuses as of 05/17/2024) Active Problems Problem Noted Date Diagnosed Date [...] as of this encounter (statuses as of 05/17/2024) Resolved Problems Problem Noted Date Diagnosed Date [...] as of this encounter (statuses as of 05/17/2024) Immunizations Name Administration Dates Next Due COVID-19 mRNA, LNP-s, No Pre serve, 2-Dose Series (JumpChat) 09/02/2021,01/18/2021,12/23/2020 Pneumococcal Conjugate Vacc, 13 Valent (Prevnar) [...] 07/08/2023 Does the household have a re lar [...] Team (Late st Contact Info) Description 06/09/2024 11:45 AM EDT Office Visit Hematology/On[facility] [address] [place] [address] Sotero Price MD [address] [place] [address] 08/11/2024 1:00 PM EDT Office Visit [address] [place] [address] Marie Underwood MD [address] [place] [address] [address] 11/14/2024 3:00 PM EST Office Visit Rheumatology [place] [address] [facility] [place] [address] Mio Chirinos CRNP [address] [place] [address] Health Maintenance Due Date Last Done Comments Alpha-1 Antitrypsin 1958 CKD PHOS USE SMARTSET 06659 09/04/2023 09/04/2022 *BISPHONATE OR OTHER ACCEPTABLE MEDICATION NEEDED FOR OSTEOPOROSIS (REFER TO SMARTSET #1146) 05/05/2024 Influenza Vaccine (FLU shot) (#1) 2024 08/20/2023, 07/16/2022, 09/08/2021, Additional history exists Albumin/Creatinine Ratio 02/07/2025 02/08/2024, 08/09 Depression Screening 02/07/2025 02/08/2024 CKD HGB USE SMARTSET 61069 04/20/202504/20, 04/20/2024, 11/11/2023, Additional history exists O2 ASSESSMENT COMPLETED IN PAST YEAR FOR COPD 05/09/2025 05/09/2024 DXA Scan 03/06/2026 03/06/2024, 02/07, 03/03/2022, Additional history exists DTaP,Tdap,and Td Vaccines (2 - Td or Tdap) 08/11/2026 08/11/2016, 11/06/2010, 08/08/1999 Pneumococcal Vaccine: 65+ Years Completed 01/04/2015, 05/06/2004 Zoster Vaccines Completed 10/05/2018, 06/10, 12/05/2008 COVID-19 Vaccine Discontinued 09/02/2021, , 12/23/2020 VITAMIN D LEVEL ONCE IN A LIFETIME-USE SMARTSET# [id number] Completed 04/20/2024, 10/12/2023, 06/30/2021, Additional history exists [...] Date/Time Associated Diagnosis Comments CARDIOLOGY SCANNED RESULT 05/17/2024 documented in this encounter Results * CARDIOLOGY SCANNED RESULT (05/17/2024) 05/17/2024 Ted Richardson MD OTHER documented in this encounter Care Teams Home Support Worker Relationship Specialty Start Date End Date Marie Underwood MD [address] [place] [address] PCP - General Internal Medicine 07/09/23 documented as of this encounter
--- OUTSIDE RECORDS SUMMARY | 2024-09-26 14:07 | External Medical Summary | Summary of Care ---
Author Name Unknown Organization [facility] Address [address] [place] [address] Phone [phone] Care Team Providers Care Repair Miller Name Role Phone Marie Underwood MD Primary Care Provider [phone] Reason for Visit * Reason Comments eRx-Medication Refill Encounter Details Date Type Department Care Team (Late st Contact Info) Description 07/04/2024 Refill [facility] [address] [place] [address] Marie Underwood MD [address] [place] [address] Allergies Active Allergy Reactions Criticality Noted Date Comments Sulfamethoxazole-Trimethopri m Fever 11/13/2019 Fever, sob, itchiness and hives Dog Dander High 05/09/2007 sneezing Other Reaction(s): asthma Levofloxacin 05/26/2023 Sore Achilles Tendon documented as of this encounter (statuses as of 07/05/2024) Medications Medication Sig Dispensed Refills Start Date [...] mouth in the morning. 45 Tablet 3 4 Active Temazepam 30 MG Oral Capsule (Restoril)Indication [...] before bedtime. 180 Each 3 4 Active predniSONE 10 MG Oral Tablet (Deltasone)Indicatio ns:Acute pain of right wrist,Swelling of right hand Take 4 tabs for 2 days, 3 tabs for 2 days, 2 tabs for 2 days 1 tab for 2 days 20 Tablet 4 Active Docusate Sodium 100 MG Oral Capsule (Colace)Indications: Other constipation Take 1 Capsule by mouth in the morning and 1 Capsule before bedtime. 4 Active Montelukast Sodium 10 MG Oral Tablet (Singulair) TAKE 1 TABLET BY MOUTH IN THE MORNING 90 Tablet 2 4 Active Montelukast Sodium 10 MG Oral Tablet (Singulair) Take 1 Tablet by mouth in the morning. 90 Tablet 3 3 07/05/20 24 Discontinued documented as of this encounter (statuses as of 07/05/2024) Active Problems Problem Noted Date Diagnosed Date [...] as of this encounter (statuses as of 07/05/2024) Resolved Problems Problem Noted Date Diagnosed Date [...] as of this encounter (statuses as of 07/05/2024) Immunizations Name Administration Dates Next Due COVID-19 [...] on file documented as of this encounter Miscellaneous Notes * Telephone Encounter - Zulay Moreno, [facility] - 07/05/2024 5:39 PM EDT Signed Prescriptions: Disp Refills Montelukast Sodium 10 MG Oral Tablet (Sing*90 Tab*2 Sig: TAKE 1 TABLET BY MOUTH IN THE MORNINGAuthorizing Provider: Sebastian UNDERWOOD User: ZULAY MORENO documented in this encounter Plan of Treatment Upcoming Encounters Date Type Department Care Team (Late st Contact Info) Description 08/11/2024 1:00 PM EDT Office Visit [facility] [address] [place] [phone] Marie Underwood MD [address] [place] [address] 11/14/2024 3:00 PM EST Office Visit Rheumatology [address] [place] [address] iMo Chirinos CRNP [address] [place] [address], [place] [address] 03/13/2025 1:15 PM EDT Office Visit Hematology/Oncology [facility] [address] [facility] [place] [address] Sotero Price MD [address] [place] [address] Health Maintenance Due Date Last Done Comments Alpha-1 Antitrypsin 1958 Adult Wellness Visit 2004 CKD PHOS USE SMARTSET 85408 09/04/2023 09/04/2022 *BISPHONATE OR OTHER ACCEPTABLE MEDICATION NEEDED FOR OSTEOPOROSIS (REFER TO SMARTSET #1146) 05/05/2024 Influenza Vaccine (FLU shot) (#1) 2024 08/20/2023, 07/16/2022, 09/08/2021, Additional history exists Albumin/Creatinine Ratio 02/07/2025 02/08/2024, 08/09 Depression Screening 02/07/2025 02/08/2024 CKD HGB USE SMARTSET 92365 04/20/202504/20, 04/20/2024, 11/11/2023, Additional history exists O2 ASSESSMENT COMPLETED IN PAST YEAR FOR COPD 06/09/2025 06/09/2024 DXA Scan 03/06/2026 03/06/2024, 02/07, 03/03/2022, Additional history exists DTap/Tdap Vaccines (2 - Td or Tdap) 08/11/2026 08/11/2016, 11/06/2010, 08/08/1999 Pneumococcal Vaccine: 65+ Years Completed 01/04/2015, 05/06/2004 Zoster Vaccines Completed 10/05/2018, 06/10, 12/05/2008 COVID-19 Vaccine Discontinued 09/02/2021, , 12/23/2020 VITAMIN D LEVEL ONCE IN A LIFETIME-USE SMARTSET# [id number] Completed 04/20/2024, 10/12/2023, 06/30/2021, Additional history exists [...] filedocumented as of this encounter Care Teams Repair Miller Relationship Specialty Start Date End Date Marie Underwood MD [address] [place] [address] PCP - General Internal Medicine 07/09/23 documented as of this encounter
--- OUTSIDE RECORDS SUMMARY | 2024-09-26 14:07 | External Medical Summary | Summary of Care ---
Author Name Unknown Organization [facility] Address [address] [place] [address] Phone [phone] Care Team Providers Care Charcoal Kiln Burner Name Role Phone Marie Underwood MD Primary Care Provider [phone] Reason for Visit * Reason Comments eRx-Medication Refill Encounter Details Date Type Department Care Team (Late st Contact Info) Description 07/26/2024 Refill Cardiology, [facility] [address] [facility] [place] [address] Elaine Florez CRNP [address] [facility] [address] Chronic diastolic heart failure due to valvular disease (HCC)*; Hypertensive 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 stage 3b chronic kidney disease (HCC); HTN, goal below 140/90 Allergies Active Allergy Reactions Criticality Noted Date Comments Sulfamethoxazole-Trimethopri m Fever 11/13/2019 Fever, sob, itchiness and hives Dog Dander High 05/09/2007 sneezing Other Reaction(s): asthma Levofloxacin 05/26/2023 Sore Achilles Tendon documented as of this encounter (statuses as of 07/26/2024) Medications Medication Sig Dispensed Refills Start Date [...] THE MORNING 90 Tablet 3 4 Active Empagliflozin 10 MG Oral Tablet (Jardiance) Take 0.5 Tablets by mouth in the morning. 45 Tablet 3 4 07/26/20 24 Discontinued documented as of this encounter (statuses as of 07/26/2024) Active Problems Problem Noted Date Diagnosed Date [...] as of this encounter (statuses as of 07/26/2024) Resolved Problems Problem Noted Date Diagnosed Date [...] as of this encounter (statuses as of 07/26/2024) Immunizations Name Administration Dates Next Due COVID-19 mRNA, LNP-s, No Pre serve, 2-Dose Series (IngagePatient) 09/02/2021,01/18/2021,12/23/2020 Pneumococcal Conjugate Vacc, 13 Valent (Prevnar) 01/04/2015 RSV Vac., Recomb, Adjuvant, PF,0.5 Ml (Arexvy) 08/20/2023 Season Influenza, Quad, PF, Adjuvanted, 65+ Yrs, IM (FLUAD) 08/20/2023,07/19/2020 Seasonal Influenza Virus Vac cine, Unspecified Formulation 09/08/2021,07/19/2020,08/09/2019,07/09,08/03/2017,08/03/2016,08/25/2014 ,07/21/2013,09/20/2012,09/10/2011,12/2009,07/29/2009,08/20/2008, 7,09/21/2006,08/27/2005,08/20/2004,,09/08/2002,09/23/2000,08/20/19 99 Seasonal Influenza, High Dos e, Trivalent, PF, IM (Fluzone HD) 07/07/2018 Seasonal Influenza, PF, 6 M & above, IM , (FluLaval or Fluzone) 07/09/2018,08/03/2017 Seasonal Influenza, Quadriva lent Hd (Fluzone Hd) 07/16/2022 Seasonal Influenza, Quadriva lent, No Preserve, IM 08/03/2016,08/08/2015 Seasonal Influenza, Trivalen t, (IIV3), with Preserv, (Fluzone) 08/25/2014,07/21/2013,09/20/2012,09/10,09/09/2010,07/29/2009,08/20/2008 ,08/09/2007,09/21/2006 09/10/2012 Seasonal Influenza, Trivalen t, Adjuvanted, 65+ YRS, [...] encounter Miscellaneous Notes * Telephone Encounter - Ted Richardson MD - 07/26/2024 1:03 PM EDTSigned Prescriptions: Disp Refills Jardiance 10 MG Oral Tablet (Empagliflozin)90 Tab*3 Sig: TAKE 1 TABLET BY MOUTH IN THE MORNING Authorizing Provider: TED RICHARDSON * Telephone Encounter - Elaine Florez CRNP - 07/26/2024 12:57 PM EDT Pending Prescriptions: Disp Refills Jardiance 10 MG Oral Tablet (Empagliflozin)90 Tab*3 Sig: TAKE 1 TABLET BY MOUTH IN THE MORNING * Telephone Encounter - Liya Mcfadden CMA - 07/26/2024 12:50 PM EDTPending Prescriptions: Disp Refills Jardiance 10 MG Oral Tablet (Empagliflozin)90 Tab*3 Sig: TAKE 1 TABLET BY MOUTH IN THE MORNING * Telephone Encounter - Liya Mcfadden CMA - 07/26/2024 12:50 PM EDT Did you pend patient's preferred pharmacy and medication before forwarding?yes Pharmacy: [facility] [address] [address] [address] [place] Pending Prescriptions: Disp Refills Jardiance 10 MG Oral Tablet (Empagliflozi*90 Tab*3 Sig: TAKE 1 TABLET BY MOUTH IN THE MORNING Last Visit: 04/04/2024 (in office), 02/13/2020 (telemedicine) Next Visit: Visit date not found If no future appointments scheduled, and last appointment is greater than a year ago, please schedule patient for a follow-up appointment Last date the medication was ordered: Is this request for a controlled substance?No Urine Drug Screen:No results found. However, due to the size of the patient record, not all encounters were searched. Please check Results Review for a complete set of results. Patient Phone Numbers Labs: Lab Results Component Value Date/Time CREAT 1.3 (H) 04/20/2024 03:50 PM CREAT 1.2 (H) 06/21/2020 11:51 AM POTASSIUM 4.3 04/20/2024 03:50 PM POTASSIUM 4.9 06/21/2020 11:51 AM TSH 3.76 05/12/2023 11:16 AM TSH 2.24 06/21/2020 11:51 AM LDL 78 01/13/2021 09:27 AM LDL 76 11/13/2013 10:45 AM LDL NOT APPLICABLE 11/13/2013 10:45 AM ALT 26 04/20/2024 03:50 PM ALT 22 02/27/2019 03:06 PM HGBA1C 5.6 07/24/2022 10:38 AM documented in this encounter Plan of Treatment Upcoming Encounters Date Type Department Care Team ([facility] st Contact Info) Description 08/11/2024 1:00 PM EDT Office Visit Located Within [facility] [address] [phone] Marie Underwood MD [address] [place] [address] 11/14/2024 3:00 PM EST Office Visit Rheumatology [facility] [address] [facility] [place] [address] Mio Chirinos CRNP [address] [facility] [place] [address] 03/13/2025 1:15 PM EDT Office Visit Hematology/Oncology [facility] [address] [facility] [place] [phone] Sotero Price MD [address] [facility] [place], [place] [address] Health Maintenance Due Date Last Done Comments Alpha-1 Antitrypsin 1958 Adult Wellness Visit 2004 CKD PHOS USE SMARTSET 27496 09/04/2023 09/04/2022 *BISPHONATE OR OTHER ACCEPTABLE MEDICATION NEEDED FOR OSTEOPOROSIS (REFER TO SMARTSET #1146) 05/05/2024 Influenza Vaccine (FLU shot) (#1) 2024 08/20/2023, 07/16/2022, 09/08/2021, Additional history exists Albumin/Creatinine Ratio 02/07/2025 02/08/2024, 08/09 Depression Screening 02/07/2025 02/08/2024 CKD HGB USE SMARTSET 78697 04/20/202504/20, 04/20/2024, 11/11/2023, Additional history exists O2 ASSESSMENT COMPLETED IN PAST YEAR FOR COPD 06/09/2025 06/09/2024 DXA Scan 03/06/2026 03/06/2024, 02/07, 03/03/2022, Additional history exists DTap/Tdap Vaccines (2 - Td or Tdap) 08/11/2026 08/11/2016, 11/06/2010, 08/08/1999 Pneumococcal Vaccine: 65+ Years Completed 01/04/2015, 05/06/2004 Zoster Vaccines Completed 10/05/2018, 06/10, 12/05/2008 COVID-19 Vaccine Discontinued 09/02/2021, , 12/23/2020 VITAMIN D LEVEL ONCE IN A LIFETIME-USE SMARTSET# 88128 Completed 04/20/2024, 10/12/2023, 06/30/2021, Additional history exists [...] as of this encounter Visit Diagnoses Diagnosis Chronic diastolic heart failure due to valvular disease (HCC)- Primary Hypertensive 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 stage 3b chronic kidney disease (HCC) HTN, goal below 140/90 Unspecified essential hypertension documented in this encounter Care Teams Charcoal Kiln Burner Relationship Specialty Start Date End Date Marie Underwood MD [address] [place] [address] PCP - General Internal Medicine 07/09/23 documented as of this encounter"
--- OUTSIDE RECORDS SUMMARY | 2024-09-26 14:07 | External Medical Summary | Summary of Care ---
Author Name Unknown Organization [facility] Address [address] [place] [address] Phone [phone] Care Team Providers Care Welcome Wagon Hostess Name Role Phone Marie Underwood MD Primary Care Provider [phone] Reason for Visit * Reason Comments Follow Up Encounter Details Date Type Department Care Team (Late st Contact Info) Description 06/09/2024 11:45 AM EDT Office Visit Hematology[facility] [address] [facility] [place] [phone] Sotero Price MD [address] [place] [address] MDS (myelodysplastic syndrome), low grade (HCC)*; Macrocytosis Allergies Active Allergy Reactions Criticality Noted Date [...] Sign Reading Time Taken Comments Blood Pressure 117/78 06/09/2024 11:58 AM EDT Pulse 83 06/09/2024 11:58 AM EDT Temperature 37.1 C (98.7 F) 06/09/2024 11:58 AM E DT Respiratory Rate - - Oxygen Saturation 96% 06/09/2024 11:58 AM EDT Inhaled Oxygen Concentration - - Weight 46.7 kg (103 lb) 06/09/2024 11:58 AM EDT Height - - Body Mass Index 17.96 05/09/2024 3:49 PM EDT documented in this encounter Progress Notes * Sotero Price MD - 06/09/2024 11:45 AM EDT Hematology/Oncology Outpatient Clinic [facility] [address] Name: Karina Juarez Date: 12/04/2021 CHIEF COMPLAINT: Karina Juarez is a 83 year old female patient here today for f/u visit. DIAGNOSIS: Myelodysplastic syndrome, ringed siderblast (about 20%), has mild anemia. Hemoglobin between 10.5/11 g/dL. Normal White blood cell count normal Platelet count. CURRENT TREATMENT: Observation. PREVIOUS TREATMENT: She is not on oral iron replacement therapy, no IV iron therapy in the past. DIAGNOSTIC WORKUP: -WBC 6600, H&H of 12.1/35.7, MCV 98, Platelet count of 195,000 (11/03/2012) -WBC 8000, H&H of 11.5/34.5, MCV 100.9, Platelet count of 206,000 (06/24/2018) -WBC 8900, H&H of 11.9/35.5, MCV 99.7, Platelet count of 229,000. (06/29/2018). Blood workup done on 06/29/2018: -BUN/Creat: 19/0.9 -Ferritin level--> 562 -serum iron 116, TIBC 225, iron saturation 75% -Vitamin B12--> 696 -Folic acid--> > 20 -peripheral smear reviewed by the pathologist (06/29/2018)--> Macrocytic anemia, rare giant neutrophils noted, has received positive underlying MDS. OTHER IMPORTANT HISTORY: - symptoms of GERD, recently she was started on Zantac and PPI therapy -she takes vitamin-C, calcium in your vitamin-D supplementation on a regular basis. -some nonspecific skin rash on the face and extremity, she was treated Bactrim antibiotic with improvement of the rash HISTORY OF PRESENT ILLNESS: She has come the clinic for the follow-up, she came to clinic by herself. Overall she is doing well, her weight has remained stable around 103 lb, denies any bleeding from the sites, currently she is not on any iron replacement therapy, no new cardiac or pulmonary symptoms, ambulates slowly by herself, she is on oxygen treatment at nighttime. No recent infections, no recent hospitalization. Past Medical History: Diagnosis Date Diverticulosis of colon Diverticulosis Gastroesophageal reflux disease with esophagitis without hemorrhage 03/08/2021 INFORMATION 03/09 repair of retinal detachment INFORMATION 01/2007 normal BRYANT Moderate to severe mitral regurgitation 11/07/2018 Osteoarthrosis Osteoarthritis Osteoporosis Other disorder of menstruation and other abnormal bleeding from female genital tract Dysfunctional Uterine Bleeding Unilateral inguinal hernia Inguinal Hernia Social History Socioeconomic History Marital status: Spouse name: Not on file Number of children: 1 Years of education: Not on file Highest education level: Not on file Occupational History Not on file Tobacco Use Smoking status: Former Current packs/day: 0.00 Average packs/day: 0.5 packs/day for 20.0 years (10.0 ttl pk-yrs) Types: Cigarettes Start date: 11/08/1964 Quit date: 11/08/1984 Years since quittin.5 Passive exposure: Past Smokeless tobacco: Never Vaping [...] none Lives on a farm: No 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 In her area of the house 1 dog No mold Social Determinants of Health Financial Resource Strain: Low Risk (07/08/2023) Financial Resource Strain Do you have any trouble paying for your medications, or do you think you might in the future? (Adult - for ages 18 years and over): No Does your family have trouble paying for medicine? (Household - for ages 0-17 years): Not on file Food Insecurity: No Food Insecurity (07/08/2023) Food Insecurity Do you need food for [...] on file Transportation Needs: No Transportation Needs (07/08/2023) Transportation Needs Do you have trouble getting a ride to medical visits or work? (Adult - for ages 18 years and over):Never True Does your family have a hard time getting a ride to doctors visits? (Household - for ages 0-17 years): Not on file Has lack of transportation kept you from medical appointments, meetings, work, or from getting things needed for daily living? Check all that apply. (Adult - for ages 18 years and over): Not on file Do you (or your family) have trouble finding or paying for a ride (transportation)? (Household - for ages 0-17 years): Not on file Social Connections: Socially Integrated (07/08/2023) Social Connections How often do you feel lonely or isolated from those around you? (Adult - for ages 18 years and over): Sometimes Housing Stability: Low Risk (07/08/2023) Housing Stability Do you currently live in a half-way or have no steady place to sleep at night? (Adult - for ages 18 years and over): No Do you think you are at risk of becoming homeless? (Adult - for ages 18 years and over): No Does your family worry about paying for your home or becoming homeless? (Household - for ages 0-17 years): Not on file Are you homeless or worried that you might be in the future? (Adult - for ages 18 years and over): Not on file Are you (or your family) homeless or worried that you might be in the future? (Household - for ages0-17 years): Not on file Past Surgical History: Procedure Laterality Date COLONOSCOPY 02/15/97 Prominent hemorrhoids and diverticulosis COLONOSCOPY, DIAGNOSTIC (RECTUM) 2002 Colonoscopy COLONOSCOPY, DIAGNOSTIC (RECTUM) 06/27/2012 COLONOSCOPY FLEXIBLE PROXIMAL DIAGNOSTIC performed by Azeem Aviles MD at ENDOSCOPY [facility] OTHER 2003 hernia repair OTHER 01/28/07 Doppler ankle arm index screening normal REMOVE CATARACT, INSERT LENS PROSTH Cataract Removal Family History Problem Relation Name Age of Onset Cancer Mother colon Allergies Mother Other (OSTEOPOROSIS) Mother Diabetes Father Hypertension Father Neurological Disorder Father dementia Allergies Father rhinitis Neurological Disorder Brother Geovani myasthenia gravis Heart attack Brother Geovani Asthma Brother Geoffrey Other (Other) Brother Geoffrey sarcoidosis Allergies Daughter rhinitis Review of patient's allergies indicates: Allergen Reactions Dog Dander sneezing Other Reaction(s): asthma Bactrim [Sulfamethoxazole-Trimethoprim] Fever Fever, sob, itchiness and hives Levaquin [Levofloxacin] Sore Achilles Tendon Current Outpatient Medications Medication Sig Dispense Refill Metamucil 28.3 % Oral Powder (Psyllium) Take by mouth daily. Patient takes one tablespoon daily, inmorning. Levalbuterol Tartrate 45 MCG/ACT Inhalation Aerosol (Xopenex HFA) Inhale 2 Puffs by mouth every 4 hours as needed for Wheezing. 15 g 12 Montelukast Sodium 10 MG Oral Tablet (Singulair) Take 1 Tablet by mouth in the morning. 90 Tablet 3 Torsemide 20 MG Oral Tablet (Demadex) Take [...] Take 1 Tablet by mouth every morning. Empagliflozin 10 MG Oral Tablet (Jardiance) Take 0.5 Tablets by mouth in the morning. 45 Tablet 3 Temazepam 30 MG Oral Capsule (Restoril) TAKE [...] 1 Puff before bedtime. 180 Each 3 predniSONE 10 MG Oral Tablet (Deltasone) Take 4 tabs for 2 days, 3 tabs for 2 days, 2 tabs for 2 days 1 tab for 2 days 20 Tablet 0 Docusate Sodium 100 MG Oral Capsule (Colace) Take 1 Capsule by mouth in the morning and 1 Capsule before bedtime. No current facility-administered medications for this visit. REVIEW OF SYSTEMS: Performance Status: Normal - ECOG 1 See HPI, otherwise negative. OBJECTIVE: BP 117/78 (BP Site: Left Arm, BP Position: Sitting, BP Cuff Size: Pediatric) | Pulse 83 | Temp 37.1C (98.7 F) (Tympanic) | Wt 46.7 kg (103 lb) | LMP (LMP Unknown) | SpO2 96% | BMI 17.96 kg/m |BSA 1.45 m Constitutional: Patient is alert, cooperative and oriented x 3. Well built female, Patient is in noacute distress. HEENT: No icterus, no pallor, Throat and pharynx normal. Sinuses are non-tender. Neck: Supple and without lymphadenopathy or masses. No JVD. No Palpable supraclavicular lymph nodes. Lungs: Clear to auscultation. Bilateral symmetric air entry. No wheezing or rhonchi. Cardiovascular: Normal heart sounds, no murmurs.Regular rate and rhythm. Abdomen: Soft, nontender, no hepatomegaly, no splenomegaly. Bowel sounds are normal. Neurological: No gross focal neurological deficit; walks with a normal gait. Extremities: No finger clubbing, No cyanosis. No leg edema. Skin:: No skin rash. SPINE: No spinal or paraspinal tenderness. LABS: Blood workup done on 06/03/2022: -WBC 6200, H&H of 10.8/32.7, MCV 104, Platelet 309,000. Blood workup done on 11/19/2022: -WBC 5600, H&H of 11.4/34.8, Platelet 288,000 -BUN/Creat: 22/1.3, Calcium 10.3. Blood workup done on 05/12/2023: -BUN/Creat: 21/1.1, normal LFT. -Vitamin B12 --> 446, folic acid --> 14.0 -WBC 5500, H&H of 10.4/31.5, Platelet count [id number]. Blood workup done on 11/11/2023: - WBC 9100, H&H of 11.6/35.6, platelet count of 266,000, MCV 109.2 - BUN/Creat: 22/1.1, normal LFT, calcium 8.5. - Ferritin level --> 965, Serum iron 89, TIBC 226, iron saturation 29%. (10/12/2023). - Vitamin B-12 --> 436 Blood workup done on 04/20/2024: - WBC 9700, H&H of 11.3/34.8, MCV 106.7, platelet count of 280,000 - Ferritin level --> 814 - Serum iron: 41, TIBC 211, iron saturation 19% - Folic acid --> 18 - Vitamin B-12 --> 485 - BUN/Creat: 26/1.3, normal LFT. Calcium 9.4. CT scan of the abdomen and pelvis on 11/18/2023: - No organomegaly, no lymphadenopathy. Spleen --> Normal size. IMPRESSION: MDS Macrocytosis 83-year-old the female, who is referred to hematology for evaluation of elevated Ferritin and significantly elevated iron saturation noted recently. She has some mild tiredness, otherwise she is doing well, I reviewed her blood workup, she has mild anemia, mild macrocytosis, normal white blood cellcount, normal platelet count, normal B12 and Folic acid level,Ferritin level is on the higher side around 560, iron saturation around 75%. She had a normal kidney function test recently. She denies any family history of any kind of iron overload disorder. No history of blood transfusion the past, denies any oral iron replacement therapy, no IV iron therapy in the past. Peripheral smear reviewed by the pathologist suggest presence of rare giant neutrophils which may have raised the possibility of underlying MDS. Bone marrow examination done in May 2019 showed findings suggestive MDS, ringed siderblast, about 20% noted. Overall prognosis remains good in her case. Presently she is under observation. Pt denies fever, night sweats, unusual bleeding, I reviewed her recent blood workup done on 04/20/2024, hemoglobin level is stable around 11.3 g/dL. Will continue to observe Will check CBCD every 3 monthly. If hemoglobin level goes down to less than 10, will consider for erythropoietin therapy. I am planning to see her back in the clinic in about [address] Sotero Price Hem/Onc (This note was completed using the dictation program Fluency Direct. As such, there may be misspellings word substitutions, or other variations that should not change the essence of the clinical content of this encounter note. If there is need for further clarification, please direct questions to the provider listed above.) documented in this encounter Nursing Notes * Zainab Ramos MED ASSIST - 06/09/2024 12:00 PM EDT Patient identifed by name and birthdate Do you have any concerns about pain management for today's visit? Yes. Patient instructed to discuss pain concerns with provider during the visit today Living Will or Advance Directive for Health Care as noted on the problem list. [facility] is a way you can talk to your provider on line through e-mail. Would you like to sign up? I can activate it for you? ALREADY ACTIVE Filed Vitals: 06/09/24 1158 BP: 117/78 Pulse: 83 Temp: 37.1 C (98.7 F) TempSrc: Tympanic SpO2: 96% Weight: 46.7 kg (103 lb) Patient was instructed to not get up on the exam table/exam chair until directed and assisted by their provider; patient is to remain seated in the chair/ wheelchair/ exam table/ exam chair for fall prevention and safety reasons. Patient is aware to have assistance to step down off exam table/exam chair with personnel. Patient voiced full comprehension of instructions. documented in this encounter Plan of Treatment Upcoming Encounters Date Type Department Care Team (Late st Contact Info) Description 08/11/2024 1:00 PM EDT Office Visit [facility] [address] [facility] [phone] Marie Underwood MD [address] [place] [address] 11/14/2024 3:00 PM EST Office Visit [facility]ology [facility] [address] [facility] [facility] [place] [address] Mio Chirinos CRNP [address] [place] [address] 03/13/2025 1:15 PM EDT Office Visit Hematology/Oncology [facility] [address] [place] [phone] Sotero Price MD [address] [place] [address] Health Maintenance Due Date Last Done Comments Alpha-1 Antitrypsin 1958 CKD PHOS USE SMARTSET 24820 09/04/2023 09/04/2022 *BISPHONATE OR OTHER ACCEPTABLE MEDICATION NEEDED FOR OSTEOPOROSIS (REFER TO SMARTSET #1146) 05/05/2024 Influenza Vaccine (FLU shot) (#1) 2024 08/20/2023, 07/16/2022, 09/08/2021, Additional history exists Albumin/Creatinine Ratio 02/07/2025 02/08/2024, 08/09 Depression Screening 02/07/2025 02/08/2024 CKD HGB USE SMARTSET 31306 04/20/202504/20, 04/20/2024, 11/11/2023, Additional history exists O2 [...] D LEVEL ONCE IN A LIFETIME-USE SMARTSET# 27228 Completed 04/20/2024, 10/12/2023, 06/30/2021, Additional history exists [...] (HCC)- Primary Low grade myelodysplastic syndrome lesions Macrocytosis Other specified diseases of blood and blood-forming organs documented in this encounter Care Teams Welcome Wagon Hostess Relationship Specialty Start Date End Date Marie Underwood MD [address] [place] [address] PCP - General Internal Medicine 07/09/23 documented as of this encounter"
--- OUTSIDE RECORDS SUMMARY | 2024-09-26 14:07 | External Medical Summary | Summary of Care ---
Author Name Unknown Organization [facility] Address [address] [place] [address] Phone [phone] Care Team Providers Care Monogram Operator Name Role Phone Marie Underwood MD Primary Care Provider [phone] Reason for Visit * Reason Comments Joint Pain Right wrist pain Encounter Details Date Type Department Care Team (Late st Contact Info) Description 05/09/2024 4:00 PM EDT Office Visit General Internal Medicine [facility] [address] [place] [place] [address] Kenzie Yeboah MD [address] [place] [address] Acute pain of right wrist*; Swelling of right hand; Chronic diastolic heart failure due to valvular disease (HCC); Permanent atrial fibrillation (HCC); Severe tricuspid regurgitation; Edema of both legs; Alcohol ingestion, 1-4 drinks per day on alcohol screening; Other constipation Allergies Active Allergy Reactions Criticality Noted Date Comments Sulfamethoxazole-Trimethopri m Fever 11/13/2019 Fever, sob, itchiness and hives Dog Dander High 05/09/2007 sneezing Other Reaction(s): asthma Levofloxacin 05/26/2023 Sore Achilles Tendon documented as of this encounter (statuses as of 05/09/2024) Medications Medication Sig Dispensed Refills Start Date [...] 11/22/2023 Active Temazepam 30 MG Oral Capsule (Restoril)Indication [...] 03/13/2024 Active Apixaban 2.5 MG Oral Tablet (Eliquis)Indications :Palpitations Take 1 Tablet by mouth in the morning and 1 Tablet before bedtime. 180 Tablet 3 04/04/2024 Active Fluticasone Propionate 50 MCG/ACT Nasal Suspension (Flonase) Administer 2 Sprays into each nostril in the morning. 16 g 5 04/28/2024 Active Fluticasone-Salmeter ol 250-50 MCG/ACT Inhalation Aerosol Powder Breath Activated (Advair Diskus) Inhale 1 Puff by mouth in the morning and 1 Puff before bedtime. 180 Each 3 05/04/2024 Active predniSONE 10 MG Oral Tablet (Deltasone)Indicatio [...] and 1 Capsule before bedtime. 05/09/2024 Active Azelastine HCl 137 MCG/SPRAY Nasal Solution Administer 2 Sprays into nostril in the morning and 2 Sprays before bedtime. 90 mL 4 04/28/2023 4 Discontinu ed(Patient preference /discontin uation) Cefdinir 300 MG Oral Capsule (Omnicef) Take 1 Capsule by mouth in the morning for 7 days. Lower dose due to CrCl <30. 7 Capsule 04/21/2024 4 Discontinu ed(End of Procedure) Apixaban 2.5 MG Oral Tablet (Eliquis)Indications :Palpitations TAKE ONE TABLET BY MOUTH EVERY MORNING AND BEFORE BEDTIME 180 Tablet 3 05/09/2024 4 Discontinu ed(Patient preference /discontin uation) documented as of this encounter (statuses as of 05/09/2024) Active Problems Problem Noted Date Diagnosed Date [...] as of this encounter (statuses as of 05/09/2024) Resolved Problems Problem Noted Date Diagnosed Date [...] as of this encounter (statuses as of 05/09/2024) Immunizations Name Administration Dates Next Due COVID-19 mRNA, LNP-s, No Pre serve, 2-Dose Series (VPIsystems) 09/02/2021,01/18/2021,12/23/2020 Influenza, Whole Virus 08/20/1999 0 Pneumococcal Conjugate Vacc, 13 Valent (Prevnar) 01/04/2015 Pneumococcal Polysaccharide PPV23 (Pneumovax) 05/06/2004 RSV Vac., Recomb, Adjuvant, PF,0.5 Ml (Arexvy) 08/20/2023 Season Influenza, Quad, PF, Adjuvanted, 65+ Yrs, IM (FLUAD) 08/20/2023,07/19/2020 Seasonal Influenza Virus Vac cine, Unspecified Formulation 09/08/2021,07/19/2020,08/09/2019,11/2017,08/03/2017,08/03/2016,08/25/20 14,07/21/2013,09/20/2012,09/10/2011,1 11/09/2009,07/29/2009,08/20/2008,08/09,09/21/2006,08/27/2005, 4,10/03/2003,09/08/2002,09/23/2000, Seasonal Influenza, PF, 6 M & above, IM , (FluLaval or Fluzone) 07/09/2018,08/03/2017 Seasonal Influenza, Quadriva lent Hd (Fluzone Hd) 07/16/2022 Seasonal Influenza, Quadriva lent, No Preserve, IM 08/03/2016,08/08/2015 Seasonal Influenza, Split, I IV3, With Preserve, Inj 08/25/2014,07/21/2013,09/20/2012,01/2011,09/09/2010,07/29/2009,08/20/20 08,08/09/2007,09/21/2006,08/27/2005,1 ,10/03/2003,09/08/2002,09/2309/10/2012 Seasonal Influenza, Trivalen t, Adjuvanted, 65+ yrs 09/08/2021,08/09/2019 Seasonal Influenza, Trivalen t, High Dose, No Preserve, IM 07/07/2018 TD - Tetanus/Diptheria (ADULT) 08/08/1999 TD, Preservative Free 11/06/2010 TDAP (age 10 and older)(Boostrix) 08/11/2016 Varicella Zoster Vaccine (Adult) 12/05/2008 Zoster Vaccine Recombinant (Shingrix) 10/05/2018 ,07/07/2018 documented as of this encounter Social History [...] Sign Reading Time Taken Comments Blood Pressure 108/60 05/09/2024 3:49 PM EDT Pulse 82 05/09/2024 3:49 PM EDT Temperature 37.4 C (99.3 F) 05/09/2024 3:49 PM ED T Respiratory Rate 16 05/09/2024 3:49 PM EDT Oxygen Saturation 98% 05/09/2024 3:49 PM EDT Inhaled Oxygen Concentration - - Weight 46.8 kg (103 lb 1.6 oz) 05/09/2024 3:49 P M EDT Height 161.3 cm (5' 3.5") 05/09/2024 3:49 PM EDT Body Mass Index 17.98 05/09/2024 3:49 PM EDT documented in this encounter Progress Notes * Kenzie Yeboah MD - 05/09/2024 4:11 PM EDT SUBJECTIVE: Karina Juarez is a 83 year old female. Chief Complaint Patient presents with Joint Pain Right wrist pain HPI: Patient presents today for acute appointment with symptoms of right wrist pain since yesterdayand swelling of the hand this morning. Denies any redness. No injuries or falls. No history of similar symptoms in the past. No history of known gout or pseudogout. Denies any recent stressors or change in medications. Has chronic edema of the legs left greater than right. No history of DVT, is on chronic anticoagulation for permanent AFib Problem list, medications reviewed Not on a fluid restriction but she does not go over 5-6 cups a day. Drinks 1-2 glass of wine daily for many years, denies eating excessive red meat or organ meats Also complains of constipation longstanding, is on Metamucil daily, take stool softener as needed Patient Active Problem List Diagnosis Age-related osteoporosis without current pathological fracture Asthma, mild persistent Non-rheumatic mitral regurgitation Severe tricuspid regurgitation Chronic diastolic heart failure due to valvular disease (HCC) Permanent atrial fibrillation ([facility]) MDS (myelodysplastic syndrome), low grade ([facility]) Stage 3b chronic kidney disease Gastroesophageal reflux disease with esophagitis without hemorrhage Hypertensive 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 stage 3b chronic kidney disease ([facility]) Pulmonary HTN ([facility]) HTN, goal below 140/90 Bilateral pleural effusion Nocturnal hypoxemia S/P atrioventricular kamran ablation Pneumonia of left lower lobe due to infectious organism Mild protein-calorie malnutrition ([facility]) COPD, group B, by GOLD 2017 classification ([facility]) Mid back pain Current Outpatient [...] morning. In the morning.. 45 Tablet 3 Fluticasone Propionate 50 MCG/ACT Nasal Suspension (Flonase) Administer 2 Sprays into each nostril in the morning. 16 g 5 Fluticasone-Salmeterol 250-50 MCG/ACT Inhalation Aerosol Powder Breath Activated (Advair Diskus) Inhale 1 Puff by mouth in the morning and 1 Puff before bedtime. 180 Each 3 Apixaban 2.5 MG Oral Tablet (Eliquis) Take 1 Tablet by mouth in the morning and 1 Tablet before bedtime. 180 Tablet 3 No current facility-administered medications for this visit. Review of patient's allergies indicates: Allergen Reactions Dog Dander sneezing Other Reaction(s): asthma Bactrim [Sulfamethoxazole-Trimethoprim] Fever Fever, sob, itchiness and hives Levaquin [Levofloxacin] Sore Achilles Tendon OBJECTIVE: BP 108/60 (BP Site: Left Arm, BP Position: Sitting, BP Cuff Size: Regular) | Pulse 82 | Temp 37.4 C (99.3 F) (Tympanic) | Resp 16 | Ht 1.613 m (5' 3.5") | Wt 46.8 kg (103 lb 1.6 oz) | LMP (LMP Unknown) | SpO2 98% | BMI 17.98 kg/m | BSA 1.45 m PHYSICAL EXAM: General: alert, healthy, no distress, well developed Heart: irregular rhythm and rate Extremities: 1+ edema rt leg, 2+ left leg Rt Hand--no bruising or erythema, diffuse soft tissue swelling of the dorsal aspect of the right hand, no warmth, slight decrease in range of motion of the wrist with tenderness of the ulnar aspect ASSESSMENT/PLAN: Acute pain of right wrist (Primary) - XR WRIST 3 OR MORE VIEWS; Future; Expected date: 05/09/2024 - predniSONE 10 MG Oral Tablet (Deltasone); Take 4 tabs for 2 days, 3 tabs for 2 days, 2 tabs for 2days 1 tab for 2 days Swelling of right hand - XR WRIST 3 OR MORE VIEWS; Future; Expected date: 05/09/2024 - predniSONE 10 MG Oral Tablet (Deltasone); Take 4 tabs for 2 days, 3 tabs for 2 days, 2 tabs for 2days 1 tab for 2 days Chronic diastolic heart failure due to valvular disease (HCC) Permanent atrial fibrillation (HCC) Severe tricuspid regurgitation Edema of both legs Alcohol ingestion, 1-4 drinks per day on alcohol screening Other constipation - Docusate Sodium 100 MG Oral Capsule (Colace); Take 1 Capsule by mouth in the morning and 1 Capsule before bedtime. DD gout versus pseudogout, short course of prednisone to start tomorrow morning, x-ray today. Discussed to increase intake of berries and cherries, cut back on alcohol use. Start Colace twice daily, if constipation persists then add MiraLax 1 tsp daily to every 3 days. Follow Up: Return if symptoms worsen or fail to improve. (This note was completed using the dictation program Fluency Direct. As such, there may be misspellings, word substitutions, or other variations that should not change the essence of the clinical content of this encounter note. If there is need for further clarification, please direct questions to the provider listed above.) Patient and / caregiver verbalize understanding of above instructions and agrees with plan of care. Patient brought back to the room by as automation technician was a concern for fracture, I reviewed the films, My reading of the wrist X-Ray is no fracture, ST ca+ at 1st MCP jt(area pain was l/e ulna). (Pending review by Radiologist.) Kenzie Yeboah MD 05/09/2024 documented in this encounter Nursing Notes * Alyx Sibley, MED ASSIST - 05/09/2024 3:49 PM EDT Karina Juarez presents with complaints of: Pain- Located right wrist Pain level started at 8/10 with tylenol is down to 5/10 Type of pain gnawing, dull aching, and tender Radiating to her shoulder Is the pain the same as it began improving What makes the pain better? tylenol What makes the pain worse? Utilizing it, had to drive 1 handed Any known cause of pain? None- woke up this way this morning Patient denies all other symptoms Onset of symptoms: 1 day(s) ago. documented in this encounter Plan of Treatment Upcoming Encounters Date Type Department Care Team (Late st Contact Info) Description 06/09/2024 11:45 AM EDT Office Visit Hematology/Oncology [facility] [address] [place] [address] Sotero Price MD [address] [facility] [place] [address] 08/11/2024 1:00 PM EDT Office Visit [facility] [address] [place] [phone] Marie Underwood MD [address] [place] [address] 11/14/2024 3:00 PM EST Office Visit Rheumatology [facility] [address] [place], [place] [address] Mio Chirinos CRNP [address] [place], [place] [address] Pending Results Name Type Priority Associated Diagnoses Date /Time XR WRIST 3 OR MORE VIEWS Medical Imaging Routine Acute pain of right wrist Swelling of right hand 05/09/2024 5:02 PM EDT Scheduled Orders Name Type Priority Associated Diagnoses Orde r Schedule XR WRIST 3 OR MORE VIEWS Medical Imaging Routine Acute pain of right wrist Swelling of right hand Expected: 05/09/2024, Expires: 06/09/2025 Health Maintenance Due Date Last Done Comments Alpha-1 Antitrypsin 1958 CKD PHOS USE SMARTSET 51295 09/04/2023 09/04/2022 *BISPHONATE OR OTHER ACCEPTABLE MEDICATION NEEDED FOR OSTEOPOROSIS (REFER TO SMARTSET #1146) 05/05/2024 Influenza Vaccine (FLU shot) (#1) 2024 08/20/2023, 07/16/2022, 09/08/2021, Additional history exists Albumin/Creatinine Ratio 02/07/2025 02/08/2024, 08/09 Depression Screening 02/07/2025 02/08/2024 CKD HGB USE SMARTSET 91329 04/20/202504/20, 04/20/2024, 11/11/2023, Additional history exists O2 [...] D LEVEL ONCE IN A LIFETIME-USE SMARTSET# 66674 Completed 04/20/2024, 10/12/2023, 06/30/2021, Additional history exists [...] as of this encounter Visit Diagnoses Diagnosis Acute pain of right wrist- Primary Swelling of right hand Chronic diastolic heart failure due to valvular disease (HCC) Permanent atrial fibrillation (HCC) Atrial fibrillation Severe tricuspid regurgitation Diseases of tricuspid valve Edema of both legs Edema Alcohol ingestion, 1-4 drinks per day on alcohol screening Screening for alcoholism Other constipation documented in this encounter Care Teams Monogram Operator Relationship Specialty Start Date End Date Marie Underwood MD [address] [place] [address] PCP - General Internal Medicine 07/09/23 documented as of this encounter
--- OUTSIDE RECORDS SUMMARY | 2024-09-26 14:07 | External Medical Summary | Summary of Care ---
Author Name Unknown Organization [facility] Address [address] [place] [address] Phone [phone] Care Team Providers Care Workforce Development Program Director Name Role Phone Marie Underwood MD Primary Care Provider [phone] Encounter Details Date Type Department Care Team (Late st Contact Info) Description 07/31/2024 Orders Only Outcomes Research Department [address] [place], [place] [id number] Violetta Skinner CHRA [employer] Other*[id number] Allergies Active Allergy Reactions Criticality Noted Date Comments Sulfamethoxazole-Trimethopri m Fever 11/13/2019 Fever, sob, itchiness and hives Dog Dander High 05/09/2007 sneezing Other Reaction(s): asthma Levofloxacin 05/26/2023 Sore Achilles Tendon documented as of this encounter (statuses as of 07/31/2024) Medications Medication Sig Dispensed Refills Start Date [...] as of this encounter (statuses as of 07/31/2024) Active Problems Problem Noted Date Diagnosed Date [...] as of this encounter (statuses as of 07/31/2024) Resolved Problems Problem Noted Date Diagnosed Date [...] as of this encounter (statuses as of 07/31/2024) Immunizations Name Administration Dates Next Due COVID-19 [...] Description 08/11/2024 1:00 PM EDT Office Visit [address] [place] [phone] Marie Underwood MD [address] [place] [facility] [place] [address] 11/14/2024 3:00 PM EST Office Visit Rheumatology [facility] [address] [facility] [place] [address] Mio Chirinos CRNP [address] [facility] [place] [address] 03/13/2025 1:15 PM EDT Office Visit Hematology/Oncology [facility] [address] [facility] [place] [address] Sotero Prcie MD [address] [place] [address] Scheduled Orders Name Type Priority Associated Diagnoses Orde r Schedule MYCODE SUBSEQUENT ADULT Lab Routine [employer] Research Other*[id number] Every 6 Months for 2 Occurrences starting 07/31/2024 until 08/20/2025 Health Maintenance Due Date Last Done Comments Alpha-1 Antitrypsin 1958 Adult Wellness Visit 2004 CKD PHOS USE SMARTSET 01330 09/04/2023 09/04/2022 *BISPHONATE OR OTHER ACCEPTABLE MEDICATION NEEDED FOR OSTEOPOROSIS (REFER TO SMARTSET #1146) 05/05/2024 Influenza Vaccine (FLU shot) (#1) 2024 08/20/2023, 07/16/2022, 09/08/2021, Additional history exists Albumin/Creatinine Ratio 02/07/2025 02/08/2024, 08/09 Depression Screening 02/07/2025 02/08/2024 CKD HGB USE SMARTSET 96314 04/20/202504/20, 04/20/2024, 11/11/2023, Additional history exists O2 ASSESSMENT COMPLETED IN PAST YEAR FOR COPD 06/09/2025 06/09/2024 DXA Scan 03/06/2026 03/06/2024, 02/07, 03/03/2022, Additional history exists DTap/Tdap Vaccines (2 - Td or Tdap) 08/11/2026 08/11/2016, 11/06/2010, 08/08/1999 Pneumococcal Vaccine: 65+ Years Completed 01/04/2015, 05/06/2004 Zoster Vaccines Completed 10/05/2018, 06/10, 12/05/2008 COVID-19 Vaccine Discontinued 09/02/2021, , 12/23/2020 VITAMIN D LEVEL ONCE IN A LIFETIME-USE SMARTSET# 87371 Completed 04/20/2024, 10/12/2023, 06/30/2021, Additional history exists [...] as of this encounter Visit Diagnoses Diagnosis [employer] Other*[id number] documented in this encounter Care Teams Workforce Development Program Director Relationship Specialty Start Date End Date Marie Underwood MD [address] [place] [address] PCP - General Internal Medicine 07/09/23 documented as of this encounter
--- OUTSIDE RECORDS SUMMARY | 2024-09-26 14:08 | External Medical Summary | Summary of Care ---
Author Name Unknown Organization [facility] Address [address] [place] [address] Phone [phone] Care Team Providers Care Lead Inspector Name Role Phone Marie Underwood MD Primary Care Provider [phone] Reason for Visit * Reason Comments Medication Refill Encounter Details Date Type Department Care Team (Late st Contact Info) Description 05/08/2024 Refill Cardiology, [facility] [address] [facility] [place] [phone] [facility]ovanny Potter [facility] [address] [facility] [place] [address] Palpitations Allergies Active Allergy Reactions Criticality Noted Date Comments Sulfamethoxazole-Trimethopri m Fever 11/13/2019 Fever, sob, itchiness and hives Levofloxacin 05/26/2023 Sore Achilles Tendon documented as [...] for Wheezing. 15 g 12 03/29/2023 Active Azelastine HCl 137 MCG/SPRAY Nasal Solution Administer 2 Sprays into nostril in the morning and 2 Sprays before bedtime. 90 mL 4 04/28/2023 Active Montelukast Sodium 10 MG Oral Tablet [...] before bedtime. 180 Each 3 05/04/2024 Active Apixaban 2.5 MG Oral Tablet (Eliquis)Indications: Palpitations TAKE ONE TABLET BY MOUTH EVERY MORNING AND BEFORE BEDTIME 180 Tablet 3 05/09/2024 Active documented as of this encounter [...] mRNA, LNP-s, No Pre serve, 2-Dose Series ([employer]) 09/02/2021,01/18/2021,12/23/2020 Pneumococcal Conjugate Vacc, 13 Valent (Prevnar) [...] encounter Miscellaneous Notes * Telephone Encounter - Yovanny Pham CRNP - 05/09/2024 12:29 PM EDT Signed Prescriptions: Disp Refills Apixaban 2.5 MG Oral Tablet (Eliquis) 180 Ta*3 Sig: TAKE ONE TABLET BY MOUTH EVERY MORNING AND BEFORE BEDTIME Authorizing Provider: YOVANNY PHAM * Telephone Encounter - Emma Hernandez CMA - 05/09/2024 12:07 PM EDTPending Prescriptions: Disp Refills Eliquis 2.5 MG Oral Tablet (Apixaban) 180 Ta*3 Sig: TAKE ONE TABLET BY MOUTH EVERY MORNING AND BEFORE BEDTIME * Telephone Encounter - Emma Hernandez CMA - 05/09/2024 12:06 PM EDT Pharmacy change Did you pend patient's preferred pharmacy and medication before forwarding?yes Pharmacy: [facility] Pending Prescriptions: Disp Refills Apixaban 2.5 MG Oral Tablet (Eliquis) 180 Ta*3 Sig: TAKE ONE TABLET BY MOUTH EVERY MORNING AND BEFORE BEDTIME Last Visit: 04/04/2024 (in office), 02/13/2020 (telemedicine) Next Visit: Visit date not found If no future appointments scheduled, and last appointment is greater than a year ago, please schedule patient for a follow-up appointment Last date the medication was ordered: 04-04-2024 Is this request for a controlled substance?No [...] 11:16 AM TSH 2.24 06/21/2020 11:51 AM LDLCALC 78 01/13/2021 09:27 AM LDLCALC 76 11/13/2013 10:45 AM LDLDIRECT NOT APPLICABLE 11/13/2013 10:45 AM ALT 26 04/20/2024 03:50 PM ALT 22 02/27/2019 03:06 PM HGBA1C 5.6 07/24/2022 10:38 AM documented in this encounter Plan of Treatment Upcoming Encounters Date Type Department Care Team (Late st Contact Info) Description 05/09/2024 1:20 PM EDT Office Visit [facility] [address] [place] [facility] [place] [phone] Christian Navarro MD [address] [place] [facility] [place] [address] 05/09/2024 2:30 PM EDT Office Visit Allergy/Immunology [facility] [address] [facility] [place] [address] Soumya Travis PA-C [address] [place] [address] 06/09/2024 11:45 AM EDT Office Visit Hematology/Oncology [facility] [address] [facility] [place] [phone] Sotero Price MD [address] [facility] [place] [address] 08/11/2024 1:00 PM EDT Office Visit [facility] [address] [facility] [phone] Marie Underwood MD [address] [place] [facility] [place] [address] 11/14/2024 3:00 PM EST Office Visit Rheumatology [facility] [address] [place], [place] [address] Mio Chirinos CRNP [address] [place] [address] Health Maintenance Due Date Last Done Comments Alpha-1 Antitrypsin 1958 CKD PHOS USE SMARTSET 43546 09/04/2023 09/04/2022 *BISPHONATE OR OTHER ACCEPTABLE MEDICATION NEEDED FOR OSTEOPOROSIS (REFER TO SMARTSET #1146) 05/05/2024 Influenza Vaccine (FLU shot) (#1) 2024 08/20/2023, 07/16/2022, 09/08/2021, Additional history exists Albumin/Creatinine Ratio 02/07/2025 02/08/2024, 08/09 Depression Screening 02/07/2025 02/08/2024 O2 ASSESSMENT COMPLETED IN PAST YEAR FOR COPD 02/07/2025 02/08/2024 CKD HGB USE SMARTSET 73574 04/20/202504/20, 04/20/2024, 11/11/2023, Additional history exists DXA Scan 03/06/2026 03/06/2024, 02/07, 03/03/2022, Additional history exists DTaP,Tdap,and Td Vaccines (2 - Td or Tdap) 08/11/2026 08/11/2016, 11/06/2010, 08/08/1999 Pneumococcal Vaccine: 65+ Years Completed 01/04/2015, 05/06/2004 Zoster Vaccines Completed 10/05/2018, 06/10, 12/05/2008 COVID-19 Vaccine Discontinued 09/02/2021, , 12/23/2020 VITAMIN D LEVEL ONCE IN A LIFETIME-USE SMARTSET# 04560 Completed 04/20/2024, 10/12/2023, 06/30/2021, Additional history exists GARDASIL-HPV IMMUNIZATION SERIES Aged Out No longer eligible based on patient's age to complete this topic Hepatitis B Aged Out No longer eligi ble based on patient's age to complete this topic MENINGOCOCCAL (MENACTRA/MENVEO) Aged Out No longer eligible based on patient's age to complete this topic documented as of this encounter Medical Devices Not on filedocumented as of this encounter Visit Diagnoses Diagnosis Palpitations documented in this encounter Care Teams Lead Inspector Relationship Specialty Start Date End Date Marie Underwood MD [address] [place] [address] PCP - General Internal Medicine 07/09/23 documented as of this encounter
--- OUTSIDE RECORDS SUMMARY | 2024-09-26 14:08 | External Medical Summary | Summary of Care ---
Author Name Unknown Organization [facility] Address [address] [place] [address] Phone [phone] Care Team Providers Care Rotor Coil Taper Name Role Phone Marie Underwood MD Primary Care Provider [phone] Reason for Visit * Reason Comments Allergy Return Encounter Details Date Type Department Care Team (Late st Contact Info) Description 05/09/2024 2:30 PM EDT Office Visit [facility] [place] [address] [facility] [place] [address] Soumya Travis PA-C [address] [facility] [place] [address] Mild persistent asthma without complication*; Seasonal allergic rhinitis due to pollen; Seasonal allergic rhinitis due to fungal spores; Allergic rhinitis due to animal hair and dander; Pulmonary HTN (HCC); Paroxysmal atrial fibrillation (HCC); Cough, unspecified type Allergies Active Allergy Reactions Criticality Noted Date [...] for Wheezing. 15 g 12 3 Active Azelastine HCl 137 MCG/SPRAY Nasal Solution Administer 2 Sprays into nostril in the morning and 2 Sprays before bedtime. 90 mL 4 3 Active Additional Information Patient not taking.Reported on 05/09/2024 Montelukast Sodium 10 MG Oral Tablet (Singulair) Take 1 Tablet by mouth in the morning. 90 Tablet 3 3 Active Torsemide 20 MG Oral Tablet [...] 4 Active Temazepam 30 MG Oral Capsule (Restoril)Indicatio [...] 4 Active Apixaban 2.5 MG Oral Tablet (Eliquis)Indication s:Palpitations Take 1 Tablet by mouth in the morning and 1 Tablet before bedtime. 180 Tablet 3 4 Active Fluticasone Propionate 50 MCG/ACT Nasal Suspension (Flonase) Administer 2 Sprays into each nostril in the morning. 16 g 5 4 Active Fluticasone-[place] rol 250-50 MCG/ACT Inhalation Aerosol Powder Breath Activated (Advair Diskus) Inhale 1 Puff by mouth in the morning and 1 Puff before bedtime. 180 Each 3 4 Active Apixaban 2.5 MG Oral Tablet (Eliquis)Indication s:Palpitations TAKE ONE TABLET BY MOUTH EVERY MORNING AND BEFORE BEDTIME 180 Tablet 3 4 Active Additional Information Patient not taking.Reported on 05/09/2024 Desloratadine 5 MG Oral Tablet Disintegrating Take by mouth. 05/09/20 24 Discontinued documented as of this encounter [...] mRNA, LNP-s, No Pre serve, 2-Dose Series ([employer]) 09/02/2021,01/18/2021,12/23/2020 Pneumococcal Conjugate Vacc, 13 Valent (Prevnar) [...] No 07/08/2023 Does the household have a [facility]? (Household - for ages [...] Sign Reading Time Taken Comments Blood Pressure 104/58 05/09/2024 2:34 PM EDT Pulse 62 05/09/2024 2:34 PM EDT Temperature - - Respiratory Rate 16 05/09/2024 2:34 PM EDT Oxygen Saturation 100% 05/09/2024 2:34 PM EDT Inhaled Oxygen Concentration - - Weight 46.8 kg (103 lb 3.2 oz) 05/09/2024 2:34 P M EDT Height 161.3 cm (5' 3.5") 05/09/2024 2:34 PM EDT Body Mass Index 17.99 05/09/2024 2:34 PM EDT documented in this encounter Progress Notes * Soumya Travis PA-C - 05/09/2024 3:04 PM EDT SUBJECTIVE: Karina is a pleasant 82 year old female here today for follow-up of her allergic rhinitis and mild persistent asthma. Overall she's doing well. She continues to use Advair 250-50 1 puff twice daily. She hasn't required her rescue inhaler in quite a few months. She hasn't had any sinus infections since her last office visit. No ED or Urgent Care visits from a pulmonology standpoint. She denies nocturnal symptoms ofcoughing, wheezing or shortness of breath. Allergic rhinitis is controlled with Flonase 2 sprays in each nostril once daily. She wakes up withnasal congestion but it does resolve with the Flonase. She additionally is taking Singulair 10 mg once daily, levocetirizine 5 mg once daily, and desloratadine 5 mg once daily. She's wondering if sheneeds all of the medications. She continues to follow with cardiology and pulmonology. She is no longer on oxygen at night. Asthma control test obtained on January 29, 2022 revealed a score of 23 which suggest well controlledasthma. Asthma control test obtained on 01/09/2021 revealed a score of 18 which suggest moderately controlledasthma. Asthma Control Test Summary, Results are Patient Reported The overall score is: 21 suggesting: Well Controlled asthma for the survey taken on: 11/13/2019 1:12:15 PM. Asthma Control Test Summary, Results are Patient Reported The overall score is: 16 suggesting: Moderately Controlled asthma for the survey taken on: 04/06/2019 10:03:46 AM. Asthma Control Test Summary, Results are Patient Reported The overall score is: 8 suggesting: Poorly Controlled asthma for the survey taken on: 01/19/2019 11:00:35 AM. Patient Active Problem List Diagnosis Age-related osteoporosis without current pathological fracture Asthma, mild persistent Non-rheumatic mitral regurgitation Severe tricuspid regurgitation Chronic diastolic heart failure due to valvular disease ([facility]) Permanent atrial fibrillation ([facility]) MDS (myelodysplastic syndrome), low grade ([facility]) Stage 3b chronic kidney disease Gastroesophageal reflux disease with esophagitis without hemorrhage Hypertensive 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 stage 3b chronic kidney disease ([facility]) Pulmonary HTN ([facility]) HTN, goal below 140/90 Bilateral pleural effusion Nocturnal hypoxemia S/P atrioventricular kamran ablation Pneumonia of left lower lobe due to infectious organism Mild protein-calorie malnutrition ([facility]) COPD, group B, by GOLD 2017 classification ([facility]) Mid back pain Current Outpatient Medications Medication [...] 1 Puff before bedtime. 180 Each 3 Desloratadine 5 MG Oral Tablet Disintegrating Take by mouth. Azelastine HCl 137 MCG/SPRAY Nasal Solution Administer 2 Sprays into nostril in the morning and 2 Sprays before bedtime. (Patient not taking: Reported on 05/09/2024) 90 mL 4 Apixaban 2.5 MG Oral Tablet (Eliquis) TAKE ONE TABLET BY MOUTH EVERY MORNING AND BEFORE BEDTIME (Patient not taking: Reported on 05/09/2024) 180 Tablet 3 No current facility-administered medications for this visit. Immunotherapy: Started: none Environment/Activities of Daily Living: The patient has one dog at home. She does not notice any worsening symptoms with the dog. There is central air conditioning. She is retired. She is not missing activities because of her symptoms. PHYSICAL EXAM: Blood pressure 104/58, pulse 62, resp. rate 16, height 1.613 m (5' 3.5"), weight 46.8 kg (103 lb 3.2 oz), SpO2 100%, not currently . No Acute Distress: Conjunctiva: Normal TM's: Clear Nose: Pale mucosa; mild Inferior turbinate edema, no polyps, no mucopus Oropharynx: Mild erythema and cobblestoning, no lesions or exudates. Neck: No significant adenopathy Lungs: Clear, no wheezing; good air movement bilaterally, Cor: RRR Skin: No atopic dermatitis; no urticaria, angioedema No edema OBJECTIVE DATA: XR CHEST 2 VIEWS - 08/13/2023 12:46 pm HISTORY "cough, fever" TECHNIQUE Frontal and lateral views of the chest were obtained. COMPARISON 07/02/2023 FINDINGS Left-sided cardiac pacer is stable. The lungs are clear. Probable small pleural effusions. No pneumothorax. The cardiomediastinal silhouette is within normal limits. IMPRESSION IMPRESSION Probable small pleural effusions. Chest CT 07/19/23: IMPRESSION: 1. Stable areas of parenchymal scarring. 2. Interval resolution of right pleural effusion. 3. No dense consolidation, pleural effusion, or pneumothorax. 4. Findings which suggest underlying pulmonary arterial hypertension. Chest XRay on 07/02/2023: FINDINGS Stable single lead left-sided cardiac pacer extending into the right ventricle. Mild cardiomegaly. No consolidation or pulmonary edema. Small bilateral pleural effusions. No pneumothorax. IMPRESSION IMPRESSION Small pleural effusions. Chest CT on 04/14/2023: IMPRESSION: 1. Small focal density within the medial right lower lobe which could reflect atelectasis/scarring or pneumonia. 3-6 month follow-up chest CT is recommended to document stability/resolution. 2. Subcentimeter pulmonary nodules. For patients at low risk (minimal or absent history of smoking and of other known risk factors), no routine follow-up is indicated. For patients at high risk (history of smoking or of other known risk factors), consider optional CT Chest at 12 months. (Reference: Joanna) 3. Small bilateral pleural effusions. 4. COPD. 5. Findings of pulmonary hypertension. 6. Age indeterminate mild T8 compression deformity. 7. Moderate coronary arterial calcification, indicating the presence of coronary artery disease. If the patient has associated symptoms recommend management as per chest pain guidelines. If the patient is asymptomatic consider reviewing modifiable cardiovascular risk factors and managing as per guidelines for primary prevention. Stable single lead left-sided cardiac pacer extending into the right ventricle. Mild cardiomegaly. No consolidation or pulmonary edema. Small bilateral pleural effusions. No pneumothorax. IMPRESSION Small pleural effusions. Chest Xray on 03/13/2023: FINDINGS Left subclavian single lead cardiac pacemaker. Unchanged mild enlargement of the cardiomediastinal silhouette. Normal vascularity. No focal consolidation, pleural effusion, or pneumothorax. Degenerative changes in the shoulders. Scoliosis. Chronic unchanged height loss of multiple midthoracic vertebral bodies with kyphotic deformity. Aortic atherosclerosis. IMPRESSION No evidence of acute cardiopulmonary disease. If cough persists, consider CT scan. Chest Xray on 04/03/22: IMPRESSION 1. No acute cardiopulmonary process on plain film examination. Chest x-ray performed at [facility] on November 25, 2019 to revealed small bilateral pleural effusions. Cardiomegaly. EXAM XR CHEST 2 VIEWS - 11/11/2021 12:16 pm FINDINGS Cardiomegaly, unchanged. Small bilateral pleural effusions, mildly increased since prior radiograph. Bibasilar subsegmental atelectasis. No pneumothorax Degenerate osseous changes. Unchanged scoliosis. IMPRESSION IMPRESSION Small bilateral pleural effusions with bibasilar subsegmental atelectasis. EXAM XR CHEST 2 VIEWS-10/22/2021 3:31 pm FINDINGS The cardiac silhouette is mildly enlarged, stable. There is mild elevation of the left hemidiaphragm. There are new bibasilar pulmonary consolidations, greater on the left. Degenerative changes of the thoracic spine are again noted. There is stable mild compression deformity of a mid thoracic vertebral body. IMPRESSION IMPRESSION New ill-defined bibasilar pulmonary consolidation, greater on the left. Please correlate clinically. Consider follow up chest radiographs to resolution. Alternatively, consider further evaluation of the findings with a contrast- enhanced chest CT. XR CHEST 2 VIEWS,11/14/2019 2:54 pm FINDINGS There is no focal airspace consolidation, pleural effusion or evidence of pneumothorax. Mild cardiomegaly. Pulmonary vasculature is within normal limits. Mildly hyperinflated lungs, suggesting COPD. There is no evidence of pneumothorax. IMPRESSION IMPRESSION No acute cardiopulmonary abnormality. XR CHEST 2 VIEWS - 05/10/2019 4:42 pm FINDINGS The previously seen focal hazy opacity in the right upper lobe is less prominent than seen previously. There is bibasilar faint hazy opacities which may represent atelectasis and/or infiltrates however appear improved compared to that seen previously. There is no pleural effusion or pneumothorax visualized. The lungs are hyperaerated. The heart size is unchanged. There is calcific atheroscleroticdisease. There is no free air visualized below the diaphragm. IMPRESSION IMPRESSION The previously seen focal hazy opacity in the right upper lobe is less prominent than seen previously. There is bibasilar faint hazy opacities which may represent atelectasis and/or infiltrates however appear improved compared to that seen previously. XR CHEST 2 VIEWS-04/06/2019 11:01 am FINDINGS There are patchy bibasilar and right upper lobe airspace opacities. There is no pleural effusion. The pulmonary vasculature and cardiomediastinal silhouette are within normal limits. Stable appearance of the spine with scoliosis and mild loss of height of a midthoracic vertebral body. IMPRESSION IMPRESSION Patchy bibasilar and right upper lobe airspace opacities which are nonspecific but most suspicious for pneumonia. Follow-up chest radiograph is recommended to document resolution. Spirometry performed on April 06, 2019 revealed mild obstructive airway disease. Post bronchodilator testing was not done as it took a lot of coaching just to get the pre bronchodilator testing done. FEV1/FVC was 68%. FEV1 was 1.49, 76% of predicted. FVC was 2.19, 83% of predicted. Spirometry performed on June 20, 2018 revealed mild obstructive airway disease. FEV1/FVC was 66%.FEV1 was 1.58, 79% of predicted. FVC was 2.41, 90% of predicted. There was an 8% increase in FEV1 following bronchodilator administration. Spirometry performed on June 17, 2017 revealed mild obstructive airway disease. FEV1/FVC was 68%.FEV1 was 1.56, 76% of predicted. FVC was 2.30, 84% of predicted. There is an 8% increase in FEV1 following bronchodilator administration. Pulmonary function test performed on February 15, 2015 revealed mild obstructive airway disease. FEV1/FVC was 64%. FEV1 was 1.73, 74% of predicted. FVC was 2.71, 87% of predicted. There was a 13% increase with bronchodilator. Pulmonary function test performed on July 21, 2013 revealed mild obstructive airway disease. Her FEV1 /FVC was 62%. Her FEV1 was 1.85, 81% of predicted. Her FVC was 2.97, 98% of predicted. Her peak flow was 257.20, 83% of predicted Pulmonary function tests performed on 09/20/12 revealed mild obstructive airway disease. FEV1/FVC was reduced at 63%. FEV1 was 1.80, 73% of predicted. FVC was 2.85, 87% of predicted. Peak flow was 299.60, 85% of predicted. Pulmonary function tests performed 05/07/10 showed early obstructive pulmonary impairment. FEV 1 was2.13, 91% of predicted. FEV1/FVC was 0.65, 86% of predicted. Peak flow rate was 252.60, 71 % of predicted. There is a 12% change with bronchodilator. This is increased from 2008 where she had an FEV1of 2.01, 84% of predicted. POSITIVE ALLERGY SKIN/RAST TESTS: April Grass, Ragweed, [place], Mixed [place] Pollens, Alternaria, Cat and Dog ASSESSMENT: ICD-10-CM 1. Mild persistent asthma without complication J45.30 2. Seasonal allergic rhinitis due to pollen J30.1 3. Seasonal allergic rhinitis due to fungal spores J30.2 4. Allergic rhinitis due to animal hair and dander J30.81 5. Pulmonary HTN (HCC) I27.20 6. Paroxysmal atrial fibrillation (HCC) I48.0 7. Cough, unspecified type R05.9 PLAN: Avoidance measures regarding pollens, animals and molds were again recommended and reviewed. She has a longstanding history of allergic rhinitis and asthma and was having trouble with a persistent cough. Persistent pleural effusions were noted on chest x-rays and so she was referred to pulmonology who feels that her shortness of breath is multifactorial, including her asthma, cardiac disease and pulmonary hypertension. She did recently have pneumonia and was treated with two rounds of doxycycline and one round of Levaquin with a recent chest CT with resolution. Advised the patient to continue to follow closely with pulmonology. She is currently on Advair Diskus 250-50 1 puff bid and will continue this. She will continue to rinse her mouth after use. She will also continue levalbuterol 2 puffs every 4 hours as needed for cough, wheeze, chest tightness or shortness of breath. Additionally she is taking Singulair 10 mg dailyand will continue. If these are not enough to control her symptoms then she should be seen and caref ully assessed to determine the cause of her symptoms whether it be pulmonary or cardiac or both. She has been following closely with pulmonology and cardiology. She does have persistent AFib and heart failure. She will continue to follow closely with her receptionist nurse. She will continue with Flonase 2 sprays in each nostril once daily. She additionally has Astelin touse, 1 spray in each nostril twice daily as needed. She can also use nasal saline to help with any nasal congestion. Allergy immunotherapy is not a consideration because of her severe heart disease and beta-steven therapy. She will discontinue desloratadine and continue levocetirizine 5 mg once daily. Soumya Travis PA-C Allergy and Immunology [facility] Supervising Physician: Martin Kwon MD Type of Supervision: Direct I spent a total of 20-29 minutes (exact time 27 mins) on the date of service in preparation, delivery, and documentation of the care provided to Karina Juarez excluding any time spent in the performance of separately billed services. (This note was completed using the dictation program Fluency Direct. As such, there may be misspellings, word substitutions, or other variations that should not change the essence of the clinical content of this encounter note.If there is need for further clarification, please direct questions to the provider listed above.) documented in this encounter Nursing Notes * Nay Holt LPN - 05/09/2024 2:25 PM EDT The pt has been properly identified by confirmation of name and date of . Patient presents forallergy follow up. Patient states no new concerns or issues at this time. documented in this encounter Plan of Treatment Upcoming Encounters Date Type Department Care Team (Late st Contact Info) Description 05/09/2024 4:00 PM EDT Office Visit General Internal Medicine [place] [address] [address] [place] [address] Kenzie Yeboah MD [address] [place] [address] [place] [address] Arrived 06/09/2024 11:45 AM EDT Office Visit Hematology/Oncology [place] [address] [address] [place] [phone] Sotero Price MD [address] [facility] [place] [address] 08/11/2024 1:00 PM EDT Office Visit [facility] [address] [place] [id number] Marie Underwood MD [address] [place] [address] 11/14/2024 3:00 PM EST Office Visit Rheumatology [facility] [address] [place] [address] Mio Chirinos CRNP [address] [employer] [place] [address] Health Maintenance Due Date Last Done Comments Alpha-1 Antitrypsin 1958 CKD PHOS USE SMARTSET 98185 09/04/2023 09/04/2022 *BISPHONATE OR OTHER ACCEPTABLE MEDICATION NEEDED FOR OSTEOPOROSIS (REFER TO SMARTSET #1146) 05/05/2024 Influenza Vaccine (FLU shot) (#1) 2024 08/20/2023, 07/16/2022, 09/08/2021, Additional history exists Albumin/Creatinine Ratio 02/07/2025 02/08/2024, 08/09 Depression Screening 02/07/2025 02/08/2024 CKD HGB USE SMARTSET 16383 04/20/202504/20, 04/20/2024, 11/11/2023, Additional history exists O2 [...] D LEVEL ONCE IN A LIFETIME-USE SMARTSET# 86484 Completed 04/20/2024, 10/12/2023, 06/30/2021, Additional history exists [...] Visit Diagnoses Diagnosis Mild persistent asthma without complication- Primary Unspecified asthma Seasonal allergic rhinitis due to pollen Seasonal allergic rhinitis due to fungal spores Allergic rhinitis due to animal hair and dander Allergic rhinitis due to animal (cat) (dog) hair and dander Pulmonary HTN (HCC) Other chronic pulmonary heart diseases Paroxysmal atrial fibrillation (HCC) Atrial fibrillation Cough, unspecified type documented in this encounter Care Teams Rotor Coil Taper Relationship Specialty Start Date End Date Marie Underwood MD [address] [place] [address] PCP - General Internal Medicine 07/09/23 documented as of this encounter
--- OUTSIDE RECORDS SUMMARY | 2024-09-26 14:08 | External Medical Summary | Summary of Care ---
Author Name Unknown Organization [facility] Address [address] [place] [address] Phone [phone] Care Team Providers Care Shrimp Pond Laborer Name Role Phone Marie Underwood MD Primary Care Provider [phone] Reason for Visit * Reason Comments Joint Pain Right wrist pain Encounter Details Date Type Department Care Team (Late st Contact Info) Description 05/09/2024 4:00 PM EDT Office Visit General Internal Medicine [facility] [address] [facility] [place] [address] Kenzie Yeboah MD [address] [place] [address] Acute pain of right wrist*; Swelling of [...] mRNA, LNP-s, No Pre serve, 2-Dose Series ([employer]) 09/02/2021,01/18/2021,12/23/2020 Pneumococcal Conjugate Vacc, 13 Valent (Prevnar) [...] fibrillation (HCC) MDS (myelodysplastic syndrome), low grade ([facility]) Stage 3b chronic kidney disease Gastroesophageal reflux disease with esophagitis without hemorrhage Hypertensive 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 stage 3b chronic kidney disease (HCC) Pulmonary HTN ([facility]) HTN, goal below 140/90 Bilateral pleural effusion Nocturnal hypoxemia S/P atrioventricular kamran ablation Pneumonia of left lower lobe due to infectious organism Mild protein-calorie malnutrition ([facility]) COPD, group B, by GOLD 2017 classification ([facility]) Mid back pain Current Outpatient [...] 2 days 1 tab for 2 days Swelling of [...] instructions and agrees with plan of care. Kenzie Yeboah MD 05/09/2024 documented in this [...] State [address]orn [address] [place] [phone] Sotero Price MD [address] [place] [address] 08/11/2024 1:00 PM EDT Office Visit [facility] [address] [place] [facility] [place] [place] [address] Marie Underwood MD [address] [place] [facility] [place] [address] 11/14/2024 3:00 PM EST Office Visit Rheumatology [place] [id number] [employer] [place] [address] Mio Chirinos CRNP [address] [place] [address] Scheduled Orders Name Type Priority Associated Diagnoses Orde r Schedule XR WRIST 3 OR MORE VIEWS Medical Imaging Routine Acute pain of right wrist Swelling of right hand Expected: 05/09/2024, Expires: 06/09/2025 Health Maintenance Due Date Last Done Comments Alpha-1 Antitrypsin 1958 CKD PHOS USE SMARTSET 54430 09/04/2023 09/04/2022 *BISPHONATE OR OTHER ACCEPTABLE MEDICATION NEEDED FOR OSTEOPOROSIS (REFER TO SMARTSET #1146) 05/05/2024 Influenza Vaccine (FLU shot) (#1) 2024 08/20/2023, 07/16/2022, 09/08/2021, Additional history exists Albumin/Creatinine Ratio 02/07/2025 02/08/2024, 08/09 Depression Screening 02/07/2025 02/08/2024 CKD HGB USE SMARTSET 44231 04/20/202504/20, 04/20/2024, 11/11/2023, Additional history exists O2 [...] D LEVEL ONCE IN A LIFETIME-USE SMARTSET# [id number] Completed 04/20/2024, 10/12/2023, 06/30/2021, Additional history exists [...] constipation documented in this encounter Care Teams Shrimp Pond Laborer Relationship Specialty Start Date End Date Marie Underwood MD [address] [place] [address] PCP - General Internal Medicine 07/09/23 documented as of this encounter
--- OUTSIDE RECORDS SUMMARY | 2024-09-26 14:08 | External Medical Summary | Summary of Care ---
Author Name Unknown Organization [facility] Address [address] [place] [address] Phone [phone] Care Team Providers Care Tree Tapping Laborer Name Role Phone Marie Underwood MD Primary Care Provider [phone] Reason for Visit * Reason Comments Allergy Return Encounter Details Date Type Department Care Team (Late st Contact Info) Description 05/09/2024 2:30 PM EDT Office Visit [facility]Immun[facility] [address] [facility] [place] [address] Soumya Travis PA-C [address] [facility] [place] [address] Mild persistent asthma without complication*; Seasonal allergic [...] for Wheezing. 15 g 12 3 Active Montelukast Sodium 10 MG Oral Tablet [...] before bedtime. 180 Each 3 4 Active Azelastine HCl 137 MCG/SPRAY Nasal Solution Administer 2 Sprays into nostril in the morning and 2 Sprays before bedtime. 90 mL 4 3 024 Discontinued(Pa harsha preference/disc ontinuation) Cefdinir 300 MG Oral Capsule (Omnicef) Take 1 Capsule by mouth in the morning for 7 days. Lower dose due to CrCl <30. 7 Capsule 4 024 Discontinued(En d of Procedure) Apixaban 2.5 MG Oral Tablet (Eliquis)Indication s:Palpitations TAKE ONE TABLET BY MOUTH EVERY MORNING AND BEFORE BEDTIME 180 Tablet 3 4 024 Discontinued(Pa tient preference/disc ontinuation) Desloratadine 5 MG Oral Tablet Disintegrating Take by mouth. 024 Discontinued documented as of this encounter (statuses [...] mRNA, LNP-s, No Pre serve, 2-Dose Series (Distra) 09/02/2021,01/18/2021,12/23/2020 Influenza, Whole Virus 08/20/1999 0 Pneumococcal [...] documented in this encounter Progress Notes * Martin Kwon MD - 05/09/2024 4:19 PM EDT I have reviewed the advanced practitioner's documentation on the date of service referenced in note, and I agree with, and take responsibility for the plan of care. Martin Kwon MD * Soumya Travis PA-C - 05/09/2024 3:04 [...] diastolic heart failure due to valvular disease ([facility]) Permanent atrial fibrillation ([facility]) MDS (myelodysplastic syndrome), low grade ([facility]) Stage 3b chronic kidney disease Gastroesophageal reflux disease with esophagitis without hemorrhage Hypertensive 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 stage 3b chronic kidney disease ([facility]) Pulmonary HTN ([facility]) HTN, goal below 140/90 Bilateral pleural effusion Nocturnal hypoxemia S/P atrioventricular kamran ablation Pneumonia of left lower lobe due to infectious organism Mild protein-calorie malnutrition ([facility]) COPD, group B, by GOLD 2017 classification ([facility]) Mid back pain Current Outpatient Medications Medication [...] plain film examination. Chest x-ray performed at [facility] on November 25, 2019 to revealed small [...] TESTS: April Grass, Ragweed, Teresa's Quarter, Mixed [place] Pollens, Alternaria, Cat and Dog ASSESSMENT: ICD-10-CM 1. Mild persistent asthma without complication J45.30 2. Seasonal allergic rhinitis due to pollen J30.1 3. Seasonal allergic rhinitis due to fungal spores J30.2 4. Allergic rhinitis due to animal hair and dander J30.81 5. Pulmonary HTN ([facility]) I27.20 6. Paroxysmal atrial fibrillation ([facility]) I48.0 7. Cough, unspecified type R05.9 PLAN: [...] will continue to follow closely with her meat clerk. She will continue with Flonase 2 sprays [...] daily. Soumya Travis PA-C Allergy and Immunology [facility] Supervising Physician: Martin Kwon MD Type [...] 06/09/2024 11:45 AM EDT Office Visit Hematology/Oncology [facility] [address] [facility] [place] [address] Sotero Price MD [address] [facility] [place] [address] 08/11/2024 1:00 PM EDT Office Visit [facility] [address] [place] [phone] Marie Underwood MD [address], [place] [phone] 11/14/2024 3:00 PM EST Office Visit Rheumatology [facility] [address] [place] [address] Mio Chirinos CRNP [address] [place] [address] Health Maintenance Due Date Last Done Comments Alpha-1 Antitrypsin 1958 CKD PHOS USE SMARTSET 81252 09/04/2023 09/04/2022 *BISPHONATE OR OTHER ACCEPTABLE MEDICATION NEEDED FOR OSTEOPOROSIS (REFER TO SMARTSET #1146) 05/05/2024 Influenza Vaccine (FLU shot) (#1) 2024 08/20/2023, 07/16/2022, 09/08/2021, Additional history exists Albumin/Creatinine Ratio 02/07/2025 02/08/2024, 08/09 Depression Screening 02/07/2025 02/08/2024 CKD HGB USE SMARTSET 04003 04/20/202504/20, 04/20/2024, 11/11/2023, Additional history exists O2 [...] D LEVEL ONCE IN A LIFETIME-USE SMARTSET# 50358 Completed 04/20/2024, 10/12/2023, 06/30/2021, Additional history exists [...] type documented in this encounter Care Teams Tree Tapping Laborer Relationship Specialty Start Date End Date Marie Underwood MD [address] [place] [address] PCP - General Internal Medicine 07/09/23 documented as of this encounter
--- OUTSIDE RECORDS SUMMARY | 2024-09-26 14:09 | External Medical Summary | Summary of Care ---
Author Name Unknown Organization [facility] Address [address] [place] [address] Phone [phone] Care Team Providers Care Cigar Binder Name Role Phone Marie Underwood MD Primary Care Provider [phone] Reason for Visit * Reason Onset Date Comments Order Request 04/12/2024 prolia Encounter Details Date Type Department Care Team (Late st Contact Info) Description 04/12/2024 Telephone Rheumatology [facility] [address] [place] [address] [place] [address] Mio Chirinos CRNP [address] [place] [address] [place] [address] Order Request (prolia) Allergies Active Allergy Reactions Criticality Noted Date Comments Sulfamethoxazole-Trimethopri m Fever 11/13/2019 Fever, sob, itchiness and hives Levofloxacin 05/26/2023 Sore Achilles Tendon documented as of this encounter (statuses as of 04/26/2024) Medications Medication Sig Dispensed Refills Start Date [...] NEEDED FOR SLEEP 30 Capsule 12/28/2023 Active Fluticasone Propionate 50 MCG/ACT Nasal Suspension (Flonase) Administer 2 Sprays into each nostril in the morning. 16 g 5 03/10/2024 Active Levocetirizine Dihydrochloride 5 MG Oral Tablet [...] before bedtime. 180 Tablet 3 04/04/2024 Active Hospital, Clinic, or Other Facility Administered Medication Ordered Dose Route Frequency Start Date End Date Status Denosumab (Prolia) subcut inj 60 mgIndications:Senile osteoporosis 60 mg SC [id number] 10/12/2023 10/06/2024 Active Denosumab (Prolia) subcut inj 60 mgIndications:Senile osteoporosis 60 mg SC ONCE 04/26/2024 04/27/2024 Active Denosumab (Prolia) subcut inj 60 mgIndications:Senile osteoporosis 60 mg SC ONCE 04/18/2024 04/19/2024 Ended documented as of this encounter (statuses as of 04/26/2024) Active Problems Problem Noted Date Diagnosed Date [...] as of this encounter (statuses as of 04/26/2024) Resolved Problems Problem Noted Date Diagnosed Date [...] as of this encounter (statuses as of 04/26/2024) Immunizations Name Administration Dates Next Due COVID-19 mRNA, LNP-s, No Pre serve, 2-Dose Series ([employer]) 09/02/2021,01/18/2021,12/23/2020 Influenza, Whole Virus 08/20/1999 0 Pneumococcal [...] encounter Miscellaneous Notes * Telephone Encounter - Mio Chirinos CRNP - 04/26/2024 4:02 PM EDT Signed * Telephone Encounter - Mel Ivy LPN - 04/26/2024 1:50 PM EDT Please sign order * Telephone Encounter - Coty Ivy LPN - 04/17/2024 4:05 PM EDT Called pt to have her get labs done * Telephone Encounter - Mio Chirinos CRNP - 04/13/2024 1:01 PM EDT Would like updated labs before Prolia is administered. Message patient at this time. Lab orders placed. * Telephone Encounter - Coty Ivy LPN - 04/12/2024 2:22 PM EDT Chart reviewed and labs noted to be within normal limits. Patient has been seen within the last 12 months by a Rheumatology provider. Prolia authorization approved and updated in referral. Last injection has been > 6 months and 1 day. CAM orders pended for signature. documented in this encounter Plan of Treatment Upcoming Encounters Date Type Department Care Team (Late st Contact Info) Description 05/03/2024 1:30 PM EDT Nurse Only Rheumatology [address] [place] [address] Pf, Nurse Rheum [address] [place] [address] [place] [address] 05/09/2024 2:30 PM EDT Office Visit Allergy/Immunology [facility] [address] [facility] [place] [address] Soumya Travis PA-C [address] [facility] [place] [address] 05/24/2024 2:15 PM EDT Office Visit Hematology/Oncology [facility] [place] [address] [facility] [place] [phone] Sotero Price MD [address] [facility] [place] [address] 08/11/2024 1:00 PM EDT Office Visit [facility] [address] [place] [phone] Marie Underwood MD [address] [place] [address] Health Maintenance Due Date Last Done Comments Alpha-1 Antitrypsin 1958 CKD PHOS USE SMARTSET 92554 09/04/2023 09/04/2022 Albumin/Creatinine Ratio 02/07/2025 02/08/2024, 08/09 Depression Screening 02/07/2025 02/08/2024 O2 ASSESSMENT COMPLETED IN PAST YEAR FOR COPD 02/07/2025 02/08/2024 CKD HGB USE SMARTSET 83791 04/20/202504/20, 04/20/2024, 11/11/2023, Additional history exists DXA Scan 03/06/2026 03/06/2024, 02/07, 03/03/2022, Additional history exists DTaP,Tdap,and Td Vaccines (2 - Td or Tdap) 08/11/2026 08/11/2016, 11/06/2010, 08/08/1999 Pneumococcal Vaccine: 65+ Years Completed 01/04/2015, 05/06/2004 Zoster Vaccines Completed 10/05/2018, 06/10, 12/05/2008 COVID-19 Vaccine Discontinued 09/02/2021, , 12/23/2020 Influenza Vaccine (FLU shot) Completed 08/20/2023, 07/16/2022, 09/08/2021, Additional history exists VITAMIN D LEVEL ONCE IN A LIFETIME-USE SMARTSET# 85135 Completed 04/20/2024, 10/12/2023, 06/30/2021, Additional history exists [...] filedocumented as of this encounter Results * 25-HYDROXY VITAMIN D (04/20/2024 3:50 PM EDT) 25-Hydroxy Vitamin D 82 >19 ng/mL 04/21/2024 4:21 AM EDT LABORATORY [facility] Blood Venous blood specimen / Unknown Venipuncture / Unknown 04/20/2024 3:50 PM EDT 04/20/2024 3:50 PM EDT Narrative LAB[facility]ATORY [facility] - 04/21/2024 4:21 AM EDT Deficient: <20 ng/mL Insufficient: 20-29 ng/mL Recommended/Optimum:30-50 ng/mL Vitamin D intoxication is rare. If suspicious of Vitamin D toxicity, evaluation of serum Calcium and PTH is recommended. Mio GALAN LAB BLOOD ORDERAB LES LABORATORY [facility] [address] [place] [address] documented in this encounter Visit Diagnoses Diagnosis Senile osteoporosis- Primary documented in this encounter Care Teams Cigar Binder Relationship Specialty Start Date End Date Marie Underwood MD [address] [place] [address] PCP - General Internal Medicine 07/09/23 documented as of this encounter
--- OUTSIDE RECORDS SUMMARY | 2024-09-26 14:09 | External Medical Summary | Summary of Care ---
Author Name Unknown Organization [facility] Address [address] [place] [address] Phone [phone] Care Team Providers Care Hematology Nurse Name Role Phone Marie Underwood MD Primary Care Provider [phone] Reason for Visit * Reason Onset Date Comments Order Request 04/12/2024 prolia Encounter Details Date Type Department Care Team (Late st Contact Info) Description 04/12/2024 Telephone Rheumatology [facility] [address] [place] [address] [place] [address] Mio Chirinos CRNP [address] [place] [address] [place] [address] Order Request (prolia) Allergies Active Allergy Reactions [...] inj 60 mgIndications:Senile osteoporosis 60 mg SC [id number] 10/12/2023 10/06/2024 Active Denosumab (Prolia) subcut inj [...] mRNA, LNP-s, No Pre serve, 2-Dose Series ([employer]) 09/02/2021,01/18/2021,12/23/2020 Pneumococcal Conjugate Vacc, 13 Valent (Prevnar) [...] encounter Miscellaneous Notes * Telephone Encounter - Mel Ivy LPN [...] 05/03/2024 1:30 PM EDT Nurse Only Rheumatology [facility] [address] [facility] [place] [address] Pf, Nurse Rheum [facility] [facility] [place], [place] [address] 05/09/2024 2:30 PM EDT Office Visit Allergy/Immunology [facility] [address] [place] [address] Soumya Travis PA-C 200 [facility] [place] [address] 05/24/2024 2:15 PM EDT Office Visit Hematology/Oncology [facility] [address] [facility] [place] [phone] Sotero Price MD [address] [facility] [place] [address] 08/11/2024 1:00 PM EDT Office Visit [facility] [address] [place] [address] Marie Underwood MD [address] [facility] [place] [address] Health Maintenance Due Date Last Done Comments Alpha-1 Antitrypsin 1958 CKD PHOS USE SMARTSET 93019 09/04/2023 09/04/2022 Albumin/Creatinine Ratio 02/07/2025 02/08/2024, 08/09 Depression Screening 02/07/2025 02/08/2024 O2 ASSESSMENT COMPLETED IN PAST YEAR FOR COPD 02/07/2025 02/08/2024 CKD HGB USE SMARTSET 12066 04/20/202504/20, 04/20/2024, 11/11/2023, Additional history exists DXA [...] D LEVEL ONCE IN A LIFETIME-USE SMARTSET# 16474 Completed 04/20/2024, 10/12/2023, 06/30/2021, Additional history exists [...] >19 ng/mL 04/21/2024 4:21 AM EDT LABORATORY [facility] Blood Venous blood specimen / Unknown Venipuncture / Unknown 04/20/2024 3:50 PM EDT 04/20/2024 3:50 PM EDT Narrative LABORATORY [facility] - 04/21/2024 4:21 AM EDT Deficient: <20 ng/mL Insufficient: 20-29 ng/mL Recommended/Optimum:30-50 ng/mL Vitamin D intoxication is rare. If suspicious of Vitamin D toxicity, evaluation of serum Calcium and PTH is recommended. Mio GALAN LAB BLOOD ORDERAB LES LAB[facility]AT[facility] [address] [place] [address] documented in this encounter Visit Diagnoses Diagnosis Senile osteoporosis- Primary documented in this encounter Care Teams Hematology Nurse Relationship Specialty Start Date End Date Marie Underwood MD [address] [place] [address] PCP - General Internal Medicine 07/09/23 documented as of this encounter
--- OUTSIDE RECORDS SUMMARY | 2024-09-26 14:09 | External Medical Summary | Summary of Care ---
Author Name Unknown Organization [facility] Address [address] [place] [address] Phone [phone] Care Team Providers Care French Folding Machine Operator Name Role Phone Marie Underwood MD Primary Care Provider [phone] Reason for Visit * Reason Onset Date Comments Medication Question 04/28/2024 Encounter Details Date Type Department Care Team (Late st Contact Info) Description 04/28/2024 Telephone [facility] [address] [place] [address] Marie Underwood MD [address] [place] [address] Medication Question Allergies Active Allergy Reactions Criticality Noted Date Comments Sulfamethoxazole-Trimethopri m Fever 11/13/2019 Fever, sob, itchiness and hives Levofloxacin 05/26/2023 Sore Achilles Tendon documented as of this encounter (statuses as of 04/28/2024) Medications Medication Sig Dispensed Refills Start Date [...] before bedtime. 180 Tablet 3 04/04/2024 Active Cefdinir 300 MG Oral Capsule (Omnicef) Take 1 Capsule by mouth in the morning for 7 days. Lower dose due to CrCl <30. 7 Capsule 04/21/2024 Active Fluticasone Propionate 50 MCG/ACT Nasal Suspension (Flonase) Administer 2 Sprays into each nostril in the morning. 16 g 5 04/28/2024 Active Fluticasone Propionate 50 MCG/ACT Nasal Suspension (Flonase) Administer 2 Sprays into each nostril in the morning. 16 g 5 03/10/2024 4 Discontinu ed(Refill) Hospital, Clinic, or Other Facility Administered Medication Ordered Dose Route Frequency Start Date End Date Status Denosumab (Prolia) subcut inj 60 mgIndications:Senile osteoporosis 60 mg SC [id number] 10/12/2023 10/06/2024 Active documented as of this encounter (statuses as of 04/28/2024) Active Problems Problem Noted Date Diagnosed Date [...] as of this encounter (statuses as of 04/28/2024) Resolved Problems Problem Noted Date Diagnosed Date [...] as of this encounter (statuses as of 04/28/2024) Immunizations Name Administration Dates Next Due COVID-19 mRNA, LNP-s, No Pre serve, 2-Dose Series ([employer]) 09/02/2021,01/18/2021,12/23/2020 Pneumococcal Conjugate Vacc, 13 Valent (Prevnar) [...] encounter Miscellaneous Notes * Telephone Encounter - Israel Comer, blanching machine operator - 04/28/2024 11:02 AM EDT Patient requesting refills for Fluticasone Slameterol. Upon chart review, medication is listed as discontinued, with discontinuation reason as "pt prefernece". Please advise if you wish to continue this therapy for the patient. Thank You, Israel Comer [facility] Supervisor Adult Education [facility] 04/28/2024, 11:03 AM documented in this encounter Plan of Treatment Upcoming Encounters Date Type Department Care Team (Late st Contact Info) Description 05/03/2024 1:30 PM EDT Nurse Only Rheumatology [address] [place] [address] Pf, Nurse Rheum [address] [place] [address] [place] [address] 05/09/2024 2:30 PM EDT Office Visit Allergy/Immunology [facility] [address] [facility] [place] [address] Soumya Travis PA-C [address] [facility] [place] [address] 05/24/2024 2:15 PM EDT Office Visit Hematology/Oncology [facility] [address] [facility] [place] [phone] Sotero Price MD [address] [facility] [place] [address] 08/11/2024 1:00 PM EDT Office Visit [facility] [address] [place] [phone] Marie Underwood MD [address] [place], [place] [phone] Health Maintenance Due Date Last Done Comments Alpha-1 Antitrypsin 1958 CKD PHOS USE SMARTSET 39050 09/04/2023 09/04/2022 Albumin/Creatinine Ratio 02/07/2025 02/08/2024, 08/09 Depression Screening 02/07/2025 02/08/2024 O2 ASSESSMENT COMPLETED IN PAST YEAR FOR COPD 02/07/2025 02/08/2024 CKD HGB USE SMARTSET 71994 04/20/202504/20, 04/20/2024, 11/11/2023, Additional history exists DXA [...] D LEVEL ONCE IN A LIFETIME-USE SMARTSET# 51062 Completed 04/20/2024, 10/12/2023, 06/30/2021, Additional history exists [...] filedocumented as of this encounter Care Teams French Folding Machine Operator Relationship Specialty Start Date End Date Marie Underwood MD [address] [place] [address] PCP - General Internal Medicine 07/09/23 documented as of this encounter
--- OUTSIDE RECORDS SUMMARY | 2024-09-26 14:09 | External Medical Summary | Summary of Care ---
Author Name Unknown Organization [facility] Address [address] [place] [address] Phone [phone] Care Team Providers Care Custom Shoemaker Name Role Phone Marie Underwood MD Primary Care Provider [phone] Encounter Details Date Type Department Care Team (Late st Contact Info) Description 04/29/2024 Refill Pharmacy, [place] [address] [facility] [place] [address] [facility] [place] [address] Allergies Active Allergy Reactions Criticality Noted Date Comments Sulfamethoxazole-Trimethopri m Fever 11/13/2019 Fever, sob, itchiness and hives Levofloxacin 05/26/2023 Sore Achilles Tendon documented as of this encounter (statuses as of 05/02/2024) Medications Medication Sig Dispensed Refills Start Date [...] the morning. 16 g 5 04/28/2024 Active Hospital, Clinic, or Other Facility Administered Medication Ordered Dose Route Frequency Start Date End Date Status Denosumab (Prolia) subcut inj 60 mgIndications:Senile osteoporosis 60 mg SC [id number] 10/12/2023 10/06/2024 Active documented as of this encounter (statuses as of 05/02/2024) Active Problems Problem Noted Date Diagnosed Date Mid back pain 02/08/2024 COPD, group B, by GOLD 2017 classification 01/04 /2024 Mild protein-calorie malnutrition 07/09/2023 Pneumonia of left [...] as of this encounter (statuses as of 05/02/2024) Resolved Problems Problem Noted Date Diagnosed Date [...] as of this encounter (statuses as of 05/02/2024) Immunizations Name Administration Dates Next Due COVID-19 mRNA, LNP-s, No Pre serve, 2-Dose Series ([employer]) 09/02/2021,01/18/2021,12/23/2020 Influenza, Whole Virus 08/20/1999 0 Pneumococcal Conjugate Vacc, 13 Valent (Prevnar) 01/04/2015 Pneumococcal Polysaccharide PPV23 (Pneumovax) 05/06/2004 RSV Vac., Recomb, Adjuvant, PF,0.5 Ml (Arexvy) 08/20/2023 Season Influenza, Quad, PF, Adjuvanted, 65+ Yrs, IM (FLUAD) 08/20/2023,07/19/2020 Seasonal Influenza Virus Vac cine, Unspecified Formulation 09/08/2021,07/19/2020,08/09/2019,09/0 11/2017,08/03/2017,08/03/2016,08/25/20 14,07/21/2013,09/20/2012,09/10/2011,1 11/09/2009,07/29/2009,08/20/2008,08/09,09/21/2006,08/27/2005, 4,10/03/2003,09/08/2002,09/23/2000, Seasonal Influenza, PF, 6 [...] No 07/08/2023 Does the household have a presbyterian hospitallar source of income? (Household - for ages [...] as of this encounter Miscellaneous Notes * Addendum Note - Jocelyne Woods LPN - 05/02/2024 9:16 AM EDTAddended by: JOCELYNE WOODS on: 05/02/2024 09:16 AM Modules accepted: Orders * Telephone Encounter - Jocelyne Woods LPN - 05/02/2024 9:16 AM EDT Order pending. If agreeable Pending Prescriptions: Disp Refills Fluticasone-Salmeterol 250-50 MCG/ACT Inh*180 Ea*3 Sig: Inhale 1 Puff by mouth in the morning and 1 Puff before bedtime. Last Visit: Visit date not found (in office), Visit date not found (telemedicine) Next Visit: Visit date not found Last date the medication was ordered: Ok to refill? Med was discontinued. Patient Active Problem List Diagnosis Age-related osteoporosis without current pathological fracture Asthma, mild persistent Non-rheumatic mitral regurgitation Severe tricuspid regurgitation Chronic diastolic heart failure due to valvular disease ([facility]) Permanent atrial fibrillation ([facility]) MDS (myelodysplastic syndrome), low grade ([facility]) Stage 3b chronic kidney disease Gastroesophageal reflux disease with esophagitis without hemorrhage Hypertensive 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 stage 3b chronic kidney disease ([facility]) Pulmonary HTN ([facility]) HTN, goal below 140/90 Bilateral pleural effusion Nocturnal hypoxemia S/P atrioventricular kamran ablation Pneumonia of left lower lobe due to infectious organism Mild protein-calorie malnutrition ([facility]) COPD, group B, by GOLD 2017 classification ([facility]) Mid back pain Labs: Lab Results Component Value Date/Time CREATININE - [facility] 1.3 (H) 04/20/2024 03:50 PM CREATININE - [facility] 1.2 (H) 06/21/2020 11:51 AM CREATININE, RANDOM URINE - [facility] 54 02/08/2024 03:05 PM CREATININE-OUTSIDE LAB 1.04 01/19/2019 12:00 AM Lab Results Component Value Date/Time POTASSIUM - [facility] 4.3 04/20/2024 03:50 PM POTASSIUM - [facility] 4.9 06/21/2020 11:51 AM POTASSIUM-OUTSIDE LAB 4.1 01/19/2019 12:00 AM Lab Results Component Value Date/Time TSH - [facility] 3.76 05/12/2023 11:16 AM TSH - [facility] 2.24 06/21/2020 11:51 AM Lab Results Component Value Date/Time LDL CHOLESTEROL (CALCULATED) - [facility] 78 01/13/2021 09:27 AM LDL CHOLESTEROL (CALCULATED) - [facility] 76 11/13/2013 10:45 AM LDL CHOLESTEROL (CALCULATED) - [facility] 81 07/20/2006 08:45 AM LDL CHOLESTEROL (DIRECT MEASURE) - [facility] NOT APPLICABLE 11/13/2013 10:45 AM Lab Results Component Value Date/Time ALT - [facility] 26 04/20/2024 03:50 PM ALT - [facility] 02/27/2019 03:06 PM Hemoglobin AIC Results: Lab Results Component Value Date/Time HEMOGLOBIN A1C - [facility] 5.6 07/24/2022 10:38 AM * Telephone Encounter - Fátima Walters [facility] - 05/01/2024 1:20 PM EDT Images from the original note were not included. Not seen by MTM. Discontinued reason was patient preference: Fátima Walters, PharmD, BCACP Clinical Pharmacist Medication Therapy Disease Management 05/01/2024, 1:20 PM * Telephone Encounter - Apple Prescott RP - 04/29/2024 5:03 PM EDT Patient left message on [facility] requesting refill on Advair inhaler. Patient tried to refill at [facility], but was told prescription was cancelled by provider. Prescription was discontinued in [facility] on 04/04/24. Patient is not seen by MTM. She would like return call to [phone]. documented in this encounter Plan of Treatment Upcoming Encounters Date Type Department Care Team (Late st Contact Info) Description 05/03/2024 1:30 PM EDT Nurse Only Rheumatology [place] [id number] [place] [address] Pf, Nurse Rheum [facility] [place] [address] [address] 05/09/2024 2:30 PM EDT Office Visit Allergy/Immunology [place] [address] [facility] [place] [address] Soumya Travis PA-C [address] [facility] [place] [address] 06/09/2024 11:45 AM EDT Office Visit Hematology/Oncology [facility] [place] [address] [facility] [place] [address] Sotero Price MD [address] [facility] [place], [place] [address] 08/11/2024 1:00 PM EDT Office Visit [facility] [address] [place] [address] Marie Underwood MD [address] [place] [address] Health Maintenance Due Date Last Done Comments Alpha-1 Antitrypsin 1958 CKD PHOS USE SMARTSET 03366 09/04/2023 09/04/2022 Albumin/Creatinine Ratio 02/07/2025 02/08/2024, 08/09 Depression Screening 02/07/2025 02/08/2024 O2 ASSESSMENT COMPLETED IN PAST YEAR FOR COPD 02/07/2025 02/08/2024 CKD HGB USE SMARTSET 41992 04/20/202504/20, 04/20/2024, 11/11/2023, Additional history exists DXA [...] D LEVEL ONCE IN A LIFETIME-USE SMARTSET# [id number] Completed 04/20/2024, 10/12/2023, 06/30/2021, Additional history exists [...] filedocumented as of this encounter Care Teams Custom Shoemaker Relationship Specialty Start Date End Date Mraie Underwood MD [address] [place] [address] PCP - General Internal Medicine 07/09/23 documented as of this encounter
--- OUTSIDE RECORDS SUMMARY | 2024-09-26 14:09 | External Medical Summary | Summary of Care ---
Author Name Unknown Organization [facility] Address [address] [place] [address] Phone [phone] Care Team Providers Care Facetor Name Role Phone Marie Underwood MD Primary Care Provider [phone] Reason for Visit * Reason Onset Date Comments Medication Administration prolia Medication Administration 05/03/2024 Prolia * Precert (Within 10 days (routine)) - Authorized Specialty Diagnoses / Procedures Referred By Contac t Referred To Contact Rheumatology Diagnoses Age-related osteoporosis without current pathological fracture Procedures HI DENOSUMAB INJECTION Meera Irby MD [address] [place] [address] [address] [place] [address] Meera Irby MD [address] [place] [address] 150 [place] [id number] Referral ID Status Reason Start Date Expiration Date V isits Requested Visits Authorized [id number] Authorized Precert 03/11/2022 11/07/2099 99 99 Encounter Details Date Type Department Care Team (Late st Contact Info) Description 05/03/2024 1:30 PM EDT Nurse Only Rheumatology [address] [place] [address] Pf, Nurse Rheum [address] [place] [address] [place] [address] Medication Administration (prolia); Medica... Allergies Active Allergy Reactions Criticality Noted Date Comments Sulfamethoxazole-Trimethopri m Fever 11/13/2019 Fever, sob, itchiness and hives Levofloxacin 05/26/2023 Sore Achilles Tendon documented as of this encounter (statuses as of 05/03/2024) Medications Medication Sig Dispensed Refills Start Date [...] inj 60 mgIndications:Senile osteoporosis 60 mg SC [id number] 10/12/2023 05/03/2024 Ended documented as of this encounter (statuses as of 05/03/2024) Active Problems Problem Noted Date Diagnosed Date [...] as of this encounter (statuses as of 05/03/2024) Resolved Problems Problem Noted Date Diagnosed Date [...] as of this encounter (statuses as of 05/03/2024) Immunizations Name Administration Dates Next Due COVID-19 [...] Sign Reading Time Taken Comments Blood Pressure - - Pulse - - Temperature 36.5 C (97.7 F) 05/03/2024 1:38 PM ED T Respiratory Rate - - Oxygen Saturation - - Inhaled Oxygen Concentration - - Weight - - Height - - Body Mass Index - - documented in this encounter Patient Instructions * Patient Instructions* Keven Negrete LPN - 05/03/2024 1:41 PM EDT MEDICATION GUIDE Prolia (HI-carolyn-a) (denosumab) Injection Read the Medication Guide that comes with Prolia before you start taking it and each time you get arefill. There may be new information. This Medication Guide does not take the place of talking withyour doctor about your medical condition or treatment. Talk to your doctor if you have any questions about Prolia. What is the most important information I should know about Prolia? Prolia can cause serious side effects includin. Low calcium levels in your blood (hypocalcemia). Prolia may lower the calcium levels in your blood. If you have low blood calcium before you start receiving Prolia, it may get worse during treatment. Your low blood calcium must be treated before you receive Prolia. Most people with low blood calcium levels do not have symptoms, but some people may have symptoms. Call your doctor right away if you have symptoms of low blood calcium such as: Spasms, twitches, or cramps in your muscles Numbness or tingling in your fingers, toes, or around your mouth Your doctor may prescribe calcium and vitamin D to help prevent low calcium levels in your blood while you take Prolia. Take calcium and vitamin D as your doctor tells you to. 2. Serious infections. Serious infections in your skin, lower stomach area (abdomen), bladder, or ear may happen if you take Prolia. Inflammation of the inner lining of the heart (endocarditis) due to an infection also mayhappen more often in people who take Prolia. You may need to go to the hospital for treatment if you develop an infection. Prolia is a medicine that may affect your immune system. People who have weakened immune system or take medicines that affect the immune system may have an increased risk for developing serious infections. Call your doctor right away if you have any of the following symptoms of infection: Fever or chills Skin that looks red or swollen and is hot or tender to touch Severe abdominal pain Frequent or urgent need to urinate or burning feeling when you urinate 3. Skin problems. Skin problems such as inflammation of your skin (dermatitis), rash, and eczema may happen if you take Prolia. Call your doctor if you have any of the following symptoms of skin problems that do not go away or get worse: Redness Itching Small bumps or patches (rash) Your skin is dry or feels like leather Blisters that ooze or become crusty Skin peeling 4. Severe jaw bone problems (osteonecrosis). Severe jaw bone problems may happen when you take Prolia. Your doctor should examine your mouth before you start Prolia. Your doctor may tell you to see your dentist before you start Prolia. It is important for you to practice good mouth care during treatment with Prolia. Call your doctor right away if you have any of these side effects. What is Prolia? Prolia is a prescription medicine used to treat osteoporosis (thinning and weakening of bone) in women after menopause (change of life) who Have an increased risk for fractures (broken bones). Cannot use another osteoporosis medicine or other osteoporosis medicines did not work well. Who should not receive Prolia? Do not take Prolia if you have been told by your doctor that your blood calcium level is too low. What should I tell my doctor before receiving Prolia? Before taking Prolia, tell your doctor if you: Have low blood calcium. Cannot take daily calcium and vitamin D. Had parathyroid or thyroid surgery (glands located in your neck). Have been told you have trouble absorbing minerals in your stomach or intestines (malabsorptionsyndrome). Have kidney problems or are on kidney dialysis. Plan to have dental surgery or teeth removed. Are or plan to become . Prolia may harm your unborn baby. Tell your doctor right away if you become while taking Prolia. Surveillance Program: Prolia is not intended for use in women. If you become while taking Prolia, talk to your doctor about enrolling with [employer] or call (w-175-[facility]). The purpose of this program is to collect information about women who have become while taking Prolia. Are breast-feeding or plan to breast-feed. It is not known if Prolia passes into your breast milk. You and your doctor should decide if you will take Prolia or breast-feed. You should not do both. Tell your doctor about all the medicines you take, including prescription and nonprescription drugs, vitamins, and herbal supplements. Know the medicines you take. Keep a list of medicines with you to show to your doctor or pharmacistwhen you get a new medicine. How will I receive Prolia? Prolia is an injection that will be given to you by a healthcare professional. Prolia is injected under your skin (subcutaneous). You will receive Prolia 1 time every 6 months. You should take calcium and vitamin D as your doctor tells you to while you receive Prolia. If you miss a dose of Prolia, you should receive your injection as soon as you can. Take good care of your teeth and gums while you receive Prolia. [place] and floss your teeth regularly. Tell your dentist that you are receiving Prolia before you have dental work. What are the possible side effects of Prolia? Prolia may cause serious side effects. See What is the most important information I should know about Prolia? Long-term effects on bone: It is not known if the use of Prolia over a long period of time may cause slow healing of broken bones or unusual fractures. The most common side effects of Prolia are: Back pain Pain in your arms and legs High cholesterol Muscle pain Bladder infection These are not all the possible side effects of Prolia. For more information, ask your doctor or pharmacist. Call your doctor for medical advice about side effects. You may report side effects to FDA at 8-675-LXO-0541. How should I handle Prolia if I need to pick it up from a pharmacy? Keep Prolia in a refrigerator at 36F to 46F (2C to 8C) in the original carton. Do not freeze Prolia. When you remove Prolia from the refrigerator, Prolia must be kept at room temperature [up to 77F (25C)] in the original carton and must be used within 14 days. Do not keep Prolia at temperatures above 77F (25C). Warm temperatures will affect how Prolia works. Do not shake Prolia. Keep Prolia in the original carton to protect from light. Keep Prolia and all medicines out of reach of children. General information about Prolia Do not give Prolia to other people even if they have the same symptoms that you have. It may harm them. This Medication Guide summarizes the most important information about Prolia. If you would like more information, talk with your doctor. You can ask your doctor or pharmacist for information about Prolia that is written for health professionals. For more information, go to www.[employer] or call [employer] at . What are the ingredients in Prolia? Active ingredient: denosumab Inactive ingredients: sorbitol, acetate, polysorbate 20 (prefilled syringe only), Water for Injection (FDC), and sodium hydroxide What is osteoporosis? Osteoporosis is a disease in which the bones become thin and weak, increasing the chance of having a broken bone. Osteoporosis usually causes no symptoms until a fracture happens. The most common fractures are in the spine (backbone). They can shorten height, even without causing pain. Over time, the spine can become curved or deformed and the body bent over. Fractures from osteoporosis can also happen in almost any bone in the body, for example: the wrist, rib, or hip. Once you have had a fracture, the chance for more fractures greatly increases. The following risk factors increase your chance of getting fractures from osteoporosis: Past broken bones from osteoporosis Very low bone mineral density (BMD) Frequent falls Limited movement, such as using a wheelchair Medical conditions likely to cause bone loss, such as some kinds of arthritis Taking steroid medicines called glucocorticoids, such as prednisone Other medicines that may cause bone loss, for example: seizure medicines (such as phenytoin), blood thinners (such as heparin), high doses of vitamin A What can I do to treat osteoporosis? There are many steps you can take to treat osteoporosis. Taking Prolia, along with calcium and vitamin D, may be one option for you. [employer] a subsidiary of [employer] [address] [place], [place] [address] This Medication Guide has been approved by the US Food and Drug Administration. 1xxxxxx - v1 Issued: 04/2010 documented in this encounter Progress Notes * Keven Negrete LPN - 05/03/2024 1:39 PM EDT Karina Juarez presents today for administration of Prolia. She understands the benefits and risks of this treatment. An educational pamphlet was given to the patient. Prolia 60 mg was administered subcutaneously. The patient tolerated the procedure without problems. She will return in 6 months for the next injection and evaluation. Keven Negrete LPN documented in this encounter Nursing Notes * Keven Negrete LPN - 05/03/2024 1:38 PM EDT Chief Complaint Patient presents with Medication Administration prolia documented in this encounter Plan of Treatment Upcoming Encounters Date Type Department Care Team (Late st Contact Info) Description 05/09/2024 2:30 PM EDT Office Visit Allergy/Immunology [facility] [address] [place] [address] Soumya Travis PA-C [address] [facility] [place] [address] 06/09/2024 11:45 AM EDT Office Visit Hematology/Oncology [facility] [place] [address] [place] [id number] Sotero Price MD [address] [facility] [place] [address] 08/11/2024 1:00 PM EDT [facility] [address] [facility] [id number] Marie Underwood MD [address] [place] [facility] [place] [address] 11/14/2024 3:00 PM EST Office Visit Rheumatology [address] [place] [address] Mio Chirinos CRNP [address] [facility] [place], [place] [address] Health Maintenance Due Date Last Done Comments Alpha-1 Antitrypsin 1958 CKD PHOS USE SMARTSET [id number] 09/04/2023 09/04/2022 Albumin/Creatinine Ratio 02/07/2025 02/08/2024, 08/09 Depression Screening 02/07/2025 02/08/2024 O2 ASSESSMENT COMPLETED IN PAST YEAR FOR COPD 02/07/2025 02/08/2024 CKD HGB USE SMARTSET 64148 04/20/202504/20, 04/20/2024, 11/11/2023, Additional history exists DXA [...] D LEVEL ONCE IN A LIFETIME-USE SMARTSET# [id number] Completed 04/20/2024, 10/12/2023, 06/30/2021, Additional history exists [...] as of this encounter Visit Diagnoses Diagnosis Senile osteoporosis- Primary documented in this encounter Administered Medications Inactive Administered Medications - up to 3 most recent administrations Medication Order MAR Action Action Date Dose Rate Site Denosumab (Prolia) subcut inj 60 mg 60 mg, Subcutaneous, [id number], First dose on Wed10/12/23 at 1500, Last dose on 04/09/24 at 1500, For 2 doses Given 05/03/2024 1:44 PM EDT 60 mg Arm Left Upper Given 10/12/2023 3:18 PM EST 60 mg Ar m Left Upper documented in this encounter Care Teams Facetor Relationship Specialty Start Date End Date Marie Underwood MD [address] [facility] [place] [address] PCP - General Internal Medicine 07/09/23 documented as of this encounter
--- OUTSIDE RECORDS SUMMARY | 2024-09-26 14:09 | External Medical Summary | Summary of Care ---
Author Name Unknown Organization [facility] Address [address] [place] [address] Phone [phone] Care Team Providers Care [employer] Consultant Name Role Phone Marie Underwood MD Primary Care Provider [phone] Reason for Visit * Reason Onset Date Comments FYI 01/27/2024 Encounter Details Date Type Department Care Team (Late st Contact Info) Description 01/27/2024 Telephone Pulmonary Medicine, [facility] [address] [facility] [place] [address] Negro Lopez MD [address] [facility] [place] [id number] FY Allergies Active Allergy Reactions Criticality Noted Date Comments Sulfamethoxazole-Trimethopri m Fever 11/13/2019 Fever, sob, itchiness and hives Levofloxacin 05/26/2023 Sore Achilles Tendon documented as of this encounter (statuses as of 04/27/2024) Medications Medication Sig Dispensed Refills Start Date [...] 11/22/2023 Active Temazepam 30 MG Oral Capsule (Restoril)Indicatio ns:Primary insomnia TAKE 1 CAPSULE BY MOUTH AT BEDTIME NEEDED FOR SLEEP 30 Capsule 12/28/2023 Active Hospital, Clinic, or Other Facility Administered Medication Ordered Dose Route Frequency Start Date End Date Status Denosumab (Prolia) subcut inj 60 mgIndications:Senile osteoporosis 60 mg SC [id number] 10/12/2023 10/06/2024 Active documented as of this encounter (statuses as of 04/27/2024) Active Problems Problem Noted Date Diagnosed Date [...] as of this encounter (statuses as of 04/27/2024) Resolved Problems Problem Noted Date Diagnosed Date [...] as of this encounter (statuses as of 04/27/2024) Immunizations Name Administration Dates Next Due COVID-19 [...] encounter Miscellaneous Notes * Telephone Encounter - Sera Koenig LPN - 01/27/2024 10:22 AM EDT [facility] @[facility] we just wanted to let you know that this order has been cancelled as the supplier indicated there was no call back and the o2 was returned. documented in this encounter Plan of Treatment Upcoming Encounters Date Type Department Care Team (Late st Contact Info) Description 05/03/2024 1:30 PM EDT Nurse Only Rheumatology [facility] [address] [place] [address] Pf, Nurse Rheum [facility] [place] [address] 05/09/2024 2:30 PM EDT Office Visit Allergy/Immunology [facility] [place] [address] [place] [address] Soumya Travis PA-C [address] [place] [address] 05/24/2024 2:15 PM EDT Office Visit Hematology/Oncology [employer] [address] [facility] [place], [place] [address] Sotero Price MD [address] [facility] [place] [address] 08/11/2024 1:00 PM EDT Office Visit [facility] [address] [place] [phone] Marie Underwood MD [address] [place] [address] Health Maintenance Due Date Last Done Comments Alpha-1 Antitrypsin 1958 CKD PHOS USE SMARTSET 22990 09/04/2023 09/04/2022 Albumin/Creatinine Ratio 02/07/2025 02/08/2024, 08/09 Depression Screening 02/07/2025 02/08/2024 O2 ASSESSMENT COMPLETED IN PAST YEAR FOR COPD 02/07/2025 02/08/2024 CKD HGB USE SMARTSET 00310 04/20/202504/20, 04/20/2024, 11/11/2023, Additional history exists DXA [...] D LEVEL ONCE IN A LIFETIME-USE SMARTSET# 49832 Completed 04/20/2024, 10/12/2023, 06/30/2021, Additional history exists [...] filedocumented as of this encounter Care Teams [employer] Consultant Relationship Specialty Start Date End Date Marie Underwood MD [address] [place] [address] PCP - General Internal Medicine 07/09/23 documented as of this encounter
--- OUTSIDE RECORDS SUMMARY | 2024-09-26 14:09 | External Medical Summary | Summary of Care ---
Author Name Unknown Organization [facility] Address [address] [place] [address] Phone [phone] Care Team Providers Care Child Day Care Provider Name Role Phone Marie Underwood MD Primary Care Provider [phone] Reason for Visit * Reason Comments Acute Pt here for complain ts of a UTI since Wed. Pt has been having frequency and burning with urination Encounter Details Date Type Department Care Team (Late st Contact Info) Description 04/21/2024 10:20 AM EDT Office Visit Family Practice [facility] [address] [facility] [place] [address] Heri Harry MD [address] [facility] [place] [address] Burning with urination*; Hematuria, unspecified type Allergies Active Allergy Reactions Criticality Noted Date Comments Sulfamethoxazole-Trimethopri m Fever 11/13/2019 Fever, sob, itchiness and hives Levofloxacin 05/26/2023 Sore Achilles Tendon documented as of this encounter (statuses as of 04/21/2024) Medications Medication Sig Dispensed Refills Start Date [...] to CrCl <30. 7 Capsule 04/21/2024 Active Hospital, Clinic, or Other Facility Administered Medication Ordered Dose Route Frequency Start Date End Date Status Denosumab (Prolia) subcut inj 60 mgIndications:Senile osteoporosis 60 mg SC [id number] 10/12/2023 10/06/2024 Active documented as of this encounter (statuses as of 04/21/2024) Active Problems Problem Noted Date Diagnosed Date [...] as of this encounter (statuses as of 04/21/2024) Resolved Problems Problem Noted Date Diagnosed Date [...] as of this encounter (statuses as of 04/21/2024) Immunizations Name Administration Dates Next Due COVID-19 [...] money to get more. Never true 07/08/2023 Sex and Gender Information Value Date Recorded Sex Assigned at Female 01/30/2019 1:16 PM EDT Gender Identity Female 01/30/2019 1:16 PM EDT Sexual Orientation Straight 01/30/2019 1: 16 PM EDT Job Start Date Occupation Industry Not on file Not on file Not on file documented as of this encounter Last Filed Vital Signs Vital Sign Reading Time Taken Comments Blood Pressure 114/66 04/21/2024 10:26 AM EDT Pulse 64 04/21/2024 10:26 AM EDT Temperature 37.2 C (99 F) 04/21/2024 10:26 AM EDT Respiratory Rate 16 04/21/2024 10:26 AM EDT Oxygen Saturation - - Inhaled Oxygen Concentration - - Weight 45.1 kg (99 lb 6.4 oz) 04/21/2024 10:26 A M EDT Height 161.3 cm (5' 3.5") 04/21/2024 10:26 AM ED T Body Mass Index 17.33 04/21/2024 10:26 AM EDT documented in this encounter Progress Notes * Heri Harry MD - 04/21/2024 11:10 AM EDT Images from the original note were not included. History of Present Illness Karina Juarez is a 83 year old female that presents for Acute (Pt here for complaints of a UTI since Wed. Pt has been having frequency and burning with urination) Physical Exam BP 114/66 (BP Site: Left Arm, BP Position: Sitting, BP Cuff Size: Pediatric) | Pulse 64 | Temp 37.2C (99 F) (Tympanic) | Resp 16 | Ht 1.613 m (5' 3.5") | Wt 45.1 kg (99 lb 6.4 oz) | LMP (LMP Unknown) | BMI 17.33 kg/m | BSA 1.42 m AAOx3 Normal affect NCAT/ PERRL Neck supple Throat clear RRR Lungs CTABL Abd soft +BS + hernia noted +suprapubic tenderness Ext warm and well perfused No gross neuro deficits Normal gait I have reviewed most recent labs Urinalysis, POC Assessment and Plan Burning with urination - POC urine reviewed and consistent with infection. She is on jardiance which explains the glucosuria. This is also UTI risk factor. Will treat. Hematuria concerning. Will treat with cefidinir considering allergy profile. 300mg once daily as CrCL <30. - URINALYSIS, POINT OF CARE Hematuria, unspecified type - + blood in urine Wrap-Up Prn/scheduled Time: I spent a total of 20-29 minutes (exact time 22 mins) on the date of service in preparation, delivery, and documentation of the care provided to Karina Juarez excluding any time spent in the performance of separately billed services. documented in this encounter Plan of Treatment Upcoming Encounters Date Type Department Care Team (Late st Contact Info) Description 04/26/2024 1:30 PM EDT Nurse Only Rheumatology [address] [place] [address] Pf, Nurse Rheum [address] [place] [address] [place] [address] 05/09/2024 2:30 PM EDT Office Visit Allergy/Immunology [facility] [address] [facility] [place] [address] Soumya Travis PA-C [address] [facility] [place] [address] 05/24/2024 2:15 PM EDT Office Visit Hematology/Oncology [facility] [address] [facility] [place] [phone] Sotero Price MD [address] [facility] [place] [address] 08/11/2024 1:00 PM EDT Office Visit [place] [address] [place] [phone] Marie Underwood MD [address] [address], [place] [phone] Health Maintenance Due Date Last Done Comments CKD PHOS USE SMARTSET 21148 09/04/2023 09/04/2022 Alpha-1 Antitrypsin 04/22/2024 Postpone d from 1958 (Other) Albumin/Creatinine Ratio 02/07/2025 02/08/2024, 08/09 Depression Screening 02/07/2025 02/08/2024 O2 ASSESSMENT COMPLETED IN PAST YEAR FOR COPD 02/07/2025 02/08/2024 CKD HGB USE SMARTSET 08515 04/20/202504/20, 04/20/2024, 11/11/2023, Additional history exists DXA [...] D LEVEL ONCE IN A LIFETIME-USE SMARTSET# 28208 Completed 04/20/2024, 10/12/2023, 06/30/2021, Additional history exists [...] Procedure Name Priority Date/Time Associated Diagnosis Comments URINALYSIS, POINT OF CARE Routine 04/21/2024 10:37 AM EDT Burning with urination documented in this encounter Results * (ABNORMAL) URINALYSIS, POINT OF CARE (04/21/2024 10:37 AM EDT) Color, Urine Dark Yellow(A) Light Yellow, Yellow 04/21/2024 10:41 AM EDT [facility] [place] [facility] Clarity, Urine Cloudy(A) Clear 04/21/2024 10:41 AM EDT [facility] [place] [facility] Glucose, Urine 500(A) Negative mg/dL 04/21/2024 10:41 AM EDT [facility] [place] [facility] Bilirubin, Urine Negative Negative 04/21/2024 10:41 AM EDT [facility] [place] [facility] Ketone, Urine Negative Negative mg/dL 04/21/2024 10:41 AM EDT [facility] [place] [facility] Specific [place]zan, Urine 1.020 1.003 - 1.030 04/21/2024 10:41 AM EDT [facility] [place] [facility] Blood, Urine Large(A) Negative 04/21/2024 10:41 AM EDT [facility] [place] [facility] pH, Urine 7.0 5.0, 5.5, 6.0, 6.5, 7.0, 7.5 units 04/21/2024 10:41 AM EDT [facility] [place] [facility] Protein, Urine 100(A) Negative mg/dL 04/21/2024 10:41 AM EDT [facility] [place] [facility] Urobilinogen, Urine 0.2 0.2, 1.0 mg/dL 04/21/2024 10:41 AM EDT [facility] [place] [facility] Nitrite, Urine Negative Negative 04/21/2024 10:41 AM EDT [facility] [place] [facility] Esterase, Urine Large(A) Negative 04/21/2024 10:41 AM EDT [facility] [place] [facility] Urine 04/21/2024 10:3 7 AM EDT 04/21/2024 10:41 AM EDT Heri Harry MD LAB POINT OF C ARE TEST DOCKED DEVICE UNSOLICITED RESULTS [facility] [place] [facility] [address] [place] [address] documented in this encounter Visit Diagnoses Diagnosis Burning with urination- Primary Dysuria Hematuria, unspecified type documented in this encounter Care Teams Child Day Care Provider Relationship Specialty Start Date End Date Marie Underwood MD [address] [place] [address] PCP - General Internal Medicine 07/09/23 documented as of this encounter
--- OUTSIDE RECORDS SUMMARY | 2024-09-26 14:09 | External Medical Summary | Summary of Care ---
Author Name Unknown Organization [facility] Address [address] [place] [address] Phone [phone] Care Team Providers Care Foam Caster Name Role Phone Marie Underwood MD Primary Care Provider [phone] Encounter Details Date Type Department Care Team (Late st Contact Info) Description 04/29/2024 Telephone Pharmacy, [place] [address] [facility] [place] [address] [facility] [place] [address] Allergies Active Allergy Reactions Criticality Noted Date Comments Sulfamethoxazole-Trimethopri m Fever 11/13/2019 Fever, sob, itchiness and hives Levofloxacin 05/26/2023 Sore Achilles Tendon documented as of this encounter (statuses as of 05/01/2024) Medications Medication Sig Dispensed Refills Start Date [...] inj 60 mgIndications:Senile osteoporosis 60 mg SC [id number] 10/12/2023 10/06/2024 Active documented as of this encounter (statuses as of 05/01/2024) Active Problems Problem Noted Date Diagnosed Date [...] as of this encounter (statuses as of 05/01/2024) Resolved Problems Problem Noted Date Diagnosed Date [...] as of this encounter (statuses as of 05/01/2024) Immunizations Name Administration Dates Next Due COVID-19 [...] encounter Miscellaneous Notes * Telephone Encounter - Fátima Walters [facility] - 05/01/2024 1:20 PM EDT Images from the original note were not included. Not seen by [facility]. Discontinued reason was patient preference: Fátima Walters, PharmD, BCACP Clinical Pharmacist Medication Therapy Disease Management 05/01/2024, 1:20 PM * Telephone Encounter - Apple Prescott [facility] - 04/29/2024 5:03 PM EDT Patient [facility] on [facility] requesting refill on Advair inhaler. Patient tried to refill at [facility], but was told prescription was cancelled by provider. Prescription was discontinued in Epic on 04/04/24. Patient is not seen by [facility]. She would like return call to [phone]. documented in this encounter Plan of Treatment Upcoming Encounters Date Type Department Care Team (Late st Contact Info) Description 05/03/2024 1:30 PM EDT Nurse Only Rheumatology [address] [place] [address] Pf, Nurse Rheum [facility] [place] [address] 05/09/2024 2:30 PM EDT Office Visit Allergy/Immunology [facility] [address] [facility] [place] [address] Soumya Travis PA-C [address] [facility] [place] [address] 06/09/2024 11:45 AM EDT Office Visit Hematology/Oncology [facility] [address] [facility] [place] [address] Sotero Price MD [address] [facility] [place] [address] 08/11/2024 1:00 PM EDT Office Visit [facility] [address] [facility] [phone] Marie Underwood MD [address] [place] [address] Health Maintenance Due Date Last Done Comments Alpha-1 Antitrypsin 1958 CKD PHOS USE SMARTSET 62229 09/04/2023 09/04/2022 Albumin/Creatinine Ratio 02/07/2025 02/08/2024, 08/09 Depression Screening 02/07/2025 02/08/2024 O2 ASSESSMENT COMPLETED IN PAST YEAR FOR COPD 02/07/2025 02/08/2024 CKD HGB USE SMARTSET 21396 04/20/202504/20, 04/20/2024, 11/11/2023, Additional history exists DXA [...] D LEVEL ONCE IN A LIFETIME-USE SMARTSET# 58703 Completed 04/20/2024, 10/12/2023, 06/30/2021, Additional history exists [...] filedocumented as of this encounter Care Teams Foam Caster Relationship Specialty Start Date End Date Marie Underwood MD [address] [place] [address] PCP - General Internal Medicine 07/09/23 documented as of this encounter
--- OUTSIDE RECORDS SUMMARY | 2024-09-26 14:10 | External Medical Summary ---
Author Name Unknown Address Unknown Organization [id number]:[facility] [place] [address] [place] [address] Laboratory Report Ordering Provider Test Date Status RAFAL MUNOZ 04/20/2024 15:50:23 Final Observation Date Value Abnormality Reference (Units ) Status Ferritin 04/20/2024 15:50:23 814 Above high normal 13 -150 (ng/mL) Final Postmenopausal women have hi gher ferritin levels than pre-menopausal women. The above reference interval is based on pre-menopausal women. Performing Location [facility] [place] - [address] [facility] [place] [address]
--- OUTSIDE RECORDS SUMMARY | 2024-09-26 14:10 | External Medical Summary ---
Author Name Unknown Address Unknown Organization [id number]:[facility] [address] [facility] [address] Laboratory Report Ordering Provider Test Date Status ALEXANDRIA LUCERO 04/21/2024 10:37:00 Final Observation Date Value Abnormality Reference (Units ) Status Color of Urine by Auto 04/21/2024 10:37:00 Dark Yellow Abnormal Light Yellow, Yellow Final Clarity, Urine 04/21/2024 10:37:00 Cloudy Abnormal Clear Final Glucose [Mass/volume] in Urine by Automated test strip 04/21/2024 10:37:00 500 Abnormal Negative (mg/dL) Final Bilirubin.total [Presence] in Urine by Automated test strip 04/21/2024 10:37:00 Negative Negative Final Ketones [Mass/volume] in Urine by Automated test strip 04/21/2024 10:37:00 Negative Negative (mg/dL) Final Specific gravity, Urine 04/21/2024 10:37:00 1.020 1.003-1.030 Final Hemoglobin [Presence] in Urine by Automated test strip 04/21/2024 10:37:00 Large Abnormal Negative Final pH, Urine 04/21/2024 10:37:00 7.0 5.0, 5.5, 6.0, 6.5, 7.0, 7.5 (units) Final Protein [Mass/volume] in Urine by Automated test strip 04/21/2024 10:37:00 100 Abnormal Negative (mg/dL) Final Urobilinogen, Urine 04/21/2024 10:37:00 0.2 0.2, 1.0 (mg/dL) Final Nitrite [Presence] in Urine by Automated test strip 04/21/2024 10:37:00 Negative Negative Final Leukocyte esterase [Presence] in Urine by Automated test strip 04/21/2024 10:37:00 Large Abnormal Negative Final Performing Location [facility] 0 - [address] [place] [address]
--- OUTSIDE RECORDS SUMMARY | 2024-09-26 14:10 | External Medical Summary ---
Author Name Unknown Address Unknown Organization [id number]:[facility] [place] [address] [facility] [address] Laboratory Report Ordering Provider Test Date Status RAFAL MUNOZ 04/20/2024 15:50:23 Final Observation Date Value Abnormality Reference (Units ) Status SYNC LEUKOCYTES IN BLOOD BY AUTOMATED COUNT 04/20/2024 15:50:23 9.74 4.00-10.80 (K/uL) Final Segs 04/20/2024 15:50:23 78.0 Above high normal 40.0-75.0 (%) Final Lymphs % 04/20/2024 15:50:23 12.2 Below low normal 18.0-42.0 (%) Final Monos 04/20/2024 15:50:23 7.5 1.0-11.0 (%) Final Eosinophils 04/20/2024 15:50:23 1.2 0.0-6.0 (%) Final Basos 04/20/2024 15:50:23 0.6 0.0-2.0 (%) Final Immature Granulocyte, Percent 04/20/2024 15:50:23 0.5 0.0-2.0 (%) Final Absolute Segs 04/20/2024 15:50:23 7.59 1.80-7.70 (K/uL) Final Lymphs, absolute 04/20/2024 15:50:23 1.19 1.00-4.80 (K/ul) Final Monos, Abs 04/20/2024 15:50:23 0.73 0.00-1.10 (K/uL) Final Eos, Abs 04/20/2024 15:50:23 0.12 0.00-0.70 (K/uL) Final Basos, Abs 04/20/2024 15:50:23 0.06 0.00-0.20 (K/uL) Final Immature Granulocytes, Number 04/20/2024 15:50:23 0.05 0.00-0.20 (K/uL) Final Performing Location [facility] [place] [facility] [place] [address]
--- OUTSIDE RECORDS SUMMARY | 2024-09-26 14:10 | External Medical Summary ---
Author Name Unknown Address Unknown Organization K01:[facility] [place] [address] [place] [address] Laboratory Report Ordering Provider Test Date Status RAFAL MUNOZ 04/20/2024 15:50:23 Final Observation Date Value Abnormality Reference (Units ) Status Iron 04/20/2024 15:50:23 41 33-151 (ug/dL) Final Iron-binding capacity 04/20/2024 15:50:23 211 Below low normal 250-425 (ug/dL) Final Transferrin Sat % 04/20/2024 15:50:23 19 15-55 (%) Final Performing Location [facility] [place] - [address] [place] [address]
--- OUTSIDE RECORDS SUMMARY | 2024-09-26 14:10 | External Medical Summary | Summary of Care ---
Author Name Unknown Organization [facility] Address [address] [place] [address] Phone [phone] Care Team Providers Care Quarry Supervisor Open Pit Name Role Phone Marie Underwood MD Primary Care Provider [phone] Reason for Visit * Reason Comments Follow Up Encounter Details Date Type Department Care Team (Latest Contact Info) Description 04/04/2024 1:30 PM EDT Office Visit Cardiology, [facility] [address] [facility] [place] [address] Elaine Florez CRNP [address] [place] [address] Permanent atrial fibrillation (HCC)*; Tachy-karen syndrome (HCC); Cardiac pacemaker in situ; S/P atrioventricular kamran ablation; Chronic diastolic heart failure due to valvular disease (HCC); Pulmonary HTN (HCC); Non-rheumatic mitral regurgitation; Tricuspid valve insufficiency, unspecified etiology; HTN, goal below 140/90; Palpitations Allergies Active Allergy Reactions Criticality Noted Date Comments Sulfamethoxazole-Trimethopri m Fever 11/13/2019 Fever, sob, itchiness and hives Levofloxacin 05/26/2023 Sore Achilles Tendon documented as of this encounter (statuses as of 04/04/2024) Medications Medication Sig Dispensed Refills Start Date [...] before bedtime. 180 Tablet 3 04/04/2024 Active Apixaban 2.5 MG Oral Tablet (Eliquis)Indications :Palpitations TAKE ONE TABLET BY MOUTH EVERY MORNING AND BEFORE BEDTIME 180 Tablet 3 07/30/2023 4 Discontinu ed(Refill) Fluticasone-Salmeter ol 250-50 MCG/ACT Inhalation Aerosol Powder Breath Activated (Advair Diskus) Inhale 1 Puff by mouth in the morning and 1 Puff before bedtime. 180 Each 3 03/10/2024 4 Discontinu ed(Patient preference /discontin uation) Hospital, Clinic, or Other Facility Administered Medication Ordered Dose Route Frequency Start Date End Date Status Denosumab (Prolia) subcut inj 60 mgIndications:Senile osteoporosis 60 mg SC [id number] 10/12/2023 10/06/2024 Active documented as of this encounter (statuses as of 04/04/2024) Active Problems Problem Noted Date Diagnosed Date [...] as of this encounter (statuses as of 04/04/2024) Resolved Problems Problem Noted Date Diagnosed Date [...] as of this encounter (statuses as of 04/04/2024) Immunizations Name Administration Dates Next Due COVID-19 mRNA, LNP-s, No Pre serve, 2-Dose Series ([employer]) 09/02/2021,01/18/2021,12/23/2020 Pneumococcal Conjugate Vacc, 13 Valent (Prevnar) [...] Reading Time Taken Comments Blood Pressure 102/64 04/04/2024 1:29 PM EDT Pulse 68 04/04/2024 1:29 PM EDT Temperature - - Respiratory Rate 12 04/04/2024 1:29 PM EDT Oxygen Saturation - - Inhaled Oxygen Concentration - - Weight 46.5 kg (102 lb 8 oz) 04/04/2024 1:29 PM EDT Height - - Body Mass Index 17.87 01/14/2024 11:03 AM EST documented in this encounter Progress Notes * Elaine Florez CRNP - 04/04/2024 1:30 PM EDT Cardiology Outpatient Visit 04/04/[address] Richardson Past medical history: Paroxysmal now permanent atrial fibrillation, [id number] score of 3 (age 1, female), on Eliquis S/P DCCV 03/2019 S/p DCCV 11/26/2021 at [facility] Reoccurrence of PAF RVR aprox 12/16/2021 in the setting of pneumonia TBS, s/p dual chamber ppm (LB lead) Medtronic Velarde [id number] XT 01/13/2022 S/p AV junction ablation, 02/04/2022 [id number] pulmonary hypertension with mixed valvular regurgitation Moderate mitral insufficiency Severe tricuspid insufficiency Mild asthmatic lung disease Myelodysplastic syndrome with mild chronic anemia Nocturnal hypoxemia with presumed ROBBIE HPI Very pleasant 83-year-old female presenting to the cardiology office today in routine follow-up. Was last evaluated by the undersigned approximately 4 months ago. At her last appointment she was feeling well. Notes that she was switched from furosemide to torsemide- she transiently reduced from 20-10 mg with return per lower extremity edema. Symptoms and improve once 20 mg was restarted. Echocardiogram showed a preserved LV systolic function of 55-59%. There was moderate MR and severe TR with moderate pulmonary hypertension. Unchanged when compared to prior echo 11/2021. Most recent device interrogation on 02/2024 showed a left bundle lead pacing burden of 86.2%. Intrinsic rhythm, complete heart block/AFIB. Stable thresholds. She did have an episode of nonsustained VTon 02/09/2024 at 7:10 p.m. lasting 5 seconds Today the patient presents feeling well from a cardiac standpoint. No chest pain, shortness of breath, palpitations, dizziness, syncope or near syncope. No orthopnea, PND, or increased lower extremity edema. Wears compression socks daily. No fever, chills, cough, hematochezia, melena, or hemoptysis. She states she is compliant with all medications and offers no side effects. Current Outpatient Medications Medication Sig Dispense Refill Metamucil 28.3 % Oral Powder (Psyllium) Take by mouth daily. Patient takes one tablespoon daily, inmorning. Levalbuterol Tartrate 45 MCG/ACT Inhalation Aerosol (Xopenex HFA) Inhale 2 Puffs by mouth every 4 hours as needed for Wheezing. 15 g 12 Azelastine HCl 137 MCG/SPRAY Nasal Solution Administer 2 Sprays into nostril in the morning and 2 Sprays before bedtime. 90 mL 4 Montelukast Sodium 10 MG Oral Tablet (Singulair) Take 1 Tablet by mouth in the morning. 90 Tablet 3 Torsemide 20 MG Oral Tablet (Demadex) Take 1 Tablet by mouth in the morning. 100 Tablet 3 Apixaban 2.5 MG Oral Tablet (Eliquis) TAKE ONE TABLET BY MOUTH EVERY MORNING AND BEFORE BEDTIME 180Tablet 3 Eucerin External Cream Apply topically to affected area daily. To affected area of skin. 240 g 11 Calcium 500 MG Oral Tablet Take 1 Tablet by mouth in the morning. Ocuvite Adult 50+ Oral Capsule Take 1 Capsule by mouth in the morning. Vitamin D3 50 MCG (1999 UT) Oral Tablet Chewable Take by mouth. Vitamin C 500 MG Oral Capsule Take 1 Tablet by mouth every morning. Empagliflozin 10 MG Oral Tablet (Jardiance) Take 0.5 Tablets by mouth in the morning. 45 Tablet 3 Temazepam 30 MG Oral Capsule (Restoril) TAKE 1 CAPSULE BY MOUTH AT BEDTIME NEEDED FOR SLEEP 30 Capsule 0 Fluticasone Propionate 50 MCG/ACT Nasal Suspension (Flonase) Administer 2 Sprays into each nostril in the morning. 16 g 5 Levocetirizine Dihydrochloride 5 MG Oral Tablet Take 1 Tablet by mouth every evening. 90 Tablet 3 Losartan Potassium 25 MG Oral Tablet (Cozaar) Take 0.5 Tablets by mouth in the morning. In the morning.. 45 Tablet 3 Current Facility-Administered Medications Medication Dose Route Frequency Provider Last Rate Last Admin Denosumab (Prolia) subcut inj 60 mg 60 mg Subcutaneous Q6 Months Mio Chirinos CRNP 60 mg at 10/12/23 1518 Past Medical History: Diagnosis Date Asthma COPD [...] performed by Azeem Aviles MD at ENDOSCOPY [facility] OTHER 2004 hernia repair OTHER 01/28/07 Doppler ankle arm index screening normal REMOVE CATARACT, INSERT LENS PROSTH Cataract Removal Social History Tobacco Use Smoking status: Former Current packs/day: 0.00 Average packs/day: 0.5 packs/day for 20.0 years (10.0 ttl pk-yrs) Types: Cigarettes Start date: 11/08/1964 Quit date: 11/08/1984 Years since quittin.4 Passive exposure: Past Smokeless tobacco: Never Vaping Use Vaping status: Never Used Substance Use Topics Alcohol use: Yes Alcohol/week: 7.0 standard drinks of alcohol Types: 7 5 oz of wine per week Comment: 1 glass of wine per day Drug use: No Review of patient's allergies indicates: Allergen Reactions Bactrim [Sulfamethoxazole-Trimethoprim] Fever Fever, sob, itchiness and hives Levaquin [Levofloxacin] Sore Achilles Tendon Review of Systems: See HPI for pertinent positives. All others negative, other than those noted in HPI. Physical Exam BP 102/64 (BP Site: Left Arm, BP Position: Sitting, BP Cuff Size: Regular) | Pulse 68 | Resp 12 | Wt 46.5 kg (102 lb 8 oz) | LMP (LMP Unknown) | BMI 17.87 kg/m | BSA 1.44 m General: No acute distress. A+Ox3. HEENT: Normocephalic. Atraumatic.Conjunctiva and sclera clear. NECK: No carotid bruits. No JVD. Carotid upstrokes are brisk. Heart: RRR. S1 and S2 noted without murmur, rubs, gallops. Lungs: Clear to auscultation, no wheezing rhonchi or rales. Abdomen: Normal bowel sounds. Soft. Nontender. No masses or organomegaly. Extremities: Trace bilateral ankle edema. L sightly worse than R. Compression sock use. Pulses: radial=2/4, posterior tibial=2/4, dorsalis pedis = 2/4. NEURO: No focal deficits. PSYCH: Normal. Lab data/imaging study review: Echo 09/2023 Interpretation Summary The examination is adequate to evaluate the referral indication. There was atrial fibrillation during the examination. The left ventricular cavity size is normal. The LV wall thickness is mildly increased (concentric). There is asymmetric left ventricular hypertrophy. The asymmetric hypertrophy involves the apex. The left ventricular wall motion is normal. The qualitative LV ejection fraction is 55-59% (normal). The left ventricular diastolic function is abnormal by 2-D findings. There is severe biatrial enlargement Mild aortic valve regurgitation is present. Moderate mitral regurgitation is present. Severe tricuspid regurgitation is present. Moderate pulmonary hypertension is present. The estimated pulmonary artery systolic pressure is 50mm Hg. Compared to prior study of November 13, 2021, there is no significant change Echo 11/13/2021 The examination is adequate to evaluate the referral indication. There was atrial fibrillation with elevated ventricular response rate during the examination. The left ventricular cavity size is normal. The LV wall thickness is mildly increased (concentric). There is borderline diffuse left ventricular hypokinesis. The qualitative LV ejection fraction is 50-54% (normal). There is severe biatrial enlargement Mild aortic valve regurgitation is present. The mitral valve annulus is moderately dilated. Moderate mitral regurgitation is present. Severe tricuspid regurgitation is present. Moderate pulmonary hypertension is present. The estimated pulmonary artery systolic pressure is 50-55mm Hg. A small left plerual effusion is present. Zio 11/13/2021 Atrial Fibrillation occurred continuously (100% burden), ranging from 77- 188 bpm (avg of 117 bpm). Isolated VEs were rare (<1.0%), VE Couplets were rare (<1.0%), and no VE Triplets were present. Echo 06/10/2021 The examination is adequate to evaluate the referral indication. There was sinus bradycardia during the examination. The left ventricular wall motion is normal. The qualitative LV ejection fraction is 55-59% (normal). The left atrium is severely enlarged. The right atrium is moderately enlarged. Mild aortic valve regurgitation is present. Mild bileaflet mitral valve prolapse is present. Moderate mitral regurgitation is present. Moderate to severe tricuspid regurgitation is present. Moderate pulmonary hypertension is present. The estimated pulmonary artery systolic pressure is 50-53 mm Hg. Compared to the prior study dated 10/09/2020, there has been no significant interval change. Impression/Plan: 1. Tachy-karen syndrome (HCC) 2. Cardiac pacemaker in situ 3. S/p AVN ablation History of persistent atrial fibrillation, s/p multiple failed cardioversions. Underwent ppm implantation 01/13/2022, underwent AVN ablation on 02/04. Continue Eliquis 2.5 mg twice daily for stroke prevention Follow with device clinic as scheduled-- short run of nonsustained VT on last device check. Intolerant to BB therapy due to Raynaud's. Calcium channel steven caused worsening lower extremity edema and blood pressures are borderline hypotensive. Continue to monitor on device checks-- no med changesat this time. 4. Chronic diastolic heart failure due to valvular disease (HCC) 5. Pulmonary HTN (HCC) 6. Severe tricuspid regurgitation 7. Nonrheumatic mitral valve regurgitation Notable valvular heart disease with severe TR and moderate MR. Moderate pulmonary hypertension. Volume status appears well compensated. 1. Continue torsemide 20 mg daily 2. Patient is also on Jardiance, only taking 5 mg daily due to cost. 8. HTN, goal below 140/90 Controlled. 1. Continue losartan 12.5 mg daily. Should patient start to experience worsening lightheadedness dizziness would consider discontinuation of losartan at that time. Patient is planning on having dental work done in May. She is due to have a tooth extracted. If possible would recommend remaining on anticoagulation however should the oral surgeon require holding of Eliquis okay to hold 1 day prior, 2 doses and resume when clinically stable from a oral surgeon standpoint. There are no Patient Instructions on file for this visit. The patient agrees to the above plan and will call with additional questions or concerns. ER with all emergencies advised. I spent a total of 30 minutes on the date of service in preparation, delivery, and documentation ofthe care provided to Karina Juarez excluding any time spent in the performance of separately billed services. ANGELIA Parikh, Department of Cardiology This chart was completed in part utilizing [employer] Speech Voice Recognition Software. Grammatical errors, random word insertions, prounoun errors, and incomplete sentences are an occasional consequence of this system due to software limitations, ambient noise, and hardware issues. Any formal questions or concerns about the content, text, or information contained within the body of this dictation should be directly addressed to the provider for clarification. documented in this encounter Nursing Notes * Emma Hernandez CMA - 04/04/2024 1:29 PM EDT Examination Room: 7 Name: Karina Juarez Date of : (1940). Reason for Visit: denies Interim Hospitalization(s): denies Problems/Concerns: denies Chest Pain/SOB: denies [facility] Discussed: Yes [facility] is a way you can talk to your provider online through e-mail. Would you like to sign up? I can activate it for you? ALREADY ACTIVE Patient was instructed to not get up on the exam table until directed and assisted by their provider; patient is to remain seated in the chair/ wheelchair/ exam table for fall prevention and safety reasons. Patient is aware to have assistance to step down off exam table with personnel. Patient voiced full comprehension of instructions. documented in this encounter Plan of Treatment Upcoming Encounters Date Type Department Care Team (Late st Contact Info) Description 04/18/2024 1:30 PM EDT Nurse Only Rheumatology [place] [id number] [facility] [place] [address] Pf, Nurse Rheum [facility] [facility] [place] [address] 05/09/2024 2:30 PM EDT Office Visit Allergy/Immunology [facility] [address] [facility] [place] [address] Soumya Travis PA-C [address] [facility] [place] [address] 05/24/2024 2:15 PM EDT Office Visit Hematology/Oncology [facility] [address] [facility] [place] [address] Sotero Price MD [address] [facility] [place] [address] 08/11/2024 1:00 PM EDT Office Visit [facility] [address] [place] [id number] Marie Underwood MD [address] [place] [address] Health Maintenance Due Date Last Done Comments Alpha-1 Antitrypsin 1958 COVID-19 Vaccine ( season) 2023 09/02/2021, 01/18/2021, 12/23/2020 CKD PHOS USE SMARTSET 02008 09/04/2023 09/04/2022 *BISPHONATE OR OTHER ACCEPTABLE MEDICATION NEEDED FOR OSTEOPOROSIS (REFER TO SMARTSET #1146) 10/02/2023 CKD HGB USE SMARTSET 85537 11/11/202411/11, 11/11/2023, 10/12/2023, Additional history exists Albumin/Creatinine Ratio 02/07/2025 02/08/2024, 08/09 Depression Screening 02/07/2025 02/08/2024 O2 ASSESSMENT COMPLETED IN PAST YEAR FOR COPD 02/07/2025 02/08/2024 DXA Scan 03/06/2026 03/06/2024, 02/07, 03/03/2022, Additional history exists DTaP,Tdap,and Td Vaccines (2 - Td or Tdap) 08/11/2026 08/11/2016, 11/06/2010, 08/08/1999 Pneumococcal Vaccine: 65+ Years Completed 01/04/2015, 05/06/2004 Zoster Vaccines Completed 10/05/2018, 06/10, 12/05/2008 Influenza Vaccine (FLU shot) Completed , 07/16/2022, 09/08/2021, Additional history exists VITAMIN D LEVEL ONCE IN A LIFETIME-USE SMARTSET# 73794 Completed 10/12/2023, 06/30/2021, 08/03/2017, Additional history exists GARDASIL-HPV IMMUNIZATION SERIES Aged [...] Permanent atrial fibrillation (HCC)- Primary Atrial fibrillation Tachy-karen syndrome (HCC) Sinoatrial node dysfunction Cardiac pacemaker in situ S/P atrioventricular kamran ablation Other postprocedural status Chronic diastolic heart failure due to valvular disease (HCC) Pulmonary HTN (HCC) Other chronic pulmonary heart diseases Non-rheumatic mitral regurgitation Mitral valve disorders Tricuspid valve insufficiency, unspecified etiology HTN, goal below 140/90 Unspecified essential hypertension Palpitations documented in this encounter Care Teams Quarry Supervisor Open Pit Relationship Specialty Start Date End Date Marie Underwood MD [address] [place] [address] PCP - General Internal Medicine 07/09/23 documented as of this encounter"
--- OUTSIDE RECORDS SUMMARY | 2024-09-26 14:10 | External Medical Summary ---
Author Name Unknown Address Unknown Organization [id number][place] [facility] [place] [address] [place] [address] Laboratory Report Ordering Provider Test Date Status TAMMYRAFAL 04/20/2024 15:50:23 Final Observation Date Value Abnormality Reference (Units ) Status Folic Acid 04/20/2024 15:50:23 18.1 >4.5 (ng/ mL) Final Performing Location [facility] [address] [facility] [address]
--- OUTSIDE RECORDS SUMMARY | 2024-09-26 14:10 | External Medical Summary ---
Author Name Unknown Address Unknown Organization [id number]:[facility] [place] [address] [place] [address] Laboratory Report Ordering Provider Test Date Status WALKER PAZ 04/20/2024 15:50:23 Final Deficient: <20 ng/mL
Ins ufficient: 20-29 ng/mL
Recommended/Optimum:30-50 ng/mL

Vitamin D intoxication is rare. If suspicious of Vitamin D toxicity, evaluation of serum Calcium and PTH is recommended. Observation Date Value Abnormality Reference (Units ) Status 25-OH Vitamin D total 04/20/2024 15:50:23 82 >19 (ng/mL) Final Performing Location LABORATORY [facility] - [address] [place] [address]
--- OUTSIDE RECORDS SUMMARY | 2024-09-26 14:10 | External Medical Summary ---
Author Name Unknown Address Unknown Organization [id number]:[facility] [place] [address] [place] [address] Laboratory Report Ordering Provider Test Date Status RAFAL MUNOZ 04/20/2024 15:50:23 Final Observation Date Value Abnormality Reference (Units ) Status Vitamin B12 04/20/2024 15:50:23 409 647-5217 (pg/mL) Final Performing Location LAB[facility]ATORY [facility] - [address] [place] [address]
--- OUTSIDE RECORDS SUMMARY | 2024-09-26 14:10 | External Medical Summary ---
Author Name Unknown Address Unknown Organization [id number]:[facility]ORY [facility] [place] [address] [facility] [address] [facility] [address] Laboratory Report Ordering Provider Test Date Status RAFAL MUNOZ 04/20/2024 15:50:23 Final Observation Date Value Abnormality Reference (Units ) Status WBC, Total 04/20/2024 15:50:23 9.74 4.00-10.80 (K/uL) Final RBC 04/20/2024 15:50:23 3.26 3.85-5.15 (M/uL) Final Hemoglobin 04/20/2024 15:50:23 11.3 Below low normal 12.0-15.3 (g/dL) Final HCT 04/20/2024 15:50:23 34.8 Below low normal 36.0-45.2 (%) Final MCV 04/20/2024 15:50:23 106.7 81.5-97.5 (fL) Final MCH 04/20/2024 15:50:23 34.7 27.0-34.0 (pg) Final MCHC 04/20/2024 15:50:23 32.5 32.0-36.0 (g/dL) Final RDW 04/20/2024 15:50:23 14.5 11.5-15.5 (%) Final Platelets 04/20/2024 15:50:23 280 140-400 (K/uL) Final MPV 04/20/2024 15:50:23 11.1 6.6-11.1 (fL) Final Nucleated erythrocytes/100 leukocytes [Ratio] in Blood by Automated count 04/20/2024 15:50:23 0 <=0 (/100 WBCs) Final Performing Location LAB[facility]ATORY [facility] [place] - [address] [place] [address]
--- OUTSIDE RECORDS SUMMARY | 2024-09-26 14:10 | External Medical Summary | Summary of Care ---
Author Name Unknown Organization [facility] Address [address] [place] [address] Phone [phone] Care Team Providers Care Director Life Insurance Name Role Phone Marie Underwood MD Primary Care Provider [phone] Reason for Visit * Reason Onset Date Comments Lab Draw Only 04/17/2024 Encounter Details Date Type Department Care Team (Late st Contact Info) Description 04/17/2024 Telephone [facility] [address] [place] [address] Floridalma Giraldo, ultimate hoops scoreboard operator Draw Only Allergies Active Allergy Reactions Criticality Noted Date Comments Sulfamethoxazole-Trimethopri m Fever 11/13/2019 Fever, sob, itchiness and hives Levofloxacin 05/26/2023 Sore Achilles Tendon documented as of this encounter (statuses as of 04/17/2024) Medications Medication Sig Dispensed Refills Start Date [...] inj 60 mgIndications:Senile osteoporosis 60 mg SC [id number] 10/12/2023 10/06/2024 Active Denosumab (Prolia) subcut inj 60 mgIndications:Senile osteoporosis 60 mg SC ONCE 04/18/2024 04/19/2024 Active documented as of this encounter (statuses as of 04/17/2024) Active Problems Problem Noted Date Diagnosed Date [...] as of this encounter (statuses as of 04/17/2024) Resolved Problems Problem Noted Date Diagnosed Date [...] as of this encounter (statuses as of 04/17/2024) Immunizations Name Administration Dates Next Due COVID-19 mRNA, LNP-s, No Pre serve, 2-Dose Series (Ludei) 09/02/2021,01/18/2021,12/23/2020 Pneumococcal Conjugate Vacc, 13 Valent (Prevnar) [...] encounter Miscellaneous Notes * Telephone Encounter - Floridalma Giraldo RN - 04/17/2024 4:35 PM EDT Pt reports she had a call from this phone number and was told to get labs drawn. Verbalized understanding of most recent telephone encounter noted in chart regarding labs. documented in this encounter Plan of Treatment Upcoming Encounters Date Type Department Care Team (Late st Contact Info) Description 04/18/2024 1:30 PM EDT Nurse Only Rheumatology [address] [place] [address] Pf, Nurse Rheum [address] [place] [address] [place] [address] 05/09/2024 2:30 PM EDT Office Visit Allergy/Immunology [facility] [address] [facility] [place] [address] Soumya Travis PA-C [address] [facility] [place] [address] 05/24/2024 2:15 PM EDT Office Visit Hematology/Oncology [facility] [address] [facility] [place] [id number] Sotero Price MD [address] [facility] [place] [address] 08/11/2024 1:00 PM EDT Office Visit [facility] [address] [place] [facility] [place] [phone] Marie Underwood MD [address] [place] [address] Health Maintenance Due Date Last Done Comments Alpha-1 Antitrypsin 1958 COVID-19 Vaccine (2022-24 season) 2023 09/02/2021, 01/18/2021, 12/23/2020 CKD PHOS USE SMARTSET 25474 09/04/2023 09/04/2022 CKD HGB USE SMARTSET 69550 11/11/202411/11, 11/11/2023, 10/12/2023, Additional history exists Albumin/Creatinine [...] D LEVEL ONCE IN A LIFETIME-USE SMARTSET# [id number] Completed 10/12/2023, 06/30/2021, 08/03/2017, Additional history exists [...] filedocumented as of this encounter Care Teams Director Life Insurance Relationship Specialty Start Date End Date Marie Underwood MD [address] [place] [facility] [place] [facility] [place] [address] PCP - General Internal Medicine 07/09/23 documented as of this encounter
[2024-09-26] MEDS: ADVANCED PROBIOTIC 625 MG CAPSULE PO SCH (14:25)
[2024-09-26] MEDS: FUROSEMIDE 40 MG/4 ML VIAL IV SCH (14:25)
[2024-09-26] MEDS: ACETAMINOPHEN 325 MG TAB PO PRN (20:08)
[2024-09-26] MEDS: APIXABAN 2.5 MG TAB PO SCH (20:08)
[2024-09-26] MEDS: CETIRIZINE HCL 10 MG TABLET PO SCH (20:08)
[2024-09-27 09:10] LABS: Hematocrit (blood only) 32.2 % (37.0-47.0); Hemoglobin 10.9 g/dl (12.0-16.0); Mean Corpuscular Hemoglobin 34.1 pg (25.0-34.0); Mean Corpuscular Hgb Conc 33.9 g/dL (32.0-36.0); Mean Corpuscular Volume 100.6 fL (80.0-100.0); Mean Platelet Volume 10.6 fL (9.4-12.4); Platelet Count 237 K/uL (130-400); RDW Coefficient of Variation 14.3 % (11.5-14.5); RDW Standard Deviation 52.7 fL (36.4-46.3); White Blood Count 3.97 K/ul (4.8-10.8)
[2024-09-27 09:29] LABS: BUN Creatinine Ratio 33.3 (10-20); Calcium 9.5 mg/dl (8.6-10.3); Creatinine Clr Calc Pharmacy 22.8 ml/min; Phosphorus 4.1 mg/dl (2.5-4.9); Potassium 3.9 mmol/L (3.5-5.1)
[2024-09-27] MEDS: CHOLECALCIFEROL 25 MCG (1000 UNITS) TAB PO SCH (09:40)
[2024-09-27] MEDS: ASCORBIC ACID 500 MG TAB PO SCH (09:40)
[2024-09-27] MEDS: EMPAGLIFLOZIN 10 MG TAB PO SCH (09:40)
[2024-09-27] MEDS: CEROVITE ADV FORMULA TAB PO SCH (09:41)
[2024-09-27] MEDS: MONTELUKAST SODIUM 10 MG TABLET PO SCH (09:41)
[2024-09-27] MEDS: FLUTICASONE PROPIONATE NA SPR 16 GM BTL SCH (09:41)
[2024-09-27] MEDS: LOSARTAN POTASSIUM 25 MG TAB PO SCH (09:41)
[2024-09-27] MEDS: PSYLLIUM or GUAR GUM FIBER 4GM PACKET PO SCH (09:42)
[2024-09-27] MEDS: TORSEMIDE 10 MG TAB PO SCH (10:55)
[2024-09-27] MEDS: cefTRIAXone SODIUM 1,000 MG/50 ML BAG IV SCH (10:55)
--- NOTE | 2024-09-27 12:05 | Hospitalist Progress Note ---
Date of Service September 27, 2024 Assessment & Plan (1) Unspecified open wound, left foot, initial encounter: (2) Chronic diastolic CHF (congestive heart failure): (3) Pulmonary HTN: (4) Mitral regurgitation: (5) Severe tricuspid regurgitation: (6) Chronic venous insufficiency of lower extremity: (7) CKD (chronic kidney disease), stage III: (8) COPD (chronic obstructive pulmonary disease): (9) HTN (hypertension): (10) Paroxysmal A-fib: (11) MDS (myelodysplastic syndrome): Plan Patient initially presented with concerns of lower extremity edema and the foot wound. Today essentially no edema to lower extremities. No evidence of significant lower extremity cellulitis. Transition to oral Keflex Transition back to oral diuretics slightly increased dose Okay to [facility] Consult wound care Case management for discharge planning Compression stockings to lower extremities Updated daughter via phone, she reports that she lives in a [id number] and right next to the patient. But would be agreeable to home health/home wound care if recommended. Admission and Anticipated Discharge Date Admission Date: September 26, 2024 Subjective Patient seems most concerned about the wounds on her left dorsal surface of her second and third toes. Denies any shortness of breath. Physical Exam Physical Exam: Constitutional: Alert, somewhat frail HEENT: Mucous membranes moist. Lungs: Clear to auscultation, decreased, no wheezes rales or rhonchi CV: S1-S2, irregular Abdomen: Soft, nontender, nondistended Extremities: No significant edema, no evidence of cellulitis, chronic venous stasis skin changes, bandage over wounds of toe. Neuro: No focal deficits, generalized weakness Psych: Cooperative, normal mood Results & Data Results & Data Vital Signs (Past 12 Hours) Vital Signs Temp Pulse Pulse Resp BP Pulse Ox O2 Del Method 09/27/24 11:23 36.5 C 98 H 18 108/66 98 Room Air 09/27/24 08:00 62 09/27/24 07:58 36.6 C 85 16 147/86 H 97 Room Air 09/27/24 02:54 36.6 C 60 18 129/66 98 Room Air Diagnostic Findings Reviewed imaging, laboratory and diagnostic studies. Pertinent findings as below. WBCs 3.9 Hemoglobin 10.9 Platelets 237 Electrolytes stable BUN 37 Creatinine 1.1 Glucose stable MRSA screen negative (7) CKD (chronic kidney disease), stage III Chronic kidney disease stage 3 subtype: unspecified whether 3a or 3b [place] lified Code(s): N18.30 - Chronic kidney disease, stage 3 unspecified
[2024-09-27] MEDS: cephALEXin 500 MG CAP PO SCH (21:45)
[2024-09-27 23:15] VITALS: RESP 18
[2024-09-28 07:48] VITALS: TEMP 98.1
[2024-09-28 07:51] LABS: BUN Creatinine Ratio 30.6 (10-20); Calcium 9.2 mg/dl (8.6-10.3); Creatinine Clr Calc Pharmacy 20.9 ml/min; Potassium 3.8 mmol/L (3.5-5.1)
--- NOTE | 2024-09-28 11:00 | Discharge Summary ---
Discharge Summary Date of Service September 28, 2024 Principal Dx & Hospital Course #1 = Principal Diagnosis (1) Unspecified open wound, left foot, initial encounter: (2) Chronic diastolic CHF (congestive heart failure): (3) Pulmonary HTN: (4) Mitral regurgitation: (5) Severe tricuspid regurgitation: (6) Chronic venous insufficiency of lower extremity: (7) CKD (chronic kidney disease), stage III: (8) COPD (chronic obstructive pulmonary disease): (9) HTN (hypertension): (10) Paroxysmal A-fib: (11) MDS (myelodysplastic syndrome): Plan Patient presented to the emergency room from her PCPs office with concerns of increasing leg swelling over the past couple weeks and some blisters on her toes concerned that they were not improving oral doxycycline. Patient was admitted to the hospital. Given some antibiotics. She was given some additional IV diuretic. By the following day there was absolutely no edema in the lower extremity. There was no significant signs of cellulitis in the lower extremity. There are some mild redness around the toe blisters on her left foot. This was seen by wound care. They made dressing recommendations it is cleansing the wound daily and keeping it clean and dry. She was transition to oral Keflex. Additional history from the patient it was discovered that the patient was only taking the full dose of torsemide 20 mg 3-4 times per week other days of the week she was only taking half a tablet. I suspect this is why she was experiencing some lower extremity edema. Her renal function is released stable at her baseline but did increase slightly with the IV diuresis. In light of this history I feel that she does not necessarily need a higher dose of torsemide she just needs to take the 20 mg daily. This was reviewed with the patient. She completed short course of oral antibiotics. Case management was involved in her care and to help coordinate home health care and wound care follow-up to follow these blisters on her foot. She be discharged home to follow-up with outpatient providers. Notes For Next Care Provider Medication Changes From Visit Keflex for mild infection of blisters on toes Admission HPI Per Admitting Provider Karina Juarez is an 83y/o F with PMHx significant for asthma, bilateral pleural effusion, nocturnal hypoxemia, COPD, chronic diastolic heart failure due to valvular disease, moderate mitral regurgitation, severe tricuspid regurgitation, tachy-karen syndrome s/p pacemaker placement, permanent atrial fibrillation s/p multiple failed cardioversions [on Eliquis], moderate pulmonary hypertension, HTN, chronic venous insufficiency, GERD with esophagitis, CKD stage III, osteoporosis, myelodysplastic syndrome with mild chronic anemia [baseline Hgb ~9-11] and diverticulosis who presented to the ED via referral by her PCP due to worsening LLE edema and cellulitis. History obtained from patient and associated chart review. Patient seen at bedside with Dr. Quinteros. Patient reports worsening edema in her BLE over the past year; however, this has gotten worse over the past week or so - particularly in her LLE. Patient recently had her dose of torsemide doubled (40mg daily) by her PCP last week with mild improvement in her LLE edema. She has some blisters on her L toes, which she first noticed about 1-2 weeks ago - therefore she has only been wearing a compression stocking on her RLE. She does note some neuropathic pain in her BLE. Denies any recent cough/congestion or SOB. Patient was recently on oral doxycycline course for LLE cellulitis without any significant improvement. She notes tenderness to palpation of her LLE and she still has some erythema in this region. No fevers or chills at home. She does not smoke but reports she drinks 1 glass of wine/day. She lives by herself at home but her daughter lives right next door. No CPAP or BiPAP use at night. She does not use any assistive devices for ambulation. She is now s/p 2g IV Rocephin in the ED. Admission Exam Per Admitting Provider See H&P Discharge Exam Constitutional: Alert HEENT: Mucous membranes moist. Lungs: Clear to auscultation, decreased, no wheezes rales or rhonchi CV: S1-S2, irregular Abdomen: Soft, nontender, nondistended Extremities: No significant edema, skin wrinkly and loose. Blisters on left second and third toe less red, starting to dry out, no evidence of worsening/progressing cellulitis Neuro: No focal deficits Psych: Cooperative, normal mood Updated Medication List Medication Instructions Recorded Confirmed Type albuterol sulfate 90 mcg/actuation 2 puff inhalation Q6H PRN 01/19/19 09/26/24 History aerosol inhaler (Ventolin HFA) Shortness Of Breath psyllium 1 packet PO DAILY 02/04/22 09/26/24 History temazepam 30 mg capsule (Restoril) 30 mg PO HS PRN Insomnia 02/04/22 09/26/24 History apixaban 2.5 mg tablet (Eliquis) 2.5 mg PO BID 12/03/23 09/26/24 History ascorbate calcium (vitamin C) 500 500 mg PO DAILY 12/03/23 09/26/24 History mg tablet cholecalciferol (vitamin D3) 50 50 mcg PO DAILY 12/03/23 09/26/24 History mcg (2,000 unit) capsule empagliflozin 10 mg tablet 10 mg PO DAILY 12/03/23 09/26/24 History levalbuterol tartrate 45 2 inh inhalation Q6H 12/03/23 09/26/24 History mcg/actuation aerosol inhaler losartan 25 mg tablet 12.5 mg PO DAILY 12/03/23 09/26/24 History montelukast 10 mg tablet 10 mg PO DAILY 12/03/23 09/26/24 History omwglzcc-uir- 250 mg-dha 90 1 cap PO DAILY 12/03/23 09/26/24 History mg-epa 160 zb-zbuv-inrl-zeax capsule (Ocuvite Adult 50 Plus) torsemide 20 mg tablet 20 mg PO DAILY 12/03/23 09/26/24 History fluticasone propionate 50 2 spray intranasal DAILY 09/26/24 09/26/24 History mcg/actuation nasal spray,suspension levocetirizine 5 mg tablet 5 mg PO HS 09/26/24 09/26/24 History cephalexin 500 mg capsule 500 mg PO BID 5 days #10 caps 09/28/24 Rx Hospital Stay Data Consultations 09/26/24 11:25 ED Decision to Admit Stat Diagnostic Imagining Performed 09/26/24 09:19 US venous doppler LE LT Urgent Reviewed imaging, laboratory and diagnostic studies. Pertinent findings as below. Sodium 143 Potassium 3.8 Creatinine 1.2 Glucose 99 Venous Doppler study negative for DVT Pending Results Patient Have Any Pending Studies at Discharge: No Discharge Instructions Given to Patient (Per Discharging Provider) Wound care for left foot blisters: Clean using saline and a 30 cc syringe and 18-gauge blunt needle. Place Kaltostat between toes and over blisters and cover with gauze and Kerlix. Change dressing daily and as needed. Follow-up with wound clinic as scheduled below Home health care will be following with you as well Call 911 and go to the Emergency Room if: * You have tightness or pain in your chest that does not go away with rest or Nitroglycerin * You are very short of breath even with rest Call your doctor if any of the following symptoms or problems start or get worse: * Shortness of breath or difficulty breathing * Wake up at night short of breath * Chest pain * Cough * Swelling of your hands, fee, or legs * More fatigued or tired with your normal activity * Palpitations - sudden fast heart beats WEIGHT * Weigh yourself every morning after using the bathroom. * Use the same scale. * Wear the same amount of clothing. * Write your weight down on your chart. * Call your doctor if you gain more than 2-3 pounds in 1-2 days. MEDICATIONS * Use this discharge instruction sheet for instructions. * Take your medications at the time your doctor ordered. * Do not skip a dose of your medicines. * If you miss a dose of medicine, take as soon as possible, but DO NOT DOUBLE A DOSE. * Read your medicine information when you get home. * Know all of the side effects of your medicine. * Call your doctor's office if you have any side effects. * Be sure all of your doctors know what medicine and herbs you take (including cold, flu, and herbal medicine). * Pain Medicine: If you do not get relief from your pain, please call your doctor for help. Take the following with you to your follow-up doctor appointments: * Weight Chart * Medication List * List of questions Do not drink excessive alcohol, beer or wine. Home Health Attestation I certify that this patient is under my care and that I, or a physicians night assistant working with me, had a face to-face encounter that meets the home health [id number] encounter requirements with this patient. The encounter with the patient was in whole, or in part, for the following medical condition, which is the primary reason for home health care (list medical condition): I certify that, based on my findings, the following services are medically necessary home health services: My clinical findings support the need for the above services because: Further, I certify that my clinical findings support that this patient is homebound (i.e. absences from home require considerable and taxing effort and are for medical reasons or baptism services or infrequently or of short duration when for other reasons) because: Certification for Home Health Services: Based on the above findings, I certify that this patient is confined to the home and needs intermittent correction care, physical therapy and/or speech therapy or continues to need occupational therapy. The patient is under my care, and I have initiated the establishment of the plan of care. This patient will be followed by a physician who will periodically review the plan of care. Total Time Total Time Spent Total Time Spent (In Minutes): 32
[2024-09-28 11:41] VITALS: BP 96/62; PULSE 67; O2SAT 98
== END 2024-09-28 12:30 | disposition home health service (06) | DRG 603 ==
LOC: ED 08:24 → 2N 11:43 → SUATTDRO 11:43 → 2N 12:58